=== PATIENT | male | born 1930 | race Caucasian/White ===

== ENCOUNTER 2016-10-17 20:32 | Emergency (ER) | payer OTHER ==
--- NOTE | 2016-10-17 20:39 | PDOC ---
History of Present Illness - General History Source: Patient, EMS, Family Exam Limitations: Dementia - History of Present Illness Initial Comments: 10/17/16 20:49 The patient is an 86 year old male with past medical history of Alzheimers disease who arrives to the ED via EMS for abnormal lab value. 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 The patient was instructed to come to the ER for further evaluation. In the ED, the patient is asymptomatic. The patient's son denies any recent illness, fever, chills, nausea , vomiting, diarrhea, cough, shortness of breath, or chest pain. He denies any urinary symptoms. PAST MEDICAL HISTORY: no significant history PAST SURGICAL HISTORY: no significant history FAMILY HISTORY: no pertinent history SOCIAL HISTORY: Pt lives alone but as per son, has frequent nurses and aides. MEDICATIONS: reviewed ALLERGIES: As per nursing notes Data Conversion Operator: Dr. Swift General: No fevers or chills, no weakness, no weight loss HEENT: No change in vision. No sore throat,. No ear pain CardioVascular: No chest pain or shortness of breath Respiratory:No cough, or wheezing. Gastrointestinal: no nausea, vomiting, diarrhea or constipation, No rectal bleeding Genitourinary: No dysuria, hematuria, or frequency Musculoskeletal: No joint or muscle pain or swelling Neurologic: No headache, vertigo, dizziness or loss of consciousness Psychiatric: nor depression Skin: No rashes or easy bruising Endocrine: no increased thirst or abnormal weight change Allergic: no skin or latex allergy All other systems reviewed and normal GENERAL: The patient is awake, alert, and fully oriented, in no acute distress. HEAD: Normal with no signs of trauma. EYES: Pupils equal, round and reactive to light, extraocular movements intact, sclera anicteric, conjunctiva clear. EXTREMITIES: Normal range of motion, no edema. PSYCH: Normal mood, normal affect. SKIN: Warm, Dry, normal turgor, no rashes or lesions noted. <Pushpa Baker - Last Filed: 10/17/16 20:51> - General History Source: Family Exam Limitations: Dementia - History of Present Illness Initial Comments: 10/17/16 21:13 A portion of this note was documented by scribe services under my direction. I have reviewed the details of the note, within reason, and agree with the documentation. The case summary and management plan written by me. This is an 86-year-old male brought in by son for evaluation of an elevated potassium. Patient had blood work done today and his potassium can back 5.7. His cloth colorer told him to come to the ER for evaluation. His repeat potassium was 5.4. EKG showed atrial fibrillation with left bundle branch block no peak T waves or acute ST-T wave changes. Called Dr. Villegas who is the covering doctor for his cloth colorer. Patient does have a left bundle branch block atrial fibrillation at his baseline as well as a renal insufficiency. Dr. Villegas feels patient can be discharged and let Dr. Leo note to follow-up with patient in the morning. <Jin Crawford I - Last Filed: 10/17/16 21:41> - General Chief Complaint: Revisit, Lab Variance Stated Complaint: K+ ELEVATED Time Seen by Provider: 10/17/16 20:38 Past History <Pushpa Baker - Last Filed: 10/17/16 20:51> - Past Medical History Cardiac Disorders: Yes (ATRIAL FIBRILLATION) CVA: Yes (01/2015) COPD: Yes CHF: No Dementia: Yes Diabetes: No HTN: No - Psycho/Social/Smoking Cessation Hx Anxiety: No Suicidal Ideation: No Smoking Status: Yes Smoking History: Former smoker Have you smoked in the past 12 months: No Number of Cigarettes Smoked Daily: 0 If you are a former smoker, when did you quit?: 50 years Hx Alcohol Use: Yes Drug/Substance Use Hx: No Substance Use Type: Alcohol <Jin Crawford I - Last Filed: 10/17/16 21:41> - Past Medical History Allergies/Adverse Reactions: Allergies Allergy/AdvReac Type Severity Reaction Status Date / Time Penicillins Allergy Hives Verified 10/29/15 15:51 Home Medications: Ambulatory Orders Donepezil HCl [Aricept] 10 mg PO DAILY 11/14/14 Quetiapine Fumarate [Seroquel -] 12.5 mg PO HS #14 tablet 02/21/15 Albuterol Sulfate Inhaler - [Ventolin HFA Inhaler -] 2 inh PO Q4H PRN #1 inh 04/13 Cefuroxime Axetil [Ceftin -] 500 mg PO BID #14 tablet 11/06/15 Docusate Sodium [Colace -] 100 mg PO TID capsule 11/06/15 Furosemide [Lasix -] 40 mg PO DAILY #30 tablet 11/06/15 Lactobacillus Acidophilus [Bacid -] 1 tab PO DAILY tab 11/06/15 Warfarin Na [Coumadin -] 1.5 mg PO DAILY #30 tablet 11/06/15 *Physical Exam - Vital Signs Last Vital Signs Temp Pulse Resp BP Pulse Ox 98 F 81 20 127/78 98 10/17/16 20:35 10/17/16 20:35 10/17/16 20:35 10/17/16 20:35 10/17/16 20:35 <Psuhpa Baker - Last Filed: 10/17/16 20:51> ED Treatment Course - LABORATORY CBC & Chemistry Diagram: 10/17/16 20:46 <Pushpa Baker - Last Filed: 10/17/16 20:51> - LABORATORY CBC & Chemistry Diagram: 10/17/16 20:46 <Jin Crawford I - Last Filed: 10/17/16 21:41> *DC/Admit/Observation/Transfer - Attestations Scribe Attestion: 10/17/16 20:50 Documentation prepared by Pushpa Baker, acting as emergency medical technician/driver for Jin Crawford MD. <Pushpa Baker - Last Filed: 10/17/16 20:51> - Discharge Dispostion Admit: No <Jin Crawford I - Last Filed: 10/17/16 21:41> Diagnosis at time of Disposition: Abnormal laboratory test result - Discharge Dispostion Disposition: HOME Condition at time of disposition: Stable - Referrals Referrals: STAFF,NOT ON [Primary Care Provider] - - Patient Instructions Additional Instructions: Your repeat potassium tonight was 5.4.. Call your doctor in the morning and follow-up with your doctor. Return to the emergency department immediately with ANY new, persistent or worsening symptoms. Continue any medications as previously prescribed by your physician. You should follow up with your primary doctor as soon as possible regarding today's emergency department visit. . Please make sure your doctor reviews the results of your emergency evaluation. Thank you for coming to the Emergency Department today for your care. It was a pleasure to see you today. Please note that your evaluation is INCOMPLETE until you follow-up with your doctor.
[2016-10-17 20:49] VITALS: BP 127/78; PULSE 81; TEMP 98; BMI 27.4
[2016-10-17 21:09] LABS: ANION GAP 9 (8-16); CO2 21 mmol/L (22-28); CREATININE 1.5 mg/dl (0.6-1.3); GLUCOSE,RANDOM 149 mg/dl (74-106)
--- NOTE | 2016-10-21 10:01 | EKG ---
Test Reason : Blood Pressure : / mmHG Vent. Rate : 093 BPM Atrial Rate : 085 BPM P-R Int : 000 ms QRS Dur : 158 ms QT Int : 418 ms P-R-T Axes : 000 -31 140 degrees QTc Int : 519 ms ATRIAL FIBRILLATION LEFT AXIS DEVIATION LEFT BUNDLE BRANCH BLOCK WHEN COMPARED WITH ECG OF 15-FEB-2015 10:01, ATRIAL FIBRILLATION HAS REPLACED SINUS RHYTHM QRS VOLTAGE HAS DECREASED Confirmed by MD KEVIN, CARLOS MANUEL ([id number]) on 10/21/2016 10:01:11 AM Referred By: MD LINDSEY Confirmed By:CARLOS MANUEL BROWN MD
== END 2016-10-17 21:51 | disposition home or self-care (01) ==
LOC: FER 20:32
DX: R79.9 Abnormal finding of blood chemistry, unspecified (principal); G30.9 Alzheimer's disease, unspecified; F02.80 Dementia in other diseases classified elsewhere, unspecified severity, without behavioral disturbance, psychotic disturbance, mood disturbance, and anxiety; I48.91 Unspecified atrial fibrillation; J44.9 Chronic obstructive pulmonary disease, unspecified; Z87.891 Personal history of nicotine dependence; Z86.73 Personal history of transient ischemic attack (TIA), and cerebral infarction without residual deficits
CPT/HCPCS: 36415; 80048; 93005; 99281-25

== ENCOUNTER 2016-11-25 14:49 | Inpatient (IN) | payer OTHER ==
--- NOTE | 2016-11-25 15:37 | PDOC ---
History of Present Illness - General History Source: Patient Exam Limitations: No Limitations - History of Present Illness Initial Comments: 11/25/16 16:14 The patient is a 86 year old male, with a significant past medical history of Alzheimer's disease, CVA (01/2015), COPD, Afib (on coumadin), and HTN , who presents to the emergency department s/p mechanical fall. The patients son reports the pt fell while seated at the end of the bed, he was able to be assisted to the bathroom with his son. He reports being able to get with assistance from his son, and has been unable to walk using his right hip since his fall. The fall was unwitnessed, but the patient's son reports hearing the fall and finsing the patient on the floor. There was no head injury, LOC as the son immediately arrived. The patient reports as a result of the fall having right hip pain, ranking his pain a 9/10 in pain intensity. He denies any recent fevers, chills, headache or dizziness. He denies any recent nausea, vomit, diarrhea or constipation. History and ROS may be limited due to dementia Allergies: Penicillins. Past surgical history: Denies any history of orthopedic surgery. Social History: Former smoker (over 40 years ago). Denies EtOH use and recreational drug use. Lives with son. <Gee Hernandez - Last Filed: 11/25/16 18:42> <Randy English - Last Filed: 11/25/16 19:45> - General Chief Complaint: Injury Stated Complaint: RT HIP, FELL OUT OF BED Time Seen by Provider: 11/25/16 14:59 Past History <Gee Hernandez - Last Filed: 11/25/16 18:42> - Past Medical History Cardiac Disorders: Yes (ATRIAL FIBRILLATION) CVA: Yes (01/2015) COPD: Yes CHF: No Dementia: Yes Diabetes: No HTN: No - Psycho/Social/Smoking Cessation Hx Anxiety: No Suicidal Ideation: No Smoking Status: Yes Smoking History: Former smoker Have you smoked in the past 12 months: No Number of Cigarettes Smoked Daily: 0 If you are a former smoker, when did you quit?: 50 years Information on smoking cessation initiated: No Hx Alcohol Use: No Drug/Substance Use Hx: No Substance Use Type: Alcohol <Randy English - Last Filed: 11/25/16 19:45> - Past Medical History Allergies/Adverse Reactions: Allergies Allergy/AdvReac Type Severity Reaction Status Date / Time Penicillins Allergy Hives Verified 11/25/16 14:50 Home Medications: Ambulatory Orders Donepezil HCl [Aricept] 10 mg PO DAILY 11/14/14 Quetiapine Fumarate [Seroquel -] 12.5 mg PO HS #14 tablet 02/21/15 Albuterol Sulfate Inhaler - [Ventolin HFA Inhaler -] 2 inh PO Q4H PRN #1 inh 04/13 Docusate Sodium [Colace -] 100 mg PO TID capsule 11/06/15 Furosemide [Lasix -] 40 mg PO DAILY #30 tablet 11/06/15 Lactobacillus Acidophilus [Bacid -] 1 tab PO DAILY tab 11/06/15 Warfarin Na [Coumadin -] 1.5 mg PO DAILY #30 tablet 11/06/15 Review of Systems - Review of Systems Able to Perform ROS?: No (Dementia) <Gee Hernandez - Last Filed: 11/25/16 18:42> *Physical Exam - Vital Signs Last Vital Signs Temp Pulse Resp BP Pulse Ox 97.8 F 68 21 136/64 90 L 11/25/16 14:50 11/25/16 14:50 11/25/16 14:50 11/25/16 14:50 11/25/16 14:50 - Physical Exam Comments: 11/25/16 16:14 GENERAL: The patient is awake, alert, and oriented x 2 Nontoxic - in no acute distress. HEAD: Normocephalic, atraumatic. EYES: extraocular movements intact, sclera anicteric, conjunctiva clear. ENT: Normal voice, Moist mucous membranes. NECK: Normal range of motion, supple LUNGS: Breath sounds equal, clear to auscultation bilaterally. No wheezes, no rhonchi, no rales. HEART: irregularly irergular ABDOMEN: Soft, nontender, normoactive bowel sounds. No guarding, no rebound. . No CVA tenderness EXTREMITIES: externally rotated shortend RLE, pulses/sensation intact distally, unable to ROM due to pain, normal movment of RLE/hip/knee, NEUROLOGICAL: No facial assymetry, Normal speech, PSYCH: Normal mood, normal affect. SKIN: Warm, Dry, normal turgor, <Gee Hernandez - Last Filed: 11/25/16 18:42> - Vital Signs Last Vital Signs Temp Pulse Resp BP Pulse Ox 97.8 F 68 21 136/64 90 L 11/25/16 14:50 11/25/16 14:50 11/25/16 14:50 11/25/16 14:50 11/25/16 14:50 <Randy English - Last Filed: 11/25/16 19:45> ED Treatment Course - LABORATORY CBC & Chemistry Diagram: 11/25/16 15:45 11/25/16 15:45 <Gee Hernandez - Last Filed: 11/25/16 18:42> - LABORATORY CBC & Chemistry Diagram: 11/25/16 15:45 11/25/16 15:45 - RADIOLOGY Radiology Studies Ordered: Category Date Time Status CHEST X-RAY PORTABLE* [RAD] Stat Radiology 11/25/16 15:33 Ordered HIP & PELVIS-RIGHT [RAD] Stat Radiology 11/25/16 15:33 Ordered <Randy English - Last Filed: 11/25/16 19:45> Medical Decision Making - Medical Decision Making 11/25/16 18:42 Call made to , case discussed. <Gee Hernandez - Last Filed: 11/25/16 18:42> - Medical Decision Making 11/25/16 15:34 86y M hx of dementia, afib on coumadin, copd (not on home o2), cva presents with R leg pain, per son pt was sitting on the bed when he felt to the right side, he was able to assist the pt to to the bathroom but hte pt was unable to get up on his own. no head injury per son who saw the fall. On exam the pt is noted to have external rotated and shortend R hip that seems very painful to any movement will r/o fx pt also noted to be in afib, with HR that ranged from the 40s-60s, bp was normal pts o2 sat was 90-93% on RA will obtain xra to r/o fx cxr to r/o pna vbg to eval for hypercapnea vs copd A portion of this note was documented by scribe services under my direction. I have reviewed the details of the note, within reason, and agree with the documentation with the following case summary and management plan written by me 11/25/16 18:24 xray suggestive of R femoral neck fx fracture, will admit for further management 11/25/16 18:[address] kapoor and dr. bagley will admit to dr. hernández service Case discussed in detail with admitting physician including history, physical exam and ancillary studies. Admitting physician has assumed care for the patient, will follow all pending diagnostics and will complete the evaluation and treatment. <Randy English - Last Filed: 11/25/16 19:45> *DC/Admit/Observation/Transfer - Attestations Scribe Attestion: 11/25/16 16:15 Documentation prepared by Gee Hernandez, acting as medical review specialist for Randy English MD. <Gee Hernandez - Last Filed: 11/25/16 18:42> - Discharge Dispostion Admit: Yes <Randy Egnlish - Last Filed: 11/25/16 19:45> Diagnosis at time of Disposition: Bradycardia Fractured femoral neck Qualifiers: Encounter type: initial encounter Fracture type: closed Laterality: right Qualified Code(s): S72.001A - Fracture of unspecified part of neck of right femur, initial encounter for closed fracture Atrial fibrillation Qualifiers: Atrial fibrillation type: chronic Qualified Code(s): I48.2 - Chronic atrial fibrillation - Discharge Dispostion Condition at time of disposition: Stable
[2016-11-25] MEDS ORDERED: morphine CARPU-JECT 2 MG/1 ML DISP.SYRIN ONE ×2 (15:40→17:53)
[2016-11-25 16:18] LABS: URINE APPEARANCE Clear; URINE BILIRUBIN Negative (NEGATIVE); URINE BLOOD Trace-intact (NEGATIVE); URINE GLUCOSE (UA) Negative (NEGATIVE); URINE KETONE Negative (NEGATIVE); URINE LEUK ESTERASE Negative (NEGATIVE); URINE NITRITE Negative (NEGATIVE); URINE UROBILINOGEN 1.0 E.U/dl (0.2-1.0)
[2016-11-25 16:19] LABS: URINE COLOR YELLOW; URINE PROTEIN 2+ (NEGATIVE)
[2016-11-25 16:23] LABS: BASOPHIL 0.5 % (0-2.0); EOSINOPHIL 1.6 % (0-4.5); MCH 30.3 pg (25.7-33.7); MCHC 32.8 g/dl (32.0-35.9); MEAN CELL VOLUME 92.5 fl (80-96); MEAN PLT VOLUME 8.4 fl (7.5-11.1); NEUTROPHILS 82.4 % (42.8-82.8); PLATELET COUNT 148 K/MM3 (134-434); RDW 19.1 % (11.9-15.9); WHITE BLOOD COUNT 5.8 K/mm3 (4.0-10.8)
[2016-11-25 16:33] LABS: ALBUMIN 2.9 g/dl (3.5-5.0); ALK PHOS 152 U/L (32-92); ANION GAP 7 (8-16); CO2 24 mmol/L (22-28); CREATININE 1.2 mg/dl (0.6-1.3); GLUCOSE,RANDOM 96 mg/dl (74-106); MAGNESIUM 2.1 mg/dL (1.8-2.4); SGOT/AST 32 U/L (10-42); SGPT/ALT 24 U/L (10-40)
[2016-11-25] MEDS ORDERED: morphine CARPU-JECT 2 MG/1 ML DISP.SYRIN IVPUSH ONE ×2 (16:43→17:52)
[2016-11-25 16:48] LABS: VENOUS BLOOD GAS HCO3 25.6 meq/L (22-26); VENOUS PH 7.36 (7.35-7.45)
[2016-11-25 16:51] LABS: INR 1.63 (0.82-1.09); PROTHROMBIN TIME (PATIENT) 18.1 SEC (10.2-13.0)
[2016-11-25 17:13] LABS: TROPONIN I (DFP) 0.05 ng/ml (0.03-0.50)
[2016-11-25] MEDS ORDERED: QUEtiapine FUMARATE 25 MG TABLET (FP) PO ONE (19:40)
[2016-11-25] MEDS ORDERED: QUEtiapine FUMARATE 25 MG TABLET (FP) ONE (19:53)
--- NOTE | 2016-11-25 19:57 | HP ---
CHIEF COMPLAINT: Non-ambulatory, Pain to R-leg PCP: HISTORY OF PRESENT ILLNESS: This is a 86 y/o male with a past medical history of: Hypertension, Afib (on Coumadin), COPD, Dementia. Who presents from home s/p mechanical fall non- ambulatory, pain to R-leg x today. Patient has Dementia unable to provide HPI. Per ED record: The patient's son reports the pt fell while seated at the end of the bed, he was able to be assisted to the bathroom with his son. He reports being able to get with assistance from his son, and has been unable to walk using his right hip since his fall. The fall was unwitnessed, but the patient's son reports hearing the fall and finding the patient on the floor. There was no head injury, LOC as the son immediately arrived. The patient reports as a result of the fall having right hip pain, ranking his pain a 9/10 in pain intensity. He denies any recent fevers, chills, headache or dizziness. He denies any recent nausea, vomit, diarrhea or constipation. ER course was notable for: (1) R- Hip/Pelvic Xray: Acute Right Hip Fx (2) INR 1.63 (3) Recent Travel: None PAST MEDICAL HISTORY: HTN Afib COPD Dementia PAST SURGICAL HISTORY: Social History: Smoking: Former Alcohol: Former Drugs: Unknown Family History: Non-Contributory Allergies Penicillins Allergy (Verified 11/25/16 14:50) Hives HOME MEDICATIONS: Home Medications Medication Instructions Recorded Donepezil HCl [Aricept] 10 mg PO DAILY 11/14/14 Quetiapine Fumarate [Seroquel -] 12.5 mg PO HS #14 tablet 02/21/15 Albuterol Sulfate Inhaler - 2 inh PO Q4H PRN #1 inh 11/06/15 [Ventolin HFA Inhaler -] Docusate Sodium [Colace -] 100 mg PO TID capsule 11/06/15 Furosemide [Lasix -] 40 mg PO DAILY #30 tablet 11/06/15 Lactobacillus Acidophilus [Bacid -] 1 tab PO DAILY tab 11/06/15 Warfarin Na [Coumadin -] 1.5 mg PO DAILY #30 tablet 11/06/15 REVIEW OF SYSTEMS CONSTITUTIONAL: Absent: fever, chills, diaphoresis, generalized weakness, malaise, loss of appetite, weight change HEENT: Absent: rhinorrhea, nasal congestion, throat pain, throat swelling, difficulty swallowing, mouth swelling, ear pain, eye pain, visual changes CARDIOVASCULAR: Absent: chest pain, syncope, palpitations, irregular heart rate, lightheadedness , peripheral edema RESPIRATORY: Absent: cough, shortness of breath, dyspnea with exertion, orthopnea, wheezing, stridor, hemoptysis GASTROINTESTINAL: Absent: abdominal pain, abdominal distension, nausea, vomiting, diarrhea, constipation, melena, hematochezia GENITOURINARY: Absent: dysuria, frequency, urgency, hesitancy, hematuria, flank pain, genital pain MUSCULOSKELETAL: Right Hip pain Absent: myalgia, arthralgia, joint swelling, back pain, neck pain SKIN: Absent: rash, itching, pallor HEMATOLOGIC/IMMUNOLOGIC: Absent: easy bleeding, easy bruising, lymphadenopathy, frequent infections ENDOCRINE: Absent: unexplained weight gain, unexplained weight loss, heat intolerance, cold intolerance NEUROLOGIC: Absent: headache, focal weakness or paresthesias, dizziness, unsteady gait, seizure, mental status changes, bladder or bowel incontinence PSYCHIATRIC: Absent: anxiety, depression, suicidal or homicidal ideation, hallucinations. PHYSICAL EXAMINATION Vital Signs - 24 hr 11/25/16 11/25/16 11/25/16 14:50 14:55 15:30 Temperature 97.8 F Pulse Rate 68 50 L Pulse Rate [ 48 L Left Apical] Respiratory 21 22 Rate Blood Pressure 136/64 Blood Pressure 104/55 [Right Arm] O2 Sat by Pulse 90 L 97 97 Oximetry (%) 11/25/16 16:30 Temperature Pulse Rate Pulse Rate [ 51 L Left Apical] Respiratory 21 Rate Blood Pressure Blood Pressure 124/70 [Right Arm] O2 Sat by Pulse 97 Oximetry (%) GENERAL: Awake, alert, oriented to name only, in no acute distress. HEAD: Normal with no signs of trauma. EYES: Pupils equal, round and reactive to light, extraocular movements intact, sclera anicteric, conjunctiva clear. No lid lag. EARS, NOSE, THROAT: Ears normal, nares patent, oropharynx clear without exudates. Dry mucous membranes. NECK: Normal range of motion, supple without lymphadenopathy, JVD, or masses. LUNGS: Breath sounds equal, clear to auscultation bilaterally. No wheezes, and no crackles. No accessory muscle use. HEART: Irregular rate and rhythm, normal S1 and S2 without murmur, rub or gallop. ABDOMEN: Soft, nontender, not distended, normoactive bowel sounds, no guarding, no rebound, no masses. No hepatomegaly or splenomegaly. MUSCULOSKELETAL: Normal range of motion at RUE, LUE, LLE joints. No bony deformities. No CVA tenderness. + Right hip tenderness, slight shortening noted UPPER EXTREMITIES: 2+ pulses, warm, well-perfused. No cyanosis. No clubbing. No peripheral edema. LOWER EXTREMITIES: 2+ pulses, warm, well-perfused. No calf tenderness. No peripheral edema. NEUROLOGICAL: Cranial nerves II-XII intact. Normal speech. Gait not observed. PSYCHIATRIC: Dementia at baseline SKIN: Warm, dry, normal turgor, no rashes or lesions noted, normal capillary refill. Laboratory Results - last 24 hr 11/25/16 11/25/16 11/25/16 15:45 15:45 15:45 WBC 5.8 RBC 3.84 L Hgb 11.6 L Hct 35.5 MCV 92.5 MCHC 32.8 RDW 19.1 H D Plt Count 148 D MPV 8.4 D Neutrophils % 82.4 Lymphocytes % 4.3 L D Monocytes % 11.2 H Eosinophils % 1.6 Basophils % 0.5 INR 1.63 H D VBG pH POC VBG pCO2 POC VBG pO2 Mixed VBG HCO3 Sodium 139 Potassium 4.3 D Chloride 108 H Carbon Dioxide 24 Anion Gap 7 L BUN 28 H D Creatinine 1.2 Creat Clearance w eGFR 57.27 Random Glucose 96 D Calcium 9.0 Magnesium 2.1 Total Bilirubin 2.0 H D AST 32 D ALT 24 Alkaline Phosphatase 152 H Creatine Kinase Troponin I Total Protein 7.0 D Albumin 2.9 L D Urine Color Urine Appearance Urine pH Ur Specific [place] Urine Protein Urine Glucose (UA) Urine Ketones Urine Blood Urine Nitrite Urine Bilirubin Urine Urobilinogen Ur Leukocyte Esterase Blood Type Antibody Screen 11/25/16 11/25/16 11/25/16 15:45 15:45 15:45 WBC RBC Hgb Hct MCV MCHC RDW Plt Count MPV Neutrophils % Lymphocytes % Monocytes % Eosinophils % Basophils % INR VBG pH 7.36 POC VBG pCO2 46.0 H POC VBG pO2 38.8 L* Mixed VBG HCO3 25.6 Sodium Potassium Chloride Carbon Dioxide Anion Gap BUN Creatinine Creat Clearance w eGFR Random Glucose Calcium Magnesium Total Bilirubin AST ALT Alkaline Phosphatase Creatine Kinase 49 Troponin I 0.05 Total Protein Albumin Urine Color Yellow Urine Appearance Clear Urine pH 5.0 Ur Specific [place] 1.015 Urine Protein 2+ H Urine Glucose (UA) Negative Urine Ketones Negative Urine Blood Trace-intact Urine Nitrite Negative Urine Bilirubin Negative Urine Urobilinogen 1.0 e.u/dl Ur Leukocyte Esterase Negative Blood Type Antibody Screen 11/25/16 11/25/16 16:03 18:58 WBC RBC Hgb Hct MCV MCHC RDW Plt Count MPV Neutrophils % Lymphocytes % Monocytes % Eosinophils % Basophils % INR VBG pH POC VBG pCO2 POC VBG pO2 Mixed VBG HCO3 Sodium Potassium Chloride Carbon Dioxide Anion Gap BUN Creatinine Creat Clearance w eGFR Random Glucose Calcium Magnesium Total Bilirubin AST ALT Alkaline Phosphatase Creatine Kinase Troponin I Total Protein Albumin Urine Color Urine Appearance Urine pH Ur Specific [place] Urine Protein Urine Glucose (UA) Urine Ketones Urine Blood Urine Nitrite Urine Bilirubin Urine Urobilinogen Ur Leukocyte Esterase Blood Type AB POSITIVE AB POSITIVE Antibody Screen Negative ASSESSMENT/PLAN: This is a 86 y/o male with a PMHx of: HTN, Afib (on Coumadin), COPD, Dementia. Who presents with a mechanical fall, non-ambulatory, pain to R- hip. Admitted for R- Femoral Neck Fx for further evaluation for their emergent condition. 1. Ortho: R- Hip Fx - Xray R- Hip/Pelvis: Acute right hip Fx - Appreciate Ortho Consult - Bedrest - Pain Management: Morphine prn - CBC, BMP in am - Monitor vitals 2. Cardiology: Afib//HTN - Tele monitor - [id number] Score 3 - EKG reviewed - Appreciate Cardiology Consult for Afib/Bradycardia, pre-op clearance - CE neg x1 - Serial Enzymes - Continue home meds 3. Subtherapuetic INR - Continue Coumadin - Series INR 4. Leukocytosis - Likely secondary to inflammatory process - Monitor CBC 5. Pulm: COPD - Controlled - Continue home med - Duonebs prn - O2 - Chest Xray- reviewed 6. Psych: Dementia - Continue Aricept, Seroquel 7. FEN - D5 / NS@60cc/hr - Replete lytes prn - NPO until cleared by ortho Code Status: Full Code Dispo: Requires Inpatient Care Problem List - Problem (1) Fractured femoral neck Code(s): S72.009A - FRACTURE OF UNSP PART OF NECK OF UNSP FEMUR, INIT Qualifiers: Encounter type: initial encounter Fracture type: closed Laterality : right Qualified Code(s): S72.001A - Fracture of unspecified part of neck of right femur, initial encounter for closed fracture (2) Atrial fibrillation Code(s): I48.91 - UNSPECIFIED ATRIAL FIBRILLATION Qualifiers: Atrial fibrillation type: chronic Qualified Code(s): I48.2 - Chronic atrial fibrillation (3) Bradycardia Code(s): R00.1 - BRADYCARDIA, UNSPECIFIED (4) Subtherapeutic international normalized ratio (INR) Code(s): R79.1 - ABNORMAL COAGULATION PROFILE (5) Leukocytosis Code(s): D72.829 - ELEVATED WHITE BLOOD CELL COUNT, UNSPECIFIED (6) Dementia Code(s): F03.90 - UNSPECIFIED DEMENTIA WITHOUT BEHAVIORAL DISTURBANCE (7) COPD (chronic obstructive pulmonary disease) Code(s): J44.9 - CHRONIC OBSTRUCTIVE PULMONARY DISEASE, UNSPECIFIED (8) DVT prophylaxis Code(s): WAD0555 - Visit type - Emergency Visit Emergency Visit: Yes ED Registration Date: 11/25/16 Care time: The patient presented to the Emergency Department on the above date and was hospitalized for further evaluation of their emergent condition. - New Patient This patient is new to me today: Yes Date on this admission: 11/25/16 - Critical Care Critical Care patient: No
[2016-11-25 20:56] VITALS: BMI 25.0
[2016-11-25] MEDS ORDERED: LORAZEPAM CARPU-JECT 2 MG/ML DISP.SYRIN IVPUSH ONE (21:51)
[2016-11-25 22:56] LABS: URINE BACTERIA FEW /hpf (NEGATIVE); URINE WBC 0-2 (3-5)
[2016-11-25 23:05] LABS: TROPONIN I (DFP) 0.05 ng/ml (0.03-0.50)
[2016-11-25 23:12] LABS: ANISOCYTOSIS 2+; PLATELET ESTIMATE ADEQUATE (NORMAL)
[2016-11-25] MEDS ORDERED: ALBUTEROL SO4 2.5/IPRATROPIUM 0.5 INH SOL 3 ML VIAL.NEB. NEB PRN (23:34)
[2016-11-25] MEDS ORDERED: DEXTROSE 5%-0.45% SALINE 1,000 ML IV SCH (23:45)
[2016-11-26 05:55] LABS: TROPONIN I 0.1 ng/ml (0.00-0.05)
--- NOTE | 2016-11-26 07:23 | PN ---
Physical Exam: SUBJECTIVE: Patient seen and examined, patient is confused, reports ongoing pain to the right anterior hip. OBJECTIVE: patient is a 86 y/o male with a past medical history of: Hypertension , Afib (on Coumadin), COPD, and Dementia. patient was admitted from the emergency department s/p mechanical fall and right femoral neck fracture. Vital Signs Period Temp Pulse Resp BP Sys/Kemp Pulse Ox Last 24 Hr 97.4 F-97.9 F 54-72 20-20 119-148/54-69 94-95 GENERAL: The patient is awake, alert, and oriented x 1, anxious. HEAD: Normal with no signs of trauma. EYES: PERRL, extraocular movements intact, sclera anicteric, conjunctiva clear. No ptosis. ENT: Ears normal, nares patent, oropharynx clear without exudates, moist mucous membranes. NECK: Trachea midline, full range of motion, supple. LUNGS: Breath sounds equal, clear to auscultation bilaterally, no wheezes, no crackles, no accessory muscle use. HEART: Irregular rate and rhythm, S1, S2 without murmur, rub or gallop. ABDOMEN: Soft, nontender, nondistended, normoactive bowel sounds, no guarding, no rebound, no hepatosplenomegaly, no masses. EXTREMITIES: 2+ pulses, warm, well-perfused, no edema. RIGHT LOWER EXTREMITY: externally rotated and shortened, less than 3 second capillary refill, + 3 pedal pulse. point tenderness noted to the right anterior hip NEUROLOGICAL: Cranial nerves II through XII grossly intact. Normal speech, gait not observed. PSYCH: Normal mood, normal affect. SKIN: Warm, dry, normal turgor, no rashes or lesions noted Laboratory Results - last 24 hr CBC WBC 7.6 K/mm3 (4.0-10.8) D 11/26/16 07:00 RBC 3.42 M/mm3 (4.00-5.60) L 11/26/16 07:00 Hgb 10.3 GM/dl (11.7-16.9) L D 11/26/16 07:00 Hct 31.5 % (35.4-49) L 11/26/16 07:00 MCV 92.4 fl (80-96) 11/26/16 07:00 MCHC 32.8 g/dl (32.0-35.9) 11/26/16 07:00 RDW 18.0 % (11.9-15.9) H 11/26/16 07:00 Plt Count 127 K/MM3 (134-434) L 11/26/16 07:00 MPV 8.4 fl (7.5-11.1) 11/26/16 07:00 Neutrophils % 84.9 % (42.8-82.8) H 11/26/16 07:00 Lymphocytes % 3.2 % (8-40) L D 11/26/16 07:00 Monocytes % 11.2 % (3.8-10.2) H 11/26/16 07:00 Eosinophils % 0.2 % (0-4.5) D 11/26/16 07:00 Basophils % 0.5 % (0-2.0) 11/26/16 07:00 Platelet Estimate Adequate (NORMAL) 11/25/16 15:45 Anisocytosis 2+ 11/25/16 15:45 Macrocytosis 1+ 11/25/16 15:45 Morphology Comment Slide scanned 11/25/16 15:45 CMP Sodium 142 mmol/L (136-145) 11/26/16 07:00 Potassium 4.2 mmol/L (3.5-5.1) 11/26/16 07:00 Chloride 110 mmol/L (98-107) H 11/26/16 07:00 Carbon Dioxide 26 mmol/L (22-28) 11/26/16 07:00 Anion Gap 6 (8-16) L 11/26/16 07:00 BUN 28 mg/dl (7-18) H 11/26/16 07:00 Creatinine 1.2 mg/dl (0.6-1.3) 11/26/16 07:00 Creat Clearance w eGFR 57.27 (>60) 11/25/16 15:45 Random Glucose 130 mg/dl (74-106) H D 11/26/16 07:00 Calcium 8.7 mg/dl (8.4-10.2) 11/26/16 07:00 Phosphorus 3.4 mg/dl (2.5-4.6) 11/26/16 07:00 Magnesium 2.0 mg/dL (1.8-2.4) 11/26/16 07:00 Total Bilirubin 2.0 mg/dl (0.2-1.0) H D 11/25/16 15:45 AST 32 U/L (10-42) D 11/25/16 15:45 ALT 24 U/L (10-40) 11/25/16 15:45 Alkaline Phosphatase 152 U/L (32-92) H 11/25/16 15:45 Creatine Kinase 93 IU/L (39-308) 11/26/16 05:00 Troponin I 0.10 ng/ml (0.00-0.05) H D 11/26/16 05:00 Total Protein 7.0 g/dl (6.4-8.3) D 11/25/16 15:45 Albumin 2.9 g/dl (3.5-5.0) L D 11/25/16 15:45 Laboratory Tests 11/25/16 11/25/16 11/26/16 15:45 22:15 05:00 Troponin I 0.05 0.05 0.10 H D Active Medications Generic Name Dose Route Start Last Admin Trade Name Freq PRN Reason Stop Dose Admin Acetaminophen 650 mg 11/26/16 09:03 Tylenol - PO Q4H PRN FEVER OR PAIN Albuterol/Ipratropium 1 amp 11/25/16 23:34 Duoneb - NEB Q6H PRN SHORTNESS OF BREATH Docusate Sodium 100 mg 11/26/16 14:00 Colace - PO TID [facility] Donepezil HCl 10 mg 11/26/16 10:00 Aricept - PO DAILY [facility] Dextrose/Sodium Chloride 1,000 mls @ 60 mls/hr 11/25/16 23:45 11/26/16 07:49 D5-1/2ns - IV Not Given ASDIR [facility] Lactobacillus Acidophilus 1 tab 11/26/16 10:00 Bacid - PO DAILY [facility] Morphine Sulfate 2 mg 11/26/16 09:03 Morphine Injection - IVPUSH Q4H PRN PAIN Quetiapine Fumarate 12.5 mg 11/26/16 22:00 Seroquel - PO HS [facility] Ranitidine HCl 150 mg 11/26/16 10:00 Zantac - PO DAILY [facility] Warfarin Sodium 1.5 mg 11/26/16 18:00 Coumadin - PO DAILY@1800 [facility] IMAGING xray of right hip/pelvis: right femoral neck fracture chest xray: billateral effusions, ? right infilitrate CT of chest: large billateral pleural effusions L>R, vascular congestion suggestive of CHF ASSESSMENT/PLAN: 1. Ortho: right femoral neck fracture - prn pain medication - ortho (Malcolm/ [facility]MA [facility]) consulted and following 2) card afib - rate controlled, continuos cardiac monitoring - troponin 0.16 borderline elevation, repeat troponin at 1600 to trend - hold coumadin-->lovenox 60mg bid as per cardiology ([facility]) acute on chronic systolic congestive heart failure - ct scan of chest, moderate pulmonary vascular congestion-->lasix 40mg bid - echo 11/11 reviewed, EF 35-40%, pulmonary hypertension, moderate MR and TR, echo pending - monitor I/O and daily weight - bnp ordered will trend hypertension - start loosartan monitor K - b/p at goal 3) pulm copd -no acute excerbation at this time - continue prn duonebs - supplemental o2 to keep spo2 above 92% 4) psych dementia - continue aricept and seroquel F/E/N - soft diet - replete lytes prn ppx - lovenox - zantac - scd/drew - incentive spirometer dispo: requires inpatient telemetry code: full code Visit type - Emergency Visit Emergency Visit: Yes ED Registration Date: 11/25/16 Care time: The patient presented to the Emergency Department on the above date and was hospitalized for further evaluation of their emergent condition. - New Patient This patient is new to me today: Yes Date on this admission: 11/26/16 - Critical Care Critical Care patient: No - Discharge Referral Referred to [facility] Med P.C.: No
--- NOTE | 2016-11-26 08:13 | CON.ORTH ---
Consult Reason for Consultation:: right hip fx - Past Medical History [employer]: Yes: CVA (pe 01/2015 brain MRI), Dementia Cardio/Vascular: Yes: AFIB (chronic), CHF, HTN Pulmonary: Yes: COPD Psych: Yes: Depression, Other (h/o alcohol abuse) - Past Surgical History Past Surgical History: Yes: Colectomy (hemicolectomy) - Alcohol/Substance Use Hx Alcohol Use: No - Smoking History Smoking history: Former smoker Have you smoked in the past 12 months: No Aproximately how many cigarettes per day: 0 If you are a former smoker, when did you quit?: 50 years - Social History Usual Living Arrangement: With Significant Other ADL: Family Assistance History of Recent Travel: No Home Medications - Allergies Allergies/Adverse Reactions: Allergies Allergy/AdvReac Type Severity Reaction Status Date / Time Penicillins Allergy Hives Verified 11/25/16 14:50 - Home Medications Home Medications: Ambulatory Orders Donepezil HCl [Aricept] 10 mg PO DAILY 11/14/14 Quetiapine Fumarate [Seroquel -] 12.5 mg PO HS #14 tablet 02/21/15 Albuterol Sulfate Inhaler - [Ventolin HFA Inhaler -] 2 inh PO Q4H PRN #1 inh 04/13 Docusate Sodium [Colace -] 100 mg PO TID capsule 11/06/15 Furosemide [Lasix -] 40 mg PO DAILY #30 tablet 11/06/15 Lactobacillus Acidophilus [Bacid -] 1 tab PO DAILY tab 11/06/15 Warfarin Na [Coumadin -] 1.5 mg PO DAILY #30 tablet 11/06/15 Physical Exam for Ortho Vital Signs: Vital Signs Temperature 97.9 F 11/26/16 06:00 Pulse Rate 69 11/26/16 06:00 Respiratory Rate 20 11/26/16 06:00 Blood Pressure 119/57 11/26/16 06:00 O2 Sat by Pulse Oximetry (%) 94 L 11/26/16 06:00 Labs: INR, PTT INR 1.63 (0.82-1.09) H D 11/25/16 15:45 - Lower Extremity Hip: Yes: Right, Decreased ROM, Leg Externally Rotated, Leg Shortened, Pain, Swelling, Other (nvi) Imaging - Results X-ray: Report Reviewed, Image Reviewed Assessment/Plan 86 y/o male with a past medical history of: Hypertension, Afib (on Coumadin), COPD, Dementia. Who presents from home s/p mechanical fall non-ambulatory, pain to R-leg x today. Patient has Dementia unable to provide HPI. Per ED record: The patient's son reports the pt fell while seated at the end of the bed, he was able to be assisted to the bathroom with his son. He reports being able to get with assistance from his son, and has been unable to walk using his right hip since his fall. The fall was unwitnessed, but the patient's son reports hearing the fall and finding the patient on the floor. There was no head injury , LOC as the son immediately arrived. The patient reports as a result of the fall having right hip pain, ranking his pain a 9/10 in pain intensity. He denies any recent fevers, chills, headache or dizziness. He denies any recent nausea, vomit, diarrhea or constipation. a/p- right femoral neck fx- displaced Will require right hip jackie will discuss with son OR today/tomorrow pending clearance NPO Surgical clearance and consent d/w Dr. Polanco
[2016-11-26 08:25] LABS: BASOPHIL 0.5 % (0-2.0); EOSINOPHIL 0.2 % (0-4.5); MCH 30.3 pg (25.7-33.7); MCHC 32.8 g/dl (32.0-35.9); MEAN CELL VOLUME 92.4 fl (80-96); MEAN PLT VOLUME 8.4 fl (7.5-11.1); NEUTROPHILS 84.9 % (42.8-82.8); PLATELET COUNT 127 K/MM3 (134-434); WHITE BLOOD COUNT 7.6 K/mm3 (4.0-10.8)
[2016-11-26 08:33] LABS: ANION GAP 6 (8-16); CALCIUM 8.7 mg/dl (8.4-10.2); CO2 26 mmol/L (22-28); CREATININE 1.2 mg/dl (0.6-1.3); GLUCOSE,RANDOM 130 mg/dl (74-106); PHOSPHOROUS 3.4 mg/dl (2.5-4.6)
[2016-11-26 09:22] LABS: ALBUMIN 2.6 g/dl (3.5-5.0); BILIRUBIN,DIRECT 0.7 mg/dl (0.0-0.2); BILIRUBIN,TOTAL 2.4 mg/dl (0.2-1.0); PHOSPHOROUS 3.5 mg/dl (2.5-4.6)
[2016-11-26] MEDS: LACTOBACILLUS ACIDOPHILUS 1 EACH TAB (FP) PO SCH (09:25)
[2016-11-26] MEDS: DONEPEZIL HCL 10 MG TABLET (FP) PO SCH (09:26)
[2016-11-26] MEDS: RANITIDINE HCL 150 MG TABLET (FP) PO SCH (09:26)
--- NOTE | 2016-11-26 10:29 | EKG ---
Test Reason : Blood Pressure : / mmHG Vent. Rate : 059 BPM Atrial Rate : 049 BPM P-R Int : 000 ms QRS Dur : 166 ms QT Int : 550 ms P-R-T Axes : 000 -23 141 degrees QTc Int : 544 ms ATRIAL FIBRILLATION WITH SLOW VENTRICULAR RESPONSE LEFT BUNDLE BRANCH BLOCK ABNORMAL ECG WHEN COMPARED WITH ECG OF 17-OCT-2016 21:34, VENT. RATE HAS DECREASED BY 34 BPM Confirmed by FELICIA HOPE MD ([id number]) on 11/26/2016 10:28:51 AM Referred By: DR KEARNS Confirmed By:FELICIA HOPE MD
--- NOTE | 2016-11-26 11:03 | CON.CARD ---
Consult Consult Specialty:: Cardiology Referred by:: Hospitalist Medicine Reason for Consultation:: Pre-operative cardiovascular evaluation - History of Present Illness Chief Complaint: Post fall and right hip fracture History of Present Illness: 86 yo male with vascular dementia, chronic atrial fibrillation (on coumadin), hyperlipidemia, systolic dysfunction, chronic LBBB, HTN/HCVD and prior CVA admitted s/p mechanical fall pain to right leg referable to displaced right femoral neck fracture. He is a poor historian, but denies syncope, palpitations , chest tightness, orthopnea, PND or LE edema. 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: CVA (pe 01/2015 brain MRI), Dementia Cardio/Vascular: Yes: AFIB (chronic), CHF, HTN Pulmonary: Yes: COPD Psych: Yes: Depression, Other (h/o alcohol abuse) - Past Surgical History Past Surgical History: Yes: Colectomy (hemicolectomy) - Alcohol/Substance Use Hx Alcohol Use: No - Smoking History Smoking history: Former smoker Have you smoked in the past 12 months: No Aproximately how many cigarettes per day: 0 If you are a former smoker, when did you quit?: 50 years - Social History Usual Living Arrangement: With Significant Other ADL: Family Assistance History of Recent Travel: No Home Medications - Allergies Allergies/Adverse Reactions: Allergies Allergy/AdvReac Type Severity Reaction Status Date / Time Penicillins Allergy Hives Verified 11/25/16 14:50 - Home Medications Home Medications: Ambulatory Orders Donepezil HCl [Aricept] 10 mg PO DAILY 11/14/14 Quetiapine Fumarate [Seroquel -] 12.5 mg PO HS #14 tablet 02/21/15 Albuterol Sulfate Inhaler - [Ventolin HFA Inhaler -] 2 inh PO Q4H PRN #1 inh 04/13 Docusate Sodium [Colace -] 100 mg PO TID capsule 11/06/15 Furosemide [Lasix -] 40 mg PO DAILY #30 tablet 11/06/15 Lactobacillus Acidophilus [Bacid -] 1 tab PO DAILY tab 11/06/15 Warfarin Na [Coumadin -] 1.5 mg PO DAILY #30 tablet 11/06/15 Review of Systems Unable to obtain ROS, reason: Dementia Vital Signs: Vital Signs Temperature 97.9 F 11/26/16 06:00 Pulse Rate 69 11/26/16 06:00 Respiratory Rate 20 11/26/16 06:00 Blood Pressure 119/57 11/26/16 06:00 O2 Sat by Pulse Oximetry (%) 94 L 11/26/16 06:00 Constitutional: Yes: No Distress, Calm Neck: Yes: Supple Respiratory: Yes: Regular, Diminished, On Nasal O2 Gastrointestinal: Yes: Normal Bowel Sounds, Soft Cardiovascular: Yes: Bradycardia, Pulse Irregular JVD: No Carotid Bruit: No Heart Sounds: Yes: S1, S2 Murmur: Yes: Systolic Murmur, Grade 2 Extremities: Yes: External Rotation, Shortened Edema: No - Other Data Labs, Other Data: CBC, BMP 11/26/16 07:00 11/26/16 07:00 INR, PTT INR 1.63 (0.82-1.09) H D 11/25/16 15:45 Troponin, BNP 11/25/16 11/26/16 22:15 05:00 Troponin I 0.05 0.10 H D Troponin, BNP 11/25/16 11/26/16 22:15 05:00 Troponin I 0.05 0.10 H D Imaging - Results X-ray: Report Reviewed (Right femoral neck fracture) Cat Scan: Report Reviewed (Congestion, right>left effusioon) EKG: Report Reviewed (Afib @ 59 LBBB) Problem List - Problems (1) Atrial fibrillation Code(s): I48.91 - UNSPECIFIED ATRIAL FIBRILLATION Qualifiers: Atrial fibrillation type: chronic Qualified Code(s): I48.2 - Chronic atrial fibrillation (2) Fractured femoral neck Code(s): S72.009A - FRACTURE OF UNSP PART OF NECK OF UNSP FEMUR, INIT Qualifiers: Encounter type: initial encounter Fracture type: closed Laterality : right Qualified Code(s): S72.001A - Fracture of unspecified part of neck of right femur, initial encounter for closed fracture (3) Subtherapeutic international normalized ratio (INR) Code(s): R79.1 - ABNORMAL COAGULATION PROFILE (4) Dementia Code(s): F03.90 - UNSPECIFIED DEMENTIA WITHOUT BEHAVIORAL DISTURBANCE Qualifiers: Dementia type: vascular dementia Dementia behavioral disturbance: without behavioral disturbance Qualified Code(s): F01.50 - Vascular dementia without behavioral disturbance (5) Cerebrovascular disease Code(s): I67.9 - CEREBROVASCULAR DISEASE, UNSPECIFIED (6) Acute on chronic systolic (congestive) heart failure Code(s): I50.23 - ACUTE ON CHRONIC SYSTOLIC (CONGESTIVE) HEART FAILURE (7) Subendocardial ischemia Code(s): I24.8 - OTHER FORMS OF ACUTE ISCHEMIC HEART DISEASE (8) Hypertensive cardiovascular disease Code(s): I11.9 - HYPERTENSIVE HEART DISEASE WITHOUT HEART FAILURE Qualifiers: Heart failure presence: with heart failure Qualified Code(s): I11.0 - Hypertensive heart disease with heart failure (9) Pre-operative cardiovascular examination Code(s): Z01.810 - ENCOUNTER FOR PREPROCEDURAL CARDIOVASCULAR EXAMINATION (10) Pleural effusion due to CHF (congestive heart failure) Code(s): I50.9 - HEART FAILURE, UNSPECIFIED (11) Pulmonary hypertension Code(s): I27.2 - OTHER SECONDARY PULMONARY HYPERTENSION Assessment/Plan 10/31/15 Echocardiogram: Normal LV size and moderate global hypokinesis, LVEF 35- 40%. Mild LAE. Trace AR. Mod MR. Mod TR. Mild ID. Mod pulm HTN with PASP 51 mmHg. 1. Pre-operative cardiovascular evaluation prior to right hip hemiarthroplasty 2. Acute on chronic systolic failure with pleural effusions and pulm HTN 3. Persistent afib with subtherapeutic INR 4. HTN/HCVD 5. Subendocardial ischemia 6. Vascular dementia with cerebrovascular disease P:1. Defer surgery until patient's volume status improves 2. IV diuresis with monitor diuretic response, renal fxn and electrolytes 3. D/c coumadin and start Lovenox 60 bid pending surgery, resume lisinopril 10 qd, carvedilol 3.125 bid once volume status improves 4. Resume coumadin per INR once post-op hemostasis has been achieved 5. Check BNP, echo to assess LV and valve fxn, trops to monitor peak, TSH 6. Thank you for consultative opportunity. Patient will need further cardiac evaluation as outpatient with his energy sales broker (Dr. Clayton Swift) with regard to his CHF. However, his current comorbidities (dementia) will determine extent of further evaluation/intervention.
[2016-11-26] MEDS ORDERED: FUROSEMIDE 40 MG/4 ML INJECTABLE VIAL IVPUSH SCH (11:45)
[2016-11-26] MEDS ORDERED: LISINOPRIL 10 MG TABLET (FP) PO SCH (11:45)
[2016-11-26 11:50] LABS: INR 2.06 (0.82-1.09); PROTHROMBIN TIME (PATIENT) 22.7 SEC (10.2-13.0)
[2016-11-26 12:13] LABS: TROPONIN I (DFP) 0.16 ng/ml (0.03-0.50)
[2016-11-26] MEDS: FUROSEMIDE 40 MG/4 ML INJECTABLE VIAL IVPUSH SCH ×2 (12:14→16:34)
[2016-11-26] MEDS: ENOXAPARIN NA (PORCINE) 60 MG/0.6 ML DISP.SYRIN SQ SCH (12:14)
[2016-11-26] MEDS: LOSARTAN POTASSIUM 25 MG TABLET PO SCH (12:14)
[2016-11-26] MEDS: DOCUSATE SODIUM 100 MG CAPSULE (FP) PO SCH ×2 (13:13→21:12)
[2016-11-26] MEDS: morphine CARPU-JECT 2 MG/1 ML DISP.SYRIN IVPUSH PRN (16:34)
[2016-11-26 17:55] LABS: TROPONIN I (DFP) 0.13 ng/ml (0.03-0.50)
[2016-11-26] MEDS ORDERED: WARFARIN NA 1 MG TABLET (FP) PO SCH (18:00)
[2016-11-26] MEDS: QUEtiapine FUMARATE 25 MG TABLET (FP) PO SCH (21:12)
[2016-11-26] MEDS: ACETAMINOPHEN 325 MG TABLET (FP) PO PRN (21:13)
[2016-11-27] MEDS: FUROSEMIDE 40 MG/4 ML INJECTABLE VIAL IVPUSH SCH ×2 (06:03→14:30)
[2016-11-27] MEDS: DOCUSATE SODIUM 100 MG CAPSULE (FP) PO SCH ×3 (06:04→21:17)
[2016-11-27 09:05] LABS: ANION GAP 8 (8-16); CALCIUM 8.8 mg/dl (8.4-10.2); CO2 25 mmol/L (22-28); CREATININE 1.3 mg/dl (0.6-1.3); GLUCOSE,RANDOM 88 mg/dl (74-106)
--- NOTE | 2016-11-27 09:10 | PN ---
Progress Note, Physician History of Present Illness: Episodes of confusion, undergoing diuresis. - Current Medication List Current Medications: Active Medications Acetaminophen (Tylenol -) 650 mg PO Q4H PRN PRN Reason: FEVER OR PAIN Last Admin: 11/26/16 21:13 Dose: 650 mg Albuterol/Ipratropium (Duoneb -) 1 amp NEB Q6H PRN PRN Reason: SHORTNESS OF BREATH Docusate Sodium (Colace -) 100 mg PO TID [facility] Last Admin: 11/27/16 06:04 Dose: 100 mg Donepezil HCl (Aricept -) 10 mg PO DAILY [facility] Last Admin: 11/26/16 09:26 Dose: 10 mg Enoxaparin Sodium (Lovenox -) 60 mg SQ Q12H [facility] Last Admin: 11/26/16 12:14 Dose: 60 mg Furosemide (Lasix Injection -) 40 mg IVPUSH BID@0600,1400 [facility] Last Admin: 11/27/16 06:03 Dose: 40 mg Lactobacillus Acidophilus (Bacid -) 1 tab PO DAILY [facility] Last Admin: 11/26/16 09:25 Dose: 1 tab Losartan Potassium (Cozaar -) 25 mg PO DAILY [facility] Last Admin: 11/26/16 12:14 Dose: 25 mg Morphine Sulfate (Morphine Injection -) 2 mg IVPUSH Q4H PRN PRN Reason: PAIN Last Admin: 11/26/16 16:34 Dose: 2 mg Quetiapine Fumarate (Seroquel -) 12.5 mg PO HS [facility] Last Admin: 11/26/16 21:12 Dose: 12.5 mg Ranitidine HCl (Zantac -) 150 mg PO DAILY [facility] Last Admin: 11/26/16 09:26 Dose: 150 mg - Objective Vital Signs: Vital Signs Temperature 98.0 F 11/27/16 06:35 Pulse Rate 80 11/27/16 06:35 Respiratory Rate 18 11/27/16 06:35 Blood Pressure 112/69 11/27/16 06:35 O2 Sat by Pulse Oximetry (%) 96 11/27/16 08:49 Constitutional: Yes: No Distress, Calm Neck: Yes: Supple Cardiovascular: Yes: Pulse Irregular Respiratory: Yes: Regular, Diminished, On Nasal O2 Gastrointestinal: Yes: Normal Bowel Sounds, Soft Edema: No Labs: CBC, BMP 11/26/16 07:00 INR, PTT INR 2.06 (0.82-1.09) H 11/26/16 11:00 Problem List - Problems (1) Atrial fibrillation Code(s): I48.91 - UNSPECIFIED ATRIAL FIBRILLATION Qualifiers: Atrial fibrillation type: chronic Qualified Code(s): I48.2 - Chronic atrial fibrillation (2) Fractured femoral neck Code(s): S72.009A - FRACTURE OF UNSP PART OF NECK OF UNSP FEMUR, INIT Qualifiers: Encounter type: initial encounter Fracture type: closed Laterality : right Qualified Code(s): S72.001A - Fracture of unspecified part of neck of right femur, initial encounter for closed fracture (3) Dementia Code(s): F03.90 - UNSPECIFIED DEMENTIA WITHOUT BEHAVIORAL DISTURBANCE Qualifiers: Dementia type: vascular dementia Dementia behavioral disturbance: without behavioral disturbance Qualified Code(s): F01.50 - Vascular dementia without behavioral disturbance (4) Cerebrovascular disease Code(s): I67.9 - CEREBROVASCULAR DISEASE, UNSPECIFIED (5) Acute on chronic systolic (congestive) heart failure Code(s): I50.23 - ACUTE ON CHRONIC SYSTOLIC (CONGESTIVE) HEART FAILURE (6) Subendocardial ischemia Code(s): I24.8 - OTHER FORMS OF ACUTE ISCHEMIC HEART DISEASE (7) Hypertensive cardiovascular disease Code(s): I11.9 - HYPERTENSIVE HEART DISEASE WITHOUT HEART FAILURE Qualifiers: Heart failure presence: with heart failure Qualified Code(s): I11.0 - Hypertensive heart disease with heart failure (8) Pre-operative cardiovascular examination Code(s): Z01.810 - ENCOUNTER FOR PREPROCEDURAL CARDIOVASCULAR EXAMINATION (9) Pleural effusion due to CHF (congestive heart failure) Code(s): I50.9 - HEART FAILURE, UNSPECIFIED (10) Pulmonary hypertension Code(s): I27.2 - OTHER SECONDARY PULMONARY HYPERTENSION Assessment/Plan 10/31/15 Echocardiogram: Normal LV size and moderate global hypokinesis, LVEF 35- 40%. Mild LAE. Trace AR. Mod MR. Mod TR. Mild WI. Mod pulm HTN with PASP 51 mmHg. 11/26/2016 Echocardiogram: [place] dilated LV with moderate decreased LVEF 30- 35%, mild AR, mild-mod TR, large left effusion, mod pulm HTN RVSP 58 mmHg 1. Pre-operative cardiovascular evaluation prior to right hip hemiarthroplasty 2. Acute on chronic systolic failure with pleural effusions and pulm HTN 3. Persistent afib with subtherapeutic INR 4. HTN/HCVD 5. Subendocardial ischemia 6. Vascular dementia with cerebrovascular disease P:1. Defer surgery until patient's volume status improves 2. IV diuresis with monitor diuretic response, renal fxn and electrolytes 3. D/c coumadin and start Lovenox 60 bid pending surgery, continue losartan 25 qd, start carvedilol 3.125 bid as volume status improves 4. Resume coumadin per INR once post-op hemostasis has been achieved 5. F/u TSH, CXR 6. Patient will need further cardiac evaluation as outpatient with his funding coordinator (Dr. Clayton Swift) with regard to his CHF. However, his current comorbidities (dementia) will determine extent of further evaluation/ intervention.
--- NOTE | 2016-11-27 09:31 | PN ---
Progress Note (short form) - Note Progress Note: Ortho Pt seen and examined s/p right femoral neck fx +ttp, RLE shortened and ER, nvi a/p OR once pt is medically optimized Surgical clearance NPO d/w Dr. Polanco
[2016-11-27] MEDS: DONEPEZIL HCL 10 MG TABLET (FP) PO SCH (10:12)
[2016-11-27] MEDS: LOSARTAN POTASSIUM 25 MG TABLET PO SCH (10:12)
[2016-11-27] MEDS: LACTOBACILLUS ACIDOPHILUS 1 EACH TAB (FP) PO SCH (10:12)
[2016-11-27] MEDS: CARVEDILOL 3.125 MG TABLET (FP) PO SCH ×2 (10:12→21:17)
[2016-11-27] MEDS: RANITIDINE HCL 150 MG TABLET (FP) PO SCH (10:12)
[2016-11-27 11:19] LABS: THYROID STIMULATING HORMONE 1.53 uIU/ml (0.358-3.74)
--- NOTE | 2016-11-27 12:08 | PN ---
Physical Exam: SUBJECTIVE: Patient seen and examined, confused reports feeling well. OBJECTIVE:patient is a 86 y/o male with a past medical history of: Hypertension , Afib (on Coumadin), COPD, and Dementia. patient was admitted from the emergency department s/p mechanical fall and right femoral neck fracture. Vital Signs Period Temp Pulse Resp BP Sys/Kemp Pulse Ox Last 24 Hr 97.8 F-98.3 F 60-80 16-20 101-133/42-69 90-96 Intake & Output 11/24/16 11/25/16 11/26/16 11/27/16 23:59 23:59 23:59 23:59 Intake Total 800 250 Output Total 1280 600 Balance -480 -350 Weight 68.039 kg GENERAL: The patient is awake, alert, and oriented x 1, anxious. HEAD: Normal with no signs of trauma. EYES: PERRL, extraocular movements intact, sclera anicteric, conjunctiva clear. No ptosis. ENT: Ears normal, nares patent, oropharynx clear without exudates, moist mucous membranes. NECK: Trachea midline, full range of motion, supple. LUNGS: Breath sounds equal, clear to auscultation bilaterally, no wheezes, no crackles, no accessory muscle use. HEART: Irregular rate and rhythm, S1, S2 without murmur, rub or gallop. ABDOMEN: Soft, nontender, nondistended, normoactive bowel sounds, no guarding, no rebound, no hepatosplenomegaly, no masses. EXTREMITIES: 2+ pulses, warm, well-perfused, no edema. : m[place]enhall, blood tinged urine RIGHT LOWER EXTREMITY: externally rotated and shortened, less than 3 second capillary refill, + 3 pedal pulse. point tenderness noted to the right anterior hip NEUROLOGICAL: Cranial nerves II through XII grossly intact. Normal speech, gait not observed. PSYCH: Normal mood, normal affect. SKIN: Warm, dry, normal turgor, no rashes or lesions noted Laboratory Results - last 24 hr 11/26/16 11/26/16 11/26/16 11:00 17:05 17:05 Sodium Potassium Chloride Carbon Dioxide Anion Gap BUN Creatinine Random Glucose Calcium Magnesium Creatine Kinase 42 53 Troponin I 0.16 D 0.13 B-Natriuretic Peptide 12198.68 H TSH 11/27/16 08:30 Sodium 142 Potassium 4.0 Chloride 109 H Carbon Dioxide 25 Anion Gap 8 BUN 29 H Creatinine 1.3 Random Glucose 88 D Calcium 8.8 Magnesium 2.0 Creatine Kinase Troponin I B-Natriuretic Peptide 36030.37 H TSH 1.53 D Laboratory Tests 11/26/16 11/26/16 11/26/16 05:00 11:00 17:05 Troponin I 0.10 H D 0.16 D 0.13 Active Medications Generic Name Dose Route Start Last Admin Trade Name Freq PRN Reason Stop Dose Admin Acetaminophen 650 mg 11/26/16 09:03 11/26/16 21:13 Tylenol - PO 650 mg Q4H PRN Administration FEVER OR PAIN Albuterol/Ipratropium 1 amp 11/25/16 23:34 Duoneb - NEB Q6H PRN SHORTNESS OF BREATH Carvedilol 3.125 mg 11/27/16 10:00 11/27/16 10:12 Coreg - PO 3.125 mg BID NAIF Administration Docusate Sodium 100 mg 11/26/16 14:00 11/27/16 06:04 Colace - PO 100 mg TID NAIF Administration Donepezil HCl 10 mg 11/26/16 10:00 11/27/16 10:12 Aricept - PO 10 mg DAILY NAIF Administration Enoxaparin Sodium 60 mg 11/26/16 12:00 11/26/16 12:14 Lovenox - SQ 60 mg Q12H NAIF Administration Furosemide 40 mg 11/27/16 06:00 11/27/16 06:03 Lasix Injection - IVPUSH 11/27/16 23:59 40 mg BID@0600,1400 NAIF Administration Furosemide 40 mg 11/28/16 10:00 Lasix Injection - IVPB DAILY NAIF Lactobacillus Acidophilus 1 tab 11/26/16 10:00 11/27/16 10:12 Bacid - PO 1 tab DAILY NAIF Administration Losartan Potassium 25 mg 11/26/16 12:00 11/27/16 10:12 Cozaar - PO 25 mg DAILY NAIF Administration Morphine Sulfate 2 mg 11/26/16 09:03 11/26/16 16:34 Morphine Injection - IVPUSH 2 mg Q4H PRN Administration PAIN Quetiapine Fumarate 12.5 mg 11/26/16 22:00 11/26/16 21:12 Seroquel - PO 12.5 mg HS NAIF Administration Ranitidine HCl 150 mg 11/26/16 10:00 11/27/16 10:12 Zantac - PO 150 mg DAILY NAIF Administration IMAGING xray of right hip/pelvis: right femoral neck fracture chest xray: billateral effusions, ? right infilitrate CT of chest: large billateral pleural effusions L>R, vascular congestion suggestive of CHF ASSESSMENT/PLAN: 1. Ortho: right femoral neck fracture - prn pain medication - ortho (aMlcolm/ CHEMA Pickering) consulted and following 2) card afib - rate controlled, continuos cardiac monitoring - troponin 0.13, trending downward, pending AM repeat troponin - INR 2.0, lovenox is held due to hematuria acute on chronic systolic congestive heart failure - continue lasix 40mg bid, pt diuresed -350, repeat cxr ordered - echo (11/12) EF 30-35%, moderated left global hypokinesis, moderate tr, mr - monitor I/O and daily weight - bnp 32953, above baseline (6515) hypertension - continue loosartan - b/p at goal 3) pulm copd -no acute excerbation at this time - continue prn duonebs - supplemental o2 to keep spo2 above 92% 4) psych dementia - continue aricept and seroquel F/E/N - soft diet-->npo after 12mn for ? surgery - replete lytes prn ppx - zantac - scd/drew - incentive spirometer dispo: requires inpatient telemetry code: full code Visit type - Emergency Visit Emergency Visit: Yes ED Registration Date: 11/25/16 Care time: The patient presented to the Emergency Department on the above date and was hospitalized for further evaluation of their emergent condition. - New Patient This patient is new to me today: No - Critical Care Critical Care patient: No - Discharge Referral Referred to [facility] Med P.C.: No
[2016-11-27] MEDS: morphine CARPU-JECT 2 MG/1 ML DISP.SYRIN IVPUSH PRN ×2 (12:38→16:30)
[2016-11-27 12:41] LABS: INR 2.01 (0.82-1.09); PROTHROMBIN TIME (PATIENT) 22.2 SEC (10.2-13.0)
[2016-11-27 15:04] LABS: TROPONIN I (DFP) 0.09 ng/ml (0.03-0.50)
[2016-11-27] MEDS: QUEtiapine FUMARATE 25 MG TABLET (FP) PO SCH (21:17)
[2016-11-27] MEDS: ACETAMINOPHEN 325 MG TABLET (FP) PO PRN (21:18)
[2016-11-28] MEDS: ENOXAPARIN NA (PORCINE) 60 MG/0.6 ML DISP.SYRIN SQ SCH ×3 (00:26→23:32)
[2016-11-28] MEDS: DOCUSATE SODIUM 100 MG CAPSULE (FP) PO SCH ×3 (06:06→23:32)
[2016-11-28] MEDS ORDERED: DEXTROSE 5%-NORMAL SALINE 1,000 ML IV SCH (07:00)
[2016-11-28 08:13] LABS: BASOPHIL 0.6 % (0-2.0); EOSINOPHIL 3.8 % (0-4.5); MCH 29.7 pg (25.7-33.7); MCHC 32.2 g/dl (32.0-35.9); MEAN CELL VOLUME 92.4 fl (80-96); MEAN PLT VOLUME 8.7 fl (7.5-11.1); NEUTROPHILS 77.8 % (42.8-82.8); PLATELET COUNT 123 K/MM3 (134-434); WHITE BLOOD COUNT 6.9 K/mm3 (4.0-10.8)
[2016-11-28 08:15] LABS: INR 1.73 (0.82-1.09); PROTHROMBIN TIME (PATIENT) 19.2 SEC (10.2-13.0)
--- NOTE | 2016-11-28 08:19 | PN ---
Physical Exam: SUBJECTIVE: Patient seen and examined, reports pain to the right anterior hip. OBJECTIVE:patient is a 86 y/o male with a past medical history of: Hypertension , Afib (on Coumadin), COPD, and Dementia. patient was admitted from the emergency department s/p mechanical fall and right femoral neck fracture and acute on chronic systolic chf. Vital Signs Period Temp Pulse Resp BP Sys/Kemp Pulse Ox Last 24 Hr 98.1 F-98.6 F 62-76 18-20 99-117/40-50 94-100 GENERAL: The patient is awake, alert, and fully oriented, in no acute distress. HEAD: Normal with no signs of trauma. EYES: PERRL, extraocular movements intact, sclera anicteric, conjunctiva clear. No ptosis. ENT: Ears normal, nares patent, oropharynx clear without exudates, moist mucous membranes. NECK: Trachea midline, full range of motion, supple. LUNGS: Breath sounds equal, clear to auscultation bilaterally, no wheezes, no crackles, no accessory muscle use. HEART: Regular rate and rhythm, S1, S2 without murmur, rub or gallop. ABDOMEN: Soft, nontender, nondistended, normoactive bowel sounds, no guarding, no rebound, no hepatosplenomegaly, no masses. EXTREMITIES: 2+ pulses, warm, well-perfused, no edema. RIGHT LOWER EXTREMITY: less than 3 second capillary refill, + 3 pedal pulse, shortened and externally rotated, point tenderness to the anterior right hip., NEUROLOGICAL: Cranial nerves II through XII grossly intact. Normal speech, gait not observed. PSYCH: Normal mood, normal affect. SKIN: Warm, dry, normal turgor, no rashes or lesions noted,echymosis noted to the right buttock. Laboratory Results - last 24 hr CBC WBC 6.9 K/mm3 (4.0-10.8) 11/28/16 07:30 RBC 3.24 M/mm3 (4.00-5.60) L 11/28/16 07:30 Hgb 9.6 GM/dl (11.7-16.9) L 11/28/16 07:30 Hct 29.9 % (35.4-49) L 11/28/16 07:30 MCV 92.4 fl (80-96) 11/28/16 07:30 MCHC 32.2 g/dl (32.0-35.9) 11/28/16 07:30 RDW 18.0 % (11.9-15.9) H 11/28/16 07:30 Plt Count 123 K/MM3 (134-434) L 11/28/16 07:30 MPV 8.7 fl (7.5-11.1) 11/28/16 07:30 Neutrophils % 77.8 % (42.8-82.8) 11/28/16 07:30 Lymphocytes % 5.5 % (8-40) L D 11/28/16 07:30 Monocytes % 12.3 % (3.8-10.2) H 11/28/16 07:30 Eosinophils % 3.8 % (0-4.5) D 11/28/16 07:30 Basophils % 0.6 % (0-2.0) 11/28/16 07:30 Platelet Estimate Adequate (NORMAL) 11/25/16 15:45 Anisocytosis 2+ 11/25/16 15:45 Macrocytosis 1+ 11/25/16 15:45 Morphology Comment Slide scanned 11/25/16 15:45 CMP Sodium 139 mmol/L (136-145) 11/28/16 07:30 Potassium 3.9 mmol/L (3.5-5.1) 11/28/16 07:30 Chloride 106 mmol/L (98-107) 11/28/16 07:30 Carbon Dioxide 27 mmol/L (22-28) 11/28/16 07:30 Anion Gap 6 (8-16) L 11/28/16 07:30 BUN 34 mg/dl (7-18) H 11/28/16 07:30 Creatinine 1.4 mg/dl (0.6-1.3) H 11/28/16 07:30 Creat Clearance w eGFR Y 11/28/16 07:30 Random Glucose 89 mg/dl (74-106) 11/28/16 07:30 Calcium 8.2 mg/dl (8.4-10.2) L 11/28/16 07:30 Phosphorus 3.7 mg/dl (2.5-4.6) 11/28/16 07:30 Magnesium 1.8 mg/dL (1.8-2.4) 11/28/16 07:30 Total Bilirubin 1.7 mg/dl (0.2-1.0) H D 11/28/16 07:30 Direct Bilirubin 0.7 mg/dl (0.0-0.2) H 11/26/16 08:05 AST 18 U/L (10-42) D 11/28/16 07:30 ALT 14 U/L (10-40) D 11/28/16 07:30 Alkaline Phosphatase 96 U/L (32-92) H D 11/28/16 07:30 Creatine Kinase 36 IU/L (38-174) L 11/27/16 12:00 Troponin I 0.09 ng/ml (0.03-0.50) D 11/27/16 12:00 B-Natriuretic Peptide 36785.37 pg/ml (5-450) H 11/27/16 08:30 Total Protein 4.9 g/dl (6.4-8.3) L 11/28/16 07:30 Albumin 2.1 g/dl (3.5-5.0) L 11/28/16 07:30 TSH 1.53 uIU/ml (0.358-3.74) D 11/27/16 08:30 Laboratory Tests 11/28/16 07:30 INR 1.73 H Active Medications Generic Name Dose Route Start Last Admin Trade Name Freq PRN Reason Stop Dose Admin Acetaminophen 650 mg 11/26/16 09:03 11/27/16 21:18 Tylenol - PO 650 mg Q4H PRN Administration FEVER OR PAIN Albuterol/Ipratropium 1 amp 11/25/16 23:34 11/27/16 15:00 Duoneb - NEB 1 amp Q6H PRN Administration SHORTNESS OF BREATH Carvedilol 3.125 mg 11/27/16 10:00 11/27/16 21:17 Coreg - PO 3.125 mg BID NAIF Administration Docusate Sodium 100 mg 11/26/16 14:00 11/28/16 06:06 Colace - PO 100 mg TID NAIF Administration Donepezil HCl 10 mg 11/26/16 10:00 11/27/16 10:12 Aricept - PO 10 mg DAILY NAIF Administration Enoxaparin Sodium 60 mg 11/26/16 12:00 11/28/16 00:26 Lovenox - SQ 60 mg Q12H NAIF Administration Furosemide 40 mg 11/28/16 10:00 Lasix Injection - IVPB DAILY NAIF Dextrose/Sodium Chloride 1,000 mls @ 75 mls/hr 11/28/16 07:00 D5-Ns - IV ASDIR NAIF Lactobacillus Acidophilus 1 tab 11/26/16 10:00 11/27/16 10:12 Bacid - PO 1 tab DAILY NAIF Administration Losartan Potassium 25 mg 11/26/16 12:00 11/27/16 10:12 Cozaar - PO 25 mg DAILY NAIF Administration Morphine Sulfate 2 mg 11/26/16 09:03 11/27/16 16:30 Morphine Injection - IVPUSH 2 mg Q4H PRN Administration PAIN Quetiapine Fumarate 12.5 mg 11/26/16 22:00 11/27/16 21:17 Seroquel - PO 12.5 mg HS NAIF Administration Ranitidine HCl 150 mg 11/26/16 10:00 11/27/16 10:12 Zantac - PO 150 mg DAILY NAIF Administration Microbiology 11/26/16 14:23 Urine - Urine Clean Catch Urine Culture - Preliminary Group D Strep Or Entero Coccus IMAGING xray of right hip/pelvis: right femoral neck fracture chest xray: billateral effusions, ? right infilitrate CT of chest: large billateral pleural effusions L>R, vascular congestion suggestive of CHF echo (11/12) EF 30-35%, moderated left global hypokinesis, moderate tr, mr ASSESSMENT/PLAN: 1. Ortho: right femoral neck fracture - case discussed with CHEMA Pickering (ortho) patient is awaiting surgery, due to patient's moderate cardiovascular risk, patient will be transferred to [facility] for surgical intervention with the availability of ICU. - prn pain medication - ortho (Lent/ CHEMA Pickering) consulted and following 2) card afib - rate controlled, continuos cardiac monitoring - troponin 0.09, trending downward - continue lovenox is held due to hematuria acute on chronic systolic congestive heart failure - continue lasix 40mg IV qd, repeat cxr minimal improvment of effusions. - monitor I/O and daily weight - bnp 32445, above baseline (6515) hypertension - continue loosartan - b/p at goal 3) pulm copd -no acute excerbation at this time - continue prn duonebs - supplemental o2 to keep spo2 above 92% 4) psych dementia - continue aricept and seroquel F/E/N - soft diet - replete lytes prn ppx - lovenox - zantac - scd/drew - incentive spirometer dispo: requires inpatient telemetry code: full code Visit type - Emergency Visit Emergency Visit: Yes ED Registration Date: 11/25/16 Care time: The patient presented to the Emergency Department on the above date and was hospitalized for further evaluation of their emergent condition. - New Patient This patient is new to me today: No - Critical Care Critical Care patient: No - Discharge Referral Referred to [facility] Med P.C.: No
[2016-11-28 08:21] LABS: ALBUMIN 2.1 g/dl (3.5-5.0); ALK PHOS 96 U/L (32-92); ANION GAP 6 (8-16); BILIRUBIN,TOTAL 1.7 mg/dl (0.2-1.0); CALCIUM 8.2 mg/dl (8.4-10.2); CO2 27 mmol/L (22-28); COCKROFT - GAULT 35.77; CREATININE 1.4 mg/dl (0.6-1.3); GLUCOSE,RANDOM 89 mg/dl (74-106); MAGNESIUM 1.8 mg/dL (1.8-2.4); PHOSPHOROUS 3.7 mg/dl (2.5-4.6); SGOT/AST 18 U/L (10-42); SGPT/ALT 14 U/L (10-40); TOT PROT 4.9 g/dl (6.4-8.3)
--- NOTE | 2016-11-28 09:01 | PN ---
Progress Note (short form) - Note Progress Note: Ortho Pt seen and examined s/p right femoral neck fx +ttp, RLE shortened and ER, nvi Laboratory Tests 11/28/16 11/28/16 07:30 07:30 WBC 6.9 Hgb 9.6 L Hct 29.9 L Plt Count 123 L INR 1.73 H a/p As per anesthesia- to transfer to [facility] for surgical management OR once pt is medically optimized- INR <1.4 Tentatively Thursday/ Thursday Surgical clearance NPO after midnight on Thursday d/w DR. Fowler
[2016-11-28] MEDS: DONEPEZIL HCL 10 MG TABLET (FP) PO SCH (09:59)
[2016-11-28] MEDS: ACETAMINOPHEN 325 MG TABLET (FP) PO PRN ×2 (09:59→23:37)
[2016-11-28] MEDS: FUROSEMIDE 40 MG/4 ML INJECTABLE VIAL IVPB SCH (09:59)
[2016-11-28] MEDS: LOSARTAN POTASSIUM 25 MG TABLET PO SCH (09:59)
[2016-11-28] MEDS: RANITIDINE HCL 150 MG TABLET (FP) PO SCH (10:00)
[2016-11-28] MEDS: LACTOBACILLUS ACIDOPHILUS 1 EACH TAB (FP) PO SCH (10:00)
--- NOTE | 2016-11-28 10:00 | PN ---
Progress Note, Physician History of Present Illness: Comfortable, undergoing diuresis. - Current Medication List Current Medications: Active Medications Acetaminophen (Tylenol -) 650 mg PO Q4H PRN PRN Reason: FEVER OR PAIN Last Admin: 11/27/16 21:18 Dose: 650 mg Albuterol/Ipratropium (Duoneb -) 1 amp NEB Q6H PRN PRN Reason: SHORTNESS OF BREATH Last Admin: 11/27/16 15:00 Dose: 1 amp Carvedilol (Coreg -) 3.125 mg PO BID [facility] Last Admin: 11/27/16 21:17 Dose: 3.125 mg Docusate Sodium (Colace -) 100 mg PO TID [facility] Last Admin: 11/28/16 06:06 Dose: 100 mg Donepezil HCl (Aricept -) 10 mg PO DAILY [facility] Last Admin: 11/27/16 10:12 Dose: 10 mg Enoxaparin Sodium (Lovenox -) 60 mg SQ Q12H [facility] Last Admin: 11/28/16 00:26 Dose: 60 mg Furosemide (Lasix Injection -) 40 mg IVPB DAILY [facility] Lactobacillus Acidophilus (Bacid -) 1 tab PO DAILY [facility] Last Admin: 11/27/16 10:12 Dose: 1 tab Losartan Potassium (Cozaar -) 25 mg PO DAILY [facility] Last Admin: 11/27/16 10:12 Dose: 25 mg Morphine Sulfate (Morphine Injection -) 2 mg IVPUSH Q4H PRN PRN Reason: PAIN Last Admin: 11/27/16 16:30 Dose: 2 mg Quetiapine Fumarate (Seroquel -) 12.5 mg PO HS [facility] Last Admin: 11/27/16 21:17 Dose: 12.5 mg Ranitidine HCl (Zantac -) 150 mg PO DAILY [facility] Last Admin: 11/27/16 10:12 Dose: 150 mg - Objective Vital Signs: Vital Signs Temperature 98.2 F 11/28/16 06:00 Pulse Rate 69 11/28/16 06:00 Respiratory Rate 18 11/28/16 08:47 Blood Pressure 99/40 11/28/16 06:00 O2 Sat by Pulse Oximetry (%) 100 11/28/16 08:47 Constitutional: Yes: No Distress, Calm Neck: Yes: Supple Cardiovascular: Yes: Pulse Irregular Respiratory: Yes: Regular, Diminished Gastrointestinal: Yes: Normal Bowel Sounds, Soft Edema: No Labs: CBC, BMP 11/28/16 07:30 11/28/16 07:30 INR, PTT INR 1.73 (0.82-1.09) H 11/28/16 07:30 - ....Imaging Chest X-ray: Report Reviewed (Improved CHF and right effusion) Problem List - Problems (1) Atrial fibrillation Code(s): I48.91 - UNSPECIFIED ATRIAL FIBRILLATION Qualifiers: Atrial fibrillation type: chronic Qualified Code(s): I48.2 - Chronic atrial fibrillation (2) Fractured femoral neck Code(s): S72.009A - FRACTURE OF UNSP PART OF NECK OF UNSP FEMUR, INIT Qualifiers: Encounter type: initial encounter Fracture type: closed Laterality : right Qualified Code(s): S72.001A - Fracture of unspecified part of neck of right femur, initial encounter for closed fracture (3) Dementia Code(s): F03.90 - UNSPECIFIED DEMENTIA WITHOUT BEHAVIORAL DISTURBANCE Qualifiers: Dementia type: vascular dementia Dementia behavioral disturbance: without behavioral disturbance Qualified Code(s): F01.50 - Vascular dementia without behavioral disturbance (4) Cerebrovascular disease Code(s): I67.9 - CEREBROVASCULAR DISEASE, UNSPECIFIED (5) Acute on chronic systolic (congestive) heart failure Code(s): I50.23 - ACUTE ON CHRONIC SYSTOLIC (CONGESTIVE) HEART FAILURE (6) Subendocardial ischemia Code(s): I24.8 - OTHER FORMS OF ACUTE ISCHEMIC HEART DISEASE (7) Hypertensive cardiovascular disease Code(s): I11.9 - HYPERTENSIVE HEART DISEASE WITHOUT HEART FAILURE Qualifiers: Heart failure presence: with heart failure Qualified Code(s): I11.0 - Hypertensive heart disease with heart failure (8) Pre-operative cardiovascular examination Code(s): Z01.810 - ENCOUNTER FOR PREPROCEDURAL CARDIOVASCULAR EXAMINATION (9) Pleural effusion due to CHF (congestive heart failure) Code(s): I50.9 - HEART FAILURE, UNSPECIFIED (10) Pulmonary hypertension Code(s): I27.2 - OTHER SECONDARY PULMONARY HYPERTENSION Assessment/Plan 10/31/15 Echocardiogram: Normal LV size and moderate global hypokinesis, LVEF 35- 40%. Mild LAE. Trace AR. Mod MR. Mod TR. Mild NH. Mod pulm HTN with PASP 51 mmHg. 11/26/2016 Echocardiogram: [place] dilated LV with moderate decreased LVEF 30- 35%, mild AR, mild-mod TR, large left effusion, mod pulm HTN RVSP 58 mmHg 1. Pre-operative cardiovascular evaluation prior to right hip hemiarthroplasty 2. Acute on chronic systolic failure with pleural effusions and pulm HTN improving 3. Persistent afib with subtherapeutic INR 4. HTN/HCVD 5. Subendocardial ischemia 6. Vascular dementia with cerebrovascular disease 7. H/o hyperkalemia on lisinopril P:1. Defer surgery until patient's volume status improves and INR acceptable 2. Decrease Lasix 40 qd with monitor diuretic response, renal fxn and electrolytes 3. D/c coumadin and continue Lovenox 60 bid pending surgery, continue losartan 25 qd and carvedilol 3.125 bid as volume status improves 4. Resume coumadin per INR once post-op hemostasis has been achieved 6. Patient will need further cardiac evaluation as outpatient with his security supervisor (Dr. Clayton Swift) with regard to his CHF. However, his current comorbidities (dementia) will determine extent of further evaluation/ intervention.
[2016-11-28] MEDS: CARVEDILOL 3.125 MG TABLET (FP) PO SCH (10:01)
[2016-11-28] MEDS: MAGNESIUM OXIDE 400 MG TABLET (FP) PO SCH ×2 (14:06→23:32)
[2016-11-28] MEDS ORDERED: CARVEDILOL 3.125 MG TABLET (FP) PO SCH (16:57)
--- NOTE | 2016-11-28 17:27 | HOSP ---
Physical Examination Vital Signs: Vital Signs Temperature 97.4 F L 11/28/16 14:09 Pulse Rate 73 11/28/16 14:09 Respiratory Rate 19 11/28/16 14:09 Blood Pressure 96/60 11/28/16 14:09 O2 Sat by Pulse Oximetry (%) 95 11/28/16 14:09 Labs: CBC, BMP 11/28/16 07:30 11/28/16 07:30 Hospitalist Encounter Outcome: contacted by Deana ETIENNE and JAIMIE Biggs nursing supervisor [employer] workers, patient's heart rate 40's on cardiac monitoring, b/p 106/62 Patient is asymptomatic. patient is pending ALS transfer to [facility]. Advised to hold coreg and continue cardiac monitoring.
[2016-11-28] MEDS: morphine CARPU-JECT 2 MG/1 ML DISP.SYRIN IVPUSH PRN (20:51)
[2016-11-28] MEDS: QUEtiapine FUMARATE 25 MG TABLET (FP) PO SCH (23:32)
--- NOTE | 2016-11-29 01:26 | HOSP ---
Physical Examination Vital Signs: Vital Signs Temperature 98 F 11/28/16 22:00 Pulse Rate 56 L 11/28/16 22:00 Respiratory Rate 19 11/28/16 22:00 Blood Pressure 113/68 11/28/16 22:00 O2 Sat by Pulse Oximetry (%) 95 11/28/16 22:00 Labs: CBC, BMP 11/28/16 07:30 11/28/16 07:30 Hospitalist Encounter Assessment: Nurse called to report pt removing uniform designer despite encouragement. Repeatedly has removed several times: Nurse places monitor and pt removes by the time she gets back to the nursing station. Will apply wrist restraints to ensure monitoring.
[2016-11-29] MEDS: morphine CARPU-JECT 2 MG/1 ML DISP.SYRIN IVPUSH PRN (01:29)
[2016-11-29] MEDS: DOCUSATE SODIUM 100 MG CAPSULE (FP) PO SCH ×3 (05:29→21:29)
[2016-11-29] MEDS ORDERED: oxyCODONE HCL 5 MG TABLET PO PRN (10:26)
[2016-11-29] MEDS: DONEPEZIL HCL 10 MG TABLET (FP) PO SCH (10:30)
[2016-11-29] MEDS: MAGNESIUM OXIDE 400 MG TABLET (FP) PO SCH (10:30)
[2016-11-29] MEDS: FUROSEMIDE 40 MG/4 ML INJECTABLE VIAL IVPB SCH (11:24)
[2016-11-29] MEDS: LACTOBACILLUS ACIDOPHILUS 1 EACH TAB (FP) PO SCH (11:43)
[2016-11-29] MEDS: LOSARTAN POTASSIUM 25 MG TABLET PO SCH (11:43)
[2016-11-29] MEDS: ENOXAPARIN NA (PORCINE) 60 MG/0.6 ML DISP.SYRIN SQ SCH ×2 (11:43→21:30)
[2016-11-29] MEDS: RANITIDINE HCL 150 MG TABLET (FP) PO SCH (11:43)
--- NOTE | 2016-11-29 12:24 | PN ---
Progress Note, Physician Chief Complaint: Not in distress History of Present Illness: Patient was seen and examined. Arousable. Chart was reviewed Bradycardic at times. Denies chest pain or SOB - Current Medication List Current Medications: Active Medications Acetaminophen (Tylenol -) 650 mg PO Q4H PRN PRN Reason: FEVER OR PAIN Last Admin: 11/28/16 23:37 Dose: 650 mg Albuterol/Ipratropium (Duoneb -) 1 amp NEB Q6H PRN PRN Reason: SHORTNESS OF BREATH Last Admin: 11/27/16 15:00 Dose: 1 amp Docusate Sodium (Colace -) 100 mg PO TID [facility] Last Admin: 11/29/16 05:29 Dose: 100 mg Donepezil HCl (Aricept -) 10 mg PO DAILY [facility] Last Admin: 11/29/16 10:30 Dose: Not Given Enoxaparin Sodium (Lovenox -) 60 mg SQ Q12H [facility] Last Admin: 11/29/16 11:43 Dose: 60 mg Furosemide (Lasix Injection -) 40 mg IVPB DAILY [facility] Last Admin: 11/29/16 11:24 Dose: 40 mg Lactobacillus Acidophilus (Bacid -) 1 tab PO DAILY [facility] Last Admin: 11/29/16 11:43 Dose: 1 tab Losartan Potassium (Cozaar -) 25 mg PO DAILY [facility] Last Admin: 11/29/16 11:43 Dose: 25 mg Oxycodone HCl (Roxicodone -) 5 mg PO Q6H PRN PRN Reason: PAIN Quetiapine Fumarate (Seroquel -) 12.5 mg PO HS [facility] Last Admin: 11/28/16 23:32 Dose: 12.5 mg Ranitidine HCl (Zantac -) 150 mg PO DAILY [facility] Last Admin: 11/29/16 11:43 Dose: 150 mg - Objective Vital Signs: Vital Signs Temperature 98.2 F 11/29/16 08:10 Pulse Rate 54 L 11/29/16 08:10 Respiratory Rate 20 11/29/16 08:10 Blood Pressure 124/72 11/29/16 08:10 O2 Sat by Pulse Oximetry (%) 95 11/28/16 22:00 Neck: Yes: Supple Cardiovascular: Yes: Pulse Irregular, S1, S2 Respiratory: Yes: Diminished Gastrointestinal: Yes: Normal Bowel Sounds, Soft. No: Tenderness Edema: No Labs: CBC, BMP 11/28/16 07:30 11/28/16 07:30 INR, PTT INR 1.73 (0.82-1.09) H 11/28/16 07:30 Problem List - Problems (1) Acute on chronic systolic (congestive) heart failure Code(s): I50.23 - ACUTE ON CHRONIC SYSTOLIC (CONGESTIVE) HEART FAILURE (2) Atrial fibrillation Code(s): I48.91 - UNSPECIFIED ATRIAL FIBRILLATION Qualifiers: Atrial fibrillation type: chronic Qualified Code(s): I48.2 - Chronic atrial fibrillation (3) Cerebrovascular disease Code(s): I67.9 - CEREBROVASCULAR DISEASE, UNSPECIFIED (4) Fractured femoral neck Code(s): S72.009A - FRACTURE OF UNSP PART OF NECK OF UNSP FEMUR, INIT Qualifiers: Encounter type: initial encounter Fracture type: closed Laterality : right Qualified Code(s): S72.001A - Fracture of unspecified part of neck of right femur, initial encounter for closed fracture (5) Hypertensive cardiovascular disease Code(s): I11.9 - HYPERTENSIVE HEART DISEASE WITHOUT HEART FAILURE Qualifiers: Heart failure presence: with heart failure Qualified Code(s): I11.0 - Hypertensive heart disease with heart failure (6) Pre-operative cardiovascular examination Code(s): Z01.810 - ENCOUNTER FOR PREPROCEDURAL CARDIOVASCULAR EXAMINATION (7) Pulmonary hypertension Code(s): I27.2 - OTHER SECONDARY PULMONARY HYPERTENSION (8) Subendocardial ischemia Code(s): I24.8 - OTHER FORMS OF ACUTE ISCHEMIC HEART DISEASE (9) COPD (chronic obstructive pulmonary disease) Code(s): J44.9 - CHRONIC OBSTRUCTIVE PULMONARY DISEASE, UNSPECIFIED (10) Dementia Code(s): F03.90 - UNSPECIFIED DEMENTIA WITHOUT BEHAVIORAL DISTURBANCE Qualifiers: Dementia type: vascular dementia Dementia behavioral disturbance: without behavioral disturbance Qualified Code(s): F01.50 - Vascular dementia without behavioral disturbance Assessment/Plan 1. Pre-operative cardiovascular evaluation prior to right hip hemiarthroplasty 2. Acute on chronic systolic failure with pleural effusions and pulmonary HTN 3. Persistent AF with subtherapeutic INR 4. HTN/HCVD 5. Subendocardial ischemia 6. Vascular dementia with cerebrovascular disease 7. History of hyperkalemia on Lisinopril PLAN: 1. Monitor INR - currently less than 2.0 and on Lovenox and off Coumadin. Await surgery 2. Continue Lasix 40 mg qd with monitor renal function and electrolytes 3. Continue Losartan 25 mg qd and Carvedilol 3.125 mg bid 4. Resume Coumadin per INR once post-op hemostasis has been achieved after surgery 6. Patient will need further cardiac evaluation as outpatient with his project manager retail (Dr. Clayton Swift) with regard to his CHF, but likely conservative management should be implemented due to underlying dementia Brenden Davenport MD
[2016-11-29 13:12] LABS: URINE APPEARANCE CLEAR; URINE BILIRUBIN NEGATIVE (NEGATIVE); URINE COLOR DKYELLOW; URINE GLUCOSE (UA) NEGATIVE (NEGATIVE); URINE KETONE NEGATIVE (NEGATIVE); URINE LEUK ESTERASE NEGATIVE (NEGATIVE); URINE NITRITE NEGATIVE (NEGATIVE); URINE UROBILINOGEN 2.0 E.U/dl E.U./dl (0.2-1.0)
--- NOTE | 2016-11-29 13:17 | PN ---
Physical Exam: SUBJECTIVE: Patient seen and examined. He is feeling tired, he denies dizziness , or GAUTHIER OBJECTIVE: Vital Signs Period Temp Pulse Resp BP Sys/Kemp Pulse Ox Last 24 Hr 97.4 F-98.6 F 54-73 19-20 96-134/54-72 95-95 PE Neuro: awake, alert, cn 2-12intact Pulm: crackles at bases CV: s1 s2 bradycardia Abd: s nt nd + bs : mendenhall, hematuria, marlen colored Ext: R hip tenderness, LUE hematoma Active Medications Generic Name Dose Route Start Last Admin Trade Name Freq PRN Reason Stop Dose Admin Acetaminophen 650 mg 11/26/16 09:03 11/28/16 23:37 Tylenol - PO 650 mg Q4H PRN Administration FEVER OR PAIN Albuterol/Ipratropium 1 amp 11/25/16 23:34 11/27/16 15:00 Duoneb - NEB 1 amp Q6H PRN Administration SHORTNESS OF BREATH Docusate Sodium 100 mg 11/26/16 14:00 11/29/16 05:29 Colace - PO 100 mg TID NAIF Administration Donepezil HCl 10 mg 11/26/16 10:00 11/29/16 10:30 Aricept - PO Not Given DAILY NAIF Enoxaparin Sodium 60 mg 11/26/16 12:00 11/29/16 11:43 Lovenox - SQ 60 mg Q12H NAIF Administration Furosemide 40 mg 11/28/16 10:00 11/29/16 11:24 Lasix Injection - IVPB 40 mg DAILY NAIF Administration Lactobacillus Acidophilus 1 tab 11/26/16 10:00 11/29/16 11:43 Bacid - PO 1 tab DAILY NAIF Administration Losartan Potassium 25 mg 11/26/16 12:00 11/29/16 11:43 Cozaar - PO 25 mg DAILY NAIF Administration Oxycodone HCl 5 mg 11/29/16 10:26 Roxicodone - PO Q6H PRN PAIN Quetiapine Fumarate 12.5 mg 11/26/16 22:00 11/28/16 23:32 Seroquel - PO 12.5 mg HS NAIF Administration Ranitidine HCl 150 mg 11/26/16 10:00 11/29/16 11:43 Zantac - PO 150 mg DAILY NAIF Administration Microbiology 11/26/16 14:23 Urine - Urine Clean Catch Urine Culture - Preliminary Group D Strep Or Entero Coccus Imaging: CT of chest: large bilateral pleural effusions L>R, vascular congestion suggestive of CHF 10/31/15 Echocardiogram: Normal LV size and moderate global hypokinesis, LVEF 35- 40%. Mild LAE. Trace AR. Mod MR. Mod TR. Mild OR. Mod pulm HTN with PASP 51 mmHg. 11/26/2016 Echocardiogram: Borderline dilated LV with moderate decreased LVEF 30- 35%, mild AR, mild-mod TR, large left effusion, mod pulm HTN RVSP 58 mmHg Assessment: 86 year old male with a past medical history of: Hypertension, Afib (on Coumadin), COPD, Dementia admitted s/p mechanical fall with R hip fx. 1. Asymptomatic bradycardia - HR improved to 50's - Will discontinue coreg 2. Right femoral neck fracture - Possible repair tomorrow or Thursday - Maintain mendenhall 3. A Fib - Off rate controlling meds d/t bradycardia - Lovenox 60 BID for surgery - Resume coumadin post op - Monitor hematuria 4. Acute on chronic systolic CHF - Pleural congestion improving - Lasix 40mg IV daily 5. UTI - No leukocytosis, fever - Repeat UA - Hold abx until speciation, Ucx with ~50k colonies 6. HTN - Losartan 25mg daily 7. COPD - Not in exacerbation - Duonebs prn 8. Dementia - continue aricept and seroquel Dispo: - Will need further cardiac evaluation as outpatient with his assistant golf course superintendent (Dr. Clayton Swift) with regard to his CHF. However, his current comorbidities ( dementia) will determine extent of further evaluation/intervention. Visit type - Emergency Visit Emergency Visit: Yes ED Registration Date: 11/25/16 Care time: The patient presented to the Emergency Department on the above date and was hospitalized for further evaluation of their emergent condition. - New Patient This patient is new to me today: Yes Date on this admission: 11/29/16 - Critical Care Critical Care patient: No
[2016-11-29 13:36] LABS: URINE BLOOD 3+ (NEGATIVE); URINE PROTEIN 2+ (NEGATIVE)
[2016-11-29 13:52] LABS: URINE RBC 922 /hpf (0-3); URINE WBC 9 /hpf (3-5)
[2016-11-29] MEDS: QUEtiapine FUMARATE 25 MG TABLET (FP) PO SCH (21:29)
--- NOTE | 2016-11-29 22:15 | PN ---
Progress Note (short form) - Note Progress Note: PATIENT TRANSFERRED FROM [facility] HERE PER MEDICAL AND ANESTHESIA PATIENT ON SCHEDULE FOR HEMIARTHROPLASTY FOR THURSDAY PENDING MEDICAL OPTIMIZATION
[2016-11-30] MEDS: DOCUSATE SODIUM 100 MG CAPSULE (FP) PO SCH ×3 (05:49→21:16)
[2016-11-30 07:18] LABS: CALCIUM 8.2 mg/dL (8.5-10.1); COCKROFT - GAULT 38.52; CREATININE 1.3 mg/dL (0.7-1.3)
[2016-11-30 08:33] LABS: MCH 30.5 pg (25.7-33.7); MCHC 33.2 g/dl (32.0-35.9); MEAN CELL VOLUME 91.9 fl (80-96); MEAN PLT VOLUME 8.7 fl (7.5-11.1); PLATELET COUNT 123 K/MM3 (134-434); RDW 18.1 % (11.9-15.9); WHITE BLOOD COUNT 6.2 K/mm3 (4.0-10.0)
[2016-11-30] MEDS: ENOXAPARIN NA (PORCINE) 60 MG/0.6 ML DISP.SYRIN SQ SCH ×2 (09:22→21:17)
[2016-11-30] MEDS: FUROSEMIDE 40 MG/4 ML INJECTABLE VIAL IVPB SCH (09:23)
[2016-11-30] MEDS: DONEPEZIL HCL 10 MG TABLET (FP) PO SCH (09:23)
[2016-11-30] MEDS: LOSARTAN POTASSIUM 25 MG TABLET PO SCH (09:23)
[2016-11-30] MEDS: LACTOBACILLUS ACIDOPHILUS 1 EACH TAB (FP) PO SCH (09:23)
[2016-11-30] MEDS: RANITIDINE HCL 150 MG TABLET (FP) PO SCH (09:23)
[2016-11-30] MEDS: ACETAMINOPHEN 325 MG TABLET (FP) PO PRN (09:27)
--- NOTE | 2016-11-30 10:03 | PN ---
Progress Note, Physician Chief Complaint: Not in distress, but note hemorrhoids History of Present Illness: Patient was seen and examined. Arousable. Chart was reviewed Bradycardic at times. Denies chest pain or SOB - Current Medication List Current Medications: Active Medications Acetaminophen (Tylenol -) 650 mg PO Q4H PRN PRN Reason: FEVER OR PAIN Last Admin: 11/30/16 09:27 Dose: 650 mg Albuterol/Ipratropium (Duoneb -) 1 amp NEB Q6H PRN PRN Reason: SHORTNESS OF BREATH Last Admin: 11/27/16 15:00 Dose: 1 amp Docusate Sodium (Colace -) 100 mg PO TID [facility] Last Admin: 11/30/16 05:49 Dose: 100 mg Donepezil HCl (Aricept -) 10 mg PO DAILY [facility] Last Admin: 11/30/16 09:23 Dose: 10 mg Enoxaparin Sodium (Lovenox -) 60 mg SQ BID [facility] Last Admin: 11/30/16 09:22 Dose: 60 mg Furosemide (Lasix Injection -) 40 mg IVPB DAILY [facility] Last Admin: 11/30/16 09:23 Dose: 40 mg Lactobacillus Acidophilus (Bacid -) 1 tab PO DAILY [facility] Last Admin: 11/30/16 09:23 Dose: 1 tab Losartan Potassium (Cozaar -) 25 mg PO DAILY [facility] Last Admin: 11/30/16 09:23 Dose: 25 mg Oxycodone HCl (Roxicodone -) 5 mg PO Q6H PRN PRN Reason: PAIN Quetiapine Fumarate (Seroquel -) 12.5 mg PO HS [facility] Last Admin: 11/29/16 21:29 Dose: 12.5 mg Ranitidine HCl (Zantac -) 150 mg PO DAILY [facility] Last Admin: 11/30/16 09:23 Dose: 150 mg - Objective Vital Signs: Vital Signs Temperature 99 F 11/30/16 05:37 Pulse Rate 95 H 11/30/16 05:37 Respiratory Rate 20 11/30/16 05:37 Blood Pressure 109/58 11/30/16 05:37 O2 Sat by Pulse Oximetry (%) 98 11/29/16 21:57 Neck: Yes: Supple Cardiovascular: Yes: Pulse Irregular, S1, S2 Respiratory: Yes: Diminished Gastrointestinal: Yes: Normal Bowel Sounds, Soft. No: Tenderness Edema: No Edema: LUE: Trace, RUE: Trace, LLE: Trace, RLE: Trace Labs: CBC, BMP 11/30/16 05:35 11/30/16 05:35 INR, PTT INR 1.73 (0.82-1.09) H 11/28/16 07:30 Problem List - Problems (1) Acute on chronic systolic (congestive) heart failure Code(s): I50.23 - ACUTE ON CHRONIC SYSTOLIC (CONGESTIVE) HEART FAILURE (2) Atrial fibrillation Code(s): I48.91 - UNSPECIFIED ATRIAL FIBRILLATION Qualifiers: Atrial fibrillation type: chronic Qualified Code(s): I48.2 - Chronic atrial fibrillation (3) Cerebrovascular disease Code(s): I67.9 - CEREBROVASCULAR DISEASE, UNSPECIFIED (4) Fractured femoral neck Code(s): S72.009A - FRACTURE OF UNSP PART OF NECK OF UNSP FEMUR, INIT Qualifiers: Encounter type: initial encounter Fracture type: closed Laterality : right Qualified Code(s): S72.001A - Fracture of unspecified part of neck of right femur, initial encounter for closed fracture (5) Hypertensive cardiovascular disease Code(s): I11.9 - HYPERTENSIVE HEART DISEASE WITHOUT HEART FAILURE Qualifiers: Heart failure presence: with heart failure Qualified Code(s): I11.0 - Hypertensive heart disease with heart failure (6) Pre-operative cardiovascular examination Code(s): Z01.810 - ENCOUNTER FOR PREPROCEDURAL CARDIOVASCULAR EXAMINATION (7) Pulmonary hypertension Code(s): I27.2 - OTHER SECONDARY PULMONARY HYPERTENSION (8) Subendocardial ischemia Code(s): I24.8 - OTHER FORMS OF ACUTE ISCHEMIC HEART DISEASE (9) COPD (chronic obstructive pulmonary disease) Code(s): J44.9 - CHRONIC OBSTRUCTIVE PULMONARY DISEASE, UNSPECIFIED (10) Dementia Code(s): F03.90 - UNSPECIFIED DEMENTIA WITHOUT BEHAVIORAL DISTURBANCE Qualifiers: Dementia type: vascular dementia Dementia behavioral disturbance: without behavioral disturbance Qualified Code(s): F01.50 - Vascular dementia without behavioral disturbance Assessment/Plan 1. Pre-operative cardiovascular evaluation prior to right hip hemiarthroplasty 2. Acute on chronic systolic failure with pleural effusions and pulmonary HTN 3. Persistent AF with subtherapeutic INR 4. HTN/HCVD 5. Subendocardial ischemia 6. Vascular dementia with cerebrovascular disease 7. History of hyperkalemia on Lisinopril PLAN: 1. Monitor INR - currently less than 2.0 and on Lovenox and off Coumadin. Await surgery tentatively tomorrow. Check INR today 2. Continue Lasix 40 mg qd with monitor renal function and electrolytes 3. Continue Losartan 25 mg qd and Carvedilol 3.125 mg bid 4. Resume Coumadin per INR once post-op hemostasis has been achieved after surgery 5. Patient will need further cardiac evaluation as outpatient with his train braker (Dr. Clayton Swift) with regard to his CHF, but likely conservative management should be implemented due to underlying dementia 6. Monitor CBC. Brenden Davenport MD
--- NOTE | 2016-11-30 12:35 | PN ---
Physical Exam: SUBJECTIVE: Patient seen and examined. He was not aware he fx his hip and needed surgery, he was re oriented. He denies rectal pain, however per RN he had some rectal bleeding and was tender during digital rectal this AM. OBJECTIVE: Vital Signs Period Temp Pulse Resp BP Sys/Kemp Pulse Ox Last 24 Hr 97.5 F-99 F 55-95 20-22 109-138/35-66 98-98 PE Neuro: awake, alert, cn 2-12intact Pulm: clear anteriorly CV: s1 s2 bradycardia Abd: s nt nd + bs : mendenhall, marlen colored Ext: R hip tenderness, LUE hematoma Laboratory Results - last 24 hr 11/29/16 11/30/16 11/30/16 12:00 05:35 05:35 WBC 6.2 RBC 3.13 L D Hgb 9.5 L D Hct 28.7 L D MCV 91.9 MCHC 33.2 RDW 18.1 H D Plt Count 123 L MPV 8.7 Sodium 143 Potassium 4.1 Chloride 107 Carbon Dioxide 29 Anion Gap 7 L BUN 41 H D Creatinine 1.3 D Random Glucose 77 Calcium 8.2 L Urine Color Dkyellow Urine Appearance Clear Urine pH 5.0 Ur Specific Brillion 1.020 Urine Protein 2+ H Urine Glucose (UA) Negative Urine Ketones Negative Urine Blood 3+ H Urine Nitrite Negative Urine Bilirubin Negative Urine Urobilinogen 2.0 e.u/dl Ur Leukocyte Esterase Negative Urine RBC 922 Urine WBC 9 Active Medications Generic Name Dose Route Start Last Admin Trade Name Freq PRN Reason Stop Dose Admin Acetaminophen 650 mg 11/26/16 09:03 11/30/16 09:27 Tylenol - PO 650 mg Q4H PRN Administration FEVER OR PAIN Albuterol/Ipratropium 1 amp 11/25/16 23:34 11/27/16 15:00 Duoneb - NEB 1 amp Q6H PRN Administration SHORTNESS OF BREATH Docusate Sodium 100 mg 11/26/16 14:00 11/30/16 05:49 Colace - PO 100 mg TID NAIF Administration Donepezil HCl 10 mg 11/26/16 10:00 11/30/16 09:23 Aricept - PO 10 mg DAILY NAIF Administration Enoxaparin Sodium 60 mg 11/29/16 22:00 11/30/16 09:22 Lovenox - SQ 60 mg BID NAIF Administration Furosemide 40 mg 11/28/16 10:00 11/30/16 09:23 Lasix Injection - IVPB 40 mg DAILY NAIF Administration Hydrocortisone 1 applic 11/30/16 12:00 Anusol 2.5% Hc Cream - TP DAILY NAIF Hydrocortisone Acetate 25 mg 11/30/16 22:00 Anusol Hc Suppository - RC HS NAIF Lactobacillus Acidophilus 1 tab 11/26/16 10:00 11/30/16 09:23 Bacid - PO 1 tab DAILY NAIF Administration Losartan Potassium 25 mg 11/26/16 12:00 11/30/16 09:23 Cozaar - PO 25 mg DAILY NAIF Administration Oxycodone HCl 5 mg 11/29/16 10:26 Roxicodone - PO Q6H PRN PAIN Quetiapine Fumarate 12.5 mg 11/26/16 22:00 11/29/16 21:29 Seroquel - PO 12.5 mg HS NAIF Administration Ranitidine HCl 150 mg 11/26/16 10:00 11/30/16 09:23 Zantac - PO 150 mg DAILY NAIF Administration Microbiology 11/26/16 14:23 Urine Culture - Final Urine - Urine Clean Catch Enterococcus Faecalis Assessment: 86 year old male with a past medical history of: Hypertension, Afib (on Coumadin), COPD, Dementia admitted s/p mechanical fall with R hip fx. 1. Asymptomatic bradycardia - HR continue to be in 50's - Stop coreg 11/29 2. Right femoral neck fracture - For repair tomorrow with Dr. Fowler - Maintain mendenhall 3. A Fib - Off rate controlling meds d/t bradycardia - Lovenox 60 BID for surgery - Resume coumadin post op - Monitor hematuria 4. Acute on chronic systolic CHF - Pleural congestion improving - Lasix 40mg IV daily 5. UTI - Likely colonized ur cx - Repeat UA negative - Defer abx at this time 6. HTN - Losartan 25mg daily 7. COPD - Not in exacerbation - Duonebs prn 8. Dementia - Continue aricept and seroquel 9. Hemorrhoids - Start anusol TP and [place] qhs Dispo: - Will need further cardiac evaluation as outpatient with his hydraulic miner (Dr. Clayton Swift) with regard to his CHF. However, his current comorbidities ( dementia) will determine extent of further evaluation/intervention. Visit type - Emergency Visit Emergency Visit: Yes ED Registration Date: 11/25/16 Care time: The patient presented to the Emergency Department on the above date and was hospitalized for further evaluation of their emergent condition. - New Patient This patient is new to me today: No - Critical Care Critical Care patient: No
[2016-11-30] MEDS: HYDROCORTISONE 2.5% TOPICAL CREAM 30 GM TUBE TP SCH (13:07)
[2016-11-30] MEDS: QUEtiapine FUMARATE 25 MG TABLET (FP) PO SCH (21:17)
[2016-11-30] MEDS ORDERED: HYDROCORTISONE ACETATE 25 MG/SUPP.RECT RC SCH (22:00)
[2016-12-01] MEDS: DOCUSATE SODIUM 100 MG CAPSULE (FP) PO SCH ×3 (06:46→22:44)
[2016-12-01 07:45] LABS: BASOPHIL 0.8 % (0-2.0); EOSINOPHIL 1.3 % (0-4.5); MCH 30.8 pg (25.7-33.7); MCHC 33.5 g/dl (32.0-35.9); MEAN CELL VOLUME 91.9 fl (80-96); MEAN PLT VOLUME 8.4 fl (7.5-11.1); NEUTROPHILS 74.8 % (42.8-82.8); PLATELET COUNT 129 K/MM3 (134-434); RDW 18.7 % (11.9-15.9); WHITE BLOOD COUNT 6.2 K/mm3 (4.0-10.0)
[2016-12-01 07:59] LABS: CALCIUM 8.3 mg/dL (8.5-10.1); INR 1.25 (0.82-1.09); MAGNESIUM 2.3 mg/dL (1.8-2.4); PROTHROMBIN TIME (PATIENT) 13.8 SEC (9.98-11.88)
[2016-12-01 08:00] LABS: COCKROFT - GAULT 38.52; CREATININE 1.3 mg/dL (0.7-1.3); PHOSPHOROUS 2.9 mg/dL (2.5-4.9)
--- NOTE | 2016-12-01 08:50 | PN ---
Physical Exam: SUBJECTIVE: Patient seen and examined. He moans in pain when moves his R hip. Re oriented to surgery today. 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 - R posterior skin tear, now open OBJECTIVE: Vital Signs Period Temp Pulse Resp BP Sys/Kemp Pulse Ox Last 24 Hr 97.6 F-98.7 F 54-72 20-22 111-122/35-59 96-98 PE Neuro: awake, alert, cn 2-12intact Pulm: L base crackles, clear otherwise CV: s1 s2 bradycardia, no sob, wheezuing Abd: s nt nd + bs : mendenhall Ext: R hip tenderness, LUE hematoma Laboratory Results - last 24 hr 12/01/16 12/01/16 12/01/16 05:35 05:35 05:35 WBC 6.2 RBC 3.19 L Hgb 9.8 L Hct 29.3 L MCV 91.9 MCHC 33.5 RDW 18.7 H Plt Count 129 L MPV 8.4 Neutrophils % 74.8 Lymphocytes % 5.9 L D Monocytes % 17.2 H Eosinophils % 1.3 Basophils % 0.8 INR 1.25 H D Sodium 144 Potassium 3.9 Chloride 106 Carbon Dioxide 29 Anion Gap 9 BUN 37 H Creatinine 1.3 Random Glucose 84 Calcium 8.3 L Phosphorus 2.9 Magnesium 2.3 D Active Medications Generic Name Dose Route Start Last Admin Trade Name Freq PRN Reason Stop Dose Admin Acetaminophen 650 mg 11/26/16 09:03 11/30/16 09:27 Tylenol - PO 650 mg Q4H PRN Administration FEVER OR PAIN Albuterol/Ipratropium 1 amp 11/25/16 23:34 11/27/16 15:00 Duoneb - NEB 1 amp Q6H PRN Administration SHORTNESS OF BREATH Docusate Sodium 100 mg 11/26/16 14:00 12/01/16 06:46 Colace - PO 100 mg TID NAIF Administration Donepezil HCl 10 mg 11/26/16 10:00 11/30/16 09:23 Aricept - PO 10 mg DAILY NAIF Administration Enoxaparin Sodium 60 mg 11/29/16 22:00 11/30/16 21:17 Lovenox - SQ 60 mg BID NAIF Administration Furosemide 40 mg 11/28/16 10:00 11/30/16 09:23 Lasix Injection - IVPB 40 mg DAILY NAIF Administration Hydrocortisone 1 applic 11/30/16 12:00 11/30/16 13:07 Anusol 2.5% Hc Cream - TP 1 applic DAILY NAIF Administration Hydrocortisone Acetate 25 mg 11/30/16 22:00 11/30/16 22:45 Anusol Hc Suppository - RC 25 mg HS NAIF Administration Lactobacillus Acidophilus 1 tab 11/26/16 10:00 11/30/16 09:23 Bacid - PO 1 tab DAILY NAIF Administration Losartan Potassium 25 mg 11/26/16 12:00 11/30/16 09:23 Cozaar - PO 25 mg DAILY NAIF Administration Oxycodone HCl 5 mg 11/29/16 10:26 Roxicodone - PO Q6H PRN PAIN Quetiapine Fumarate 12.5 mg 11/26/16 22:00 11/30/16 21:17 Seroquel - PO 12.5 mg HS NAIF Administration Ranitidine HCl 150 mg 11/26/16 10:00 11/30/16 09:23 Zantac - PO 150 mg DAILY NAIF Administration Imaging: - CXR today: mod-large progression of R pleural effusion, small left pleural effusion Assessment: 86 year old male with a past medical history of: Hypertension, A fib (on Coumadin), COPD, Dementia admitted s/p mechanical fall with R hip fx. 1. Asymptomatic bradycardia - HR continue to be in 50's - Stop coreg 11/29 2. Right femoral neck fracture - For repair tomorrow with Dr. Fowler - Maintain mendenhall 3. A Fib - Off rate controlling meds d/t bradycardia - Lovenox 60 BID for surgery - Resume coumadin post op - Monitor hematuria 4. Acute on chronic systolic CHF - CXR shows progression, however pt has been bed bound - Not requiring supplemental o2 - Lasix 40mg IV daily 5. UTI - Likely colonized ur cx - Repeat UA negative - Defer abx at this time 6. HTN - Losartan 25mg daily 7. COPD - Not in exacerbation - Duonebs prn 8. Dementia - Continue aricept and seroquel 9. Hemorrhoids - Anusol TP and [place] qhs Dispo: - Will need further cardiac evaluation as outpatient with his senior sas developer (Dr. Clayton Swift) with regard to his CHF. However, his current comorbidities ( dementia) will determine extent of further evaluation/intervention. Visit type - Emergency Visit Emergency Visit: Yes ED Registration Date: 11/25/16 Care time: The patient presented to the Emergency Department on the above date and was hospitalized for further evaluation of their emergent condition. - New Patient This patient is new to me today: No - Critical Care Critical Care patient: No
[2016-12-01] MEDS: HYDROCORTISONE 2.5% TOPICAL CREAM 30 GM TUBE TP SCH (09:57)
[2016-12-01] MEDS: RANITIDINE HCL 150 MG TABLET (FP) PO SCH (09:58)
[2016-12-01] MEDS: LACTOBACILLUS ACIDOPHILUS 1 EACH TAB (FP) PO SCH (09:58)
[2016-12-01] MEDS: DONEPEZIL HCL 10 MG TABLET (FP) PO SCH (09:58)
[2016-12-01] MEDS: FUROSEMIDE 40 MG/4 ML INJECTABLE VIAL IVPB SCH (09:58)
[2016-12-01] MEDS: LOSARTAN POTASSIUM 25 MG TABLET PO SCH (09:58)
[2016-12-01] MEDS: ENOXAPARIN NA (PORCINE) 60 MG/0.6 ML DISP.SYRIN SQ SCH (09:58)
--- NOTE | 2016-12-01 10:27 | PN ---
Progress Note, Physician Chief Complaint: Not in distress, await hip surgery History of Present Illness: Patient was seen and examined. Awake. Chart was reviewed Denies chest pain or SOB - Current Medication List Current Medications: Active Medications Acetaminophen (Tylenol -) 650 mg PO Q4H PRN PRN Reason: FEVER OR PAIN Last Admin: 11/30/16 09:27 Dose: 650 mg Albuterol/Ipratropium (Duoneb -) 1 amp NEB Q6H PRN PRN Reason: SHORTNESS OF BREATH Last Admin: 11/27/16 15:00 Dose: 1 amp Docusate Sodium (Colace -) 100 mg PO TID [facility] Last Admin: 12/01/16 06:46 Dose: 100 mg Donepezil HCl (Aricept -) 10 mg PO DAILY [facility] Last Admin: 12/01/16 09:58 Dose: 10 mg Enoxaparin Sodium (Lovenox -) 60 mg SQ BID [facility] Last Admin: 12/01/16 09:58 Dose: Not Given Furosemide (Lasix Injection -) 40 mg IVPB DAILY [facility] Last Admin: 12/01/16 09:58 Dose: 40 mg Hydrocortisone (Anusol 2.5% Hc Cream -) 1 applic TP DAILY [facility] Last Admin: 12/01/16 09:57 Dose: 1 applic Hydrocortisone Acetate (Anusol Hc Suppository -) 25 mg RC HS [facility] Last Admin: 11/30/16 22:45 Dose: 25 mg Lactobacillus Acidophilus (Bacid -) 1 tab PO DAILY [facility] Last Admin: 12/01/16 09:58 Dose: 1 tab Losartan Potassium (Cozaar -) 25 mg PO DAILY [facility] Last Admin: 12/01/16 09:58 Dose: 25 mg Oxycodone HCl (Roxicodone -) 5 mg PO Q6H PRN PRN Reason: PAIN Quetiapine Fumarate (Seroquel -) 12.5 mg PO HS [facility] Last Admin: 11/30/16 21:17 Dose: 12.5 mg Ranitidine HCl (Zantac -) 150 mg PO DAILY [facility] Last Admin: 12/01/16 09:58 Dose: 150 mg - Objective Vital Signs: Vital Signs Temperature 98.7 F 12/01/16 06:00 Pulse Rate 54 L 12/01/16 06:00 Respiratory Rate 20 12/01/16 06:00 Blood Pressure 118/55 12/01/16 06:00 O2 Sat by Pulse Oximetry (%) 98 12/01/16 06:00 Neck: Yes: Supple Cardiovascular: Yes: Regular Rate and Rhythm, S1, S2 Respiratory: Yes: Diminished Gastrointestinal: Yes: Normal Bowel Sounds, Soft. No: Tenderness Edema: Yes Edema: LLE: Trace, RLE: Trace Labs: CBC, BMP 12/01/16 05:35 12/01/16 05:35 INR, PTT INR 1.25 (0.82-1.09) H D 12/01/16 05:35 Problem List - Problems (1) Acute on chronic systolic (congestive) heart failure Code(s): I50.23 - ACUTE ON CHRONIC SYSTOLIC (CONGESTIVE) HEART FAILURE (2) Atrial fibrillation Code(s): I48.91 - UNSPECIFIED ATRIAL FIBRILLATION Qualifiers: Atrial fibrillation type: chronic Qualified Code(s): I48.2 - Chronic atrial fibrillation (3) Cerebrovascular disease Code(s): I67.9 - CEREBROVASCULAR DISEASE, UNSPECIFIED (4) Fractured femoral neck Code(s): S72.009A - FRACTURE OF UNSP PART OF NECK OF UNSP FEMUR, INIT Qualifiers: Encounter type: initial encounter Fracture type: closed Laterality : right Qualified Code(s): S72.001A - Fracture of unspecified part of neck of right femur, initial encounter for closed fracture (5) Hypertensive cardiovascular disease Code(s): I11.9 - HYPERTENSIVE HEART DISEASE WITHOUT HEART FAILURE Qualifiers: Heart failure presence: with heart failure Qualified Code(s): I11.0 - Hypertensive heart disease with heart failure (6) Pre-operative cardiovascular examination Code(s): Z01.810 - ENCOUNTER FOR PREPROCEDURAL CARDIOVASCULAR EXAMINATION (7) Pulmonary hypertension Code(s): I27.2 - OTHER SECONDARY PULMONARY HYPERTENSION (8) Subendocardial ischemia Code(s): I24.8 - OTHER FORMS OF ACUTE ISCHEMIC HEART DISEASE (9) COPD (chronic obstructive pulmonary disease) Code(s): J44.9 - CHRONIC OBSTRUCTIVE PULMONARY DISEASE, UNSPECIFIED (10) Dementia Code(s): F03.90 - UNSPECIFIED DEMENTIA WITHOUT BEHAVIORAL DISTURBANCE Qualifiers: Dementia type: vascular dementia Dementia behavioral disturbance: without behavioral disturbance Qualified Code(s): F01.50 - Vascular dementia without behavioral disturbance Assessment/Plan 1. Pre-operative cardiovascular evaluation prior to right hip hemiarthroplasty 2. Acute on chronic systolic failure with pleural effusions and pulmonary HTN 3. Persistent AF with subtherapeutic INR 4. HTN/HCVD 5. Subendocardial ischemia 6. Vascular dementia with cerebrovascular disease 7. History of hyperkalemia on Lisinopril PLAN: 1. Monitor INR - No absolute contraindication for hip surgery 2. Continue Lasix 40 mg qd with monitor renal function and electrolytes 3. Continue Losartan 25 mg qd and Carvedilol 3.125 mg bid 4. Resume Coumadin per INR once post-op hemostasis has been achieved after surgery 5. Patient will need further cardiac evaluation as outpatient with his florist (Dr. Clatyon Swift) with regard to his CHF, but likely conservative management should be implemented due to underlying dementia 6. Monitor CBC. Brenden Davenport MD
[2016-12-01] MEDS ORDERED: ETOMIDATE 20 MG/10 ML AMPUL IVPUSH ONE (14:59)
[2016-12-01] MEDS ORDERED: ceFAZolin SODIUM 1 GM VIAL ONE (15:14)
[2016-12-01] MEDS ORDERED: ceFAZolin SODIUM 1 GM VIAL IVPB ONE (15:15)
[2016-12-01] MEDS ORDERED: DEXAMETHASONE SOD PHOSPHATE 4 MG/1 ML VIAL ONE (15:17)
[2016-12-01] MEDS ORDERED: BACITRACIN 50,000 UNITS VIAL NR ONE (15:30)
[2016-12-01] MEDS ORDERED: VANCOMYCIN 1,000 MG VIAL (RESTRICTED TO ID ONLY) ONE (15:38)
[2016-12-01] MEDS ORDERED: ePHEDrine SULFATE 50 MG/1 ML AMPULE ONE (16:01)
--- NOTE | 2016-12-01 16:10 | OP ---
Operative Note - Note: Operative Date: 12/01/16 ([facility]) Pre-Operative Diagnosis: right displaced femoral neck fx Operation: right hip hemiarthroplasty Post-Operative Diagnosis: Same as Pre-op Surgeon: Julio Fowler Sand Carrier: Gee Pickering Anesthesiologist/LABORER DRYING DEPARTMENT: Forrest Mcclure Anesthesia: General Specimens Removed: femoral head Estimated Blood Loss (mls): 150 Operative Report Dictated: Yes
[2016-12-01] MEDS ORDERED: PROMETHAZINE HCL 25 MG/1 ML VIAL IVPUSH PRN (16:23)
[2016-12-01] MEDS ORDERED: ALBUTEROL SO4 2.5/IPRATROPIUM 0.5 INH SOL 3 ML VIAL.NEB. NEB PRN (16:30)
[2016-12-01] MEDS ORDERED: ACETAMINOPHEN INJECTION 100 ML IVPB ONE (17:06)
[2016-12-01] MEDS: ACETAMINOPHEN 1000 MG/100 ML VIAL (NON FORMULARY) IVPB ONE (17:07)
[2016-12-01] MEDS: QUEtiapine FUMARATE 25 MG TABLET (FP) PO SCH (22:15)
[2016-12-01] MEDS ORDERED: PT OWN MED DRAWER 7, Y5N ONE (22:19)
[2016-12-01] MEDS: CEFAZOLIN (PRE-DOCKED) 50 ML IVPB SCH (22:44)
[2016-12-01] MEDS: HYDROCORTISONE ACETATE 25 MG/SUPP.RECT RC SCH (22:44)
[2016-12-01] MEDS ORDERED: CEFAZOLIN 1 GM/D5W 50 ML IVPB SCH (23:00)
[2016-12-02] MEDS: CEFAZOLIN (PRE-DOCKED) 50 ML IVPB SCH (06:45)
[2016-12-02] MEDS: DOCUSATE SODIUM 100 MG CAPSULE (FP) PO SCH ×3 (06:45→21:03)
[2016-12-02 07:50] LABS: MCH 30.5 pg (25.7-33.7); MCHC 32.4 g/dl (32.0-35.9); MEAN CELL VOLUME 94.1 fl (80-96); MEAN PLT VOLUME 9.2 fl (7.5-11.1); PLATELET COUNT 179 K/MM3 (134-434); RDW 18.6 % (11.9-15.9); WHITE BLOOD COUNT 10.8 K/mm3 (4.0-10.0)
[2016-12-02 08:02] LABS: CALCIUM 8.4 mg/dL (8.5-10.1); COCKROFT - GAULT 31.3; CREATININE 1.6 mg/dL (0.7-1.3)
[2016-12-02] MEDS ORDERED: PT OWN MED DRAWER 7, Y5N ONE (08:30)
[2016-12-02] MEDS: ACETAMINOPHEN 325 MG TABLET (FP) PO PRN ×2 (08:31→21:03)
[2016-12-02] MEDS: oxyCODONE HCL 5 MG TABLET PO PRN ×2 (08:36→21:03)
[2016-12-02] MEDS: ENOXAPARIN NA (PORCINE) 60 MG/0.6 ML DISP.SYRIN SQ SCH ×2 (09:04→21:05)
[2016-12-02] MEDS: RANITIDINE HCL 150 MG TABLET (FP) PO SCH (09:04)
[2016-12-02] MEDS: LACTOBACILLUS ACIDOPHILUS 1 EACH TAB (FP) PO SCH (09:04)
[2016-12-02] MEDS: DONEPEZIL HCL 10 MG TABLET (FP) PO SCH (09:05)
--- NOTE | 2016-12-02 09:54 | PN ---
Progress Note, Physician Chief Complaint: Not in distress, post hip surgery yesterday Denies chest pain History of Present Illness: Patient was seen and examined. Awake. Chart was reviewed Denies chest pain or SOB Bradycardia at 50's - Current Medication List Current Medications: Active Medications Acetaminophen (Tylenol -) 650 mg PO Q4H PRN PRN Reason: FEVER OR PAIN Last Admin: 12/02/16 08:31 Dose: 650 mg Albuterol/Ipratropium (Duoneb -) 1 amp NEB Q6H PRN PRN Reason: SHORTNESS OF BREATH Docusate Sodium (Colace -) 100 mg PO TID [facility] Last Admin: 12/02/16 06:45 Dose: 100 mg Donepezil HCl (Aricept -) 10 mg PO DAILY [facility] Last Admin: 12/02/16 09:05 Dose: 10 mg Enoxaparin Sodium (Lovenox -) 60 mg SQ BID [facility] Last Admin: 12/02/16 09:04 Dose: 60 mg Furosemide (Lasix Injection -) 40 mg IVPB DAILY [facility] Last Admin: 12/02/16 09:05 Dose: 40 mg Hydrocortisone (Anusol 2.5% Hc Cream -) 1 applic TP DAILY [facility] Hydrocortisone Acetate (Anusol Hc Suppository -) 25 mg RC HS [facility] Last Admin: 12/01/16 22:44 Dose: 25 mg Lactobacillus Acidophilus (Bacid -) 1 tab PO DAILY [facility] Last Admin: 12/02/16 09:04 Dose: 1 tab Losartan Potassium (Cozaar -) 25 mg PO DAILY [facility] Last Admin: 12/02/16 09:04 Dose: 25 mg Oxycodone HCl (Roxicodone -) 5 mg PO Q6H PRN PRN Reason: PAIN Last Admin: 12/02/16 08:36 Dose: 5 mg Quetiapine Fumarate (Seroquel -) 12.5 mg PO HS [facility] Last Admin: 12/01/16 22:15 Dose: Not Given Ranitidine HCl (Zantac -) 150 mg PO DAILY [facility] Last Admin: 12/02/16 09:04 Dose: 150 mg - Objective Vital Signs: Vital Signs Temperature 98.5 F 12/02/16 05:43 Pulse Rate 60 12/02/16 05:43 Respiratory Rate 20 12/02/16 05:43 Blood Pressure 120/47 12/02/16 05:43 O2 Sat by Pulse Oximetry (%) 99 12/01/16 17:30 HENT: Yes: Atraumatic Neck: Yes: Supple Cardiovascular: Yes: Regular Rate and Rhythm, S1, S2 Respiratory: Yes: Diminished Gastrointestinal: Yes: Normal Bowel Sounds, Soft. No: Tenderness Edema: No Labs: CBC, BMP 12/02/16 05:38 12/02/16 05:38 INR, PTT INR 1.25 (0.82-1.09) H D 12/01/16 05:35 - ....Imaging Chest X-ray: Report Reviewed Problem List - Problems (1) Acute on chronic systolic (congestive) heart failure Code(s): I50.23 - ACUTE ON CHRONIC SYSTOLIC (CONGESTIVE) HEART FAILURE (2) Atrial fibrillation Code(s): I48.91 - UNSPECIFIED ATRIAL FIBRILLATION Qualifiers: Atrial fibrillation type: chronic Qualified Code(s): I48.2 - Chronic atrial fibrillation (3) Cerebrovascular disease Code(s): I67.9 - CEREBROVASCULAR DISEASE, UNSPECIFIED (4) Fractured femoral neck Code(s): S72.009A - FRACTURE OF UNSP PART OF NECK OF UNSP FEMUR, INIT Qualifiers: Encounter type: initial encounter Fracture type: closed Laterality : right Qualified Code(s): S72.001A - Fracture of unspecified part of neck of right femur, initial encounter for closed fracture (5) Hypertensive cardiovascular disease Code(s): I11.9 - HYPERTENSIVE HEART DISEASE WITHOUT HEART FAILURE Qualifiers: Heart failure presence: with heart failure Qualified Code(s): I11.0 - Hypertensive heart disease with heart failure (6) Pre-operative cardiovascular examination Code(s): Z01.810 - ENCOUNTER FOR PREPROCEDURAL CARDIOVASCULAR EXAMINATION (7) Pulmonary hypertension Code(s): I27.2 - OTHER SECONDARY PULMONARY HYPERTENSION (8) Subendocardial ischemia Code(s): I24.8 - OTHER FORMS OF ACUTE ISCHEMIC HEART DISEASE (9) COPD (chronic obstructive pulmonary disease) Code(s): J44.9 - CHRONIC OBSTRUCTIVE PULMONARY DISEASE, UNSPECIFIED (10) Dementia Code(s): F03.90 - UNSPECIFIED DEMENTIA WITHOUT BEHAVIORAL DISTURBANCE Qualifiers: Dementia type: vascular dementia Dementia behavioral disturbance: without behavioral disturbance Qualified Code(s): F01.50 - Vascular dementia without behavioral disturbance Assessment/Plan 1. Post operative cardiovascular evaluation after right hip hemiarthroplasty 2. Acute on chronic systolic failure with pleural effusions and pulmonary HTN 3. Persistent AF with subtherapeutic INR 4. HTN/HCVD 5. Subendocardial ischemia 6. Vascular dementia with cerebrovascular disease 7. History of hyperkalemia on Lisinopril PLAN: 1. Post op management 2. Continue Lasix 40 mg but switch to PO daily with monitor renal function and electrolytes and I/Os. Repeat CXR in am 3. Continue Losartan 25 mg qd - currently off Carvedilol due to bradycardia 4. Resume Coumadin per INR once post-op hemostasis has been achieved after surgery 5. Patient will need further cardiac evaluation as outpatient with his flight steward (Dr. Clayton Swift) with regard to his CHF, but likely conservative management should be implemented due to underlying dementia 6. Monitor CBC. Brenden Davenport MD
[2016-12-02] MEDS ORDERED: LOSARTAN POTASSIUM 25 MG TABLET PO SCH (10:00)
[2016-12-02] MEDS ORDERED: FUROSEMIDE 40 MG/4 ML INJECTABLE VIAL IVPB SCH (10:00)
--- NOTE | 2016-12-02 10:13 | PN ---
Progress Note (short form) - Note Progress Note: Anesthesia postop note 86 y/o F s/p GA for right hip hemiarthroplasty POD#1, vss, alert and awake, no complaints, pain well controlled No anesthesia complications.
--- NOTE | 2016-12-02 11:13 | SPEC ---
DATE OF OPERATION: 12/01/2016 PREOPERATIVE DIAGNOSIS: Displaced right femoral neck fracture. POSTOPERATIVE DIAGNOSIS: Displaced right femoral neck fracture. OPERATION: Right hip hemiarthroplasty SURGICAL ATTENDING: Julio Fowler M.D. SYSTEMS MECHANIC: Maria De Jesus Key ANESTHESIA: General with endotracheal intubation. POSITION: Lateral decubitus. CLOSURE: A No. 7 stem with a +4 head and a 52 bipolar, No. 1 Vicryl for capsule and fascia, 0 and 2-0 subcutaneous, 3-0 Monocryl subcuticular to skin with skin glue. ESTIMATED BLOOD LOSS: Less than 100 mL COMPLICATIONS: None CONDITION: To recovery room in stable condition. DESCRIPTION OF PROCEDURE: Patient was taken to the operating room on . Anesthesia was administered by the anesthesiologist. IV Kefzol was given prophylactically prior to the case. Patient was placed in the lateral decubitus position with all prominences well padded. The right hip area was prepped and draped in the usual sterile fashion. A posterior approach was utilized to gain access to the hip. A 12 to 15 cm curved longitudinal incision over the posterior lateral aspect of the hip was incised and hemostasis achieved with Bovie cautery. Sharp dissection was carried down to the level of the fascia. The fascia was opened the entire length of the incision. The gluteus jose fibers were spread, exposing the greater trochanter. A Charnley retractor was placed in this layer and care was taken not to impale sciatic nerve. Short external rotators were detached from their insertion to the greater trochanter and peeled off the capsule. A T capsulotomy was then performed, down to the level of the labrum. The neck was osteotomized with oscillating saw at the appropriate level. The head was measured for diameter. A trial reduction of the appropriate size head to see if a good suction fit. The proximal femur was prepared using a box chisel. Intramedullary, as well as serial broaches until the appropriate broach achieved good fit and fill with good stability. A trial reduction with the neck and bipolar achieved equal limb lengths and was stable to rachna flexion at 90 degrees of flexion, to marked adduction and internal rotation. Had a positive hang test, negative telescoping and was stable in external rotation and extension. The trial component was removed. The real broach was then malletted into place and the real bipolar was cold-welded to the trunnion. Identical limb lengths on all planes was described earlier with trials. The hip was irrigated out with copious amounts of antibiotic irrigation. Capsule was closed using 0 Vicryl, 0-Vicryl interrupted suture for the fascia was then used, 0 and 2-0 for the subcutaneous and 3-0 Monocryl subcuticular to the skin with skin glue. The Aquacel dressing was applied and the patient was placed in the supine position. Bilateral SCDs and abduction pillow were applied. Patient was awakened from anesthesia and transferred to the recovery room in stable condition. No complications, estimated blood loss less than 100 mL. Jay [id number]
--- NOTE | 2016-12-02 14:29 | PN ---
Progress Note (short form) - Note Progress Note: Ortho Pt seen and examined s/p right hip jackie pod #1 Selected Entries 12/02/16 10:00 Temperature 98 F Pulse Rate 60 Respiratory 18 Rate Blood Pressure 116/70 Laboratory Tests 12/02/16 05:38 WBC 10.8 H D Hgb 9.6 L Hct 29.5 L Plt Count 179 D dressing c/d/i, calf, soft,nt nvi a/p PT if able hip precautions dvt ppx pain control d/c planning
[2016-12-02] MEDS: HYDROCORTISONE 2.5% TOPICAL CREAM 30 GM TUBE TP SCH (15:16)
[2016-12-02] MEDS: WARFARIN NA 5 MG TABLET (UD) PO SCH (17:37)
--- NOTE | 2016-12-02 17:48 | PN ---
Physical Exam: SUBJECTIVE: Patient seen and examined on tele. He is stable after surgery, no complaints, however didn't remember he had surgery. OBJECTIVE: Vital Signs Period Temp Pulse Resp BP Sys/Kemp Pulse Ox Last 24 Hr 97.0 F-98.5 F 42-60 18-22 101-120/39-70 97-97 PE Neuro: awake, alert, cn 2-12intact Pulm: L base crackles, clear otherwise CV: s1 s2 bradycardia, Abd: s nt nd + bs : mendenhall Ext: R hip dressing LUE hematoma Laboratory Results - last 24 hr 12/02/16 12/02/16 05:38 05:38 WBC 10.8 H D RBC 3.13 L Hgb 9.6 L Hct 29.5 L MCV 94.1 MCHC 32.4 RDW 18.6 H Plt Count 179 D MPV 9.2 Sodium 143 Potassium 4.5 Chloride 104 Carbon Dioxide 28 Anion Gap 11 BUN 43 H Creatinine 1.6 H D Random Glucose 98 Calcium 8.4 L Active Medications Generic Name Dose Route Start Last Admin Trade Name Freq PRN Reason Stop Dose Admin Acetaminophen 650 mg 12/01/16 16:30 12/02/16 08:31 Tylenol - PO 650 mg Q4H PRN Administration FEVER OR PAIN Albuterol/Ipratropium 1 amp 12/01/16 16:30 Duoneb - NEB Q6H PRN SHORTNESS OF BREATH Docusate Sodium 100 mg 12/01/16 22:00 12/02/16 15:16 Colace - PO 100 mg TID NAIF Administration Donepezil HCl 10 mg 12/02/16 10:00 12/02/16 09:05 Aricept - PO 10 mg DAILY NA[facility] Administration Enoxaparin Sodium 60 mg 12/02/16 10:00 12/02/16 09:04 Lovenox - SQ 60 mg BID ANIF Administration Hydrocortisone 1 applic 12/02/16 10:00 12/02/16 15:16 Anusol 2.5% Hc Cream - TP 1 applic DAILY [facility] Administration Hydrocortisone Acetate 25 mg 12/01/16 22:00 12/01/16 22:44 Anusol Hc Suppository - RC 25 mg HS NAIF Administration Lactobacillus Acidophilus 1 tab 12/02/16 10:00 12/02/16 09:04 Bacid - PO 1 tab DAILY NA[facility] Administration Oxycodone HCl 5 mg 12/01/16 16:30 12/02/16 08:36 Roxicodone - PO 5 mg Q6H PRN Administration PAIN Quetiapine Fumarate 12.5 mg 12/01/16 22:00 12/01/16 22:15 Seroquel - PO Not Given HS NAIF Ranitidine HCl 150 mg 12/02/16 10:00 12/02/16 09:04 Zantac - PO 150 mg DAILY [facility] Administration Warfarin Sodium 5 mg 12/02/16 18:00 12/02/16 17:37 Coumadin - PO 5 mg DAILY@1800 NAIF Administration Imaging: - CXR today: mod-large progression of R pleural effusion, small left pleural effusion Assessment: 86 year old male with a past medical history of: Hypertension, A fib (on Coumadin), COPD, Dementia admitted s/p mechanical fall with R hip fx. 1. Asymptomatic bradycardia - HR continue to be in 50's - Off coreg 2. Right right hip hemiarthroplasty 12/01 - POD 1 - Maintain mendenhall - Start PT - Continue lovenox bridge with coumadin tonight 3. A Fib - Off rate controlling meds d/t bradycardia - Lovenox 60 BID for surgery - Resume coumadin tonight 4. Acute on chronic systolic CHF - Hold lasix for rising cr - Monitor volume status 5. UTI - Likely colonized ur cx - Repeat UA negative - Defer abx at this time 6. HTN - Hold Losartan for taty 7. TATY - Likely pre renal - Hold EUFEMIA/ARB - Encourage PO intake 8. COPD - Not in exacerbation - Duonebs prn 9. Dementia - Continue aricept and seroquel 10. Hemorrhoids - Anusol TP and [place] qhs Dispo: - Will need further cardiac evaluation as outpatient with his medical specialist (Dr. Clayton Swift) with regard to his CHF. However, his current comorbidities ( dementia) will determine extent of further evaluation/intervention. Visit type - Emergency Visit Emergency Visit: Yes ED Registration Date: 11/25/16 Care time: The patient presented to the Emergency Department on the above date and was hospitalized for further evaluation of their emergent condition. - New Patient This patient is new to me today: No - Critical Care Critical Care patient: No - Discharge Referral Referred to [facility] No
[2016-12-02] MEDS: BACITRACIN 30 GM TUBE TOPICAL OINTMENT TP SCH (19:52)
[2016-12-02] MEDS: QUEtiapine FUMARATE 25 MG TABLET (FP) PO SCH (21:03)
[2016-12-02] MEDS: HYDROCORTISONE ACETATE 25 MG/SUPP.RECT RC SCH (21:57)
[2016-12-03] MEDS: ACETAMINOPHEN 325 MG TABLET (FP) PO PRN ×2 (05:42→20:03)
[2016-12-03] MEDS: DOCUSATE SODIUM 100 MG CAPSULE (FP) PO SCH ×3 (05:42→21:04)
[2016-12-03] MEDS: oxyCODONE HCL 5 MG TABLET PO PRN ×2 (05:42→20:04)
[2016-12-03 07:16] LABS: MCH 30.5 pg (25.7-33.7); MCHC 32.7 g/dl (32.0-35.9); MEAN CELL VOLUME 93.3 fl (80-96); MEAN PLT VOLUME 8.3 fl (7.5-11.1); PLATELET COUNT 133 K/MM3 (134-434); RDW 18.7 % (11.9-15.9); WHITE BLOOD COUNT 8.8 K/mm3 (4.0-10.0)
[2016-12-03 07:33] LABS: CALCIUM 8.6 mg/dL (8.5-10.1); COCKROFT - GAULT 29.46; CREATININE 1.7 mg/dL (0.7-1.3)
[2016-12-03 07:57] LABS: INR 1.26 (0.82-1.09); PROTHROMBIN TIME (PATIENT) 13.9 SEC (9.98-11.88)
[2016-12-03] MEDS: LACTOBACILLUS ACIDOPHILUS 1 EACH TAB (FP) PO SCH (09:24)
[2016-12-03] MEDS: DONEPEZIL HCL 10 MG TABLET (FP) PO SCH (09:24)
[2016-12-03] MEDS: ENOXAPARIN NA (PORCINE) 60 MG/0.6 ML DISP.SYRIN SQ SCH ×2 (09:25→21:03)
[2016-12-03] MEDS: RANITIDINE HCL 150 MG TABLET (FP) PO SCH (09:25)
[2016-12-03] MEDS: BACITRACIN 30 GM TUBE TOPICAL OINTMENT TP SCH (09:27)
--- NOTE | 2016-12-03 13:08 | PN ---
Progress Note (short form) - Note Progress Note: Ortho Pt seen and examined s/p right hip jackie pod #2 Selected Entries 12/03/16 10:00 Temperature 98.3 F Pulse Rate 52 L Respiratory 18 Rate Blood Pressure 94/40 Laboratory Tests 12/03/16 06:20 WBC 8.8 Hgb 8.9 L Hct 27.1 L Plt Count 133 L D dressing c/d/i, calf, soft,nt nvi a/p PT if able hip precautions dvt ppx pain control d/c planning
--- NOTE | 2016-12-03 13:44 | PN ---
Progress Note, Physician History of Present Illness: Comfortable, demented, no complaints. - Current Medication List Current Medications: Active Medications Acetaminophen (Tylenol -) 650 mg PO Q4H PRN PRN Reason: FEVER OR PAIN Last Admin: 12/03/16 05:42 Dose: 650 mg Albuterol/Ipratropium (Duoneb -) 1 amp NEB Q6H PRN PRN Reason: SHORTNESS OF BREATH Bacitracin (Bacitracin -) 1 applic TP DAILY [facility] Last Admin: 12/03/16 09:27 Dose: Not Given Docusate Sodium (Colace -) 100 mg PO TID [facility] Last Admin: 12/03/16 05:42 Dose: 100 mg Donepezil HCl (Aricept -) 10 mg PO DAILY [facility] Last Admin: 12/03/16 09:24 Dose: 10 mg Enoxaparin Sodium (Lovenox -) 60 mg SQ BID [facility] Last Admin: 12/03/16 09:25 Dose: 60 mg Hydrocortisone (Anusol 2.5% Hc Cream -) 1 applic TP DAILY [facility] Last Admin: 12/02/16 15:16 Dose: 1 applic Hydrocortisone Acetate (Anusol Hc Suppository -) 25 mg RC HS [facility] Last Admin: 12/02/16 21:57 Dose: 25 mg Lactobacillus Acidophilus (Bacid -) 1 tab PO DAILY [facility] Last Admin: 12/03/16 09:24 Dose: 1 tab Oxycodone HCl (Roxicodone -) 5 mg PO Q6H PRN PRN Reason: PAIN Last Admin: 12/03/16 05:42 Dose: 5 mg Quetiapine Fumarate (Seroquel -) 12.5 mg PO HS [facility] Last Admin: 12/02/16 21:03 Dose: 12.5 mg Ranitidine HCl (Zantac -) 150 mg PO DAILY [facility] Last Admin: 12/03/16 09:25 Dose: 150 mg Warfarin Sodium (Coumadin -) 5 mg PO DAILY@1800 [facility] Last Admin: 12/02/16 17:37 Dose: 5 mg - Objective Vital Signs: Vital Signs Temperature 98.3 F 12/03/16 10:00 Pulse Rate 52 L 12/03/16 10:00 Respiratory Rate 18 12/03/16 10:00 Blood Pressure 94/40 12/03/16 10:00 O2 Sat by Pulse Oximetry (%) 93 L 12/02/16 21:00 Constitutional: Yes: No Distress, Calm Neck: Yes: Supple Cardiovascular: Yes: Pulse Irregular Respiratory: Yes: Regular, Diminished Gastrointestinal: Yes: Normal Bowel Sounds, Soft Edema: No Labs: CBC, BMP 12/03/16 06:20 12/03/16 06:20 INR, PTT INR 1.26 (0.82-1.09) H 12/03/16 06:20 Problem List - Problems (1) Atrial fibrillation Code(s): I48.91 - UNSPECIFIED ATRIAL FIBRILLATION Qualifiers: Atrial fibrillation type: chronic Qualified Code(s): I48.2 - Chronic atrial fibrillation (2) Fractured femoral neck Code(s): S72.009A - FRACTURE OF UNSP PART OF NECK OF UNSP FEMUR, INIT Qualifiers: Encounter type: initial encounter Fracture type: closed Laterality : right Qualified Code(s): S72.001A - Fracture of unspecified part of neck of right femur, initial encounter for closed fracture (3) Dementia Code(s): F03.90 - UNSPECIFIED DEMENTIA WITHOUT BEHAVIORAL DISTURBANCE Qualifiers: Dementia type: vascular dementia Dementia behavioral disturbance: without behavioral disturbance Qualified Code(s): F01.50 - Vascular dementia without behavioral disturbance (4) Cerebrovascular disease Code(s): I67.9 - CEREBROVASCULAR DISEASE, UNSPECIFIED (5) Acute on chronic systolic (congestive) heart failure Code(s): I50.23 - ACUTE ON CHRONIC SYSTOLIC (CONGESTIVE) HEART FAILURE (6) Subendocardial ischemia Code(s): I24.8 - OTHER FORMS OF ACUTE ISCHEMIC HEART DISEASE (7) Hypertensive cardiovascular disease Code(s): I11.9 - HYPERTENSIVE HEART DISEASE WITHOUT HEART FAILURE Qualifiers: Heart failure presence: with heart failure Qualified Code(s): I11.0 - Hypertensive heart disease with heart failure (8) Pleural effusion due to CHF (congestive heart failure) Code(s): I50.9 - HEART FAILURE, UNSPECIFIED (9) Pulmonary hypertension Code(s): I27.2 - OTHER SECONDARY PULMONARY HYPERTENSION Assessment/Plan 10/31/15 Echocardiogram: Normal LV size and moderate global hypokinesis, LVEF 35- 40%. Mild LAE. Trace AR. Mod MR. Mod TR. Mild [place]. Mod pulm HTN with PASP 51 mmHg. 11/26/2016 Echocardiogram: Broderline dilated LV with moderate decreased LVEF 30- 35%, mild AR, mild-mod TR, large left effusion, mod pulm HTN RVSP 58 mmHg 1. POD#2 right hip hemiarthroplasty 2. Acute on chronic systolic failure with pleural effusions and pulm HTN resolved 3. Persistent afib with subtherapeutic INR 4. HTN/HCVD 5. Subendocardial ischemia 6. Vascular dementia with cerebrovascular disease 7. H/o hyperkalemia on lisinopril 8. CKD P: 1. Resume Lasix 20 qd with monitor diuretic response, renal fxn and electrolytes 2. Resume losartan 25 qd once renal fxn stabilizes, carvedilol d/mike for bradycardia 3. Resume Lovenox->coumadin per INR as post-op hemostasis has been achieved 4. Patient will need further cardiac evaluation as outpatient with his nutritional health coach (Dr. Clayton Swift) with regard to his CHF. However, his current comorbidities (dementia) will determine extent of further evaluation/ intervention.
[2016-12-03] MEDS: HYDROCORTISONE 2.5% TOPICAL CREAM 30 GM TUBE TP SCH (14:23)
--- NOTE | 2016-12-03 14:42 | PN ---
Physical Exam: SUBJECTIVE: Patient seen and examined in chair in hallways. He wants to go back to bed. He is unaware of his hip surgery. OBJECTIVE: Vital Signs Period Temp Pulse Resp BP Sys/Kemp Pulse Ox Last 24 Hr 97.4 F-99.8 F 42-58 16-20 93-152/40-52 93 PE Neuro: awake, alert, cn 2-12intact Pulm: R base crackles >L CV: s1 s2 bradycardia Abd: s nt nd + bs : mendenhall Ext: R hip dressing LUE hematoma Laboratory Results - last 24 hr 12/03/16 12/03/16 12/03/16 06:20 06:20 06:20 WBC 8.8 RBC 2.90 L Hgb 8.9 L Hct 27.1 L MCV 93.3 MCHC 32.7 RDW 18.7 H Plt Count 133 L D MPV 8.3 INR 1.26 H Sodium 141 Potassium 4.5 Chloride 103 Carbon Dioxide 32 Anion Gap 6 L BUN 52 H D Creatinine 1.7 H Random Glucose 93 Calcium 8.6 Active Medications Generic Name Dose Route Start Last Admin Trade Name Freq PRN Reason Stop Dose Admin Acetaminophen 650 mg 12/01/16 16:30 12/03/16 05:42 Tylenol - PO 650 mg Q4H PRN Administration FEVER OR PAIN Albuterol/Ipratropium 1 amp 12/01/16 16:30 Duoneb - NEB Q6H PRN SHORTNESS OF BREATH Bacitracin 1 applic 12/02/16 18:15 12/03/16 09:27 Bacitracin - TP Not Given DAILY NAIF Docusate Sodium 100 mg 12/01/16 22:00 12/03/16 14:23 Colace - PO 100 mg TID NAIF Administration Donepezil HCl 10 mg 12/02/16 10:00 12/03/16 09:24 Aricept - PO 10 mg DAILY NAIF Administration Enoxaparin Sodium 60 mg 12/02/16 10:00 12/03/16 09:25 Lovenox - SQ 60 mg BID NAIF Administration Hydrocortisone 1 applic 12/02/16 10:00 12/03/16 14:23 Anusol 2.5% Hc Cream - TP Not Given DAILY NAIF Hydrocortisone Acetate 25 mg 12/01/16 22:00 12/02/16 21:57 Anusol Hc Suppository - RC 25 mg HS NAIF Administration Lactobacillus Acidophilus 1 tab 12/02/16 10:00 12/03/16 09:24 Bacid - PO 1 tab DAILY NAIF Administration Oxycodone HCl 5 mg 12/01/16 16:30 12/03/16 05:42 Roxicodone - PO 5 mg Q6H PRN Administration PAIN Quetiapine Fumarate 12.5 mg 12/01/16 22:00 12/02/16 21:03 Seroquel - PO 12.5 mg HS NAIF Administration Ranitidine HCl 150 mg 12/02/16 10:00 12/03/16 09:25 Zantac - PO 150 mg DAILY NAIF Administration Warfarin Sodium 5 mg 12/02/16 18:00 12/02/16 17:37 Coumadin - PO 5 mg DAILY@1800 NAIF Administration Imaging: - CXR today: mod-large progression of R pleural effusion, small left pleural effusion Assessment: 86 year old male with a past medical history of: Hypertension, A fib (on Coumadin), COPD, Dementia admitted s/p mechanical fall with R hip fx. 1. Asymptomatic bradycardia - HR stable, coreg discontinued 2. Right right hip hemiarthroplasty 12/01 - POD 2 - Discontinue mendenhall - PT daily - Continue lovenox bridge with coumadin 5mg 3. A Fib - Off rate controlling meds d/t bradycardia - Lovenox 60 BID for surgery - Resume coumadin tonight 4. Acute on chronic systolic CHF - Hold lasix 20mg for taty 5. UTI - Likely colonized ur cx - Repeat UA negative - Defer abx at this time 6. HTN - Hold Losartan for taty 7. TATY - Likely pre renal - Hold EUFEMIA/ARB - Encourage PO intake 8. COPD - Not in exacerbation - Duonebs prn 9. Dementia - Continue aricept and seroquel 10. Hemorrhoids - Anusol TP and [place] qhs Dispo: - Will need further cardiac evaluation as outpatient with his legal document specialist (Dr. Clayton Swift) with regard to his CHF. However, his current comorbidities ( dementia) will determine extent of further evaluation/intervention. Visit type - Emergency Visit Emergency Visit: Yes ED Registration Date: 11/25/16 Care time: The patient presented to the Emergency Department on the above date and was hospitalized for further evaluation of their emergent condition. - New Patient This patient is new to me today: No - Critical Care Critical Care patient: No
--- NOTE | 2016-12-03 14:53 | PATH ---
Surgical Pathology Report Patient Name: EVARISTO HAND Med. Rec. #: [id number] /Age/Gender: 1930 (Age: 86) / M Account: [id number] Location: [address] [place] [address]/[facility] Taken: 12/01/2016 Received: 12/02/2016 Reported: 12/03/2016 Physicians: Julio Fowler M.D. Specimen(s) Received RIGHT FEMORAL HEAD Clinical History Fracture right femur Final Diagnosis FEMORAL HEAD, RIGHT, HIP ARTHROPLASTY: BONE WITH FOCAL NECROSIS AND HEMORRHAGE CONSISTENT WITH FRACTURE SITE. Electronically Signed Milton Bell M.D. Gross Description Received in formalin, labeled "right femoral head" is a 4.8 x 4.8 x 4.1 cm femoral head with no femoral neck attached. The margin of resection is red-brown, jagged and hemorrhagic. No areas of eburnation are identified. The articular surface is kiran-yellow and focally nodular and granular. The underlying trabecular bone is kiran-yellow, heterogeneous and focally hemorrhagic. Also received within the same container is a 3.3 x 2.5 x 1.5 cm hemorrhagic portion of bone. General Operator sections are submitted in one cassette, following decalcification. 12/02/201612/02/2016
[2016-12-03] MEDS: WARFARIN NA 5 MG TABLET (UD) PO SCH (17:11)
[2016-12-03] MEDS ORDERED: PT OWN MED DRAWER 7, Y5N ONE ×2 (20:02)
[2016-12-03] MEDS: ACETAMINOPHEN 1000 MG/100 ML VIAL (NON FORMULARY) IVPB ONE (20:49)
[2016-12-03] MEDS: HYDROCORTISONE ACETATE 25 MG/SUPP.RECT RC SCH (21:04)
[2016-12-03] MEDS: QUEtiapine FUMARATE 25 MG TABLET (FP) PO SCH (21:04)
[2016-12-04] MEDS: DOCUSATE SODIUM 100 MG CAPSULE (FP) PO SCH ×3 (05:46→21:29)
[2016-12-04 07:08] LABS: CALCIUM 8.6 mg/dL (8.5-10.1); COCKROFT - GAULT 26.72; CREATININE 1.9 mg/dL (0.7-1.3)
[2016-12-04 07:10] LABS: INR 1.79 (0.82-1.09); PROTHROMBIN TIME (PATIENT) 19.9 SEC (9.98-11.88)
[2016-12-04] MEDS ORDERED: SODIUM CHLORIDE 250 ML IV STA (08:06)
[2016-12-04] MEDS ORDERED: FUROSEMIDE 20 MG TABLET (FP) PO SCH (10:00)
[2016-12-04] MEDS ORDERED: PT OWN MED DRAWER 7, Y5N ONE ×2 (10:21→21:30)
[2016-12-04] MEDS: DONEPEZIL HCL 10 MG TABLET (FP) PO SCH (10:23)
[2016-12-04] MEDS: LACTOBACILLUS ACIDOPHILUS 1 EACH TAB (FP) PO SCH (10:23)
[2016-12-04] MEDS: RANITIDINE HCL 150 MG TABLET (FP) PO SCH (10:23)
[2016-12-04] MEDS: BACITRACIN 30 GM TUBE TOPICAL OINTMENT TP SCH (10:23)
[2016-12-04] MEDS: HYDROCORTISONE 2.5% TOPICAL CREAM 30 GM TUBE TP SCH (10:24)
--- NOTE | 2016-12-04 10:54 | PN ---
Progress Note (short form) - Note Progress Note: Pt seen and examined. He is doing well s/p right hip surgery. Min c/o pain. Right hip incision looks good, no drainage RLE is grossly NVI. Doing fine. Rec P.T., PWB RLE ROM exercises DC planning, can DC from an orthopedic pov
--- NOTE | 2016-12-04 12:18 | PN ---
Progress Note, Physician History of Present Illness: Comfortable, demented, no complaints, failed voiding trial, PVR>500 cc - Current Medication List Current Medications: Active Medications Acetaminophen (Tylenol -) 650 mg PO Q4H PRN PRN Reason: FEVER OR PAIN Last Admin: 12/03/16 20:03 Dose: 650 mg Albuterol/Ipratropium (Duoneb -) 1 amp NEB Q6H PRN PRN Reason: SHORTNESS OF BREATH Bacitracin (Bacitracin -) 1 applic TP DAILY [facility] Last Admin: 12/04/16 10:23 Dose: Not Given Docusate Sodium (Colace -) 100 mg PO TID [facility] Last Admin: 12/04/16 05:46 Dose: 100 mg Donepezil HCl (Aricept -) 10 mg PO DAILY [facility] Last Admin: 12/04/16 10:23 Dose: 10 mg Hydrocortisone (Anusol 2.5% Hc Cream -) 1 applic TP DAILY [facility] Last Admin: 12/04/16 10:24 Dose: Not Given Hydrocortisone Acetate (Anusol Hc Suppository -) 25 mg RC [facility] Last Admin: 12/03/16 21:04 Dose: 25 mg Lactobacillus Acidophilus (Bacid -) 1 tab PO DAILY [facility] Last Admin: 12/04/16 10:23 Dose: 1 tab Oxycodone HCl (Roxicodone -) 5 mg PO Q6H PRN PRN Reason: PAIN Last Admin: 12/03/16 20:04 Dose: 5 mg Quetiapine Fumarate (Seroquel -) 12.5 mg PO [facility] Last Admin: 12/03/16 21:04 Dose: 12.5 mg Ranitidine HCl (Zantac -) 150 mg PO DAILY [facility] Last Admin: 12/04/16 10:23 Dose: 150 mg Warfarin Sodium (Coumadin -) 5 mg PO DAILY@1800 [facility] Last Admin: 12/03/16 17:11 Dose: 5 mg - Objective Vital Signs: Vital Signs Temperature 97.8 F 12/04/16 08:30 Pulse Rate 48 L 12/04/16 08:30 Respiratory Rate 18 12/04/16 08:30 Blood Pressure 105/58 12/04/16 08:30 O2 Sat by Pulse Oximetry (%) 96 12/03/16 21:00 Constitutional: Yes: No Distress, Calm Neck: Yes: Supple Cardiovascular: Yes: Pulse Irregular Respiratory: Yes: Regular, Diminished Gastrointestinal: Yes: Normal Bowel Sounds, Soft Edema: No Labs: CBC, BMP 12/03/16 06:20 12/04/16 05:55 INR, PTT INR 1.79 (0.82-1.09) H D 12/04/16 05:55 Problem List - Problems (1) Atrial fibrillation Code(s): I48.91 - UNSPECIFIED ATRIAL FIBRILLATION Qualifiers: Atrial fibrillation type: chronic Qualified Code(s): I48.2 - Chronic atrial fibrillation (2) Fractured femoral neck Code(s): S72.009A - FRACTURE OF UNSP PART OF NECK OF UNSP FEMUR, INIT Qualifiers: Encounter type: initial encounter Fracture type: closed Laterality : right Qualified Code(s): S72.001A - Fracture of unspecified part of neck of right femur, initial encounter for closed fracture (3) Dementia Code(s): F03.90 - UNSPECIFIED DEMENTIA WITHOUT BEHAVIORAL DISTURBANCE Qualifiers: Dementia type: vascular dementia Dementia behavioral disturbance: without behavioral disturbance Qualified Code(s): F01.50 - Vascular dementia without behavioral disturbance (4) Cerebrovascular disease Code(s): I67.9 - CEREBROVASCULAR DISEASE, UNSPECIFIED (5) Acute on chronic systolic (congestive) heart failure Code(s): I50.23 - ACUTE ON CHRONIC SYSTOLIC (CONGESTIVE) HEART FAILURE (6) Subendocardial ischemia Code(s): I24.8 - OTHER FORMS OF ACUTE ISCHEMIC HEART DISEASE (7) Hypertensive cardiovascular disease Code(s): I11.9 - HYPERTENSIVE HEART DISEASE WITHOUT HEART FAILURE Qualifiers: Heart failure presence: with heart failure Qualified Code(s): I11.0 - Hypertensive heart disease with heart failure (8) Pleural effusion due to CHF (congestive heart failure) Code(s): I50.9 - HEART FAILURE, UNSPECIFIED (9) Pulmonary hypertension Code(s): I27.2 - OTHER SECONDARY PULMONARY HYPERTENSION Assessment/Plan 10/31/15 Echocardiogram: Normal LV size and moderate global hypokinesis, LVEF 35- 40%. Mild LAE. Trace AR. Mod MR. Mod TR. Mild [place]. Mod pulm HTN with PASP 51 mmHg. 11/26/2016 Echocardiogram: Broderline dilated LV with moderate decreased LVEF 30- 35%, mild AR, mild-mod TR, large left effusion, mod pulm HTN RVSP 58 mmHg 1. POD#3 right hip hemiarthroplasty 2. Acute on chronic systolic failure with pleural effusions and pulm HTN resolved 3. Persistent afib with subtherapeutic INR 4. HTN/HCVD 5. Subendocardial ischemia 6. Vascular dementia with cerebrovascular disease 7. H/o hyperkalemia on lisinopril 8. 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 Lasix 20 qd held with monitor diuretic response, renal fxn and electrolytes 2. Resume losartan 25 qd once renal fxn stabilizes, carvedilol d/mike for bradycardia 3. Continue dose coumadin per INR as post-op hemostasis has been achieved 4. Patient will need further cardiac evaluation as outpatient with his internet project manager (Dr. Clayton Swift) with regard to his CHF. However, his current comorbidities (dementia) will determine extent of further evaluation/ intervention. 5. Quintana catheter, Flomax, voiding trial in future
--- NOTE | 2016-12-04 13:45 | HOSP ---
Subjective - Review of Symptoms Events since last encounter: called to insert Quintana cath. CBCD WBC 8.8 K/mm3 (4.0-10.0) 12/03/16 06:20 RBC 2.90 M/mm3 (4.00-5.60) L 12/03/16 06:20 Hgb 8.9 GM/dL (11.7-16.9) L 12/03/16 06:20 Hct 27.1 % (35.4-49) L 12/03/16 06:20 MCV 93.3 fl (80-96) 12/03/16 06:20 MCHC 32.7 g/dl (32.0-35.9) 12/03/16 06:20 RDW 18.7 % (11.9-15.9) H 12/03/16 06:20 Plt Count 133 K/MM3 (134-434) L D 12/03/16 06:20 MPV 8.3 fl (7.5-11.1) 12/03/16 06:20 CMP Sodium 140 mmol/L (136-145) 12/04/16 05:55 Potassium 4.6 mmol/L (3.5-5.1) 12/04/16 05:55 Chloride 101 mmol/L (98-107) 12/04/16 05:55 Carbon Dioxide 31 mmol/L (21-32) 12/04/16 05:55 Anion Gap 8 (8-16) 12/04/16 05:55 BUN 62 mg/dL (7-18) H 12/04/16 05:55 Creatinine 1.9 mg/dL (0.7-1.3) H 12/04/16 05:55 Creat Clearance w eGFR Y 11/28/16 07:30 Random Glucose 91 mg/dL (74-106) 12/04/16 05:55 Calcium 8.6 mg/dL (8.5-10.1) 12/04/16 05:55 Total Bilirubin 1.7 mg/dl (0.2-1.0) H D 11/28/16 07:30 AST 18 U/L (10-42) D 11/28/16 07:30 ALT 14 U/L (10-40) D 11/28/16 07:30 Alkaline Phosphatase 96 U/L (32-92) H D 11/28/16 07:30 Total Protein 4.9 g/dl (6.4-8.3) L 11/28/16 07:30 Albumin 2.1 g/dl (3.5-5.0) L 11/28/16 07:30 CARDIAC ENZYMES Creatine Kinase 36 IU/L (38-174) L 11/27/16 12:00 Troponin I 0.09 ng/ml (0.03-0.50) D 11/27/16 12:00 patient was lying comfartably in bed. Bladder scan 497ml Blood was present on the meatus, probably from the previous attempt's from cathetrization. According to Nursing staff 16f catheter was tried twice which didn't go in. Under all aseptic precautions area was cleaned, Lubricating jelly was inserted and 12F Quintana was inserted in one attempt , 15 to 20 ml urine came out blood stained and than stopped. Could be due to blockage from blood clot. Quintana Cath removed, Showed blockage due to clot. Adv: urology consult. Physical Examination Vital Signs: Vital Signs Temperature 97.8 F 12/04/16 08:30 Pulse Rate 48 L 12/04/16 08:30 Respiratory Rate 18 12/04/16 08:30 Blood Pressure 105/58 12/04/16 08:30 O2 Sat by Pulse Oximetry (%) 98 12/04/16 09:00 Labs: CBC, BMP 12/03/16 06:20 12/04/16 05:55 Visit type - Emergency Visit Emergency Visit: Yes ED Registration Date: 11/25/16 Care time: The patient presented to the Emergency Department on the above date and was hospitalized for further evaluation of their emergent condition. - New Patient This patient is new to me today: Yes Date on this admission: 12/04/16 - Critical Care Critical Care patient: No
--- NOTE | 2016-12-04 14:14 | PN ---
Physical Exam: SUBJECTIVE: Patient seen and examined. He remains confused. Events: - Mendenhall catheter inserted, 20cc void then no flow, mendenhall revealing sm blood clot - 97% @ 3L OBJECTIVE: Vital Signs Period Temp Pulse Resp BP Sys/Kemp Pulse Ox Last 24 Hr 97.4 F-98.2 F 44-50 15-18 96-106/40-58 96-98 PE Neuro: awake, alert, cn 2-12intact, oriented to self Pulm: basilar crackles +NC CV: s1 s2 bradycardia Abd: s nt nd + bs Ext: R hip dressing Skin: LUE hematoma Laboratory Results - last 24 hr 12/04/16 12/04/16 05:55 05:55 INR 1.79 H D Sodium 140 Potassium 4.6 Chloride 101 Carbon Dioxide 31 Anion Gap 8 BUN 62 H Creatinine 1.9 H Random Glucose 91 Calcium 8.6 Active Medications Generic Name Dose Route Start Last Admin Trade Name Freq PRN Reason Stop Dose Admin Acetaminophen 650 mg 12/01/16 16:30 12/03/16 20:03 Tylenol - PO 650 mg Q4H PRN Administration FEVER OR PAIN Albuterol/Ipratropium 1 amp 12/01/16 16:30 Duoneb - NEB Q6H PRN SHORTNESS OF BREATH Bacitracin 1 applic 12/02/16 18:15 12/04/16 10:23 Bacitracin - TP Not Given DAILY [facility] Docusate Sodium 100 mg 12/01/16 22:00 12/04/16 05:46 Colace - PO 100 mg TID [facility] Administration Donepezil HCl 10 mg 12/02/16 10:00 12/04/16 10:23 Aricept - PO 10 mg DAILY [facility] Administration Hydrocortisone 1 applic 12/02/16 10:00 12/04/16 10:24 Anusol 2.5% Hc Cream - TP Not Given DAILY [facility] Hydrocortisone Acetate 25 mg 12/01/16 22:00 12/03/16 21:04 Anusol Hc Suppository - RC 25 mg HS [facility] Administration Lactobacillus Acidophilus 1 tab 12/02/16 10:00 12/04/16 10:23 Bacid - PO 1 tab DAILY [facility] Administration Oxycodone HCl 5 mg 12/01/16 16:30 12/03/16 20:04 Roxicodone - PO 5 mg Q6H PRN Administration PAIN Quetiapine Fumarate 12.5 mg 12/01/16 22:00 12/03/16 21:04 Seroquel - PO 12.5 mg HS [facility] Administration Ranitidine HCl 150 mg 12/02/16 10:00 12/04/16 10:23 Zantac - PO 150 mg DAILY [facility] Administration Warfarin Sodium 5 mg 12/02/16 18:00 12/03/16 17:11 Coumadin - PO 5 mg DAILY@1800 [facility] Administration Imaging: - CXR today: mod-large progression of R pleural effusion, small left pleural effusion Assessment: 86 year old male with a past medical history of: Hypertension, A fib (on Coumadin), COPD, Dementia admitted s/p mechanical fall with R hip fx. 1. TATY with oliguria - Likely post obstructive - Bladder scan shows PVR ~500cc - Unsuccessful mendenhall insertion - Hold EUFEMIA/Lasix/nephrotoxic agents - Urology consult placed 2. Right right hip hemiarthroplasty 12/01 - POD 3 - PT daily - Will stop lovenox, continue w/ coumadin 5mg HS 3. Asymptomatic bradycardia - HR stable, coreg discontinued 4. A Fib - Off rate controlling meds d/t bradycardia - NEJM study shows forgoing bridging AC was noninferior - Coumadin 5mg HS 5. Acute on chronic systolic CHF - Hold lasix 20mg for taty 6. UTI - Likely colonized ur cx - Repeat UA negative - Defer abx at this time 7. HTN - Hold Losartan for taty 8. COPD - Not in exacerbation - Duonebs prn 9. Dementia - Continue aricept and seroquel 10. Hemorrhoids - Anusol TP and IA qhs Dispo: - Will need further cardiac evaluation as outpatient with his estate planning paralegal (Dr. Clayton Swift) with regard to his CHF. However, his current comorbidities ( dementia) will determine extent of further evaluation/intervention. Visit type - Emergency Visit Emergency Visit: Yes ED Registration Date: 11/25/16 Care time: The patient presented to the Emergency Department on the above date and was hospitalized for further evaluation of their emergent condition. - New Patient This patient is new to me today: No - Critical Care Critical Care patient: No
[2016-12-04] MEDS: WARFARIN NA 5 MG TABLET (UD) PO SCH (17:06)
[2016-12-04] MEDS: oxyCODONE HCL 5 MG TABLET PO PRN (17:15)
--- NOTE | 2016-12-04 19:06 | CONSULT ---
Consult - text type - Consultation Consultation Note: cc: urinary retention hpi: called to evaluate a patient in acute urinary retention. Staff unable to pass a catheter. Patient is a poor historian and is s/p hip surgery. PE palpable bladder appreciated nl phallus/hypotrophic testes irregular enlarge prostate on exam multiple mendenhall catheters attempted. dilation unsuccessful with filiforms; no followers used imp urethral false passage after previous unsuccessful mendenhall catheter placement acute urinary retention bph plan discussed with staff and son x 45 minutes consent attained from Bradford parra to go to OR for flexible cystoscopy and mendenhall catheter placement
[2016-12-04] MEDS: QUEtiapine FUMARATE 25 MG TABLET (FP) PO SCH (21:29)
[2016-12-04] MEDS: HYDROCORTISONE ACETATE 25 MG/SUPP.RECT RC SCH (21:31)
[2016-12-05] MEDS: DOCUSATE SODIUM 100 MG CAPSULE (FP) PO SCH ×4 (05:56→21:12)
[2016-12-05] MEDS ORDERED: SEVOFLURANE 250 ML BTL ONE (07:49)
[2016-12-05] MEDS ORDERED: LEVOFLOXACIN 500 MG IVPB 100 ML IVPB ONE (07:57)
[2016-12-05] MEDS ORDERED: LIDOCAINE HCL 2% 100 MG/5 ML DISP.SYRIN ONE (07:59)
--- NOTE | 2016-12-05 08:27 | OP ---
Operative Note - Note: Operative Date: 12/05/16 Pre-Operative Diagnosis: urinary retention/urethral obstuction Operation: cystoscopy/placement of mendenhall catheter Findings: urethral false passage Post-Operative Diagnosis: Same as Pre-op Surgeon: Abebe Loaiza Anesthesia: General Drains & Tubes with Location: 20 [address] mendenhall catheter
[2016-12-05] MEDS ORDERED: ALBUTEROL SO4 2.5/IPRATROPIUM 0.5 INH SOL 3 ML VIAL.NEB. NEB PRN (08:52)
--- NOTE | 2016-12-05 09:09 | PN ---
Progress Note (short form) - Note Progress Note: Ortho Pt seen and examined in PACU s/p right hip jackie pod #4 Selected Entries 12/05/16 08:34 Temperature 98.0 F Pulse Rate 52 L Respiratory 16 Rate Blood Pressure 113/49 Laboratory Tests 12/03/16 06:20 WBC 8.8 Hgb 8.9 L Hct 27.1 L Plt Count 133 L D dressing c/d/i, calf, soft,nt nvi a/p PT if able hip precautions dvt ppx pain control d/c planning
[2016-12-05] MEDS: DONEPEZIL HCL 10 MG TABLET (FP) PO SCH (11:12)
[2016-12-05] MEDS: LACTOBACILLUS ACIDOPHILUS 1 EACH TAB (FP) PO SCH (11:12)
[2016-12-05] MEDS: FUROSEMIDE 40 MG TABLET (FP) PO SCH (11:12)
[2016-12-05] MEDS: RANITIDINE HCL 150 MG TABLET (FP) PO SCH (11:12)
--- NOTE | 2016-12-05 12:08 | PN ---
Progress Note (short form) - Note Progress Note: SUBJECTIVE: Patient seen and examined. He remains confused. Current Medications Generic Name Dose Route Start Last Admin Trade Name Freq PRN Reason Stop Dose Admin Acetaminophen 650 mg 12/05/16 08:52 Tylenol - PO Q4H PRN FEVER OR PAIN Albuterol/Ipratropium 1 amp 12/05/16 08:52 Duoneb - NEB Q6H PRN SHORTNESS OF BREATH Bacitracin 1 applic 12/05/16 11:00 Bacitracin - TP DAILY [facility] Docusate Sodium 100 mg 12/05/16 14:00 Colace - PO TID [facility] Donepezil HCl 10 mg 12/05/16 10:00 12/05/16 11:12 Aricept - PO 10 mg DAILY [facility] Administration Furosemide 40 mg 12/05/16 10:00 12/05/16 11:12 Lasix - PO 40 mg DAILY [facility] Administration Hydrocortisone 1 applic 12/05/16 10:00 Anusol 2.5% Hc Cream - TP DAILY [facility] Hydrocortisone Acetate 25 mg 12/05/16 22:00 Anusol Hc Suppository - RC HS [facility] Lactobacillus Acidophilus 1 tab 12/05/16 10:00 12/05/16 11:12 Bacid - PO 1 tab DAILY [facility] Administration Oxycodone HCl 5 mg 12/05/16 08:52 Roxicodone - PO Q6H PRN PAIN Quetiapine Fumarate 12.5 mg 12/05/16 22:00 Seroquel - PO HS [facility] Ranitidine HCl 150 mg 12/05/16 10:00 12/05/16 11:12 Zantac - PO 150 mg DAILY [facility] Administration Warfarin Sodium 5 mg 12/05/16 18:00 Coumadin - PO DAILY@1800 [facility] OBJECTIVE: Vital Signs Period Temp Pulse Resp BP Sys/Kemp Pulse Ox Last 24 Hr 97.5 F-98.6 F 47-54 16-22 107-142/44-68 95-98 Physical Exam: General: NAD Lungs: CTA bilaterally Heart: Bradycardia, S1S2 Abd: Mendenhall catheter in place. Soft, non-tender, non-distended. Normoactive bowel sounds Ext: Right hip dressing CBCD WBC 8.8 K/mm3 (4.0-10.0) 12/03/16 06:20 RBC 2.90 M/mm3 (4.00-5.60) L 12/03/16 06:20 Hgb 8.9 GM/dL (11.7-16.9) L 12/03/16 06:20 Hct 27.1 % (35.4-49) L 12/03/16 06:20 MCV 93.3 fl (80-96) 12/03/16 06:20 MCHC 32.7 g/dl (32.0-35.9) 12/03/16 06:20 RDW 18.7 % (11.9-15.9) H 12/03/16 06:20 Plt Count 133 K/MM3 (134-434) L D 12/03/16 06:20 MPV 8.3 fl (7.5-11.1) 12/03/16 06:20 CMP Sodium 140 mmol/L (136-145) 12/04/16 05:55 Potassium 4.6 mmol/L (3.5-5.1) 12/04/16 05:55 Chloride 101 mmol/L (98-107) 12/04/16 05:55 Carbon Dioxide 31 mmol/L (21-32) 12/04/16 05:55 Anion Gap 8 (8-16) 12/04/16 05:55 BUN 62 mg/dL (7-18) H 12/04/16 05:55 Creatinine 1.9 mg/dL (0.7-1.3) H 12/04/16 05:55 Creat Clearance w eGFR Y 11/28/16 07:30 Random Glucose 91 mg/dL (74-106) 12/04/16 05:55 Calcium 8.6 mg/dL (8.5-10.1) 12/04/16 05:55 Total Bilirubin 1.7 mg/dl (0.2-1.0) H D 11/28/16 07:30 AST 18 U/L (10-42) D 11/28/16 07:30 ALT 14 U/L (10-40) D 11/28/16 07:30 Alkaline Phosphatase 96 U/L (32-92) H D 11/28/16 07:30 Total Protein 4.9 g/dl (6.4-8.3) L 11/28/16 07:30 Albumin 2.1 g/dl (3.5-5.0) L 11/28/16 07:30 CARDIAC ENZYMES Creatine Kinase 36 IU/L (38-174) L 11/27/16 12:00 Troponin I 0.09 ng/ml (0.03-0.50) D 11/27/16 12:00 Microbiology 11/26/16 14:23 Urine - Urine Clean Catch Urine Culture - Final Enterococcus Faecalis Imaging: - CXR today: mod-large progression of R pleural effusion, small left pleural effusion Assessment: This is an 86 year old male with PMHx of HTN, A fib (on Coumadin), COPD, Dementia who presented to the ED s/p mechanical fall with R hip fx. Plan: 1) : TATY s/p cystoscopy/placement of mendenhall catheter on 12/05 - F/u Cr today - Continue to hold EUFEMIA/Lasix until improving Cr - Appreciate urology consult 2) Ortho: Right hip hemiarthroplasty 12/01 - Daily PT - Pain management - Appreciate ortho consult 3) Cardiology: Asymptomatic bradycardia - Continue to monitor off Coreg A.fib - Continue Coumadin and monitor INR Acute on chronic systolic CHF - Continue to hold Lasix for TATY HTN - Hold ACEi until Cr improves 4) ID: UTI - Likely colonization, 40-50,000 colonies - Will not treat at this time 5) Psych: dementia - Continue Aricept - Continue Seroquel 6) F/E/N: - Low sodium diet - Monitor electrolytes 7) Prophylaxis: - On Coumadin - PT 8) Dispo: - Will need further cardiac evaluation as outpatient with his business solution analyst (Dr. Clayton Swift) with regard to his CHF. However, his current comorbidities ( dementia) will determine extent of further evaluation/intervention CODE STATUS: FULL CODE Visit type - Emergency Visit Emergency Visit: Yes ED Registration Date: 11/25/16 Care time: The patient presented to the Emergency Department on the above date and was hospitalized for further evaluation of their emergent condition. - New Patient This patient is new to me today: Yes Date on this admission: 12/05/16 - Critical Care Critical Care patient: No
[2016-12-05 13:49] LABS: ALBUMIN 2.1 g/dl (3.4-5.0); CALCIUM 8.2 mg/dL (8.5-10.1); COCKROFT - GAULT 30.98; CREATININE 1.6 mg/dL (0.7-1.3)
[2016-12-05 13:52] LABS: BILIRUBIN,TOTAL 1.3 mg/dL (0.2-1.0); TOT PROT 5.4 g/dl (6.4-8.2)
[2016-12-05 14:05] LABS: INR 2.07 (0.82-1.09); PROTHROMBIN TIME (PATIENT) 23.1 SEC (9.98-11.88)
--- NOTE | 2016-12-05 16:46 | PN ---
Progress Note, Physician History of Present Illness: Comfortable, demented, post cystoscopy and placement of mendenhall. - Current Medication List Current Medications: Active Medications Acetaminophen (Tylenol -) 650 mg PO Q4H PRN PRN Reason: FEVER OR PAIN Albuterol/Ipratropium (Duoneb -) 1 amp NEB Q6H PRN PRN Reason: SHORTNESS OF BREATH Bacitracin (Bacitracin -) 1 applic TP DAILY [facility] Docusate Sodium (Colace -) 100 mg PO TID [facility] Last Admin: 12/05/16 14:57 Dose: Not Given Donepezil HCl (Aricept -) 10 mg PO DAILY [facility] Last Admin: 12/05/16 11:12 Dose: 10 mg Furosemide (Lasix -) 40 mg PO DAILY [facility] Last Admin: 12/05/16 11:12 Dose: 40 mg Hydrocortisone (Anusol 2.5% Hc Cream -) 1 applic TP DAILY [facility] Hydrocortisone Acetate (Anusol Hc Suppository -) 25 mg RC HS [facility] Lactobacillus Acidophilus (Bacid -) 1 tab PO DAILY [facility] Last Admin: 12/05/16 11:12 Dose: 1 tab Oxycodone HCl (Roxicodone -) 5 mg PO Q6H PRN PRN Reason: PAIN Quetiapine Fumarate (Seroquel -) 12.5 mg PO HS [facility] Ranitidine HCl (Zantac -) 150 mg PO DAILY [facility] Last Admin: 12/05/16 11:12 Dose: 150 mg Warfarin Sodium (Coumadin -) 5 mg PO DAILY@1800 [facility] - Objective Vital Signs: Vital Signs Temperature 97.8 F 12/05/16 14:00 Pulse Rate 72 12/05/16 14:00 Respiratory Rate 12/05/16 14:00 Blood Pressure 143/78 12/05/16 14:00 O2 Sat by Pulse Oximetry (%) 94 L 12/05/16 10:00 Constitutional: Yes: No Distress, Calm, Thin Neck: Yes: Supple Cardiovascular: Yes: Pulse Irregular Respiratory: Yes: Regular, Diminished Gastrointestinal: Yes: Normal Bowel Sounds, Soft Edema: No Labs: CBC, BMP 12/03/16 06:20 12/05/16 13:11 INR, PTT INR 2.07 (0.82-1.09) H 12/05/16 13:11 Problem List - Problems (1) Atrial fibrillation Code(s): I48.91 - UNSPECIFIED ATRIAL FIBRILLATION Qualifiers: Atrial fibrillation type: chronic Qualified Code(s): I48.2 - Chronic atrial fibrillation (2) Fractured femoral neck Code(s): S72.009A - FRACTURE OF UNSP PART OF NECK OF UNSP FEMUR, INIT Qualifiers: Encounter type: initial encounter Fracture type: closed Laterality : right Qualified Code(s): S72.001A - Fracture of unspecified part of neck of right femur, initial encounter for closed fracture (3) Dementia Code(s): F03.90 - UNSPECIFIED DEMENTIA WITHOUT BEHAVIORAL DISTURBANCE Qualifiers: Dementia type: vascular dementia Dementia behavioral disturbance: without behavioral disturbance Qualified Code(s): F01.50 - Vascular dementia without behavioral disturbance (4) Cerebrovascular disease Code(s): I67.9 - CEREBROVASCULAR DISEASE, UNSPECIFIED (5) Acute on chronic systolic (congestive) heart failure Code(s): I50.23 - ACUTE ON CHRONIC SYSTOLIC (CONGESTIVE) HEART FAILURE (6) Subendocardial ischemia Code(s): I24.8 - OTHER FORMS OF ACUTE ISCHEMIC HEART DISEASE (7) Hypertensive cardiovascular disease Code(s): I11.9 - HYPERTENSIVE HEART DISEASE WITHOUT HEART FAILURE Qualifiers: Heart failure presence: with heart failure Qualified Code(s): I11.0 - Hypertensive heart disease with heart failure (8) Pleural effusion due to CHF (congestive heart failure) Code(s): I50.9 - HEART FAILURE, UNSPECIFIED (9) Pulmonary hypertension Code(s): I27.2 - OTHER SECONDARY PULMONARY HYPERTENSION (10) Urinary retention due to benign prostatic hyperplasia Code(s): N40.1 - BENIGN PROSTATIC HYPERPLASIA WITH LOWER URINARY TRACT SYMP R33.8 - OTHER RETENTION OF URINE Assessment/Plan 10/31/15 Echocardiogram: Normal LV size and moderate global hypokinesis, LVEF 35- 40%. Mild LAE. Trace AR. Mod MR. Mod TR. Mild [place]. Mod pulm HTN with PASP 51 mmHg. 11/26/2016 Echocardiogram: Broderline dilated LV with moderate decreased LVEF 30- 35%, mild AR, mild-mod TR, large left effusion, mod pulm HTN RVSP 58 mmHg 1. POD#4 right hip hemiarthroplasty 2. Acute on chronic systolic failure with pleural effusions and pulm HTN resolved 3. Persistent afib with therapeutic INR 4. HTN/HCVD 5. Subendocardial ischemia 6. Vascular dementia with cerebrovascular disease 7. H/o hyperkalemia on lisinopril 8. Improving acute on CKD with obstructive component post cysto and mendenhall placement 9. BPH with urinary retention P: 1. Continue Lasix 40 qd with monitor diuretic response, renal fxn and electrolytes 2. Resume losartan 25 qd once renal fxn stabilizes, carvedilol d/mike for bradycardia 3. Continue dose coumadin per INR 4. Patient will need further cardiac evaluation as outpatient with his spaghetti press helper (Dr. Clayton Swift) with regard to his CHF. However, his current comorbidities (dementia) will determine extent of further evaluation/ intervention. 5. Mendenhall catheter, Flomax, voiding trial in future
[2016-12-05] MEDS: WARFARIN NA 5 MG TABLET (UD) PO SCH (17:55)
[2016-12-05] MEDS: HYDROCORTISONE 2.5% TOPICAL CREAM 30 GM TUBE TP SCH (17:57)
[2016-12-05] MEDS: oxyCODONE HCL 5 MG TABLET PO PRN (20:21)
[2016-12-05] MEDS: ACETAMINOPHEN 325 MG TABLET (FP) PO PRN (20:23)
[2016-12-05] MEDS ORDERED: PT OWN MED DRAWER 7, Y5N ONE (20:53)
[2016-12-05] MEDS: QUEtiapine FUMARATE 25 MG TABLET (FP) PO SCH (21:12)
[2016-12-05] MEDS: HYDROCORTISONE ACETATE 25 MG/SUPP.RECT RC SCH (21:12)
[2016-12-06] MEDS: oxyCODONE HCL 5 MG TABLET PO PRN ×3 (04:13→21:56)
[2016-12-06] MEDS: DOCUSATE SODIUM 100 MG CAPSULE (FP) PO SCH ×3 (05:53→21:53)
[2016-12-06 08:11] LABS: BASOPHIL 0.7 % (0-2.0); EOSINOPHIL 0.5 % (0-4.5); MCH 30.4 pg (25.7-33.7); MCHC 32.5 g/dl (32.0-35.9); MEAN CELL VOLUME 93.5 fl (80-96); MEAN PLT VOLUME 7.4 fl (7.5-11.1); NEUTROPHILS 81.5 % (42.8-82.8); PLATELET COUNT 188 K/MM3 (134-434); RDW 19.1 % (11.9-15.9); WHITE BLOOD COUNT 8.4 K/mm3 (4.0-10.0)
--- NOTE | 2016-12-06 08:19 | OP ---
DATE OF OPERATION: 12/05/2016 PREOPERATIVE DIAGNOSIS: Urinary retention and urethral obstruction. POSTOPERATIVE DIAGNOSIS: Urinary retention and urethral obstruction. PROCEDURE: Cystoscopy and placement of Quintana catheter. ATTENDING: Tolu Abernathy MD ANESTHESIA: General. OPERATION: With the patient under anesthesia, a flexible cystoscopy was performed. False passages were noted at the level of the prostatic urethra. The bladder was entered. A wire was placed within the bladder. The flexible cystoscope was removed. A Quintana catheter was placed over the wire utilizing the Seldinger technique. No complications were noted. The patient tolerated the procedure very well. TOLU ABERNATHY M.D. [id number]
[2016-12-06 08:35] LABS: ALBUMIN 2.2 g/dl (3.4-5.0); BILIRUBIN,TOTAL 1.4 mg/dL (0.2-1.0); CALCIUM 8.7 mg/dL (8.5-10.1); COCKROFT - GAULT 31.52; CREATININE 1.4 mg/dL (0.7-1.3)
[2016-12-06 08:36] LABS: TOT PROT 5.3 g/dl (6.4-8.2)
[2016-12-06] MEDS ORDERED: PT OWN MED DRAWER 7, Y5N ONE (09:11)
[2016-12-06] MEDS: LACTOBACILLUS ACIDOPHILUS 1 EACH TAB (FP) PO SCH (09:16)
[2016-12-06] MEDS: FUROSEMIDE 40 MG TABLET (FP) PO SCH (09:16)
[2016-12-06] MEDS: RANITIDINE HCL 150 MG TABLET (FP) PO SCH (09:16)
[2016-12-06] MEDS: TAMSULOSIN HCL 0.4 MG CAP.ER.24H (FP) PO SCH (09:16)
[2016-12-06] MEDS: DONEPEZIL HCL 10 MG TABLET (FP) PO SCH (09:16)
[2016-12-06] MEDS: HYDROCORTISONE 2.5% TOPICAL CREAM 30 GM TUBE TP SCH (09:17)
[2016-12-06 09:20] LABS: INR 2.55 (0.82-1.09); PROTHROMBIN TIME (PATIENT) 28.6 SEC (9.98-11.88)
[2016-12-06] MEDS: BACITRACIN 30 GM TUBE TOPICAL OINTMENT TP SCH ×2 (09:25→12:06)
--- NOTE | 2016-12-06 10:27 | PN ---
Progress Note (short form) - Note Progress Note: SUBJECTIVE: Patient seen and examined. He remains confused. He continues to require restraints at this time as he attempts to remove mendenhall catheter when not retrained Hgb 8.1, recheck cbc, if Hgb <8 will order 1u PRBC Current Medications Generic Name Dose Route Start Last Admin Trade Name Freq PRN Reason Stop Dose Admin Acetaminophen 650 mg 12/05/16 08:52 12/05/16 20:23 Tylenol - PO 650 mg Q4H PRN Administration FEVER OR PAIN Albuterol/Ipratropium 1 amp 12/05/16 08:52 Duoneb - NEB Q6H PRN SHORTNESS OF BREATH Bacitracin 1 applic 12/05/16 11:00 12/06/16 09:25 Bacitracin - TP 1 applic DAILY NAIF Administration Docusate Sodium 100 mg 12/05/16 14:00 12/06/16 05:53 Colace - PO 100 mg TID NAIF Administration Donepezil HCl 10 mg 12/05/16 10:00 12/06/16 09:16 Aricept - PO 10 mg DAILY NAIF Administration Furosemide 40 mg 12/05/16 10:00 12/06/16 09:16 Lasix - PO 40 mg DAILY NAIF Administration Hydrocortisone 1 applic 12/05/16 10:00 12/06/16 09:17 Anusol 2.5% Hc Cream - TP 1 applic DAILY NAIF Administration Hydrocortisone Acetate 25 mg 12/05/16 22:00 12/05/16 21:12 Anusol Hc Suppository - RC 25 mg HS NAIF Administration Lactobacillus Acidophilus 1 tab 12/05/16 10:00 12/06/16 09:16 Bacid - PO 1 tab DAILY NAIF Administration Oxycodone HCl 5 mg 12/05/16 08:52 12/06/16 04:13 Roxicodone - PO 5 mg Q6H PRN Administration PAIN Quetiapine Fumarate 12.5 mg 12/05/16 22:00 12/05/16 21:12 Seroquel - PO 12.5 mg HS NAIF Administration Ranitidine HCl 150 mg 12/05/16 10:00 12/06/16 09:16 Zantac - PO 150 mg DAILY NAIF Administration Tamsulosin HCl 0.4 mg 12/06/16 08:30 12/06/16 09:16 Flomax - PO 0.4 mg DAILY@0830 [facility] Administration Warfarin Sodium 5 mg 12/05/16 18:00 12/05/16 17:55 Coumadin - PO 5 mg DAILY@1800 NAIF Administration OBJECTIVE: Vital Signs Period Temp Pulse Resp BP Sys/Kemp Pulse Ox Last 24 Hr 97.8 F-98.2 F 50-72 17-18 108-143/50-78 94-98 Physical Exam: General: NAD Lungs: CTA bilaterally Heart: Bradycardia, S1S2 Abd: Mendenhall catheter in place. Soft, non-tender, non-distended. Normoactive bowel sounds Ext: Right hip dressing CBCD WBC 8.4 K/mm3 (4.0-10.0) 12/06/16 07:00 RBC 2.66 M/mm3 (4.00-5.60) L 12/06/16 07:00 Hgb 8.1 GM/dL (11.7-16.9) L 12/06/16 07:00 Hct 24.8 % (35.4-49) L 12/06/16 07:00 MCV 93.5 fl (80-96) 12/06/16 07:00 MCHC 32.5 g/dl (32.0-35.9) 12/06/16 07:00 RDW 19.1 % (11.9-15.9) H 12/06/16 07:00 Plt Count 188 K/MM3 (134-434) D 12/06/16 07:00 MPV 7.4 fl (7.5-11.1) L D 12/06/16 07:00 CMP Sodium 142 mmol/L (136-145) 12/06/16 07:00 Potassium 4.9 mmol/L (3.5-5.1) 12/06/16 07:00 Chloride 103 mmol/L (98-107) 12/06/16 07:00 Carbon Dioxide 30 mmol/L (21-32) 12/06/16 07:00 Anion Gap 9 (8-16) 12/06/16 07:00 BUN 63 mg/dL (7-18) H 12/06/16 07:00 Creatinine 1.4 mg/dL (0.7-1.3) H 12/06/16 07:00 Creat Clearance w eGFR 47.94 (>60) 12/06/16 07:00 Random Glucose 95 mg/dL (74-106) D 12/06/16 07:00 Calcium 8.7 mg/dL (8.5-10.1) 12/06/16 07:00 Total Bilirubin 1.4 mg/dL (0.2-1.0) H 12/06/16 07:00 AST 21 U/L (15-37) 12/06/16 07:00 ALT 7 U/L (12-78) L 12/06/16 07:00 Alkaline Phosphatase 167 U/L (45-117) H 12/06/16 07:00 Total Protein 5.3 g/dl (6.4-8.2) L 12/06/16 07:00 Albumin 2.2 g/dl (3.4-5.0) L 12/06/16 07:00 CARDIAC ENZYMES Creatine Kinase 36 IU/L (38-174) L 11/27/16 12:00 Troponin I 0.09 ng/ml (0.03-0.50) D 11/27/16 12:00 Microbiology 11/26/16 14:23 Urine - Urine Clean Catch Urine Culture - Final Enterococcus Faecalis Imaging: - CXR today: mod-large progression of R pleural effusion, small left pleural effusion Assessment: This is an 86 year old male with PMHx of HTN, A fib (on Coumadin), COPD, Dementia who presented to the ED s/p mechanical fall with R hip fx. Plan: 1) : TATY s/p cystoscopy/placement of mendenhall catheter on 12/05 - Cr continues to improve - Continue to hold ACEi - Continue Flomax - Appreciate urology consult 2) Ortho: Right hip hemiarthroplasty 12/01 - Daily PT - Pain management - Appreciate ortho consult 3) Cardiology: Asymptomatic bradycardia - Continue to monitor off Coreg A.fib - Continue Coumadin and monitor INR Acute on chronic systolic CHF - Improving Cr, continue Lasix and monitor Cr closely HTN - Hold ACEi until Cr improves 4) ID: UTI - Likely colonization, 40-50,000 colonies - Will not treat at this time 5) Psych: dementia - Continue Aricept - Continue Seroquel 6) F/E/N: - Low sodium diet - Monitor electrolytes 7) Prophylaxis: - On Coumadin - PT 8) Dispo: - Will need further cardiac evaluation as outpatient with his director dermatology (Dr. Clayton Swift) with regard to his CHF. However, his current comorbidities ( dementia) will determine extent of further evaluation/intervention CODE STATUS: FULL CODE Visit type - Emergency Visit Emergency Visit: Yes ED Registration Date: 11/25/16 Care time: The patient presented to the Emergency Department on the above date and was hospitalized for further evaluation of their emergent condition. - New Patient This patient is new to me today: No - Critical Care Critical Care patient: No
[2016-12-06] MEDS: ACETAMINOPHEN 325 MG TABLET (FP) PO PRN ×2 (11:02→21:55)
--- NOTE | 2016-12-06 11:35 | PN ---
Progress Note (short form) - Note Progress Note: Pt seen and examined, he is doing fine, he has no c/o pain, P.T. progressing slowly. AVSS H/H decreased to 8.1/24.8 B/L LE are NVI Good ROM Incision looks fine Rec P.T. for ambulation WBAT Consider transfusing 1 unit PRBS DC planning
[2016-12-06 13:24] LABS: BASOPHIL 0.5 % (0-2.0); EOSINOPHIL 1.1 % (0-4.5); MCHC 32.2 g/dl (32.0-35.9); MEAN PLT VOLUME 7.5 fl (7.5-11.1); NEUTROPHILS 79.3 % (42.8-82.8); PLATELET COUNT 172 K/MM3 (134-434); RDW 18.7 % (11.9-15.9); WHITE BLOOD COUNT 7.5 K/mm3 (4.0-10.0)
--- NOTE | 2016-12-06 17:51 | PN ---
Progress Note (short form) - Note Progress Note: Chief Complaint: Events noted, notes reviewed, no change in status History of Present Illness: Seen and examined. Events noted, notes reviewed, no change in status - Current Medication List Current Medications Acetaminophen (Tylenol -) 650 mg PO Q4H PRN PRN Reason: FEVER OR PAIN Last Admin: 12/06/16 11:02 Dose: 650 mg Albuterol/Ipratropium (Duoneb -) 1 amp NEB Q6H PRN PRN Reason: SHORTNESS OF BREATH Bacitracin (Bacitracin -) 1 applic TP DAILY [facility] Last Admin: 12/06/16 12:06 Dose: Not Given Docusate Sodium (Colace -) 100 mg PO TID [facility] Last Admin: 12/06/16 13:21 Dose: Not Given Donepezil HCl (Aricept -) 10 mg PO DAILY [facility] Last Admin: 12/06/16 09:16 Dose: 10 mg Furosemide (Lasix -) 40 mg PO DAILY [facility] Last Admin: 12/06/16 09:16 Dose: 40 mg Furosemide (Lasix Injection -) 40 mg IVPUSH ONCE ONE Stop: 12/06/16 18:01 Hydrocortisone (Anusol 2.5% Hc Cream -) 1 applic TP DAILY [facility] Last Admin: 12/06/16 09:17 Dose: 1 applic Hydrocortisone Acetate (Anusol Hc Suppository -) 25 mg RC HS [facility] Last Admin: 12/05/16 21:12 Dose: 25 mg Lactobacillus Acidophilus (Bacid -) 1 tab PO DAILY [facility] Last Admin: 12/06/16 09:16 Dose: 1 tab Oxycodone HCl (Roxicodone -) 5 mg PO Q6H PRN PRN Reason: PAIN Last Admin: 12/06/16 11:01 Dose: 5 mg Quetiapine Fumarate (Seroquel -) 12.5 mg PO HS [facility] Last Admin: 12/05/16 21:12 Dose: 12.5 mg Ranitidine HCl (Zantac -) 150 mg PO DAILY [facility] Last Admin: 12/06/16 09:16 Dose: 150 mg Tamsulosin HCl (Flomax -) 0.4 mg PO DAILY@0830 [facility] Last Admin: 12/06/16 09:16 Dose: 0.4 mg Warfarin Sodium (Coumadin -) 5 mg PO DAILY@1800 [facility] Last Admin: 12/05/16 17:55 Dose: 5 mg - Objective Vital Signs: Last Vital Signs Temp Pulse Resp BP Pulse Ox 98.0 F 50 L 18 108/50 98 12/06/16 08:00 12/06/16 08:00 12/06/16 08:00 12/06/16 08:00 12/06/16 09:00 Constitutional: No Distress, Calm Neck: Supple Cardiovascular: S1 S2 Irregularly Irregular Respiratory: Diminished Gastrointestinal: Soft Benign Normal Bowel Sounds Ext: No Edema Labs: CBC, BMP 12/06/16 12:52 12/06/16 07:00 INR, PTT INR 2.55 (0.82-1.09) H 12/06/16 07:00 Assessment/Plan ASSESSMENT: 1. POD#5 post right hip jackie-arthroplasty 2. Acute on chronic systolic LV failure, resolved 3. 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 Persistent atrial fibrillation with therapeutic INR 5. HTN 6. 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 Acute on CKD with obstructive component post cysto and mendenhall placement 8. BPH with urinary retention PLAN: 1. Continue Lasix with close monitoring of renal function 2. Ideally should be on B-Blockers but limiting factor is bradycardia 3. Resume Losartan once renal function stabilizes 4. Continue Coumadin as per INR Rosa Isela Martin MD
[2016-12-06] MEDS ORDERED: FUROSEMIDE 40 MG/4 ML INJECTABLE VIAL IVPUSH ONE ×2 (18:00→20:45)
[2016-12-06] MEDS: QUEtiapine FUMARATE 25 MG TABLET (FP) PO SCH (21:53)
[2016-12-06] MEDS: HYDROCORTISONE ACETATE 25 MG/SUPP.RECT RC SCH (22:02)
[2016-12-07] MEDS: oxyCODONE HCL 5 MG TABLET PO PRN ×3 (04:13→18:32)
[2016-12-07] MEDS: ACETAMINOPHEN 325 MG TABLET (FP) PO PRN ×3 (04:13→18:32)
[2016-12-07] MEDS: DOCUSATE SODIUM 100 MG CAPSULE (FP) PO SCH ×3 (05:58→21:34)
[2016-12-07 08:19] LABS: MCH 30.6 pg (25.7-33.7); MEAN PLT VOLUME 7.2 fl (7.5-11.1); PLATELET COUNT 195 K/MM3 (134-434); RDW 18.4 % (11.9-15.9); WHITE BLOOD COUNT 8.9 K/mm3 (4.0-10.0)
[2016-12-07 08:28] LABS: INR 2.31 (0.82-1.09); PROTHROMBIN TIME (PATIENT) 25.8 SEC (9.98-11.88)
[2016-12-07 08:55] LABS: ALBUMIN 2.2 g/dl (3.4-5.0); BILIRUBIN,TOTAL 2.2 mg/dL (0.2-1.0); CALCIUM 8.5 mg/dL (8.5-10.1); COCKROFT - GAULT 30.37; CREATININE 1.5 mg/dL (0.7-1.3)
[2016-12-07 08:58] LABS: TOT PROT 5.6 g/dl (6.4-8.2)
[2016-12-07] MEDS: LACTOBACILLUS ACIDOPHILUS 1 EACH TAB (FP) PO SCH (10:46)
[2016-12-07] MEDS: FUROSEMIDE 40 MG TABLET (FP) PO SCH (10:46)
[2016-12-07] MEDS: BACITRACIN 30 GM TUBE TOPICAL OINTMENT TP SCH ×2 (10:46→10:47)
[2016-12-07] MEDS: RANITIDINE HCL 150 MG TABLET (FP) PO SCH (10:46)
[2016-12-07] MEDS: TAMSULOSIN HCL 0.4 MG CAP.ER.24H (FP) PO SCH (10:46)
[2016-12-07] MEDS: DONEPEZIL HCL 10 MG TABLET (FP) PO SCH (10:46)
[2016-12-07] MEDS: HYDROCORTISONE 2.5% TOPICAL CREAM 30 GM TUBE TP SCH (10:47)
--- NOTE | 2016-12-07 12:24 | PN ---
Progress Note (short form) - Note Progress Note: SUBJECTIVE: Patient seen and examined. He remains confused. Recevied 2u PRBC yesterday Hgb 10.8 today Recheck CBC this PM Continue Warfarin per cardiology Current Medications Generic Name Dose Route Start Last Admin Trade Name Freq PRN Reason Stop Dose Admin Acetaminophen 650 mg 12/05/16 08:52 12/07/16 11:14 Tylenol - PO 650 mg Q4H PRN Administration FEVER OR PAIN Albuterol/Ipratropium 1 amp 12/05/16 08:52 Duoneb - NEB Q6H PRN SHORTNESS OF BREATH Bacitracin 1 applic 12/05/16 11:00 12/07/16 10:47 Bacitracin - TP 1 applic DAILY NAIF Administration Docusate Sodium 100 mg 12/05/16 14:00 12/07/16 05:58 Colace - PO 100 mg TID NAIF Administration Donepezil HCl 10 mg 12/05/16 10:00 12/07/16 10:46 Aricept - PO 10 mg DAILY NAIF Administration Furosemide 40 mg 12/05/16 10:00 12/07/16 10:46 Lasix - PO 40 mg DAILY NAIF Administration Hydrocortisone 1 applic 12/05/16 10:00 12/07/16 10:47 Anusol 2.5% Hc Cream - TP 1 applic DAILY NAIF Administration Hydrocortisone Acetate 25 mg 12/05/16 22:00 12/06/16 22:02 Anusol Hc Suppository - RC 25 mg HS NAIF Administration Lactobacillus Acidophilus 1 tab 12/05/16 10:00 12/07/16 10:46 Bacid - PO 1 tab DAILY NAIF Administration Oxycodone HCl 5 mg 12/05/16 08:52 12/07/16 11:13 Roxicodone - PO 5 mg Q6H PRN Administration PAIN Quetiapine Fumarate 12.5 mg 12/05/16 22:00 12/06/16 21:53 Seroquel - PO 12.5 mg HS NAIF Administration Ranitidine HCl 150 mg 12/05/16 10:00 12/07/16 10:46 Zantac - PO 150 mg DAILY NAIF Administration Tamsulosin HCl 0.4 mg 12/06/16 08:30 12/07/16 10:46 Flomax - PO 0.4 mg DAILY@0830 NA[facility] Administration Warfarin Sodium 5 mg 12/05/16 18:00 12/05/16 17:55 Coumadin - PO 5 mg DAILY@1800 NAIF Administration OBJECTIVE: Vital Signs Period Temp Pulse Resp BP Sys/Kemp Pulse Ox Last 24 Hr 98 F-98.6 F 42-56 16-20 100-133/40-56 98-98 Physical Exam: General: NAD Lungs: CTA bilaterally Heart: Bradycardia, irregular, S1S2 Abd: Mendenhall catheter in place. Soft, non-tender, non-distended. Normoactive bowel sounds Ext: Right hip dressing CBCD WBC 8.9 K/mm3 (4.0-10.0) 12/07/16 07:20 RBC 3.53 M/mm3 (4.00-5.60) L D 12/07/16 07:20 Hgb 10.8 GM/dL (11.7-16.9) L D 12/07/16 07:20 Hct 31.8 % (35.4-49) L D 12/07/16 07:20 MCV 90.0 fl (80-96) 12/07/16 07:20 MCHC 34.0 g/dl (32.0-35.9) 12/07/16 07:20 RDW 18.4 % (11.9-15.9) H 12/07/16 07:20 Plt Count 195 K/MM3 (134-434) 12/07/16 07:20 MPV 7.2 fl (7.5-11.1) L 12/07/16 07:20 CMP Sodium 144 mmol/L (136-145) 12/07/16 07:20 Potassium 4.7 mmol/L (3.5-5.1) 12/07/16 07:20 Chloride 104 mmol/L (98-107) 12/07/16 07:20 Carbon Dioxide 30 mmol/L (21-32) 12/07/16 07:20 Anion Gap 10 (8-16) 12/07/16 07:20 BUN 61 mg/dL (7-18) H 12/07/16 07:20 Creatinine 1.5 mg/dL (0.7-1.3) H 12/07/16 07:20 Creat Clearance w eGFR 44.27 (>60) 12/07/16 07:20 Random Glucose 84 mg/dL (74-106) 12/07/16 07:20 Calcium 8.5 mg/dL (8.5-10.1) 12/07/16 07:20 Total Bilirubin 2.2 mg/dL (0.2-1.0) H D 12/07/16 07:20 AST 21 U/L (15-37) 12/07/16 07:20 ALT 9 U/L (12-78) L D 12/07/16 07:20 Alkaline Phosphatase 172 U/L (45-117) H 12/07/16 07:20 Total Protein 5.6 g/dl (6.4-8.2) L 12/07/16 07:20 Albumin 2.2 g/dl (3.4-5.0) L 12/07/16 07:20 CARDIAC ENZYMES Creatine Kinase 36 IU/L (38-174) L 11/27/16 12:00 Troponin I 0.09 ng/ml (0.03-0.50) D 11/27/16 12:00 Microbiology 11/26/16 14:23 Urine - Urine Clean Catch Urine Culture - Final Enterococcus Faecalis Imaging: - CXR today: mod-large progression of R pleural effusion, small left pleural effusion Assessment: This is an 86 year old male with PMHx of HTN, A fib (on Coumadin), COPD, Dementia who presented to the ED s/p mechanical fall with R hip fx. Plan: 1) : TATY s/p cystoscopy/placement of mendenhall catheter on 12/05 - Cr stable - Continue to hold ACEi - Continue Flomax - Appreciate urology consult 2) Ortho: Right hip hemiarthroplasty 12/01 - Daily PT - Pain management - Hgb 7 yesterday, received 2u PRBC, monitor Hgb - If Hgb continues to trend down, consider right leg/hip CT to evaluate for bleeding - Appreciate ortho consult 3) Cardiology: Asymptomatic bradycardia - Continue to monitor off Coreg A.fib - Continue Coumadin and monitor INR Acute on chronic systolic CHF - Continue Lasix and monitor Cr closely HTN - Hold ACEi until Cr improves 4) ID: UTI - Likely colonization, 40-50,000 colonies - Will not treat at this time 5) Psych: dementia - Continue Aricept - Continue Seroquel 6) F/E/N: - Low sodium diet - Monitor electrolytes 7) Prophylaxis: - On Coumadin - PT 8) Dispo: - Continues to require restraints as the patient is attempting to pull out mendenhall catheter - Will need further cardiac evaluation as outpatient with his supervisor delivery department (Dr. Clayton Swift) with regard to his CHF. However, his current comorbidities ( dementia) will determine extent of further evaluation/intervention CODE STATUS: FULL CODE Visit type - Emergency Visit Emergency Visit: Yes ED Registration Date: 11/25/16 Care time: The patient presented to the Emergency Department on the above date and was hospitalized for further evaluation of their emergent condition. - New Patient This patient is new to me today: No - Critical Care Critical Care patient: No
--- NOTE | 2016-12-07 13:34 | PN ---
Progress Note (short form) - Note Progress Note: Chief Complaint: Events noted, notes reviewed, no change in status History of Present Illness: Seen and examined. Events noted, notes reviewed, no change in status - Current Medication List Current Medications Acetaminophen (Tylenol -) 650 mg PO Q4H PRN PRN Reason: FEVER OR PAIN Last Admin: 12/07/16 11:14 Dose: 650 mg Albuterol/Ipratropium (Duoneb -) 1 amp NEB Q6H PRN PRN Reason: SHORTNESS OF BREATH Bacitracin (Bacitracin -) 1 applic TP DAILY [facility] Last Admin: 12/07/16 10:47 Dose: 1 applic Docusate Sodium (Colace -) 100 mg PO TID [facility] Last Admin: 12/07/16 05:58 Dose: 100 mg Donepezil HCl (Aricept -) 10 mg PO DAILY [facility] Last Admin: 12/07/16 10:46 Dose: 10 mg Furosemide (Lasix -) 40 mg PO DAILY [facility] Last Admin: 12/07/16 10:46 Dose: 40 mg Hydrocortisone (Anusol 2.5% Hc Cream -) 1 applic TP DAILY [facility] Last Admin: 12/07/16 10:47 Dose: 1 applic Hydrocortisone Acetate (Anusol Hc Suppository -) 25 mg RC HS [facility] Last Admin: 12/06/16 22:02 Dose: 25 mg Lactobacillus Acidophilus (Bacid -) 1 tab PO DAILY [facility] Last Admin: 12/07/16 10:46 Dose: 1 tab Oxycodone HCl (Roxicodone -) 5 mg PO Q6H PRN PRN Reason: PAIN Last Admin: 12/07/16 11:13 Dose: 5 mg Quetiapine Fumarate (Seroquel -) 12.5 mg PO HS [facility] Last Admin: 12/06/16 21:53 Dose: 12.5 mg Ranitidine HCl (Zantac -) 150 mg PO DAILY [facility] Last Admin: 12/07/16 10:46 Dose: 150 mg Tamsulosin HCl (Flomax -) 0.4 mg PO DAILY@0830 [facility] Last Admin: 12/07/16 10:46 Dose: 0.4 mg Warfarin Sodium (Coumadin -) 5 mg PO DAILY@1800 [facility] Last Admin: 12/05/16 17:55 Dose: 5 mg - Objective Vital Signs: Last Vital Signs Temp Pulse Resp BP Pulse Ox 98 F 56 L 16 133/56 98 12/07/16 08:00 12/07/16 08:00 12/07/16 08:00 12/07/16 08:00 12/07/16 08:57 Constitutional: No Distress, Calm Neck: Supple Cardiovascular: S1 S2 Irregularly Irregular Respiratory: Diminished Gastrointestinal: Soft Benign Normal Bowel Sounds Ext: No Edema Labs: CBC, BMP 12/07/16 07:20 12/07/16 07:20 INR, PTT INR 2.31 (0.82-1.09) H 12/07/16 07:20 Assessment/Plan ASSESSMENT: 1. POD#6 post right hip jackie-arthroplasty 2. Acute on chronic systolic LV failure, resolved 3. 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 Persistent atrial fibrillation with therapeutic INR 5. HTN 6. 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 Acute on CKD with obstructive component post cysto and mendenhall placement 8. BPH with urinary retention PLAN: 1. Continue Lasix with close monitoring of renal function 2. Ideally should be on B-Blockers but limiting factor is bradycardia 3. As outlined to resume Losartan once renal function stabilizes 4. Continue Coumadin as per INR Rosa Isela Martin MD
[2016-12-07 13:57] LABS: BASOPHIL 0.9 % (0-2.0); EOSINOPHIL 2.4 % (0-4.5); MCH 30.1 pg (25.7-33.7); MCHC 33.3 g/dl (32.0-35.9); MEAN CELL VOLUME 90.3 fl (80-96); MEAN PLT VOLUME 7.1 fl (7.5-11.1); NEUTROPHILS 77.8 % (42.8-82.8); PLATELET COUNT 179 K/MM3 (134-434); RDW 18.6 % (11.9-15.9); WHITE BLOOD COUNT 8.9 K/mm3 (4.0-10.0)
[2016-12-07] MEDS: WARFARIN NA 5 MG TABLET (UD) PO SCH (17:10)
[2016-12-07] MEDS ORDERED: PT OWN MED DRAWER 7, Y5N ONE (21:02)
[2016-12-07] MEDS: QUEtiapine FUMARATE 25 MG TABLET (FP) PO SCH (21:34)
[2016-12-07] MEDS: HYDROCORTISONE ACETATE 25 MG/SUPP.RECT RC SCH (21:35)
[2016-12-08] MEDS: DOCUSATE SODIUM 100 MG CAPSULE (FP) PO SCH ×3 (05:51→21:47)
[2016-12-08 07:27] LABS: ALBUMIN 2.5 g/dl (3.4-5.0); CALCIUM 8.8 mg/dL (8.5-10.1)
[2016-12-08 07:29] LABS: BASOPHIL 0.6 % (0-2.0); EOSINOPHIL 0.2 % (0-4.5); MCH 29.9 pg (25.7-33.7); MCHC 32.9 g/dl (32.0-35.9); MEAN PLT VOLUME 7.7 fl (7.5-11.1); NEUTROPHILS 87.2 % (42.8-82.8); PLATELET COUNT 237 K/MM3 (134-434); RDW 18.3 % (11.9-15.9); WHITE BLOOD COUNT 14.6 K/mm3 (4.0-10.0)
[2016-12-08 07:32] LABS: BILIRUBIN,TOTAL 2.5 mg/dL (0.2-1.0); COCKROFT - GAULT 33.51; CREATININE 1.3 mg/dL (0.7-1.3); TOT PROT 6.5 g/dl (6.4-8.2)
[2016-12-08 07:56] LABS: INR 2.23 (0.82-1.09); PROTHROMBIN TIME (PATIENT) 24.9 SEC (9.98-11.88)
[2016-12-08] MEDS: TAMSULOSIN HCL 0.4 MG CAP.ER.24H (FP) PO SCH (08:03)
--- NOTE | 2016-12-08 08:50 | PN ---
Progress Note (short form) - Note Progress Note: Ortho Pt seen and examined in PACU s/p right hip jackie pod Selected Entries 12/08/16 06:00 Temperature 98.0 F Pulse Rate 80 Respiratory 20 Rate Blood Pressure 143/59 Laboratory Tests 12/08/16 06:10 WBC 14.6 H D Hgb 11.4 L D Hct 34.5 L D Plt Count 237 D dressing c/d/i, calf, soft,nt nvi a/p PT if able hip precautions dvt ppx pain control d/c planning
--- NOTE | 2016-12-08 10:54 | PN ---
Progress Note, Physician Chief Complaint: Not in distress, sitting on wheelchair in the hallway History of Present Illness: Patient was seen and examined. Awake. Chart was reviewed Denies chest pain or SOB - Current Medication List Current Medications: Active Medications Acetaminophen (Tylenol -) 650 mg PO Q4H PRN PRN Reason: FEVER OR PAIN Last Admin: 12/07/16 18:32 Dose: 650 mg Albuterol/Ipratropium (Duoneb -) 1 amp NEB Q6H PRN PRN Reason: SHORTNESS OF BREATH Bacitracin (Bacitracin -) [address] [facility] Last Admin: 12/07/16 10:47 Dose: 1 applic Docusate Sodium (Colace -) [address] [facility] Last Admin: 12/08/16 05:51 Dose: 100 mg Donepezil HCl (Aricept -) [address] [facility] Last Admin: 12/07/16 10:46 Dose: 10 mg Furosemide (Lasix -) [address] [facility] Last Admin: 12/07/16 10:46 Dose: 40 mg Hydrocortisone (Anusol 2.5% Hc Cream -) [address] [facility] Last Admin: 12/07/16 10:47 Dose: 1 applic Hydrocortisone Acetate (Anusol Hc Suppository -) [address] [facility] Last Admin: 12/07/16 21:35 Dose: 25 mg Lactobacillus Acidophilus (Bacid -) [address] [facility] Last Admin: 12/07/16 10:46 Dose: 1 tab Quetiapine Fumarate (Seroquel -) 12.[address] [facility] Last Admin: 12/07/16 21:34 Dose: 12.5 mg Ranitidine HCl (Zantac -) [address] [facility] Last Admin: 12/07/16 10:46 Dose: 150 mg Tamsulosin HCl (Flomax -) 0.4 mg PO DAILY@0830 [facility] Last Admin: 12/08/16 08:03 Dose: 0.4 mg Warfarin Sodium (Coumadin -) 5 mg PO DAILY@1800 [facility] Last Admin: 12/07/16 17:10 Dose: 5 mg - Objective Vital Signs: Vital Signs Temperature 97.8 F 12/08/16 08:55 Pulse Rate 73 12/08/16 08:55 Respiratory Rate 18 12/08/16 08:55 Blood Pressure 137/61 12/08/16 08:55 O2 Sat by Pulse Oximetry (%) 98 12/07/16 20:51 Neck: Yes: Supple Cardiovascular: Yes: Pulse Irregular, S1, S2 Respiratory: Yes: Diminished Gastrointestinal: Yes: Normal Bowel Sounds, Soft. No: Tenderness Edema: No Labs: CBC, BMP 12/08/16 06:10 12/08/16 06:10 INR, PTT INR 2.23 (0.82-1.09) H 12/08/16 06:10 Problem List - Problems (1) Acute on chronic systolic (congestive) heart failure Code(s): I50.23 - ACUTE ON CHRONIC SYSTOLIC (CONGESTIVE) HEART FAILURE (2) Atrial fibrillation Code(s): I48.91 - UNSPECIFIED ATRIAL FIBRILLATION Qualifiers: Atrial fibrillation type: chronic Qualified Code(s): I48.2 - Chronic atrial fibrillation (3) Cerebrovascular disease Code(s): I67.9 - CEREBROVASCULAR DISEASE, UNSPECIFIED (4) Fractured femoral neck Code(s): S72.009A - FRACTURE OF UNSP PART OF NECK OF UNSP FEMUR, INIT Qualifiers: Encounter type: initial encounter Fracture type: closed Laterality : right Qualified Code(s): S72.001A - Fracture of unspecified part of neck of right femur, initial encounter for closed fracture (5) Hypertensive cardiovascular disease Code(s): I11.9 - HYPERTENSIVE HEART DISEASE WITHOUT HEART FAILURE Qualifiers: Heart failure presence: with heart failure Qualified Code(s): I11.0 - Hypertensive heart disease with heart failure (6) Pre-operative cardiovascular examination Code(s): Z01.810 - ENCOUNTER FOR PREPROCEDURAL CARDIOVASCULAR EXAMINATION (7) Pulmonary hypertension Code(s): I27.2 - OTHER SECONDARY PULMONARY HYPERTENSION (8) Subendocardial ischemia Code(s): I24.8 - OTHER FORMS OF ACUTE ISCHEMIC HEART DISEASE (9) COPD (chronic obstructive pulmonary disease) Code(s): J44.9 - CHRONIC OBSTRUCTIVE PULMONARY DISEASE, UNSPECIFIED Qualifiers : COPD type: unspecified COPD Qualified Code(s): J44.9 - Chronic obstructive pulmonary disease, unspecified (10) Dementia Code(s): F03.90 - UNSPECIFIED DEMENTIA WITHOUT BEHAVIORAL DISTURBANCE Qualifiers: Dementia type: vascular dementia Dementia behavioral disturbance: without behavioral disturbance Qualified Code(s): F01.50 - Vascular dementia without behavioral disturbance Assessment/Plan 1. Post right hip jackie-arthroplasty -hemodynamically stable 2. Acute on chronic systolic LV failure, resolved 3. 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 Persistent atrial fibrillation with therapeutic INR 5. HTN 6. 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 Acute on CKD with obstructive component post cystoscopy and mendenhall placement 8. BPH with urinary retention PLAN: 1. Continue Lasix with close monitoring of renal function and electrolyte 2. As outlined to resume Losartan once renal function stabilizes 3. Continue Coumadin as per INR Continue present therapy Brenden Davenport MD
[2016-12-08] MEDS: RANITIDINE HCL 150 MG TABLET (FP) PO SCH (11:06)
[2016-12-08] MEDS: LACTOBACILLUS ACIDOPHILUS 1 EACH TAB (FP) PO SCH (11:06)
[2016-12-08] MEDS: FUROSEMIDE 40 MG TABLET (FP) PO SCH (11:06)
[2016-12-08] MEDS: DONEPEZIL HCL 10 MG TABLET (FP) PO SCH (11:06)
[2016-12-08] MEDS: HYDROCORTISONE 2.5% TOPICAL CREAM 30 GM TUBE TP SCH (13:11)
[2016-12-08] MEDS: BACITRACIN 30 GM TUBE TOPICAL OINTMENT TP SCH (13:11)
--- NOTE | 2016-12-08 14:07 | PN ---
Physical Exam: SUBJECTIVE: Patient seen and examined. Remains confused, restless. OBJECTIVE: Mendenhall catheter with pink tinged urine Had restraints placed overnight as he continues to attempt to pull out mendenhall Vital Signs Period Temp Pulse Resp BP Sys/Kemp Pulse Ox Last 24 Hr 97.8 F-98.4 F 47-80 16-20 110-143/43-61 94-98 GENERAL: In no acute distress, confused and restless HEAD: Normal with no signs of trauma. EYES: PERRL, extraocular movements intact, sclera anicteric, conjunctiva clear. No ptosis. ENT: Ears normal, nares patent, oropharynx clear without exudates, moist mucous membranes. NECK: Trachea midline, full range of motion, supple. LUNGS: Breath sounds equal, clear to auscultation bilaterally, no wheezes, no crackles, no accessory muscle use. ABDOMEN: Soft, nontender, nondistended, normoactive bowel sounds, no guarding, no rebound, no hepatosplenomegaly, no masses. Laboratory Results - last 24 hr 12/08/16 12/08/16 12/08/16 06:10 06:10 06:10 WBC 14.6 H D RBC 3.80 L Hgb 11.4 L D Hct 34.5 L D MCV 91.0 MCHC 32.9 RDW 18.3 H Plt Count 237 D MPV 7.7 Neutrophils % 87.2 H Lymphocytes % 1.4 L D Monocytes % 10.6 H Eosinophils % 0.2 D Basophils % 0.6 INR 2.23 H Sodium 141 Potassium 5.0 Chloride 101 Carbon Dioxide 30 Anion Gap 10 BUN 57 H Creatinine 1.3 Creat Clearance w eGFR 52.22 Random Glucose 117 H D Calcium 8.8 Total Bilirubin 2.5 H AST 25 ALT 11 L D Alkaline Phosphatase 203 H Total Protein 6.5 Albumin 2.5 L Active Medications Generic Name Dose Route Start Last Admin Trade Name Freq PRN Reason Stop Dose Admin Acetaminophen 650 mg 12/05/16 08:52 12/07/16 18:32 Tylenol - PO 650 mg Q4H PRN Administration FEVER OR PAIN Albuterol/Ipratropium 1 amp 12/05/16 08:52 Duoneb - NEB Q6H PRN SHORTNESS OF BREATH Bacitracin 1 applic 12/05/16 11:00 12/08/16 13:11 Bacitracin - TP 1 applic DAILY NAIF Administration Docusate Sodium 100 mg 12/05/16 14:00 12/08/16 05:51 Colace - PO 100 mg TID NAIF Administration Donepezil HCl 10 mg 12/05/16 10:00 12/08/16 11:06 Aricept - PO 10 mg DAILY NAIF Administration Furosemide 40 mg 12/05/16 10:00 12/08/16 11:06 Lasix - PO 40 mg DAILY NAIF Administration Hydrocortisone 1 applic 12/05/16 10:00 12/08/16 13:11 Anusol 2.5% Hc Cream - TP 1 applic DAILY NAIF Administration Hydrocortisone Acetate 25 mg 12/05/16 22:00 12/07/16 21:35 Anusol Hc Suppository - RC 25 mg HS NAIF Administration Lactobacillus Acidophilus 1 tab 12/05/16 10:00 12/08/16 11:06 Bacid - PO 1 tab DAILY NAIF Administration Quetiapine Fumarate 12.5 mg 12/05/16 22:00 12/07/16 21:34 Seroquel - PO 12.5 mg HS NAIF Administration Ranitidine HCl 150 mg 12/05/16 10:00 12/08/16 11:06 Zantac - PO 150 mg DAILY NAIF Administration Tamsulosin HCl 0.4 mg 12/06/16 08:30 12/08/16 08:03 Flomax - PO 0.4 mg DAILY@0830 NAIF Administration Warfarin Sodium 5 mg 12/05/16 18:00 12/07/16 17:10 Coumadin - PO 5 mg DAILY@1800 NAIF Administration ASSESSMENT/PLAN: Patient is an 86 year old male with a significant past medical history of hypertension, atrial fib (on Coumadin) and COPD. He presented to the ER on 11/25 s/p post a mechanical fall and was found to have a right hip fracture. Renal: Acute Kidney Injury Assessment/Plan: s/p cystoscopy and mendenhall placement by urology Monitor urine output Follow bun/creat. On Lasix Urology following Orthopedics: Right Hip fracture s/p post mechanical fall - right displaced femoral neck fx Assessment/Plan: s/p right hip hemiarthroplasty PT daily Ortho following Monitor hmg/hct s/p surgery, s/p 2 units of prbc Monitor CBC Cardiology Atrial Fibrillation Assessment/Plan: On Coumadin 5mg based on INR Goal inr 2-3 Continue Coumadin as ordered Hypertension - chronic Assessment/Plan: Monitor BP ID Urinary Tract Infection - acute Assessment/Plan: + urine culture WBC elevated today Blood cultures ordered Monitor for signs of sepsis CBC in a.m. F.E.N. Fluids: tolerating PO Electrolytes: monitor bmp Nutrition: Low sodium Prophylaxis DVT: On Coumadin
[2016-12-08] MEDS: WARFARIN NA 5 MG TABLET (UD) PO SCH (17:25)
[2016-12-08] MEDS: ACETAMINOPHEN 325 MG TABLET (FP) PO PRN (18:27)
[2016-12-08] MEDS ORDERED: PT OWN MED DRAWER 7, Y5N ONE (20:57)
[2016-12-08] MEDS: QUEtiapine FUMARATE 25 MG TABLET (FP) PO SCH (21:47)
[2016-12-08] MEDS: HYDROCORTISONE ACETATE 25 MG/SUPP.RECT RC SCH (21:47)
[2016-12-09] MEDS: DOCUSATE SODIUM 100 MG CAPSULE (FP) PO SCH (06:01)
[2016-12-09 07:50] LABS: BASOPHIL 0.6 % (0-2.0); EOSINOPHIL 1.3 % (0-4.5); MCH 30.9 pg (25.7-33.7); MCHC 34.1 g/dl (32.0-35.9); MEAN CELL VOLUME 90.7 fl (80-96); MEAN PLT VOLUME 7.5 fl (7.5-11.1); NEUTROPHILS 84.4 % (42.8-82.8); PLATELET COUNT 210 K/MM3 (134-434); RDW 17.7 % (11.9-15.9); WHITE BLOOD COUNT 13.5 K/mm3 (4.0-10.0)
[2016-12-09 08:19] LABS: ALBUMIN 2.3 g/dl (3.4-5.0); ANION GAP 9 (8-16); CALCIUM 8.8 mg/dL (8.5-10.1); CO2 28 mmol/L (21-32); GLUCOSE,RANDOM 93 mg/dL (74-106)
[2016-12-09 08:24] LABS: ALK PHOS 173 U/L (45-117); BILIRUBIN,TOTAL 2.1 mg/dL (0.2-1.0); COCKROFT - GAULT 44.74; SGOT/AST 21 U/L (15-37); SGPT/ALT 12 U/L (12-78); TOT PROT 5.8 g/dl (6.4-8.2)
[2016-12-09] MEDS: TAMSULOSIN HCL 0.4 MG CAP.ER.24H (FP) PO SCH (09:22)
[2016-12-09] MEDS: HYDROCORTISONE 2.5% TOPICAL CREAM 30 GM TUBE TP SCH (10:00)
[2016-12-09] MEDS: BACITRACIN 30 GM TUBE TOPICAL OINTMENT TP SCH (11:05)
[2016-12-09] MEDS: FUROSEMIDE 40 MG TABLET (FP) PO SCH (11:05)
[2016-12-09] MEDS: RANITIDINE HCL 150 MG TABLET (FP) PO SCH (11:05)
[2016-12-09] MEDS: LACTOBACILLUS ACIDOPHILUS 1 EACH TAB (FP) PO SCH (11:05)
[2016-12-09] MEDS: DONEPEZIL HCL 10 MG TABLET (FP) PO SCH (11:05)
--- NOTE | 2016-12-09 12:58 | PN ---
Progress Note, Physician Chief Complaint: Not in distress, sitting on wheelchair in PT History of Present Illness: Patient was seen and examined. Awake. Chart was reviewed Denies chest pain or SOB - Current Medication List Current Medications: Active Medications Acetaminophen (Tylenol -) 650 mg PO Q4H PRN PRN Reason: FEVER OR PAIN Last Admin: 12/08/16 18:27 Dose: 650 mg Albuterol/Ipratropium (Duoneb -) 1 amp NEB Q6H PRN PRN Reason: SHORTNESS OF BREATH Bacitracin (Bacitracin -) 1 applic TP DAILY [facility] Last Admin: 12/09/16 11:05 Dose: 1 applic Docusate Sodium (Colace -) 100 mg PO TID [facility] Last Admin: 12/09/16 06:01 Dose: 100 mg Donepezil HCl (Aricept -) 10 mg PO DAILY [facility] Last Admin: 12/09/16 11:05 Dose: 10 mg Furosemide (Lasix -) 40 mg PO DAILY [facility] Last Admin: 12/09/16 11:05 Dose: 40 mg Hydrocortisone (Anusol 2.5% Hc Cream -) 1 applic TP DAILY [facility] Last Admin: 12/08/16 13:11 Dose: 1 applic Hydrocortisone Acetate (Anusol Hc Suppository -) 25 mg RC HS [facility] Last Admin: 12/08/16 21:47 Dose: 25 mg Lactobacillus Acidophilus (Bacid -) 1 tab PO DAILY [facility] Last Admin: 12/09/16 11:05 Dose: 1 tab Quetiapine Fumarate (Seroquel -) 12.5 mg PO HS [facility] Last Admin: 12/08/16 21:47 Dose: 12.5 mg Ranitidine HCl (Zantac -) 150 mg PO DAILY [facility] Last Admin: 12/09/16 11:05 Dose: 150 mg Tamsulosin HCl (Flomax -) 0.4 mg PO DAILY@0830 [facility] Last Admin: 12/09/16 09:22 Dose: 0.4 mg Warfarin Sodium (Coumadin -) 5 mg PO DAILY@1800 [facility] Last Admin: 12/08/16 17:25 Dose: 5 mg - Objective Vital Signs: Vital Signs Temperature 98.3 F 12/09/16 10:00 Pulse Rate 89 12/09/16 10:00 Respiratory Rate 20 12/09/16 10:00 Blood Pressure 151/58 12/09/16 10:00 O2 Sat by Pulse Oximetry (%) 94 L 12/08/16 20:38 Neck: Yes: Supple Cardiovascular: Yes: Regular Rate and Rhythm, S1, S2 Respiratory: Yes: CTA Bilaterally Gastrointestinal: Yes: Normal Bowel Sounds, Soft. No: Tenderness Edema: No Labs: CBC, BMP 12/09/16 06:35 12/09/16 06:35 INR, PTT INR 2.23 (0.82-1.09) H 12/08/16 06:10 Problem List - Problems (1) Acute on chronic systolic (congestive) heart failure Code(s): I50.23 - ACUTE ON CHRONIC SYSTOLIC (CONGESTIVE) HEART FAILURE (2) Atrial fibrillation Code(s): I48.91 - UNSPECIFIED ATRIAL FIBRILLATION Qualifiers: Atrial fibrillation type: chronic Qualified Code(s): I48.2 - Chronic atrial fibrillation (3) Cerebrovascular disease Code(s): I67.9 - CEREBROVASCULAR DISEASE, UNSPECIFIED (4) Fractured femoral neck Code(s): S72.009A - FRACTURE OF UNSP PART OF NECK OF UNSP FEMUR, INIT Qualifiers: Encounter type: initial encounter Fracture type: closed Laterality : right Qualified Code(s): S72.001A - Fracture of unspecified part of neck of right femur, initial encounter for closed fracture (5) Hypertensive cardiovascular disease Code(s): I11.9 - HYPERTENSIVE HEART DISEASE WITHOUT HEART FAILURE Qualifiers: Heart failure presence: with heart failure Qualified Code(s): I11.0 - Hypertensive heart disease with heart failure (6) Pulmonary hypertension Code(s): I27.2 - OTHER SECONDARY PULMONARY HYPERTENSION (7) Subendocardial ischemia Code(s): I24.8 - OTHER FORMS OF ACUTE ISCHEMIC HEART DISEASE (8) COPD (chronic obstructive pulmonary disease) Code(s): J44.9 - CHRONIC OBSTRUCTIVE PULMONARY DISEASE, UNSPECIFIED Qualifiers : COPD type: unspecified COPD Qualified Code(s): J44.9 - Chronic obstructive pulmonary disease, unspecified (9) Dementia Code(s): F03.90 - UNSPECIFIED DEMENTIA WITHOUT BEHAVIORAL DISTURBANCE Qualifiers: Dementia type: vascular dementia Dementia behavioral disturbance: without behavioral disturbance Qualified Code(s): F01.50 - Vascular dementia without behavioral disturbance Assessment/Plan 1. Post right hip jackie-arthroplasty - hemodynamically stable 2. Acute on chronic systolic LV failure, resolved 3. 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 Persistent atrial fibrillation with therapeutic INR 5. HTN 6. 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 Acute on CKD with obstructive component post cystoscopy and mendenhall placement 8. BPH with urinary retention PLAN: 1. Continue Lasix with monitoring of renal function and electrolyte 2. As outlined - to resume Losartan once renal function stabilizes 3. Continue Coumadin as per INR 4. PT Continue present therapy Brenden Davenport MD
--- NOTE | 2016-12-09 13:34 | DS ---
Physical Exam: SUBJECTIVE: Patient seen and examined. He states he feels well. OBJECTIVE: For discharge to rehab today Vital Signs Period Temp Pulse Resp BP Sys/Kemp Pulse Ox Last 24 Hr 97.9 F-98.3 F 20-89 18-20 115-151/44-58 94 PHYSICAL EXAM GENERAL: In no acute distress, confused and restless at times HEAD: Normal with no signs of trauma. EYES: PERRL, extraocular movements intact, sclera anicteric, conjunctiva clear. No ptosis. ENT: Ears normal, nares patent, oropharynx clear without exudates, moist mucous membranes. NECK: Trachea midline, full range of motion, supple. LUNGS: Breath sounds equal, clear to auscultation bilaterally, no wheezes, no crackles, no accessory muscle use. ABDOMEN: Soft, nontender, nondistended, normoactive bowel sounds, no guarding, no rebound, no hepatosplenomegaly, no masses. LABS Laboratory Results - last 24 hr 12/09/16 12/09/16 12/09/16 06:35 06:35 12:50 WBC 13.5 H RBC 3.39 L Hgb 10.5 L Hct 30.8 L MCV 90.7 MCHC 34.1 RDW 17.7 H Plt Count 210 MPV 7.5 Neutrophils % 84.4 H Lymphocytes % 2.1 L D Monocytes % 11.6 H Eosinophils % 1.3 D Basophils % 0.6 INR Cancelled Sodium 141 Potassium 4.8 Chloride 104 Carbon Dioxide 28 Anion Gap 9 BUN 50 H Creatinine 1.0 D Creat Clearance w eGFR > 60 Random Glucose 93 D Calcium 8.8 Total Bilirubin 2.1 H AST 21 ALT 12 Alkaline Phosphatase 173 H Total Protein 5.8 L Albumin 2.3 L HOSPITAL COURSE: Date of Admission:11/25/16 Date of Discharge: 12/09/16 Patient is an 86 year old male with a significant past medical history of hypertension, atrial fib (on Coumadin) and COPD. He presented to the ER on 11/25/2016 s/p post a mechanical fall and was found to have a right hip fracture and is s/p right hip hemiarthroplasty on 12/01/[address] Fowler. Renal: Acute Kidney Injury Assessment/Plan: s/p cystoscopy and mendenhall placement by urology Monitor urine output, creatinine 1.0 Follow bun/creat. as an outpatient at nursing facility On Lasix 40mg daily To be discharge with mendenhall catheter for urinary retention Orthopedics: Right Hip fracture s/p post mechanical fall - right displaced femoral neck fx Assessment/Plan: s/p right hip hemiarthroplasty PT daily, Ortho following CBC 10.5/30.8 Cardiology Atrial Fibrillation Assessment/Plan: On Coumadin 5mg based on INR Goal inr 2-3 Continue Coumadin as ordered Check INR daily as an outpatient Hypertension - chronic/controlled Assessment/Plan: Monitor BP ID: Urinary Tract Infection - acute Assessment/Plan: + urine culture, but leukocytosis now trending down Blood cultures with no growth to date remains afebrile, vitals stable Repeat lab work as an outpatient Disposition: Discharge to rehab. Monitor INR and labs as an outpatient. Full code. Minutes to complete discharge: 60 Discharge Summary Reason For Visit: FRACTURED FEMOR,A-FIB,WILBERTO Current Active Problems Acute on chronic systolic (congestive) heart failure (Acute) Atrial fibrillation (Acute) Bradycardia (Acute) Cerebrovascular disease (Acute) DVT prophylaxis (Acute) Fractured femoral neck (Acute) Hypertensive cardiovascular disease (Acute) Leukocytosis (Acute) Pleural effusion due to CHF (congestive heart failure) (Acute) Pre-operative cardiovascular examination (Acute) Pulmonary hypertension (Acute) Subendocardial ischemia (Acute) Subtherapeutic international normalized ratio (INR) (Acute) Urinary retention due to benign prostatic hyperplasia (Acute) Condition: Stable - Instructions Diet, Activity, Other Instructions: Mr. Zayas: You have been discharged to a rehab facility. Please continue Coumadin and have your INR checked daily. Please monitor CBC and CMP. Monitor intake and output. Referrals: Abebe Loaiza MD [Staff Physician] - Disposition: [facility]ISON [facility] - Home Medications Comprehensive Discharge Medication List: Ambulatory Orders Donepezil HCl [Aricept] 10 mg PO DAILY 11/14/14 Quetiapine Fumarate [Seroquel -] 12.5 mg PO HS #14 tablet 02/21/15 Albuterol Sulfate Inhaler - [Ventolin HFA Inhaler -] 2 inh PO Q4H PRN #1 inh 04/13 Docusate Sodium [Colace -] 100 mg PO TID capsule 11/06/15 Furosemide [Lasix -] 40 mg PO DAILY #30 tablet 05/10/16 Lactobacillus Acidophilus [Bacid -] 1 tab PO DAILY tab 11/06/15 Acetaminophen [Tylenol .Regular Strength -] 650 mg PO Q4H PRN #0 tablet Albuterol 2.5/Ipratropium 0.5 [Duoneb -] 1 amp NEB Q6H PRN #0 amp 12/09/16 Bacitracin - [Bacitracin Topical Ointment -] 1 applic TP DAILY tube 12/09/16 Hydrocortisone 2.5% Topical Cr [Anusol-Hc -] 1 applic TP DAILY tube 12/09/16 Hydrocortisone Acetate [Anusol Hc Suppository -] 25 mg RC HS supp.rect Ranitidine [Zantac -] 150 mg PO DAILY tablet 12/09/16 Tamsulosin HCl [Flomax -] 0.4 mg PO DAILY@0830 #30 tab 12/09/16 Warfarin Na [Coumadin -] 5 mg PO DAILY@1800 #30 tablet 12/09/16 This patient is new to me today: No Emergency Visit: Yes ED Registration Date: 11/25/16 Care time: The patient presented to the Emergency Department on the above date and was hospitalized for further evaluation of their emergent condition. Critical Care patient: No - Discharge Referral Referred to [facility] Med P.C.: No
[2016-12-09 13:35] LABS: INR 2.69 (0.82-1.09); PROTHROMBIN TIME (PATIENT) 30.2 SEC (9.98-11.88)
[2016-12-09 13:47] VITALS: BP 119/60; PULSE 67; TEMP 97.4
== END 2016-12-09 15:25 | DRG 469 ==
LOC: FER 14:49 → FM/S 19:54 → J4W 11-28 17:30 → J6S 12-02 18:44
PROVIDERS: ADMIT Internal Medicine; ATTEND Nurse Practitioner Family
PROC: 0SRR0JA Replacement of Right Hip Joint, Femoral Surface with Synthetic Substitute, Uncemented, Open Approach (ICD-10-PCS; principal; 2016-12-01 14:30)
PROC: 0T9B80Z Drainage of Bladder with Drainage Device, Via Natural or Artificial Opening Endoscopic (ICD-10-PCS; 2016-12-05)
PROC: 30233N1 Transfusion of Nonautologous Red Blood Cells into Peripheral Vein, Percutaneous Approach (ICD-10-PCS; 2016-12-06)
DX: S72.091A Other fracture of head and neck of right femur, initial encounter for closed fracture (principal); I50.23 Acute on chronic systolic (congestive) heart failure; I24.8 Other forms of acute ischemic heart disease; N39.0 Urinary tract infection, site not specified; N17.9 Acute kidney failure, unspecified; I13.0 Hypertensive heart and chronic kidney disease with heart failure and stage 1 through stage 4 chronic kidney disease, or unspecified chronic kidney disease; G30.9 Alzheimer's disease, unspecified; I48.2 Chronic atrial fibrillation; N18.9 Chronic kidney disease, unspecified; F02.80 Dementia in other diseases classified elsewhere, unspecified severity, without behavioral disturbance, psychotic disturbance, mood disturbance, and anxiety; J44.9 Chronic obstructive pulmonary disease, unspecified; I44.7 Left bundle-branch block, unspecified; R79.1 Abnormal coagulation profile; I27.2 Other secondary pulmonary hypertension; I08.1 Rheumatic disorders of both mitral and tricuspid valves; R33.8 Other retention of urine; E87.5 Hyperkalemia; R34 Anuria and oliguria; K64.9 Unspecified hemorrhoids; R00.1 Bradycardia, unspecified; B95.2 Enterococcus as the cause of diseases classified elsewhere; Y93.89 Activity, other specified; W06.XXXA Fall from bed, initial encounter; Y92.099 Unspecified place in other non-institutional residence as the place of occurrence of the external cause; Z87.891 Personal history of nicotine dependence; Z86.73 Personal history of transient ischemic attack (TIA), and cerebral infarction without residual deficits; Z79.01 Long term (current) use of anticoagulants
CPT/HCPCS: 36415; 36430; 71010-TC; 71250-TC; 73502-TC-RT; 73523-TC; 76000-TC; 80048; 80053; 80076; 81003; 81015; 82550; 82803; 83735; 83880; 84100; 84443; 84484; 85025; 85027; 85610; 86850; 86900; 86901; 86922; 87040; 87086; 87186; 88305-TC; 88311-TC; 93005; 93306-TC; 94010; 94640; 94760; 97116-GP; 97162-PG; 99285-25; E0186; P9038; P9058

== ENCOUNTER 2017-01-26 14:47 | Inpatient (IN) | payer OTHER ==
--- NOTE | 2017-01-26 17:12 | PDOC ---
History of Present Illness - General History Source: Patient, Prison Records Exam Limitations: Dementia (Alzheimers) - History of Present Illness Initial Comments: 01/26/17 17:51 The patient is a 86 year old male, from [facility], with a significant past medical history of Alzheimers disease, AFib (on Coumadin), CVA (01/2015), COPD, HTN, and recent femur fracture (11/12) who presents to the ED s/p witnessed fall earlier today. As per jail, the patient was in his wheelchair when he fell forward and hit hi head. Denies loss of consciousness. Patient currently has no complaints. Patient had a recent femur fracture on 11/25/16 s/p fall with repair on . This HPI is limited secondary to patients Alzheimers. <Dolly Mancera - Last Filed: 01/26/17 20:36> <Mindi Lepe - Last Filed: 01/27/17 01:39> - General Chief Complaint: Injury Stated Complaint: FALL Past History <Dolly Mancera - Last Filed: 01/26/17 20:36> - Past Medical History Cardiac Disorders: Yes (ATRIAL FIBRILLATION) CVA: Yes (01/2015) COPD: Yes CHF: No Dementia: Yes Diabetes: No HTN: No - Psycho/Social/Smoking Cessation Hx Anxiety: No Suicidal Ideation: No Smoking Status: Yes Smoking History: Unknown if ever smoked Have you smoked in the past 12 months: No Number of Cigarettes Smoked Daily: 0 If you are a former smoker, when did you quit?: 50 years Hx Alcohol Use: No Drug/Substance Use Hx: No Substance Use Type: Alcohol Hx Substance Use Treatment: No <Mindi Lepe - Last Filed: 01/27/17 01:39> - Past Medical History Allergies/Adverse Reactions: Allergies Allergy/AdvReac Type Severity Reaction Status Date / Time Penicillins Allergy Hives Verified 01/26/17 15:10 procaine Allergy Verified 01/26/17 18:45 Home Medications: Ambulatory Orders Ascorbate Calcium [Vitamin C] 500 mg PO TID 01/26/17 Bimatoprost [Lumigan] 1 drop IO DAILY 01/26/17 Ferrous Sulfate 325 mg PO TID 01/26/17 Furosemide [Lasix -] 40 mg PO BID 01/26/17 Guaifenesin AC [Robitussin AC -] 5 ml PO HS 01/26/17 Warfarin Na [Coumadin] 5 mg PO TID 01/26/17 Review of Systems - Review of Systems Able to Perform ROS?: No Comments:: 01/26/17 17:51 Unable to obtain ROS secondary to patients Alzheimers. <Dolly Mancera - Last Filed: 01/26/17 20:36> *Physical Exam - Vital Signs Last Vital Signs Temp Pulse Resp BP Pulse Ox 98.4 F 79 18 117/60 96 01/26/17 15:10 01/26/17 15:10 01/26/17 15:10 01/26/17 15:10 01/26/17 15:10 - Physical Exam Comments: 01/26/17 17:52 GENERAL:+ Cachectic Awake and alert. No acute distress. HEENT: Normocephalic, atraumatic. PERRLA, EOMI. No conjunctival pallor. Sclera are non- icteric. Moist mucous membranes. Oropharynx is clear. NECK: Supple. Full ROM. No JVD. Carotid pulses 2+ and symmetric, without bruits. No thyromegaly. NCo lymphadenopathy. CARDIOVASCULAR: Regular rate and rhythm. No murmurs, rubs, or gallops. Distal pulses are 2+ and symmetric. PULMONARY: No evidence of respiratory distress. Lungs clear to auscultation bilaterally. No wheezing, rales or rhonchi. ABDOMINAL: Soft. Non-tender. Non-distended. No rebound or guarding. No organomegaly. Normoactive bowel sounds. GENITOURINARY: + leg bag in place MUSCULOSKELETAL Normal range of motion at all joints. No bony deformities or tenderness. No CVA tenderness. EXTREMITIES: No cyanosis. No clubbing. No edema. No calf tenderness. SKIN: Warm and dry. Normal capillary refill. No rashes. No jaundice. NEUROLOGICAL: Alert, awake, appropriate. Cranial nerves 2-12 intact. No deficits to light touch and temperature in face, upper extremities and lower extremities. No motor deficits in the in face, upper extremities and lower extremities. Normoreflexic in the upper and lower extremities. Normal speech. Toes are down- going bilaterally. Gait is normal without ataxia. PSYCHIATRIC: Cooperative. Good eye contact. Appropriate mood and affect. <Dolly Mancera - Last Filed: 01/26/17 20:36> - Vital Signs Last Vital Signs Temp Pulse Resp BP Pulse Ox 98.4 F 79 18 117/60 96 01/26/17 15:10 01/26/17 15:10 01/26/17 15:10 01/26/17 15:10 01/26/17 15:10 <Mindi Lepe - Last Filed: 01/27/17 01:39> ED Treatment Course - LABORATORY CBC & Chemistry Diagram: 01/26/17 18:57 01/26/17 18:57 - RADIOLOGY Radiograph Interpretation: 01/26/17 19:01 CT/HEAD CT WITHOUT CONTRAST Impression: No significant interval change or gross acute intracranial pathology is identified. Correlate clinically to determine further evaluation and follow-up. Reported by: Mara Durham <Dolly Mancera - Last Filed: 01/26/17 20:36> - LABORATORY CBC & Chemistry Diagram: 01/26/17 18:57 01/26/17 18:57 <Mindi Lepe - Last Filed: 01/27/17 01:39> Medical Decision Making - Medical Decision Making 01/26/17 20:[address] Calderon at 20:30 <Dolly Mancera - Last Filed: 01/26/17 20:36> - Medical Decision Making 01/26/17 18:05 I called the jail and spoke to the patient's nurse to find out why he was transferred here. Since there was no note accompanying him. The patient was being transported in his chair and leaned forward and fell onto his head. The patient is on Coumadin for atrial fib There was no loss of consciousness and no evidence of any external scalp lacerations or hematomas. When asked, the patient states he has no problems that he has advanced dementia. Plan INR, CAT scan of the head,cbc,comp and UA pt has a indwelling mendenhall. However his previous chart. He had a problem with placement of a Mendenhall and a false passage resulted from an attempt to place a Mendenhall catheter. Since then he's been followed by his urologist and presents with a indwelling Mendenhall 01/27/17 01:38 CAT scan of head did not show any acute intracranial pathology, no skull fracture, no bleed. Labs reviewed, and he was found have a urinary tract infection has started on Levaquin INR was 1.5 Case is discussed with Dr. Sylvester who admitted the patient to [facility] <Mindi Lepe - Last Filed: 01/27/17 01:39> *DC/Admit/Observation/Transfer - Attestations Scribe Attestion: 01/26/17 17:52 Documentation prepared by Dolly Mancera, acting as lead medical technologist for Mindi Lepe MD <Dolly Mancera - Last Filed: 01/26/17 20:36> - Discharge Dispostion Admit: Yes <Mindi Lepe - Last Filed: 01/27/17 01:39> Diagnosis at time of Disposition: Subtherapeutic international normalized ratio (INR), Urinary retention due to benign prostatic hyperplasia Dementia Qualifiers: Dementia type: unspecified type Dementia behavioral disturbance: without behavioral disturbance Qualified Code(s): F03.90 - Unspecified dementia without behavioral disturbance UTI (urinary tract infection) Qualifiers: Urinary tract infection type: site unspecified Hematuria presence: without hematuria Qualified Code(s): N39.0 - Urinary tract infection, site not specified Atrial fibrillation Qualifiers: Atrial fibrillation type: permanent Qualified Code(s): I48.2 - Chronic atrial fibrillation Anemia Qualifiers: Anemia type: other cause Other causes of anemia: other cause, not classified Qualified Code(s): D64.89 - Other specified anemias - Referrals
[2017-01-26 17:59] LABS: URINE APPEARANCE CLOUDY; URINE BILIRUBIN NEGATIVE (NEGATIVE); URINE BLOOD 1+ (NEGATIVE); URINE COLOR AMBER; URINE GLUCOSE (UA) NEGATIVE (NEGATIVE); URINE KETONE NEGATIVE (NEGATIVE); URINE NITRITE NEGATIVE (NEGATIVE); URINE UROBILINOGEN NEGATIVE mg/dL (0.2-1.0)
[2017-01-26 18:00] LABS: URINE LEUK ESTERASE 3+ (NEGATIVE); URINE PROTEIN 2+ (NEGATIVE)
[2017-01-26 18:03] LABS: GRANULAR CASTS 11 /lpf; URINE BACTERIA RARE /hpf (NONE SEEN); URINE MUCUS RARE; URINE RBC 3 /hpf (0-3); URINE WBC 48 /hpf (3-5)
[2017-01-26 18:17] LABS: INR 1.52 (0.82-1.09); PROTHROMBIN TIME (PATIENT) 16.9 SEC (9.98-11.88)
[2017-01-26 19:10] LABS: MCH 30.3 pg (25.7-33.7); MCHC 32.8 g/dl (32.0-35.9); MEAN CELL VOLUME 92.6 fl (80-96); MEAN PLT VOLUME 8.6 fl (7.5-11.1); PLATELET COUNT 123 K/MM3 (134-434); RDW 20.5 % (11.9-15.9); WHITE BLOOD COUNT 7.1 K/mm3 (4.0-10.0)
[2017-01-26 19:36] LABS: ALBUMIN 2.1 g/dl (3.4-5.0); ALK PHOS 186 U/L (45-117); ANION GAP 8 (8-16); BILIRUBIN,TOTAL 1.4 mg/dL (0.2-1.0); CALCIUM 8.1 mg/dL (8.5-10.1); CO2 26 mmol/L (21-32); CREATININE 1.7 mg/dL (0.7-1.3); GLUCOSE,RANDOM 119 mg/dL (74-106); SGOT/AST 35 U/L (15-37); SGPT/ALT 28 U/L (12-78); TOT PROT 5.7 g/dl (6.4-8.2)
[2017-01-26 19:45] LABS: PLATELET ESTIMATE DECREASED (NORMAL)
[2017-01-26 19:46] LABS: ANISOCYTOSIS 1+; HYPOCHROMIA 1+; MICROCYTOSIS 1+; POLYCHROMASIA 1+
[2017-01-26] MEDS ORDERED: ONDANSETRON 4 MG/2 ML VIAL IVPB PRN (20:29)
[2017-01-26] MEDS: SODIUM CHLORIDE 1,000 ML IV SCH (21:33)
[2017-01-26] MEDS: guaiFENesin/CODEINE 5 ML UNIT-DOSE CUPS PO SCH (22:40)
[2017-01-26] MEDS: FERROUS SO4 325 MG TABLET (FP) PO SCH (22:40)
[2017-01-26] MEDS ORDERED: guaiFENesin/CODEINE 5 ML UNIT-DOSE CUPS PO ONE (22:42)
[2017-01-26] MEDS ORDERED: FERROUS SO4 325 MG TABLET (FP) ONE (22:42)
[2017-01-26] MEDS: ASCORBIC ACID 500 MG TABLET (FP) PO SCH (23:08)
[2017-01-26] MEDS: LEVOFLOXACIN 250 MG IVPB 50 ML IVPB SCH (23:43)
[2017-01-27 02:11] VITALS: BMI 20.7
[2017-01-27] MEDS: ASCORBIC ACID 500 MG TABLET (FP) PO SCH ×3 (07:15→21:58)
[2017-01-27] MEDS: FERROUS SO4 325 MG TABLET (FP) PO SCH ×3 (07:15→21:58)
[2017-01-27 07:52] LABS: ANION GAP 12 (8-16); CALCIUM 8.9 mg/dL (8.5-10.1); CO2 22 mmol/L (21-32); CREATININE 1.8 mg/dL (0.7-1.3); GLUCOSE,RANDOM 106 mg/dL (74-106); MAGNESIUM 2.8 mg/dL (1.8-2.4); MCH 30.8 pg (25.7-33.7); MEAN CELL VOLUME 96.4 fl (80-96); MEAN PLT VOLUME 8.8 fl (7.5-11.1); PHOSPHOROUS 3.6 mg/dL (2.5-4.9); PLATELET COUNT 151 K/MM3 (134-434); RDW 21.1 % (11.9-15.9); WHITE BLOOD COUNT 2.4 K/mm3 (4.0-10.0)
[2017-01-27 08:06] LABS: INR 1.4 (0.82-1.09); PROTHROMBIN TIME (PATIENT) 15.5 SEC (9.98-11.88)
--- NOTE | 2017-01-27 10:26 | HP ---
Admitting History and Physical - Primary Care Physician PCP: Nahid Tello - Admission Chief Complaint: S/P Fall with head trauma History of Present Illness: 86 y/o male with significant past medical history of Hypertension, Afib (on Coumadin), Systolic CHF, pulmonary artery hypertension, COPD, Dementia, s/p right hip hemiarthroplasty for right hip fracture, , bladder outlet obstruction , s/p cystoscopy and mendenhall placement by urology, sent from [facility], s/p fall with trauma to head. Patient had CT Head done in the ER which was negative for bleed. W/U revealed - 1) Acute on chronic renal failure 2) Urinary tract infection. Patient admitted for UTI, acute renal failure and head injury. Patient seen and examined. History could not be taken because of dementia but denies chest pain, shortness of breath. Not in respiratory distress but noted to be very thirsty. 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 MRI), Dementia Cardiovascular: Yes: AFIB (chronic), CHF, HTN Pulmonary: Yes: COPD Psych: Yes: Depression, Other (h/o alcohol abuse) - Past Surgical History Past Surgical History: Yes: Colectomy (hemicolectomy) - Advance Directives Advance Directives: Yes: DNR - Smoking History Smoking history: Unknown if ever smoked Have you smoked in the past 12 months: No Aproximately how many cigarettes per day: 0 If you are a former smoker, when did you quit?: 50 years - Alcohol/Substance Use Hx Alcohol Use: No - Social History ADL: Family Assistance History of Recent Travel: No Home Medications - Allergies Allergies/Adverse Reactions: Allergies Allergy/AdvReac Type Severity Reaction Status Date / Time Penicillins Allergy Hives Verified 01/26/17 15:10 procaine Allergy Verified 01/26/17 18:45 - Home Medications Home Medications: Ambulatory Orders Ascorbate Calcium [Vitamin C] 500 mg PO TID 01/26/17 Bimatoprost [Lumigan] 1 drop IO DAILY 01/26/17 Ferrous Sulfate 325 mg PO TID 01/26/17 Furosemide [Lasix -] 40 mg PO BID 01/26/17 Guaifenesin AC [Robitussin AC -] 5 ml PO HS 01/26/17 Warfarin Na [Coumadin] 5 mg PO TID 01/26/17 Review of Systems Unable to obtain ROS, reason: dementia Physical Examination Vital Signs: Vital Signs Temperature 97.9 F 01/27/17 06:00 Pulse Rate 71 01/27/17 06:00 Respiratory Rate 18 01/27/17 06:00 Blood Pressure 99/50 01/27/17 06:00 O2 Sat by Pulse Oximetry (%) 93 L 01/26/17 23:50 Constitutional: Yes: Anxious, Mild Distress Eyes: Yes: Conjunctiva Clear, EOM Intact, PERRL HENT: Yes: Atraumatic, Normocephalic Neck: Yes: Supple, Trachea Midline Cardiovascular: Yes: Pulse Irregular, S1, S2 Respiratory: Yes: Diminished (air entry dimished b/l lung base) Gastrointestinal: Yes: Soft (non tender, BS present) Edema: No Peripheral Pulses WNL: Yes ...Motor Strength: WNL Labs: CBC, BMP 01/27/17 06:10 01/27/17 06:10 Imaging - Results Chest X-ray: Report Reviewed Problem List - Problems (1) Head trauma Assessment/Plan: S/P Fall at [place] with head trauma. Patient is on coumadin. Head CT x 2 - Negative for intracranial bleed. Will continue to monitor. Code(s): S09.90XA - UNSPECIFIED INJURY OF HEAD, INITIAL ENCOUNTER Qualifiers: Encounter type: initial encounter (2) Acute kidney failure Assessment/Plan: Most likely overdiuresed. Continue with IV fluids. Gentle hydration as patient has systolic CHF. Renal consulted for the same. Code(s): N17.9 - ACUTE KIDNEY FAILURE, UNSPECIFIED (3) UTI (urinary tract infection) Assessment/Plan: Continue levaquin. Urine culture sent. Code(s): N39.0 - URINARY TRACT INFECTION, SITE NOT SPECIFIED Qualifiers: Urinary tract infection type: site unspecified Hematuria presence: without hematuria Qualified Code(s): N39.0 - Urinary tract infection, site not specified (4) Urinary retention due to benign prostatic hyperplasia Assessment/Plan: Has Mendenhall. Continue same. Code(s): N40.1 - BENIGN PROSTATIC HYPERPLASIA WITH LOWER URINARY TRACT SYMP R33.8 - OTHER RETENTION OF URINE (5) Atrial fibrillation Assessment/Plan: Rate controlled. Will resume coumadin [address] x 2 negative for intracranial bleed. Code(s): I48.91 - UNSPECIFIED ATRIAL FIBRILLATION Qualifiers: Atrial fibrillation type: permanent Qualified Code(s): I48.2 - Chronic atrial fibrillation (6) Pneumonia Assessment/Plan: ?? Pneumonia. Patient is on levaquin. Pulmonary consulted. Code(s): J18.9 - PNEUMONIA, UNSPECIFIED ORGANISM Qualifiers: Pneumonia type: due to unspecified organism Laterality: right Lung location: lower lobe of lung Qualified Code(s): J18.9 - Pneumonia, unspecified organism (7) Acute on chronic systolic (congestive) heart failure Assessment/Plan: Lasix on hold. BNP very high. Cardiology consulted. Code(s): I50.23 - ACUTE ON CHRONIC SYSTOLIC (CONGESTIVE) HEART FAILURE (8) COPD (chronic obstructive pulmonary disease) Assessment/Plan: Continue inhaled bronchodilators. Code(s): J44.9 - CHRONIC OBSTRUCTIVE PULMONARY DISEASE, UNSPECIFIED Qualifiers : COPD type: unspecified COPD Qualified Code(s): J44.9 - Chronic obstructive pulmonary disease, unspecified (9) Anemia Assessment/Plan: Monitor H/H. Continue ferrous sulphate. Code(s): D64.9 - ANEMIA, UNSPECIFIED Qualifiers: Anemia type: other cause Other causes of anemia: other cause, not classified Qualified Code(s): D64.89 - Other specified anemias (10) Dementia Assessment/Plan: stable. Code(s): F03.90 - UNSPECIFIED DEMENTIA WITHOUT BEHAVIORAL DISTURBANCE Qualifiers: Dementia type: unspecified type Dementia behavioral disturbance: without behavioral disturbance Qualified Code(s): F03.90 - Unspecified dementia without behavioral disturbance
[2017-01-27] MEDS ORDERED: LORazepam 0.5 MG TABLET PO PRN (10:52)
--- NOTE | 2017-01-27 10:54 | CON.PULM ---
Consult Consult Specialty:: PULMONARY Referred by:: Dr. Tello Reason for Consultation:: r/o pneumonia - History of Present Illness Chief Complaint: fall History of Present Illness: 86yo male with h/o HTN, COPD, atrial fibrillation on anticoagulation, LV systolic dysfunction, Alzheimer's dementia, h/o CVA who was admitted s/p fall with head trauma. No acute changes on CT head. CXR done on admission showing right pleural effusion but cannot rule out infiltrate. Pt poor historian due to dementia but denies any shortness of breath, cough or chest pain. 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 Recently completed antibiotic courses for pneumonia. 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), Dementia Cardio/Vascular: Yes: AFIB (chronic), CHF, HTN Pulmonary: Yes: COPD Psych: Yes: Depression, Other (h/o alcohol abuse) - Past Surgical History Past Surgical History: Yes: Colectomy (hemicolectomy) - Alcohol/Substance Use Hx Alcohol Use: No - Smoking History Smoking history: Unknown if ever smoked Have you smoked in the past 12 months: No Aproximately how many cigarettes per day: 0 If you are a former smoker, when did you quit?: 50 years - Social History Usual Living Arrangement: With Significant Other ADL: Family Assistance History of Recent Travel: No Home Medications - Allergies Allergies/Adverse Reactions: Allergies Allergy/AdvReac Type Severity Reaction Status Date / Time Penicillins Allergy Hives Verified 01/26/17 15:10 procaine Allergy Verified 01/26/17 18:45 - Home Medications Home Medications: Ambulatory Orders Ascorbate Calcium [Vitamin C] 500 mg PO TID 01/26/17 Bimatoprost [Lumigan] 1 drop IO DAILY 01/26/17 Ferrous Sulfate 325 mg PO TID 01/26/17 Furosemide [Lasix -] 40 mg PO BID 01/26/17 Guaifenesin AC [Robitussin AC -] 5 ml PO HS 01/26/17 Warfarin Na [Coumadin] 5 mg PO TID 01/26/17 Review of Systems - Review of Systems Constitutional: denies: Chills, Fever Eyes: denies: Recent Change in Vision HENT: denies: Nasal Congestion, Throat Pain Neck: denies: Stiffness, Tenderness Cardiovascular: denies: Chest Pain, Palpitations, Shortness of Breath Respiratory: denies: Cough, Hemoptysis, SOB, Wheezing Gastrointestinal: denies: Abdominal Pain, Nausea, Vomiting Genitourinary: denies: Dysuria, Hematuria Neurological: denies: Dizziness, Headache Physical Exam Vital Sings: Vital Signs Temperature 97.9 F 01/27/17 06:00 Pulse Rate 71 01/27/17 06:00 Respiratory Rate 18 01/27/17 06:00 Blood Pressure 99/50 01/27/17 06:00 O2 Sat by Pulse Oximetry (%) 93 L 01/26/17 23:50 Constitutional: Yes: Calm Eyes: Yes: Conjunctiva Clear, EOM Intact HENT: Yes: Atraumatic, Normocephalic Neck: Yes: Supple, Trachea Midline Cardiovascular: Yes: Regular Rate and Rhythm Respiratory: Yes: Regular, Diminished (decreased breath sounds at the bases), Rales (scattered basilar) ...Clubbing: No Gastrointestinal: Yes: Normal Bowel Sounds, Soft. No: Tenderness Edema: No Neurological: Yes: Alert Labs: CBC, BMP 01/27/17 06:10 01/27/17 06:10 Imaging - Results Chest X-ray: Report Reviewed, Image Reviewed (right pleural efffusion, pulmonary vascular congestion, cannot rule out RLL infiltrate/atelectasis) Problem List - Problems (1) Head trauma Code(s): S09.90XA - UNSPECIFIED INJURY OF HEAD, INITIAL ENCOUNTER Qualifiers: Encounter type: initial encounter Qualified Code(s): S09.90XA - Unspecified injury of head, initial encounter (2) Fall Code(s): W19.XXXA - UNSPECIFIED FALL, INITIAL ENCOUNTER (3) Pleural effusion Code(s): J90 - PLEURAL EFFUSION, NOT ELSEWHERE CLASSIFIED (4) Atrial fibrillation Code(s): I48.91 - UNSPECIFIED ATRIAL FIBRILLATION Qualifiers: Atrial fibrillation type: permanent Qualified Code(s): I48.2 - Chronic atrial fibrillation (5) UTI (urinary tract infection) Code(s): N39.0 - URINARY TRACT INFECTION, SITE NOT SPECIFIED Qualifiers: Urinary tract infection type: site unspecified Hematuria presence: without hematuria Qualified Code(s): N39.0 - Urinary tract infection, site not specified (6) Acute on chronic systolic (congestive) heart failure Code(s): I50.23 - ACUTE ON CHRONIC SYSTOLIC (CONGESTIVE) HEART FAILURE (7) Pulmonary hypertension Code(s): I27.2 - OTHER SECONDARY PULMONARY HYPERTENSION (8) Mitral regurgitation Code(s): I34.0 - NONRHEUMATIC MITRAL (VALVE) INSUFFICIENCY (9) COPD (chronic obstructive pulmonary disease) Code(s): J44.9 - CHRONIC OBSTRUCTIVE PULMONARY DISEASE, UNSPECIFIED Qualifiers : COPD type: unspecified COPD Qualified Code(s): J44.9 - Chronic obstructive pulmonary disease, unspecified (10) Acute on chronic renal failure Code(s): N17.9 - ACUTE KIDNEY FAILURE, UNSPECIFIED N18.9 - CHRONIC KIDNEY DISEASE, UNSPECIFIED (11) Dementia Code(s): F03.90 - UNSPECIFIED DEMENTIA WITHOUT BEHAVIORAL DISTURBANCE Qualifiers: Dementia type: unspecified type Dementia behavioral disturbance: without behavioral disturbance Qualified Code(s): F03.90 - Unspecified dementia without behavioral disturbance Assessment/Plan s/p Fall Acute on Chronic Systolic Heart Failure Mitral Regurgitation Pulmonary HTN Pleural Effusion Atrial Fibrillation COPD r/o UTI Dementia - CXR findings actually appear improved improved compared to last CXR in November 2016 - findings likely more due to CHF given pulmonary vascular congestion and pleural effusion and absence of symptoms, fevers or leukocytosis - started on antibiotics, can d/c if cultures negative - will start on IV lasix - monitor urine output, creatinine - can repeat CXR in 2-3 days to reassess response to diuretics - inhaled bronchodilators as needed - rate controlled - continue anticoagulation for now, may need to reassess indication if pt fall risk Thank you for this consult Amrit Almodovar MD
[2017-01-27] MEDS: LACTOBACILLUS ACIDOPHILUS 1 EACH TAB (FP) PO SCH (12:03)
[2017-01-27] MEDS: FUROSEMIDE 40 MG/4 ML INJECTABLE VIAL IVPUSH SCH (12:03)
[2017-01-27 12:28] LABS: ANISOCYTOSIS 2+; METAMYELOCYTE 2 % (0-2); PLATELET ESTIMATE ADEQUATE (NORMAL)
--- NOTE | 2017-01-27 13:31 | CONSULT ---
Consult Consult Specialty:: infectious diseases Referred by:: Reason for Consultation:: pneumonia,uti - History of Present Illness History of Present Illness: 86 y/o male with past medical history of Hypertension, Afib , Systolic CHF, pulmonary artery hypertension, COPD, Dementia, s/p right hip hemiarthroplasty for right hip fracture, , bladder outlet obstruction, s/p cystoscopy and mendenhall placement by urology, sent from [facility], s/p fall with trauma to head. 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: CVA (pe 01/2015 brain MRI), Dementia Cardio/Vascular: Yes: AFIB (chronic), CHF, HTN Pulmonary: Yes: COPD Psych: Yes: Depression, Other (h/o alcohol abuse) - Past Surgical History Past Surgical History: Yes: Colectomy (hemicolectomy) - Alcohol/Substance Use Hx Alcohol Use: No - Smoking History Smoking history: Unknown if ever smoked Have you smoked in the past 12 months: No Aproximately how many cigarettes per day: 0 If you are a former smoker, when did you quit?: 50 years - Social History Usual Living Arrangement: With Significant Other ADL: Family Assistance History of Recent Travel: No Home Medications - Allergies Allergies/Adverse Reactions: Allergies Allergy/AdvReac Type Severity Reaction Status Date / Time Penicillins Allergy Hives Verified 01/26/17 15:10 procaine Allergy Verified 01/26/17 18:45 - Home Medications Home Medications: Ambulatory Orders Ascorbate Calcium [Vitamin C] 500 mg PO TID 01/26/17 Bimatoprost [Lumigan] 1 drop IO DAILY 01/26/17 Ferrous Sulfate 325 mg PO TID 01/26/17 Furosemide [Lasix -] 40 mg PO BID 01/26/17 Guaifenesin AC [Robitussin AC -] 5 ml PO HS 01/26/17 Warfarin Na [Coumadin] 5 mg PO TID 01/26/17 Review of Systems Unable to obtain ROS, reason: unable to obtain Physical Exam Vital Signs: Vital Signs Temperature 97.9 F 01/27/17 06:00 Pulse Rate 88 01/27/17 10:00 Respiratory Rate 18 01/27/17 10:00 Blood Pressure 113/43 01/27/17 10:00 O2 Sat by Pulse Oximetry (%) 93 L 01/26/17 23:50 Constitutional: Yes: No Distress, Calm Eyes: Yes: Conjunctiva Clear Cardiovascular: Yes: Regular Rate and Rhythm, S1, S2 Respiratory: Yes: Poor Air Entry, Other (crackles) Gastrointestinal: Yes: Normal Bowel Sounds, Soft Renal/: Yes: Mendenhall Present Musculoskeletal: Yes: WNL Extremities: Yes: WNL Neurological: Yes: Alert, Other Psychiatric: Yes: Alert, Other Labs: CBC, BMP 01/27/17 06:10 01/27/17 06:10 Imaging - Results Chest X-ray: Report Reviewed, Image Reviewed Cat Scan: Report Reviewed, Image Reviewed Assessment/Plan Problem List - Problems (1) Head trauma. Code(s): S09.90XA - UNSPECIFIED INJURY OF HEAD, INITIAL ENCOUNTER Qualifiers: Encounter type: initial encounter (2) Acute kidney failure Code(s): N17.9 - ACUTE KIDNEY FAILURE, UNSPECIFIED (3) UTI (urinary tract infection) Code(s): N39.0 - URINARY TRACT INFECTION, SITE NOT SPECIFIED Qualifiers: Urinary tract infection type: site unspecified Hematuria presence: without hematuria Qualified Code(s): N39.0 - Urinary tract infection, site not specified (4) Urinary retention due to benign prostatic hyperplasia Code(s): N40.1 - BENIGN PROSTATIC HYPERPLASIA WITH LOWER URINARY TRACT SYMP R33.8 - OTHER RETENTION OF URINE (5) Atrial fibrillation Code(s): I48.91 - UNSPECIFIED ATRIAL FIBRILLATION Qualifiers: Atrial fibrillation type: permanent Qualified Code(s): I48.2 - Chronic atrial fibrillation (6) Pneumonia Code(s): J18.9 - PNEUMONIA, UNSPECIFIED ORGANISM Qualifiers: Pneumonia type: due to unspecified organism Laterality: right Lung location: lower lobe of lung Qualified Code(s): J18.9 - Pneumonia, unspecified organism (7) Acute on chronic systolic (congestive) heart failure Code(s): I50.23 - ACUTE ON CHRONIC SYSTOLIC (CONGESTIVE) HEART FAILURE (8) COPD (chronic obstructive pulmonary disease) Code(s): J44.9 - CHRONIC OBSTRUCTIVE PULMONARY DISEASE, UNSPECIFIED Qualifiers : COPD type: unspecified COPD Qualified Code(s): J44.9 - Chronic obstructive pulmonary disease, unspecified (9) Anemia Code(s): D64.9 - ANEMIA, UNSPECIFIED Qualifiers: Anemia type: other cause Other causes of anemia: other cause, not classified Qualified Code(s): D64.89 - Other specified anemias (10) Dementia Code(s): F03.90 - UNSPECIFIED DEMENTIA WITHOUT BEHAVIORAL DISTURBANCE Qualifiers: Dementia type: unspecified type Dementia behavioral disturbance: without behavioral disturbance Qualified Code(s): F03.90 - Unspecified dementia without behavioral disturbance i think patient has two process going on i am worried that the patient might be becoming septic as his wbc has dropped patient clinically looks stable we will see what the cx reveal and then decide on further mgmt if to tap his pleural effusion and change his foleys catheter will keep a close watch on his vitals and his labs plan will start him on iv abx hydration await for all cx to be back rest continue as per primary
--- NOTE | 2017-01-27 14:46 | CON.CARD ---
Consult Consult Specialty:: Cardiology Referred by:: Dr. Calderon Reason for Consultation:: Cardiac evaluation - History of Present Illness Chief Complaint: S/P fall History of Present Illness: Patient is an 86 year old male with history of hypertension, persistent AF on Coumadin, LV systolic dysfunction with history of failure, pulmonary HTN, COPD and underlying organic brain/dementia. He presents after a mechanical fall with trauma to his head. CT of the head was negative for intracranial bleed. Patient also has acute on chronic renal disease and history of UTI. He denies chest pain or shortness of breath. 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 MRI), Dementia Cardio/Vascular: Yes: AFIB (chronic), CHF, HTN Pulmonary: Yes: COPD Psych: Yes: Depression, Other (h/o alcohol abuse) - Past Surgical History Past Surgical History: Yes: Colectomy (hemicolectomy) - Alcohol/Substance Use Hx Alcohol Use: No - Smoking History Smoking history: Unknown if ever smoked Have you smoked in the past 12 months: No Aproximately how many cigarettes per day: 0 If you are a former smoker, when did you quit?: 50 years - Social History Usual Living Arrangement: With Significant Other ADL: Family Assistance History of Recent Travel: No Home Medications - Allergies Allergies/Adverse Reactions: Allergies Allergy/AdvReac Type Severity Reaction Status Date / Time Penicillins Allergy Hives Verified 01/26/17 15:10 procaine Allergy Verified 01/26/17 18:45 - Home Medications Home Medications: Ambulatory Orders Ascorbate Calcium [Vitamin C] 500 mg PO TID 01/26/17 Bimatoprost [Lumigan] 1 drop IO DAILY 01/26/17 Ferrous Sulfate 325 mg PO TID 01/26/17 Furosemide [Lasix -] 40 mg PO BID 01/26/17 Guaifenesin AC [Robitussin AC -] 5 ml PO HS 01/26/17 Warfarin Na [Coumadin] 5 mg PO TID 01/26/17 Vital Signs: Vital Signs Temperature 97.9 F 01/27/17 06:00 Pulse Rate 88 01/27/17 10:00 Respiratory Rate 18 01/27/17 10:00 Blood Pressure 113/43 01/27/17 10:00 O2 Sat by Pulse Oximetry (%) 93 L 01/26/17 23:50 Respiratory: Yes: Diminished Gastrointestinal: Yes: Normal Bowel Sounds, Soft. No: Tenderness Cardiovascular: Yes: Pulse Irregular JVD: No Carotid Bruit: No PMI: Non-Displaced Heart Sounds: Yes: S1, S2 - Other Data Labs, Other Data: CBC, BMP 01/27/17 06:10 01/27/17 06:10 INR, PTT INR 1.40 (0.82-1.09) H 01/27/17 06:10 Troponin, BNP 01/27/17 01/27/17 06:10 09:02 B-Natriuretic Peptide 17617.41 H Cancelled NSR with LBBB Imaging - Results Chest X-ray: Report Reviewed (Moderate cardiomegaly) Cat Scan: Report Reviewed (Head CT) EKG: Report Reviewed Problem List - Problems (1) Acute on chronic renal failure Code(s): N17.9 - ACUTE KIDNEY FAILURE, UNSPECIFIED N18.9 - CHRONIC KIDNEY DISEASE, UNSPECIFIED (2) Anemia Code(s): D64.9 - ANEMIA, UNSPECIFIED Qualifiers: Anemia type: other cause Other causes of anemia: other cause, not classified Qualified Code(s): D64.89 - Other specified anemias (3) Atrial fibrillation Code(s): I48.91 - UNSPECIFIED ATRIAL FIBRILLATION Qualifiers: Atrial fibrillation type: permanent Qualified Code(s): I48.2 - Chronic atrial fibrillation (4) Fall Code(s): W19.XXXA - UNSPECIFIED FALL, INITIAL ENCOUNTER (5) Head trauma Code(s): S09.90XA - UNSPECIFIED INJURY OF HEAD, INITIAL ENCOUNTER Qualifiers: Encounter type: initial encounter Qualified Code(s): S09.90XA - Unspecified injury of head, initial encounter (6) Mitral regurgitation Code(s): I34.0 - NONRHEUMATIC MITRAL (VALVE) INSUFFICIENCY Qualifiers: Cardiac valve disease etiology: nonrheumatic Qualified Code(s): I34.0 - Nonrheumatic mitral (valve) insufficiency (7) Subtherapeutic international normalized ratio (INR) Code(s): R79.1 - ABNORMAL COAGULATION PROFILE (8) UTI (urinary tract infection) Code(s): N39.0 - URINARY TRACT INFECTION, SITE NOT SPECIFIED Qualifiers: Urinary tract infection type: site unspecified Hematuria presence: without hematuria Qualified Code(s): N39.0 - Urinary tract infection, site not specified (9) Dementia Code(s): F03.90 - UNSPECIFIED DEMENTIA WITHOUT BEHAVIORAL DISTURBANCE Qualifiers: Dementia type: unspecified type Dementia behavioral disturbance: without behavioral disturbance Qualified Code(s): F03.90 - Unspecified dementia without behavioral disturbance (10) Acute on chronic systolic (congestive) heart failure Code(s): I50.23 - ACUTE ON CHRONIC SYSTOLIC (CONGESTIVE) HEART FAILURE (11) Bradycardia Code(s): R00.1 - BRADYCARDIA, UNSPECIFIED (12) Cerebrovascular disease Code(s): I67.9 - CEREBROVASCULAR DISEASE, UNSPECIFIED (13) Hypertensive cardiovascular disease Code(s): I11.9 - HYPERTENSIVE HEART DISEASE WITHOUT HEART FAILURE Qualifiers: Heart failure presence: with heart failure Qualified Code(s): I11.0 - Hypertensive heart disease with heart failure (14) COPD (chronic obstructive pulmonary disease) Code(s): J44.9 - CHRONIC OBSTRUCTIVE PULMONARY DISEASE, UNSPECIFIED Qualifiers : COPD type: unspecified COPD Qualified Code(s): J44.9 - Chronic obstructive pulmonary disease, unspecified Assessment/Plan 1. Acute on Chronic Systolic Heart Failure 2. Mitral valve disease with mitral valve regurgitation 3. Pulmonary HTN 4. Pleural Effusion 5. Persistent Atrial Fibrillation with subtherapeutic INR 6. COPD 7. UTI 8. Organic brain/dementia 9. Anemia 10. Acute on CKD 11. S/P fall PLAN: 1. Continue diuresis and monitor renal function and electrolytes 2. Continue Coumadin per INR with caution 3. Resume ARB when renal function improves. 4. Antibiotic coverage as per ID Further plans are to follow Brenden Davenport MD
[2017-01-27] MEDS: AZTREONAM 1 GM in DEXTROSE 5%-WATER - 50 ML IVPB SCH (16:45)
[2017-01-27] MEDS: WARFARIN NA 5 MG TABLET (UD) PO SCH (17:06)
--- NOTE | 2017-01-27 18:34 | CONSULT ---
Consult Consult Specialty:: Nephrology Reason for Consultation:: TATY - History of Present Illness Chief Complaint: sent in from NH s/p fall History of Present Illness: Pt is an 89 year old male with pmhx of a-fib, CVA, COPD, HTN, alzheimer's dementia, and CKD who presents to the ER after a fall in the NH. He does not remember why he was brought to the ER. I was called to evaluate him as his creatinine is higher than baseline. He has had renal failure in the past. He denies hematuria or dysuria. He is a poor historian. 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), Dementia Cardio/Vascular: Yes: AFIB (chronic), CHF, HTN Pulmonary: Yes: COPD Renal/: Yes: Renal Inusuff Psych: Yes: Depression, Other (h/o alcohol abuse) - Past Surgical History Past Surgical History: Yes: Colectomy (hemicolectomy) - Alcohol/Substance Use Hx Alcohol Use: No - Smoking History Smoking history: Unknown if ever smoked Have you smoked in the past 12 months: No Aproximately how many cigarettes per day: 0 If you are a former smoker, when did you quit?: 50 years - Social History Usual Living Arrangement: With Significant Other ADL: Family Assistance History of Recent Travel: No Home Medications - Allergies Allergies/Adverse Reactions: Allergies Allergy/AdvReac Type Severity Reaction Status Date / Time Penicillins Allergy Hives Verified 01/26/17 15:10 procaine Allergy Verified 01/26/17 18:45 - Home Medications Home Medications: Ambulatory Orders Ascorbate Calcium [Vitamin C] 500 mg PO TID 01/26/17 Bimatoprost [Lumigan] 1 drop IO DAILY 01/26/17 Ferrous Sulfate 325 mg PO TID 01/26/17 Furosemide [Lasix -] 40 mg PO BID 01/26/17 Guaifenesin AC [Robitussin AC -] 5 ml PO HS 01/26/17 Warfarin Na [Coumadin] 5 mg PO TID 01/26/17 Family Disease History - Family Disease History Family History: Denies Review of Systems - Review of Systems Constitutional: reports: Weakness. denies: Chills, Fever Eyes: reports: No Symptoms HENT: reports: No Symptoms Neck: reports: No Symptoms Respiratory: reports: Cough Gastrointestinal: reports: No Symptoms Genitourinary: reports: No Symptoms Musculoskeletal: reports: No Symptoms Integumentary: reports: No Symptoms Neurological: reports: No Symptoms Endocrine: reports: No Symptoms Physical Exam Vital Signs: Vital Signs Temperature 98.2 F 01/27/17 14:54 Pulse Rate 71 01/27/17 14:54 Respiratory Rate 18 01/27/17 14:54 Blood Pressure 97/44 01/27/17 14:54 O2 Sat by Pulse Oximetry (%) 93 L 01/26/17 23:50 Constitutional: Yes: Calm Eyes: Yes: Conjunctiva Clear HENT: Yes: Atraumatic Neck: Yes: Supple Cardiovascular: Yes: S1, S2 Respiratory: Yes: Rhonchi Gastrointestinal: Yes: Soft Renal/: Yes: WNL Musculoskeletal: Yes: WNL Edema: No Neurological: Yes: Confusion Labs: CBC, BMP 01/27/17 06:10 01/27/17 06:10 Laboratory Tests 11/25/16 11/27/16 12/01/16 15:45 08:30 05:35 WBC Hgb Sodium Potassium Chloride Carbon Dioxide Anion Gap BUN Creatinine 1.2 1.3 1.3 B-Natriuretic Peptide Urine Color Urine Appearance Urine pH Ur Specific [place] Urine Protein Urine Glucose (UA) Urine Ketones Urine Blood Urine Nitrite Urine Bilirubin Urine WBC Urine Bacteria 12/02/16 12/04/16 12/05/16 05:38 05:55 13:11 WBC Hgb Sodium Potassium Chloride Carbon Dioxide Anion Gap BUN Creatinine 1.6 H D 1.9 H 1.6 H B-Natriuretic Peptide Urine Color Urine Appearance Urine pH Ur Specific [place] Urine Protein Urine Glucose (UA) Urine Ketones Urine Blood Urine Nitrite Urine Bilirubin Urine WBC Urine Bacteria 12/06/16 12/07/16 12/08/16 07:00 07:20 06:10 WBC Hgb Sodium Potassium Chloride Carbon Dioxide Anion Gap BUN Creatinine 1.4 H 1.5 H 1.3 B-Natriuretic Peptide Urine Color Urine Appearance Urine pH Ur Specific [place] Urine Protein Urine Glucose (UA) Urine Ketones Urine Blood Urine Nitrite Urine Bilirubin Urine WBC Urine Bacteria 12/09/16 01/26/17 01/26/17 06:35 17:30 18:57 WBC Hgb 7.9 L D Sodium Potassium Chloride Carbon Dioxide Anion Gap BUN Creatinine 1.0 D B-Natriuretic Peptide Urine Color [place] Urine Appearance Cloudy Urine pH 8.0 D Ur Specific [place] 1.010 Urine Protein 2+ H Urine Glucose (UA) Negative Urine Ketones Negative Urine Blood 1+ H Urine Nitrite Negative Urine Bilirubin Negative Urine WBC 48 Urine Bacteria Rare 01/26/17 01/27/17 01/27/17 18:57 06:10 06:10 WBC 2.4 L D Hgb 9.6 L D Sodium 141 141 Potassium 4.5 5.0 Chloride 107 107 Carbon Dioxide 26 22 Anion Gap 8 12 BUN 74 H D 74 H Creatinine 1.7 H D 1.8 H B-Natriuretic Peptide 72170.41 H Urine Color Urine Appearance Urine pH Ur Specific [place] Urine Protein Urine Glucose (UA) Urine Ketones Urine Blood Urine Nitrite Urine Bilirubin Urine WBC Urine Bacteria Imaging - Results Chest X-ray: Report Reviewed Problem List - Problems (1) Acute on chronic renal failure Code(s): N17.9 - ACUTE KIDNEY FAILURE, UNSPECIFIED N18.9 - CHRONIC KIDNEY DISEASE, UNSPECIFIED (2) Anemia Code(s): D64.9 - ANEMIA, UNSPECIFIED Qualifiers: Anemia type: other cause Other causes of anemia: other cause, not classified Qualified Code(s): D64.89 - Other specified anemias (3) Atrial fibrillation Code(s): I48.91 - UNSPECIFIED ATRIAL FIBRILLATION Qualifiers: Atrial fibrillation type: permanent Qualified Code(s): I48.2 - Chronic atrial fibrillation Assessment/Plan Current Medications Generic Name Dose Route Start Last Admin Trade Name Freq PRN Reason Stop Dose Admin Acetaminophen 650 mg 01/26/17 20:29 Tylenol - PO Q4H PRN FEVER OR PAIN Ascorbic Acid 500 mg 01/26/17 22:00 01/27/17 13:31 Vitamin C - PO 500 mg TID NAIF Administration Ferrous Sulfate 325 mg 01/26/17 22:00 01/27/17 13:31 Feosol - PO 325 mg TID NAIF Administration Furosemide 40 mg 01/27/17 11:30 01/27/17 12:03 Lasix Injection - IVPUSH 40 mg DAILY NAIF Administration Guaifenesin/Codeine Phosphate 5 ml 01/26/17 22:00 01/26/17 22:40 Robitussin Ac - PO 5 ml HS NAIF Administration Sodium Chloride 1,000 mls @ 50 mls/hr 01/26/17 20:30 01/26/17 21:33 Normal Saline - IV 01/27/17 20:30 50 mls/hr ASDIR NAIF Administration Levofloxacin 50 mls @ 50 mls/hr 01/26/17 23:30 01/26/17 23:43 Levaquin 250 Mg Premixed Ivpb - IVPB 50 mls/hr DAILY@2200 NAIF Administration Aztreonam 1 gm/ Dextrose 50 mls @ 100 mls/hr 01/27/17 15:00 01/27/17 16:45 IVPB 100 mls/hr Q8H-IV NAIF Administration Protocol Lactobacillus Acidophilus 1 tab 01/27/17 10:00 01/27/17 12:03 Bacid - PO 1 tab DAILY NAIF Administration Latanoprost 1 drop 01/27/17 22:00 Xalatan 0.005% Eye Drops - [facility] Lorazepam 0.5 mg 01/27/17 10:52 01/27/17 13:31 Ativan - PO 01/28/17 10:51 0.5 mg BID PRN Administration ANXIETY Ondansetron HCl 4 mg 01/26/17 20:29 Zofran Injection IVPB Q6H PRN NAUSEA Ranitidine HCl 150 mg 01/27/17 22:00 Zantac - PO BID NAIF Warfarin Sodium 5 mg 01/27/17 18:00 01/27/17 17:06 Coumadin - PO 5 mg DAILY@1800 NAIF Administration Impression 1. TATY 2. CHF 3. a-fib 4. CVA 5. Dementia 6. COPD 7. PNA 8. HTN 9. CKD 10. s/p fall Plan - check ua - check urine electrolytes and creatinine - will order renal ultrasound - do not recommend using fluids and lasix - will stop fluids - check cpk level - repeat labs in am - cxr reviewed Dr Abdi
[2017-01-27] MEDS: SODIUM CHLORIDE 1,000 ML IV SCH ×2 (18:47→21:54)
[2017-01-27 19:18] LABS: URINE APPEARANCE CLOUDY; URINE BILIRUBIN NEGATIVE (NEGATIVE); URINE BLOOD 2+ (NEGATIVE); URINE COLOR AMBER; URINE GLUCOSE (UA) NEGATIVE (NEGATIVE); URINE KETONE NEGATIVE (NEGATIVE); URINE NITRITE NEGATIVE (NEGATIVE); URINE UROBILINOGEN NEGATIVE mg/dL (0.2-1.0)
[2017-01-27 19:20] LABS: URINE LEUK ESTERASE 3+ (NEGATIVE); URINE PROTEIN 2+ (NEGATIVE)
[2017-01-27 19:29] LABS: CALCIUM OXALATE CRYSTALS RARE /hpf (NONE SEEN); URINE BACTERIA MANY /hpf (NONE SEEN); URINE MUCUS RARE; URINE RBC 96 /hpf (0-3); URINE WBC 114 /hpf (3-5)
[2017-01-27 21:27] LABS: URINE CREATININE 74.4 mg/dL (20-370)
[2017-01-27] MEDS: LEVOFLOXACIN 250 MG IVPB 50 ML IVPB SCH (21:54)
[2017-01-27] MEDS: LATANOPROST 0.005% OPHTH SOLN 2.5ML BOTTLE OU SCH (21:58)
[2017-01-27] MEDS: guaiFENesin/CODEINE 5 ML UNIT-DOSE CUPS PO SCH (21:58)
[2017-01-27] MEDS: RANITIDINE HCL 150 MG TABLET (FP) PO SCH (22:01)
[2017-01-28] MEDS: AZTREONAM 1 GM in DEXTROSE 5%-WATER - 50 ML IVPB SCH ×3 (01:21→17:23)
[2017-01-28] MEDS: FERROUS SO4 325 MG TABLET (FP) PO SCH ×4 (05:44→21:23)
[2017-01-28] MEDS: ASCORBIC ACID 500 MG TABLET (FP) PO SCH ×4 (05:44→21:23)
[2017-01-28] MEDS ORDERED: PT OWN MED DRAWER 7, Y5N ONE ×3 (07:57→22:02)
[2017-01-28 08:38] LABS: BASOPHIL 0.5 % (0-2.0); EOSINOPHIL 0.3 % (0-4.5); MCH 30.6 pg (25.7-33.7); MCHC 32.6 g/dl (32.0-35.9); MEAN CELL VOLUME 93.8 fl (80-96); MEAN PLT VOLUME 9.4 fl (7.5-11.1); NEUTROPHILS 80.3 % (42.8-82.8); PLATELET COUNT 107 K/MM3 (134-434); RDW 20.9 % (11.9-15.9); WHITE BLOOD COUNT 10.2 K/mm3 (4.0-10.0)
[2017-01-28 08:52] LABS: INR 1.76 (0.82-1.09); PROTHROMBIN TIME (PATIENT) 19.6 SEC (9.98-11.88)
[2017-01-28 09:09] LABS: ANION GAP 11 (8-16); CALCIUM 7.9 mg/dL (8.5-10.1); CO2 26 mmol/L (21-32); CREATININE 2.1 mg/dL (0.7-1.3); GLUCOSE,RANDOM 115 mg/dL (74-106); SGOT/AST 58 U/L (15-37); SGPT/ALT 35 U/L (12-78)
[2017-01-28 09:10] LABS: ALK PHOS 196 U/L (45-117); BILIRUBIN,TOTAL 1.4 mg/dL (0.2-1.0); TOT PROT 5.5 g/dl (6.4-8.2)
[2017-01-28] MEDS: LACTOBACILLUS ACIDOPHILUS 1 EACH TAB (FP) PO SCH (10:13)
[2017-01-28] MEDS: RANITIDINE HCL 150 MG TABLET (FP) PO SCH ×2 (10:13→21:23)
[2017-01-28] MEDS: FUROSEMIDE 40 MG/4 ML INJECTABLE VIAL IVPUSH SCH ×2 (10:14→10:23)
--- NOTE | 2017-01-28 12:04 | PN ---
Progress Note (short form) - Note Progress Note: Patient seen and examined. Awake, restless. Afebrile. BP on the lower side in the morning. 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), Dementia Cardiovascular: Yes: AFIB (chronic), CHF, HTN Pulmonary: Yes: COPD Psych: Yes: Depression, Other (h/o alcohol abuse) - Past Surgical History Past Surgical History: Yes: Colectomy (hemicolectomy) - Advance Directives Advance Directives: Yes: DNR - Smoking History Smoking history: Unknown if ever smoked Have you smoked in the past 12 months: No Aproximately how many cigarettes per day: 0 If you are a former smoker, when did you quit?: 50 years - Alcohol/Substance Use Hx Alcohol Use: No - Social History ADL: Family Assistance History of Recent Travel: No Home Medications - Allergies Allergies/Adverse Reactions: Allergies Allergy/AdvReac Type Severity Reaction Status Date / Time Penicillins Allergy Hives Verified 01/26/17 15:10 procaine Allergy Verified 01/26/17 18:45 - Home Medications Home Medications: Ambulatory Orders Ascorbate Calcium [Vitamin C] 500 mg PO TID 01/26/17 Bimatoprost [Lumigan] 1 drop IO DAILY 01/26/17 Ferrous Sulfate 325 mg PO TID 01/26/17 Furosemide [Lasix -] 40 mg PO BID 01/26/17 Guaifenesin AC [Robitussin AC -] 5 ml PO HS 01/26/17 Warfarin Na [Coumadin] 5 mg PO TID 01/26/17 Review of Systems Unable to obtain ROS, reason: dementia Physical Examination Vital Signs: Vital Signs Period Temp Pulse Resp BP Sys/Kemp Pulse Ox Last 24 Hr 96.4 F-98.2 F 57-86 18-20 74-121/44-80 93-95 Constitutional: Yes: Anxious, Mild Distress Eyes: Yes: Conjunctiva Clear, EOM Intact, PERRL HENT: Yes: Atraumatic, Normocephalic Neck: Yes: Supple, Trachea Midline Cardiovascular: Yes: Pulse Irregular, S1, S2 Respiratory: Yes: Diminished (air entry dimished b/l lung base) Gastrointestinal: Yes: Soft (non tender, BS present) Edema: No Peripheral Pulses WNL: Yes ...Motor Strength: WNL Labs: CBC, BMP 01/28/17 07:05 01/28/17 07:05 Imaging - Results Chest X-ray: Report Reviewed Problem List - Problems (1) Head trauma Assessment/Plan: S/P Fall at [place] with head trauma. Patient is on coumadin. Head CT x 2 - Negative for intracranial bleed. Will continue to monitor. Code(s): S09.90XA - UNSPECIFIED INJURY OF HEAD, INITIAL ENCOUNTER Qualifiers: Encounter type: initial encounter (2) Acute kidney failure Assessment/Plan: BUN/Cr up. Pre-renal. IV fluids discontinued because of CHF. Renal consult appreciated. Code(s): N17.9 - ACUTE KIDNEY FAILURE, UNSPECIFIED (3) UTI (urinary tract infection) Assessment/Plan: Continue levaquin. Urine culture sent. ID to follow. Code(s): N39.0 - URINARY TRACT INFECTION, SITE NOT SPECIFIED Qualifiers: Urinary tract infection type: site unspecified Hematuria presence: without hematuria Qualified Code(s): N39.0 - Urinary tract infection, site not specified (4) Urinary retention due to benign prostatic hyperplasia Assessment/Plan: Has Quintana. Urology consulted for change of Quintana. Difficult insertion on previous visits. Code(s): N40.1 - BENIGN PROSTATIC HYPERPLASIA WITH LOWER URINARY TRACT SYMP R33.8 - OTHER RETENTION OF URINE (5) Atrial fibrillation Assessment/Plan: Rate controlled. coumadin [address] x 2 negative for intracranial bleed. Code(s): I48.91 - UNSPECIFIED ATRIAL FIBRILLATION Qualifiers: Atrial fibrillation type: permanent Qualified Code(s): I48.2 - Chronic atrial fibrillation (6) Pneumonia Assessment/Plan: Pulmonary follow up appreciated Unlikely pneumonia. Pulmonary consult appreciated. Code(s): J18.9 - PNEUMONIA, UNSPECIFIED ORGANISM Qualifiers: Pneumonia type: due to unspecified organism Laterality: right Lung location: lower lobe of lung Qualified Code(s): J18.9 - Pneumonia, unspecified organism (7) Acute on chronic systolic (congestive) heart failure Assessment/Plan: Continue to hold lasix. BNP very high. BUN/Cr up. Got one dose of lasix yesterday. Cardiology to follow. Code(s): I50.23 - ACUTE ON CHRONIC SYSTOLIC (CONGESTIVE) HEART FAILURE (8) COPD (chronic obstructive pulmonary disease) Assessment/Plan: Continue inhaled bronchodilators. Code(s): J44.9 - CHRONIC OBSTRUCTIVE PULMONARY DISEASE, UNSPECIFIED Qualifiers : COPD type: unspecified COPD Qualified Code(s): J44.9 - Chronic obstructive pulmonary disease, unspecified (9) Anemia Assessment/Plan: Fluctuating H/H. No bleeding from any site reported. Anemia w/u ordered. Monitor H/H. Continue ferrous sulphate. Code(s): D64.9 - ANEMIA, UNSPECIFIED Qualifiers: Anemia type: other cause Other causes of anemia: other cause, not classified Qualified Code(s): D64.89 - Other specified anemias (10) Dementia Assessment/Plan: stable. Code(s): F03.90 - UNSPECIFIED DEMENTIA WITHOUT BEHAVIORAL DISTURBANCE Qualifiers: Dementia type: unspecified type Dementia behavioral disturbance: without behavioral disturbance Qualified Code(s): F03.90 - Unspecified dementia without behavioral disturbance Problem List - Problems (1) Head trauma Code(s): S09.90XA - UNSPECIFIED INJURY OF HEAD, INITIAL ENCOUNTER Qualifiers: Encounter type: initial encounter Qualified Code(s): S09.90XA - Unspecified injury of head, initial encounter (2) Acute kidney failure Code(s): N17.9 - ACUTE KIDNEY FAILURE, UNSPECIFIED (3) UTI (urinary tract infection) Code(s): N39.0 - URINARY TRACT INFECTION, SITE NOT SPECIFIED Qualifiers: Urinary tract infection type: site unspecified Hematuria presence: without hematuria Qualified Code(s): N39.0 - Urinary tract infection, site not specified (4) Urinary retention due to benign prostatic hyperplasia Code(s): N40.1 - BENIGN PROSTATIC HYPERPLASIA WITH LOWER URINARY TRACT SYMP R33.8 - OTHER RETENTION OF URINE (5) Atrial fibrillation Code(s): I48.91 - UNSPECIFIED ATRIAL FIBRILLATION Qualifiers: Atrial fibrillation type: permanent Qualified Code(s): I48.2 - Chronic atrial fibrillation (6) Pneumonia Code(s): J18.9 - PNEUMONIA, UNSPECIFIED ORGANISM Qualifiers: Pneumonia type: due to unspecified organism Laterality: right Lung location: lower lobe of lung Qualified Code(s): J18.1 - Lobar pneumonia, unspecified organism (7) Acute on chronic systolic (congestive) heart failure Code(s): I50.23 - ACUTE ON CHRONIC SYSTOLIC (CONGESTIVE) HEART FAILURE (8) COPD (chronic obstructive pulmonary disease) Code(s): J44.9 - CHRONIC OBSTRUCTIVE PULMONARY DISEASE, UNSPECIFIED Qualifiers : COPD type: unspecified COPD Qualified Code(s): J44.9 - Chronic obstructive pulmonary disease, unspecified (9) Anemia Code(s): D64.9 - ANEMIA, UNSPECIFIED Qualifiers: Anemia type: other cause Other causes of anemia: other cause, not classified Qualified Code(s): D64.89 - Other specified anemias (10) Dementia Code(s): F03.90 - UNSPECIFIED DEMENTIA WITHOUT BEHAVIORAL DISTURBANCE Qualifiers: Dementia type: unspecified type Dementia behavioral disturbance: without behavioral disturbance Qualified Code(s): F03.90 - Unspecified dementia without behavioral disturbance
[2017-01-28 12:37] LABS: CPK 98 IU/L (39-308)
--- NOTE | 2017-01-28 13:07 | PN ---
Progress Note, Physician History of Present Illness: patient still confused,though calmer u/s of the kidneys done patient creatinine ahs increased - Current Medication List Current Medications: Active Medications Acetaminophen (Tylenol -) 650 mg PO Q4H PRN PRN Reason: FEVER OR PAIN Ascorbic Acid (Vitamin C -) 500 mg PO TID [facility] Last Admin: 01/28/17 05:44 Dose: 500 mg Ferrous Sulfate (Feosol -) 325 mg PO TID [facility] Last Admin: 01/28/17 05:44 Dose: 325 mg Guaifenesin/Codeine Phosphate (Robitussin Ac -) 5 ml PO HS [facility] Last Admin: 01/27/17 21:58 Dose: 5 ml Levofloxacin (Levaquin 250 Mg Premixed Ivpb -) 50 mls @ 50 mls/hr IVPB DAILY@ 2200 [facility] Last Admin: 01/27/17 21:54 Dose: 50 mls/hr Aztreonam 1 gm/ Dextrose 50 mls @ 100 mls/hr IVPB Q8H-IV NAIF PRN Reason: Protocol Last Admin: 01/28/17 10:16 Dose: 100 mls/hr Lactobacillus Acidophilus (Bacid -) 1 tab PO DAILY [facility] Last Admin: 01/28/17 10:13 Dose: 1 tab Latanoprost (Xalatan 0.005% Eye Drops -) 1 drop OU [facility] Last Admin: 01/27/17 21:58 Dose: 1 drop Lorazepam (Ativan Injection -) 0.5 mg IVPB Q4H PRN PRN Reason: AGITATION Last Admin: 01/28/17 12:38 Dose: 0.5 mg Ondansetron HCl (Zofran Injection) 4 mg IVPB Q6H PRN PRN Reason: NAUSEA Ranitidine HCl (Zantac -) 150 mg PO BID [facility] Last Admin: 01/28/17 10:13 Dose: 150 mg Warfarin Sodium (Coumadin -) 5 mg PO DAILY@1800 [facility] Last Admin: 01/27/17 17:06 Dose: 5 mg - Objective Vital Signs: Vital Signs Temperature 97.4 F L 01/28/17 08:12 Pulse Rate 63 01/28/17 10:20 Respiratory Rate 18 01/28/17 10:20 Blood Pressure 102/48 01/28/17 10:20 O2 Sat by Pulse Oximetry (%) 95 01/28/17 09:00 Constitutional: Yes: Calm, Mild Distress Cardiovascular: Yes: S1, S2 Respiratory: Yes: Regular, Poor Air Entry (on the right side), Rhonchi Gastrointestinal: Yes: Normal Bowel Sounds, Soft Musculoskeletal: Yes: WNL Extremities: Yes: WNL Neurological: Yes: Alert, Other Psychiatric: Yes: Alert Labs: CBC, BMP 01/28/17 07:05 01/28/17 07:05 INR, PTT INR 1.76 (0.82-1.09) H 01/28/17 07:05 Assessment/Plan Problem List - Problems (1) Head trauma. Code(s): S09.90XA - UNSPECIFIED INJURY OF HEAD, INITIAL ENCOUNTER Qualifiers: Encounter type: initial encounter (2) Acute kidney failure Code(s): N17.9 - ACUTE KIDNEY FAILURE, UNSPECIFIED (3) UTI (urinary tract infection) Code(s): N39.0 - URINARY TRACT INFECTION, SITE NOT SPECIFIED Qualifiers: Urinary tract infection type: site unspecified Hematuria presence: without hematuria Qualified Code(s): N39.0 - Urinary tract infection, site not specified (4) Urinary retention due to benign prostatic hyperplasia Code(s): N40.1 - BENIGN PROSTATIC HYPERPLASIA WITH LOWER URINARY TRACT SYMP R33.8 - OTHER RETENTION OF URINE (5) Atrial fibrillation Code(s): I48.91 - UNSPECIFIED ATRIAL FIBRILLATION Qualifiers: Atrial fibrillation type: permanent Qualified Code(s): I48.2 - Chronic atrial fibrillation (6) Pneumonia Code(s): J18.9 - PNEUMONIA, UNSPECIFIED ORGANISM Qualifiers: Pneumonia type: due to unspecified organism Laterality: right Lung location: lower lobe of lung Qualified Code(s): J18.9 - Pneumonia, unspecified organism (7) Acute on chronic systolic (congestive) heart failure Code(s): I50.23 - ACUTE ON CHRONIC SYSTOLIC (CONGESTIVE) HEART FAILURE (8) COPD (chronic obstructive pulmonary disease) Code(s): J44.9 - CHRONIC OBSTRUCTIVE PULMONARY DISEASE, UNSPECIFIED Qualifiers : COPD type: unspecified COPD Qualified Code(s): J44.9 - Chronic obstructive pulmonary disease, unspecified (9) Anemia Code(s): D64.9 - ANEMIA, UNSPECIFIED Qualifiers: Anemia type: other cause Other causes of anemia: other cause, not classified Qualified Code(s): D64.89 - Other specified anemias (10) Dementia Code(s): F03.90 - UNSPECIFIED DEMENTIA WITHOUT BEHAVIORAL DISTURBANCE Qualifiers: Dementia type: unspecified type Dementia behavioral disturbance: without behavioral disturbance Qualified Code(s): F03.90 - Unspecified dementia without behavioral disturbance patients urine showing growth now as thought before,we will see what organism grows ,chest xray does not look that bad plan continue aztreonam will stop levaquin await for all cx to be back rest continue current mgmt
--- NOTE | 2017-01-28 13:30 | PN ---
Progress Note, Physician History of Present Illness: Pt seen and examined at bedside. He is awake and appears comfortable. - Current Medication List Current Medications: Active Medications Acetaminophen (Tylenol -) 650 mg PO Q4H PRN PRN Reason: FEVER OR PAIN Ascorbic Acid (Vitamin C -) 500 mg PO TID [facility] Last Admin: 01/28/17 05:44 Dose: 500 mg Ferrous Sulfate (Feosol -) 325 mg PO TID [facility] Last Admin: 01/28/17 05:44 Dose: 325 mg Guaifenesin/Codeine Phosphate (Robitussin Ac -) 5 ml PO HS [facility] Last Admin: 01/27/17 21:58 Dose: 5 ml Aztreonam 1 gm/ Dextrose 50 mls @ 100 mls/hr IVPB Q8H-IV NAIF PRN Reason: Protocol Last Admin: 01/28/17 10:16 Dose: 100 mls/hr Lactobacillus Acidophilus (Bacid -) 1 tab PO DAILY [facility] Last Admin: 01/28/17 10:13 Dose: 1 tab Latanoprost (Xalatan 0.005% Eye Drops -) 1 drop OU [facility] Last Admin: 01/27/17 21:58 Dose: 1 drop Lorazepam (Ativan Injection -) 0.5 mg IVPB Q4H PRN PRN Reason: AGITATION Last Admin: 01/28/17 12:38 Dose: 0.5 mg Ondansetron HCl (Zofran Injection) 4 mg IVPB Q6H PRN PRN Reason: NAUSEA Ranitidine HCl (Zantac -) 150 mg PO BID [facility] Last Admin: 01/28/17 10:13 Dose: 150 mg Warfarin Sodium (Coumadin -) 5 mg PO DAILY@1800 [facility] Last Admin: 01/27/17 17:06 Dose: 5 mg - Objective Vital Signs: Vital Signs Temperature 97.4 F L 01/28/17 08:12 Pulse Rate 63 01/28/17 10:20 Respiratory Rate 18 01/28/17 10:20 Blood Pressure 102/48 01/28/17 10:20 O2 Sat by Pulse Oximetry (%) 95 01/28/17 09:00 Constitutional: Yes: Calm Eyes: Yes: Conjunctiva Clear Cardiovascular: Yes: JVD, S1, S2 Respiratory: Yes: On Nasal O2 Gastrointestinal: Yes: Soft Genitourinary: Yes: Incontinence Edema: No Neurological: Yes: Confusion Labs: CBC, BMP 01/28/17 07:05 01/28/17 07:05 INR, PTT INR 1.76 (0.82-1.09) H 01/28/17 07:05 Problem List - Problems (1) Acute on chronic renal failure Code(s): N17.9 - ACUTE KIDNEY FAILURE, UNSPECIFIED N18.9 - CHRONIC KIDNEY DISEASE, UNSPECIFIED (2) Anemia Code(s): D64.9 - ANEMIA, UNSPECIFIED Qualifiers: Anemia type: other cause Other causes of anemia: other cause, not classified Qualified Code(s): D64.89 - Other specified anemias (3) Atrial fibrillation Code(s): I48.91 - UNSPECIFIED ATRIAL FIBRILLATION Qualifiers: Atrial fibrillation type: permanent Qualified Code(s): I48.2 - Chronic atrial fibrillation Assessment/Plan Current Medications Generic Name Dose Route Start Last Admin Trade Name Freq PRN Reason Stop Dose Admin Acetaminophen 650 mg 01/26/17 20:29 Tylenol - PO Q4H PRN FEVER OR PAIN Ascorbic Acid 500 mg 01/26/17 22:00 01/28/17 05:44 Vitamin C - PO 500 mg TID NAIF Administration Ferrous Sulfate 325 mg 01/26/17 22:00 01/28/17 05:44 Feosol - PO 325 mg TID NAIF Administration Guaifenesin/Codeine Phosphate 5 ml 01/26/17 22:00 01/27/17 21:58 Robitussin Ac - PO 5 ml HS NAIF Administration Aztreonam 1 gm/ Dextrose 50 mls @ 100 mls/hr 01/27/17 15:00 01/28/17 10:16 IVPB 100 mls/hr Q8H-IV NAIF Administration Protocol Lactobacillus Acidophilus 1 tab 01/27/17 10:00 01/28/17 10:13 Bacid - PO 1 tab DAILY NAIF Administration Latanoprost 1 drop 01/27/17 22:00 01/27/17 21:58 Xalatan 0.005% Eye Drops - OU 1 drop HS NAIF Administration Lorazepam 0.5 mg 01/27/17 18:42 01/28/17 12:38 Ativan Injection - IVPB 0.5 mg Q4H PRN Administration AGITATION Ondansetron HCl 4 mg 01/26/17 20:29 Zofran Injection IVPB Q6H PRN NAUSEA Ranitidine HCl 150 mg 01/27/17 22:00 01/28/17 10:13 Zantac - PO 150 mg BID NAIF Administration Warfarin Sodium 5 mg 01/27/17 18:00 01/27/17 17:06 Coumadin - PO 5 mg DAILY@1800 NAIF Administration Laboratory Tests 01/28/17 07:05 Creatine Kinase 98 Impression 1. TATY 2. CHF 3. a-fib 4. CVA 5. Dementia 6. COPD 7. PNA 8. HTN 9. CKD 10. s/p fall Plan - pt has fena of 0.55 and FEurea of 19, both consistent with pre-renal disease. Pt however has elevated BNP and he has JVD. - renal function is worsening - repeat cxr - would hold off fluids - follow up renal ultrasound to r/o obstruction Dr Abdi
--- NOTE | 2017-01-28 14:55 | PN ---
Progress Note, Physician History of Present Illness: PULMONARY DROWSY ON O2 HYPOXIC,MILDLY TACHYPNEIC - Current Medication List Current Medications: Active Medications Acetaminophen (Tylenol -) 650 mg PO Q4H PRN PRN Reason: FEVER OR PAIN Ascorbic Acid (Vitamin C -) 500 mg PO TID [facility] Last Admin: 01/28/17 05:44 Dose: 500 mg Ferrous Sulfate (Feosol -) 325 mg PO TID [facility] Last Admin: 01/28/17 05:44 Dose: 325 mg Guaifenesin/Codeine Phosphate (Robitussin Ac -) 5 ml PO HS [facility] Last Admin: 01/27/17 21:58 Dose: 5 ml Aztreonam 1 gm/ Dextrose 50 mls @ 100 mls/hr IVPB Q8H-IV NAIF PRN Reason: Protocol Last Admin: 01/28/17 10:16 Dose: 100 mls/hr Lactobacillus Acidophilus (Bacid -) 1 tab PO DAILY [facility] Last Admin: 01/28/17 10:13 Dose: 1 tab Latanoprost (Xalatan 0.005% Eye Drops -) 1 drop OU [facility] Last Admin: 01/27/17 21:58 Dose: 1 drop Lorazepam (Ativan Injection -) 0.5 mg IVPB Q4H PRN PRN Reason: AGITATION Last Admin: 01/28/17 12:38 Dose: 0.5 mg Ondansetron HCl (Zofran Injection) 4 mg IVPB Q6H PRN PRN Reason: NAUSEA Ranitidine HCl (Zantac -) 150 mg PO BID [facility] Last Admin: 01/28/17 10:13 Dose: 150 mg Warfarin Sodium (Coumadin -) 5 mg PO DAILY@1800 [facility] Last Admin: 01/27/17 17:06 Dose: 5 mg - Objective Vital Signs: Vital Signs Temperature 97.4 F L 01/28/17 08:12 Pulse Rate 80 01/28/17 14:47 Respiratory Rate 18 01/28/17 14:47 Blood Pressure 99/45 01/28/17 14:47 O2 Sat by Pulse Oximetry (%) 95 01/28/17 09:00 Constitutional: Yes: Well Nourished, Other (DROWSY) Eyes: Yes: WNL HENT: Yes: WNL Neck: Yes: WNL Cardiovascular: Yes: Pulse Irregular, S1, S2 Respiratory: Yes: Other (POOR INSPIRATORY EFFORY,FEW SCATTERED RALES AND RHONCHI ) Gastrointestinal: Yes: Normal Bowel Sounds, Soft Extremities: Yes: WNL Edema: No Labs: CBC, BMP 01/28/17 07:05 01/28/17 07:05 INR, PTT INR 1.76 (0.82-1.09) H 01/28/17 07:05 Assessment/Plan Problem List - Problems (1) Head trauma Code(s): S09.90XA - UNSPECIFIED INJURY OF HEAD, INITIAL ENCOUNTER Qualifiers: Encounter type: initial encounter Qualified Code(s): S09.90XA - Unspecified injury of head, initial encounter (2) Fall Code(s): W19.XXXA - UNSPECIFIED FALL, INITIAL ENCOUNTER (3) Pleural effusion Code(s): J90 - PLEURAL EFFUSION, NOT ELSEWHERE CLASSIFIED (4) Atrial fibrillation Code(s): I48.91 - UNSPECIFIED ATRIAL FIBRILLATION Qualifiers: Atrial fibrillation type: permanent Qualified Code(s): I48.2 - Chronic atrial fibrillation (5) UTI (urinary tract infection) Code(s): N39.0 - URINARY TRACT INFECTION, SITE NOT SPECIFIED Qualifiers: Urinary tract infection type: site unspecified Hematuria presence: without hematuria Qualified Code(s): N39.0 - Urinary tract infection, site not specified (6) Acute on chronic systolic (congestive) heart failure Code(s): I50.23 - ACUTE ON CHRONIC SYSTOLIC (CONGESTIVE) HEART FAILURE (7) Pulmonary hypertension Code(s): I27.2 - OTHER SECONDARY PULMONARY HYPERTENSION (8) Mitral regurgitation Code(s): I34.0 - NONRHEUMATIC MITRAL (VALVE) INSUFFICIENCY (9) COPD (chronic obstructive pulmonary disease) Code(s): J44.9 - CHRONIC OBSTRUCTIVE PULMONARY DISEASE, UNSPECIFIED Qualifiers : COPD type: unspecified COPD Qualified Code(s): J44.9 - Chronic obstructive pulmonary disease, unspecified (10) Acute on chronic renal failure Code(s): N17.9 - ACUTE KIDNEY FAILURE, UNSPECIFIED N18.9 - CHRONIC KIDNEY DISEASE, UNSPECIFIED (11) Dementia Code(s): F03.90 - UNSPECIFIED DEMENTIA WITHOUT BEHAVIORAL DISTURBANCE Qualifiers: Dementia type: unspecified type Dementia behavioral disturbance: without behavioral disturbance Qualified Code(s): F03.90 - Unspecified dementia without behavioral disturbance Assessment/Plan s/p Fall Acute on Chronic Systolic Heart Failure Mitral Regurgitation Pulmonary HTN Pleural Effusion Atrial Fibrillation COPD r/o UTI Dementia Anemia - - findings likely more due to CHF - started on antibiotics, can d/c if cultures negative - wiIV lasix - monitor urine output, creatinine - inhaled bronchodilators as needed - rate controlled - continue anticoagulation for now, may need to reassess indication if pt fall risk - monitor h+h - abg DR ROBLES
[2017-01-28 16:20] LABS: ART PUNCT SITE LEFT BRACHIAL; ARTERIAL BLD GAS O2 SATURATION 96.9 % (90-98.9); ARTERIAL BLOOD GAS BASE EXCESS -2.2 meq/l (-2-2); ARTERIAL BLOOD GAS HCO3 21.1 meq/L (22-26); ARTERIAL BLOOD GAS PO2 82.9 mmHg (68-100); ARTERIAL BLOOD GAS pH 7.44 (7.35-7.45)
[2017-01-28 16:21] LABS: LPM/O2% 3 LPM; PT. ON O2? YES; TYPE OF O2 NASAL CANNULA
--- NOTE | 2017-01-28 17:11 | PN ---
Progress Note, Physician History of Present Illness: Resting comfortably on NC. - Current Medication List Current Medications: Active Medications Acetaminophen (Tylenol -) 650 mg PO Q4H PRN PRN Reason: FEVER OR PAIN Ascorbic Acid (Vitamin C -) 500 mg PO TID [facility] Last Admin: 01/28/17 14:51 Dose: Not Given Ferrous Sulfate (Feosol -) 325 mg PO TID [facility] Last Admin: 01/28/17 14:51 Dose: Not Given Guaifenesin/Codeine Phosphate (Robitussin Ac -) 5 ml PO HS [facility] Last Admin: 01/27/17 21:58 Dose: 5 ml Aztreonam 1 gm/ Dextrose 50 mls @ 100 mls/hr IVPB Q8H-IV NAIF PRN Reason: Protocol Last Admin: 01/28/17 10:16 Dose: 100 mls/hr Lactobacillus Acidophilus (Bacid -) 1 tab PO DAILY [facility] Last Admin: 01/28/17 10:13 Dose: 1 tab Latanoprost (Xalatan 0.005% Eye Drops -) [address] [facility] Last Admin: 01/27/17 21:58 Dose: 1 drop Lorazepam (Ativan Injection -) 0.5 mg IVPB Q4H PRN PRN Reason: AGITATION Last Admin: 01/28/17 12:38 Dose: 0.5 mg Ondansetron HCl (Zofran Injection) 4 mg IVPB Q6H PRN PRN Reason: NAUSEA Ranitidine HCl (Zantac -) 150 mg PO BID [facility] Last Admin: 01/28/17 10:13 Dose: 150 mg Warfarin Sodium (Coumadin -) 5 mg PO DAILY@1800 [facility] Last Admin: 01/27/17 17:06 Dose: 5 mg - Objective Vital Signs: Vital Signs Temperature 98.9 F 01/28/17 14:51 Pulse Rate 80 01/28/17 14:47 Respiratory Rate 18 01/28/17 14:47 Blood Pressure 99/45 01/28/17 14:47 O2 Sat by Pulse Oximetry (%) 95 01/28/17 09:00 Constitutional: Yes: No Distress, Calm, Thin Neck: Yes: Supple Cardiovascular: Yes: Pulse Irregular Respiratory: Yes: Regular, Diminished, On Nasal O2 Gastrointestinal: Yes: Normal Bowel Sounds, Soft Edema: No Labs: CBC, BMP 01/28/17 07:05 01/28/17 07:05 INR, PTT INR 1.76 (0.82-1.09) H 01/28/17 07:05 - ....Imaging Chest X-ray: Report Reviewed (Right effusion) Problem List - Problems (1) Acute on chronic renal failure Code(s): N17.9 - ACUTE KIDNEY FAILURE, UNSPECIFIED N18.9 - CHRONIC KIDNEY DISEASE, UNSPECIFIED (2) Anemia Code(s): D64.9 - ANEMIA, UNSPECIFIED Qualifiers: Anemia type: other cause Other causes of anemia: other cause, not classified Qualified Code(s): D64.89 - Other specified anemias (3) Atrial fibrillation Code(s): I48.91 - UNSPECIFIED ATRIAL FIBRILLATION Qualifiers: Atrial fibrillation type: permanent Qualified Code(s): I48.2 - Chronic atrial fibrillation (4) Mitral regurgitation Code(s): I34.0 - NONRHEUMATIC MITRAL (VALVE) INSUFFICIENCY Qualifiers: Cardiac valve disease etiology: nonrheumatic Qualified Code(s): I34.0 - Nonrheumatic mitral (valve) insufficiency (5) Pleural effusion Code(s): J90 - PLEURAL EFFUSION, NOT ELSEWHERE CLASSIFIED (6) Subtherapeutic international normalized ratio (INR) Code(s): R79.1 - ABNORMAL COAGULATION PROFILE (7) UTI (urinary tract infection) Code(s): N39.0 - URINARY TRACT INFECTION, SITE NOT SPECIFIED Qualifiers: Urinary tract infection type: site unspecified Hematuria presence: without hematuria Qualified Code(s): N39.0 - Urinary tract infection, site not specified (8) Dementia Code(s): F03.90 - UNSPECIFIED DEMENTIA WITHOUT BEHAVIORAL DISTURBANCE Qualifiers: Dementia type: unspecified type Dementia behavioral disturbance: without behavioral disturbance Qualified Code(s): F03.90 - Unspecified dementia without behavioral disturbance (9) Acute on chronic systolic (congestive) heart failure Code(s): I50.23 - ACUTE ON CHRONIC SYSTOLIC (CONGESTIVE) HEART FAILURE (10) Cerebrovascular accident Code(s): I63.9 - CEREBRAL INFARCTION, UNSPECIFIED (11) Hypertensive cardiovascular disease Code(s): I11.9 - HYPERTENSIVE HEART DISEASE WITHOUT HEART FAILURE Qualifiers: Heart failure presence: with heart failure Qualified Code(s): I11.0 - Hypertensive heart disease with heart failure (12) Pleural effusion due to CHF (congestive heart failure) Code(s): I50.9 - HEART FAILURE, UNSPECIFIED (13) Pulmonary hypertension Code(s): I27.2 - OTHER SECONDARY PULMONARY HYPERTENSION (14) COPD (chronic obstructive pulmonary disease) Code(s): J44.9 - CHRONIC OBSTRUCTIVE PULMONARY DISEASE, UNSPECIFIED Qualifiers : COPD type: unspecified COPD Qualified Code(s): J44.9 - Chronic obstructive pulmonary disease, unspecified Assessment/Plan 10/31/2015 Echo: Moderate decreased LV systolic function LLVEF 35-40%, mod MR, TR , mild LAE, mod pulm HTN 11/26/2016 Echo: Borderline dilated LV with moderate decreased LV systolic function, LVEF 30-35%, mod MR, mild-mod TR, large left effusion 1. Acute on Chronic Systolic Heart Failure 2. Mitral Regurgitation 3. Pulmonary HTN 4. Pleural Effusion 5. Persistent Atrial Fibrillation with subtherapeutic INR 6. COPD 7. r/o UTI 8. Vascular dementia, h/o falls 9. Anemia 10. Acute on CKD referable to #1, h/o hyperkalemia on lisinopril 11. H/o bradycardia on carvedilol 12. Recent right hip hemiarthroplasty 1. IV diuresis with monitor diuretic response, renal fxn and electrolytes 2. Coumadin per INR with caution, monitor Hgb 3. Resume losartan 25 qd once renal fxn stabilizes, carvedilol previously d/mike for bradycardia 4. 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 Clayton Swift) with regard to his CHF. However, his current comorbidities (dementia) will determine extent of further evaluation/ intervention. 5. Thank you for consultative opportunutyt
[2017-01-28] MEDS: WARFARIN NA 5 MG TABLET (UD) PO SCH (17:23)
[2017-01-28] MEDS ORDERED: FUROSEMIDE 40 MG/4 ML INJECTABLE VIAL IVPB ONE (17:45)
[2017-01-28] MEDS: guaiFENesin/CODEINE 5 ML UNIT-DOSE CUPS PO SCH (21:23)
[2017-01-28] MEDS: ACETAMINOPHEN 325 MG TABLET (FP) PO PRN (21:23)
[2017-01-28] MEDS: LATANOPROST 0.005% OPHTH SOLN 2.5ML BOTTLE OU SCH (22:50)
[2017-01-29] MEDS ORDERED: PT OWN MED DRAWER 7, Y5N ONE (01:29)
[2017-01-29] MEDS: AZTREONAM 1 GM in DEXTROSE 5%-WATER - 50 ML IVPB SCH ×2 (01:32→09:51)
[2017-01-29] MEDS: FERROUS SO4 325 MG TABLET (FP) PO SCH ×3 (06:41→21:48)
[2017-01-29] MEDS: ASCORBIC ACID 500 MG TABLET (FP) PO SCH ×3 (06:41→21:50)
[2017-01-29 08:28] LABS: FERRITIN 563.936 ng/ml (16.4-293.9); THYROID STIMULATING HORMONE 1.85 uIU/ml (0.358-3.74)
[2017-01-29 09:24] LABS: BASOPHIL 0.4 % (0-2.0); EOSINOPHIL 0.3 % (0-4.5); MCH 29.8 pg (25.7-33.7); MCHC 31.5 g/dl (32.0-35.9); MEAN CELL VOLUME 94.7 fl (80-96); MEAN PLT VOLUME 8.8 fl (7.5-11.1); PLATELET COUNT 111 K/MM3 (134-434); RDW 21.3 % (11.9-15.9); WHITE BLOOD COUNT 11.7 K/mm3 (4.0-10.0)
[2017-01-29] MEDS: RANITIDINE HCL 150 MG TABLET (FP) PO SCH ×2 (09:51→21:51)
[2017-01-29] MEDS: LACTOBACILLUS ACIDOPHILUS 1 EACH TAB (FP) PO SCH (09:51)
--- NOTE | 2017-01-29 10:10 | PN ---
Progress Note (short form) - Note Progress Note: PULMONARY Denies shortness of breath or cough. Low grade temp overnight. Last Vital Signs Temp Pulse Resp BP Pulse Ox 97.5 F L 68 20 122/68 95 01/29/17 06:00 01/29/17 08:16 01/29/17 08:16 01/29/17 08:16 01/28/17 21:00 Gen: NAD at rest Heart: RRR Lung: decreased breath sounds at the bases Abd: soft, nontender Ext: no edema CBC, BMP 01/29/17 08:30 01/29/17 08:30 Active Medications Acetaminophen (Tylenol -) 650 mg PO Q4H PRN PRN Reason: FEVER OR PAIN Last Admin: 01/28/17 21:23 Dose: 650 mg Ascorbic Acid (Vitamin C -) 500 mg PO TID [facility] Last Admin: 01/29/17 06:41 Dose: 500 mg Ferrous Sulfate (Feosol -) 325 mg PO TID [facility] Last Admin: 01/29/17 06:41 Dose: 325 mg Guaifenesin/Codeine Phosphate (Robitussin Ac -) 5 ml PO [facility] Last Admin: 01/28/17 21:23 Dose: 5 ml Aztreonam 1 gm/ Dextrose 50 mls @ 100 mls/hr IVPB Q8H-IV NAIF PRN Reason: Protocol Last Admin: 01/29/17 09:51 Dose: 100 mls/hr Lactobacillus Acidophilus (Bacid -) 1 tab PO DAILY [facility] Last Admin: 01/29/17 09:51 Dose: 1 tab Latanoprost (Xalatan 0.005% Eye Drops -) 1 drop OU [facility] Last Admin: 01/28/17 22:50 Dose: 1 drop Lorazepam (Ativan Injection -) 0.5 mg IVPB Q4H PRN PRN Reason: AGITATION Last Admin: 01/28/17 12:38 Dose: 0.5 mg Ondansetron HCl (Zofran Injection) 4 mg IVPB Q6H PRN PRN Reason: NAUSEA Ranitidine HCl (Zantac -) 150 mg PO BID [facility] Last Admin: 01/29/17 09:51 Dose: 150 mg Warfarin Sodium (Coumadin -) 5 mg PO DAILY@1800 [facility] Last Admin: 01/28/17 17:23 Dose: 5 mg A/P s/p Fall Chronic Systolic Heart Failure Mitral Regurgitation Pulmonary HTN Pleural Effusion Atrial Fibrillation COPD UTI Dementia - lasix as needed although CXR findings are chronic - monitor urine output, creatinine - continue antibiotics for UTI, do not suspect pneumonia at this time - inhaled bronchodilators as needed - rate controlled - continue anticoagulation for now, may need to reassess indication if pt fall risk Problem List - Problems (1) Head trauma Code(s): S09.90XA - UNSPECIFIED INJURY OF HEAD, INITIAL ENCOUNTER Qualifiers: Encounter type: initial encounter Qualified Code(s): S09.90XA - Unspecified injury of head, initial encounter (2) Fall Code(s): W19.XXXA - UNSPECIFIED FALL, INITIAL ENCOUNTER (3) Pleural effusion Code(s): J90 - PLEURAL EFFUSION, NOT ELSEWHERE CLASSIFIED (4) Atrial fibrillation Code(s): I48.91 - UNSPECIFIED ATRIAL FIBRILLATION Qualifiers: Atrial fibrillation type: permanent Qualified Code(s): I48.2 - Chronic atrial fibrillation (5) UTI (urinary tract infection) Code(s): N39.0 - URINARY TRACT INFECTION, SITE NOT SPECIFIED Qualifiers: Urinary tract infection type: site unspecified Hematuria presence: without hematuria Qualified Code(s): N39.0 - Urinary tract infection, site not specified (6) Acute on chronic systolic (congestive) heart failure Code(s): I50.23 - ACUTE ON CHRONIC SYSTOLIC (CONGESTIVE) HEART FAILURE (7) Pulmonary hypertension Code(s): I27.2 - OTHER SECONDARY PULMONARY HYPERTENSION (8) Mitral regurgitation Code(s): I34.0 - NONRHEUMATIC MITRAL (VALVE) INSUFFICIENCY Qualifiers: Cardiac valve disease etiology: nonrheumatic Qualified Code(s): I34.0 - Nonrheumatic mitral (valve) insufficiency (9) COPD (chronic obstructive pulmonary disease) Code(s): J44.9 - CHRONIC OBSTRUCTIVE PULMONARY DISEASE, UNSPECIFIED Qualifiers : COPD type: unspecified COPD Qualified Code(s): J44.9 - Chronic obstructive pulmonary disease, unspecified (10) Acute on chronic renal failure Code(s): N17.9 - ACUTE KIDNEY FAILURE, UNSPECIFIED N18.9 - CHRONIC KIDNEY DISEASE, UNSPECIFIED (11) Dementia Code(s): F03.90 - UNSPECIFIED DEMENTIA WITHOUT BEHAVIORAL DISTURBANCE Qualifiers: Dementia type: unspecified type Dementia behavioral disturbance: without behavioral disturbance Qualified Code(s): F03.90 - Unspecified dementia without behavioral disturbance
[2017-01-29 10:38] LABS: ALK PHOS 167 U/L (45-117); ANION GAP 11 (8-16); BILIRUBIN,TOTAL 1.1 mg/dL (0.2-1.0); CALCIUM 8.4 mg/dL (8.5-10.1); CO2 24 mmol/L (21-32); CREATININE 2.3 mg/dL (0.7-1.3); GLUCOSE,RANDOM 117 mg/dL (74-106); SGOT/AST 45 U/L (15-37); SGPT/ALT 37 U/L (12-78); TOT PROT 5.7 g/dl (6.4-8.2)
--- NOTE | 2017-01-29 10:48 | EKG ---
Test Reason : Blood Pressure : / mmHG Vent. Rate : 074 BPM Atrial Rate : 041 BPM P-R Int : 000 ms QRS Dur : 164 ms QT Int : 452 ms P-R-T Axes : 000 -26 142 degrees QTc Int : 501 ms NORMAL SINUS RHYTHM LEFT BUNDLE BRANCH BLOCK ABNORMAL ECG WHEN COMPARED WITH ECG OF 25-NOV-2016 16:04, WIDE QRS RHYTHM HAS REPLACED ATRIAL FIBRILLATION Confirmed by JODI ESTRELLA MD ([id number]) on 01/29/2017 10:47:56 AM Referred By: Confirmed By:JODI ESTRELLA MD
--- NOTE | 2017-01-29 12:00 | PN ---
Progress Note, Physician History of Present Illness: Confused, not dyspneic or orthopneic. - Current Medication List Current Medications: Active Medications Acetaminophen (Tylenol -) 650 mg PO Q4H PRN PRN Reason: FEVER OR PAIN Last Admin: 01/28/17 21:23 Dose: 650 mg Ascorbic Acid (Vitamin C -) 500 mg PO TID [facility] Last Admin: 01/29/17 06:41 Dose: 500 mg Ferrous Sulfate (Feosol -) 325 mg PO TID [facility] Last Admin: 01/29/17 06:41 Dose: 325 mg Guaifenesin/Codeine Phosphate (Robitussin Ac -) 5 ml PO HS [facility] Last Admin: 01/28/17 21:23 Dose: 5 ml Aztreonam 1 gm/ Dextrose 50 mls @ 100 mls/hr IVPB Q8H-IV NAIF PRN Reason: Protocol Last Admin: 01/29/17 09:51 Dose: 100 mls/hr Lactobacillus Acidophilus (Bacid -) 1 tab PO DAILY [facility] Last Admin: 01/29/17 09:51 Dose: 1 tab Latanoprost (Xalatan 0.005% Eye Drops -) 1 drop OU HS [facility] Last Admin: 01/28/17 22:50 Dose: 1 drop Lorazepam (Ativan Injection -) 0.5 mg IVPB Q4H PRN PRN Reason: AGITATION Last Admin: 01/28/17 12:38 Dose: 0.5 mg Ondansetron HCl (Zofran Injection) 4 mg IVPB Q6H PRN PRN Reason: NAUSEA Ranitidine HCl (Zantac -) 150 mg PO BID [facility] Last Admin: 01/29/17 09:51 Dose: 150 mg Warfarin Sodium (Coumadin -) 5 mg PO DAILY@1800 [facility] Last Admin: 01/28/17 17:23 Dose: 5 mg - Objective Vital Signs: Vital Signs Temperature 97.6 F 01/29/17 08:16 Pulse Rate 68 01/29/17 08:16 Respiratory Rate 20 01/29/17 08:16 Blood Pressure 122/68 01/29/17 08:16 O2 Sat by Pulse Oximetry (%) 95 01/28/17 21:00 Constitutional: Yes: No Distress, Calm Neck: Yes: Supple Cardiovascular: Yes: Pulse Irregular, Murmur (2/6 SM) Respiratory: Yes: Regular, Diminished Gastrointestinal: Yes: Normal Bowel Sounds, Soft Edema: No Labs: CBC, BMP 01/29/17 08:30 01/29/17 08:30 INR, PTT INR 1.76 (0.82-1.09) H 01/28/17 07:05 Problem List - Problems (1) Acute on chronic renal failure Code(s): N17.9 - ACUTE KIDNEY FAILURE, UNSPECIFIED N18.9 - CHRONIC KIDNEY DISEASE, UNSPECIFIED (2) Anemia Code(s): D64.9 - ANEMIA, UNSPECIFIED Qualifiers: Anemia type: other cause Other causes of anemia: other cause, not classified Qualified Code(s): D64.89 - Other specified anemias (3) Atrial fibrillation Code(s): I48.91 - UNSPECIFIED ATRIAL FIBRILLATION Qualifiers: Atrial fibrillation type: permanent Qualified Code(s): I48.2 - Chronic atrial fibrillation (4) Mitral regurgitation Code(s): I34.0 - NONRHEUMATIC MITRAL (VALVE) INSUFFICIENCY Qualifiers: Cardiac valve disease etiology: nonrheumatic Qualified Code(s): I34.0 - Nonrheumatic mitral (valve) insufficiency (5) Pleural effusion Code(s): J90 - PLEURAL EFFUSION, NOT ELSEWHERE CLASSIFIED (6) Subtherapeutic international normalized ratio (INR) Code(s): R79.1 - ABNORMAL COAGULATION PROFILE (7) UTI (urinary tract infection) Code(s): N39.0 - URINARY TRACT INFECTION, SITE NOT SPECIFIED Qualifiers: Urinary tract infection type: site unspecified Hematuria presence: without hematuria Qualified Code(s): N39.0 - Urinary tract infection, site not specified (8) Dementia Code(s): F03.90 - UNSPECIFIED DEMENTIA WITHOUT BEHAVIORAL DISTURBANCE Qualifiers: Dementia type: unspecified type Dementia behavioral disturbance: without behavioral disturbance Qualified Code(s): F03.90 - Unspecified dementia without behavioral disturbance (9) Acute on chronic systolic (congestive) heart failure Code(s): I50.23 - ACUTE ON CHRONIC SYSTOLIC (CONGESTIVE) HEART FAILURE (10) Cerebrovascular accident Code(s): I63.9 - CEREBRAL INFARCTION, UNSPECIFIED (11) Hypertensive cardiovascular disease Code(s): I11.9 - HYPERTENSIVE HEART DISEASE WITHOUT HEART FAILURE Qualifiers: Heart failure presence: with heart failure Qualified Code(s): I11.0 - Hypertensive heart disease with heart failure (12) Pleural effusion due to CHF (congestive heart failure) Code(s): I50.9 - HEART FAILURE, UNSPECIFIED (13) Pulmonary hypertension Code(s): I27.2 - OTHER SECONDARY PULMONARY HYPERTENSION (14) COPD (chronic obstructive pulmonary disease) Code(s): J44.9 - CHRONIC OBSTRUCTIVE PULMONARY DISEASE, UNSPECIFIED Qualifiers : COPD type: unspecified COPD Qualified Code(s): J44.9 - Chronic obstructive pulmonary disease, unspecified Assessment/Plan 10/31/2015 Echo: Moderate decreased LV systolic function LLVEF 35-40%, mod MR, TR , mild LAE, mod pulm HTN 11/26/2016 Echo: Borderline dilated LV with moderate decreased LV systolic function, LVEF 30-35%, mod MR, mild-mod TR, large left effusion 1. Acute on Chronic Systolic Heart Failure resolving 2. Mitral Regurgitation 3. Pulmonary HTN 4. Pleural Effusion 5. Persistent Atrial Fibrillation with subtherapeutic INR 6. COPD 7. Proteus UTI 8. Vascular dementia, h/o falls 9. Anemia 10. Acute on CKD referable to #1, h/o hyperkalemia on lisinopril 11. H/o bradycardia on carvedilol 12. Recent right hip hemiarthroplasty 1. Diuresis with monitor diuretic response, renal fxn and electrolytes 2. Coumadin per INR with caution, monitor Hgb 3. Resume losartan 25 qd once renal fxn stabilizes, carvedilol previously d/mike for bradycardia 4. Complete Abx course for UTI
--- NOTE | 2017-01-29 13:05 | PN ---
Progress Note (short form) - Note Progress Note: No acute event overnight. Awake, confused. Not in respiratory distress. 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: CVA (pe 01/2015 brain MRI), Dementia Cardiovascular: Yes: AFIB (chronic), CHF, HTN Pulmonary: Yes: COPD Psych: Yes: Depression, Other (h/o alcohol abuse) - Past Surgical History Past Surgical History: Yes: Colectomy (hemicolectomy) - Advance Directives Advance Directives: Yes: DNR - Smoking History Smoking history: Unknown if ever smoked Have you smoked in the past 12 months: No Aproximately how many cigarettes per day: 0 If you are a former smoker, when did you quit?: 50 years - Alcohol/Substance Use Hx Alcohol Use: No - Social History ADL: Family Assistance History of Recent Travel: No Home Medications - Allergies Allergies/Adverse Reactions: Allergies Allergy/AdvReac Type Severity Reaction Status Date / Time Penicillins Allergy Hives Verified 01/26/17 15:10 procaine Allergy Verified 01/26/17 18:45 - Home Medications Home Medications: Ambulatory Orders Ascorbate Calcium [Vitamin C] 500 mg PO TID 01/26/17 Bimatoprost [Lumigan] 1 drop IO DAILY 01/26/17 Ferrous Sulfate 325 mg PO TID 01/26/17 Furosemide [Lasix -] 40 mg PO BID 01/26/17 Guaifenesin AC [Robitussin AC -] 5 ml PO HS 01/26/17 Warfarin Na [Coumadin] 5 mg PO TID 01/26/17 Review of Systems Unable to obtain ROS, reason: dementia Physical Examination Vital Signs: Vital Signs Period Temp Pulse Resp BP Sys/Kemp Pulse Ox Last 24 Hr 97.5 F-100.3 F 65-80 18-20 93-130/45-80 95 Constitutional: Yes: Anxious, Mild Distress Eyes: Yes: Conjunctiva Clear, EOM Intact, PERRL HENT: Yes: Atraumatic, Normocephalic Neck: Yes: Supple, Trachea Midline Cardiovascular: Yes: Pulse Irregular, S1, S2 Respiratory: Yes: Diminished (air entry dimished b/l lung base) Gastrointestinal: Yes: Soft (non tender, BS present) Edema: No Peripheral Pulses WNL: Yes ...Motor Strength: WNL Labs: CBC, BMP 01/29/17 08:30 01/29/17 08:30 Microbiology 01/28/17 12:25 Blood Culture - Preliminary Blood - Peripheral Venous NO GROWTH OBTAINED AFTER 24 HOURS, INCUBATION TO CONTINUE FOR 4 DAYS. 01/28/17 12:20 Blood Culture - Preliminary Blood - Peripheral Venous NO GROWTH OBTAINED AFTER 24 HOURS, INCUBATION TO CONTINUE FOR 4 DAYS. 01/26/17 17:30 Urine Culture - Final Urine - Urine - Catheterized [facility] - Results Chest X-ray: Report Reviewed Problem List - Problems (1) Head trauma Assessment/Plan: S/P Fall at [place] with head trauma. Patient is on coumadin. Head CT x 2 - Negative for intracranial bleed. Will continue to monitor. Code(s): S09.90XA - UNSPECIFIED INJURY OF HEAD, INITIAL ENCOUNTER Qualifiers: Encounter type: initial encounter (2) Acute kidney failure Assessment/Plan: BUN/Cr up after dose of lasix yesterday. Pre-renal. Management as per renal. Code(s): N17.9 - ACUTE KIDNEY FAILURE, UNSPECIFIED (3) UTI (urinary tract infection) Assessment/Plan: Urine culture - Proteus Mirabilis On Aztreonam. Abx as per ID Code(s): N39.0 - URINARY TRACT INFECTION, SITE NOT SPECIFIED Qualifiers: Urinary tract infection type: site unspecified Hematuria presence: without hematuria Qualified Code(s): N39.0 - Urinary tract infection, site not specified (4) Urinary retention due to benign prostatic hyperplasia Assessment/Plan: Has Quintana. Changed . Difficult insertion on previous visits. Code(s): N40.1 - BENIGN PROSTATIC HYPERPLASIA WITH LOWER URINARY TRACT SYMP R33.8 - OTHER RETENTION OF URINE (5) Atrial fibrillation Assessment/Plan: Rate controlled. AC per INR. Continue coumadin [address] x 2 negative for intracranial bleed. Code(s): I48.91 - UNSPECIFIED ATRIAL FIBRILLATION Qualifiers: Atrial fibrillation type: permanent Qualified Code(s): I48.2 - Chronic atrial fibrillation (6) Pneumonia Assessment/Plan: Pulmonary follow up appreciated Unlikely pneumonia. Code(s): J18.9 - PNEUMONIA, UNSPECIFIED ORGANISM Qualifiers: Pneumonia type: due to unspecified organism Laterality: right Lung location: lower lobe of lung Qualified Code(s): J18.9 - Pneumonia, unspecified organism (7) Acute on chronic systolic (congestive) heart failure Assessment/Plan: Lasix as needed. BNP very high. BUN/Cr up after another dose of lasix. Cardiology to follow. Code(s): I50.23 - ACUTE ON CHRONIC SYSTOLIC (CONGESTIVE) HEART FAILURE (8) COPD (chronic obstructive pulmonary disease) Assessment/Plan: Continue inhaled bronchodilators. Code(s): J44.9 - CHRONIC OBSTRUCTIVE PULMONARY DISEASE, UNSPECIFIED Qualifiers : COPD type: unspecified COPD Qualified Code(s): J44.9 - Chronic obstructive pulmonary disease, unspecified (9) Anemia Assessment/Plan: H/H better. No bleeding from any site reported. Iron studies pending. Ferritin high. More in the favour of anemia of chronic disease. Code(s): D64.9 - ANEMIA, UNSPECIFIED Qualifiers: Anemia type: other cause Other causes of anemia: other cause, not classified Qualified Code(s): D64.89 - Other specified anemias (10) Dementia Assessment/Plan: stable. Code(s): F03.90 - UNSPECIFIED DEMENTIA WITHOUT BEHAVIORAL DISTURBANCE Qualifiers: Dementia type: unspecified type Dementia behavioral disturbance: without behavioral disturbance Qualified Code(s): F03.90 - Unspecified dementia without behavioral disturbance Problem List - Problems (1) Head trauma Code(s): S09.90XA - UNSPECIFIED INJURY OF HEAD, INITIAL ENCOUNTER Qualifiers: Encounter type: initial encounter Qualified Code(s): S09.90XA - Unspecified injury of head, initial encounter (2) Acute kidney failure Code(s): N17.9 - ACUTE KIDNEY FAILURE, UNSPECIFIED (3) UTI (urinary tract infection) Code(s): N39.0 - URINARY TRACT INFECTION, SITE NOT SPECIFIED Qualifiers: Urinary tract infection type: site unspecified Hematuria presence: without hematuria Qualified Code(s): N39.0 - Urinary tract infection, site not specified (4) Urinary retention due to benign prostatic hyperplasia Code(s): N40.1 - BENIGN PROSTATIC HYPERPLASIA WITH LOWER URINARY TRACT SYMP R33.8 - OTHER RETENTION OF URINE (5) Atrial fibrillation Code(s): I48.91 - UNSPECIFIED ATRIAL FIBRILLATION Qualifiers: Atrial fibrillation type: permanent Qualified Code(s): I48.2 - Chronic atrial fibrillation (6) Pneumonia Code(s): J18.9 - PNEUMONIA, UNSPECIFIED ORGANISM Qualifiers: Pneumonia type: due to unspecified organism Laterality: right Lung location: lower lobe of lung Qualified Code(s): J18.1 - Lobar pneumonia, unspecified organism (7) Acute on chronic systolic (congestive) heart failure Code(s): I50.23 - ACUTE ON CHRONIC SYSTOLIC (CONGESTIVE) HEART FAILURE (8) COPD (chronic obstructive pulmonary disease) Code(s): J44.9 - CHRONIC OBSTRUCTIVE PULMONARY DISEASE, UNSPECIFIED Qualifiers : COPD type: unspecified COPD Qualified Code(s): J44.9 - Chronic obstructive pulmonary disease, unspecified (9) Anemia Code(s): D64.9 - ANEMIA, UNSPECIFIED Qualifiers: Anemia type: other cause Other causes of anemia: other cause, not classified Qualified Code(s): D64.89 - Other specified anemias (10) Dementia Code(s): F03.90 - UNSPECIFIED DEMENTIA WITHOUT BEHAVIORAL DISTURBANCE Qualifiers: Dementia type: unspecified type Dementia behavioral disturbance: without behavioral disturbance Qualified Code(s): F03.90 - Unspecified dementia without behavioral disturbance (11) Pressure ulcer of sacral region, stage 3 Assessment/Plan: Low grade fever. ?? source of infection. Wound care consulted. Code(s): L89.153 - PRESSURE ULCER OF SACRAL REGION, STAGE 3
--- NOTE | 2017-01-29 13:07 | PN ---
Progress Note, Physician History of Present Illness: patient more confused more restless - Current Medication List Current Medications: Active Medications Acetaminophen (Tylenol -) 650 mg PO Q4H PRN PRN Reason: FEVER OR PAIN Last Admin: 01/28/17 21:23 Dose: 650 mg Ascorbic Acid (Vitamin C -) 500 mg PO TID [facility] Last Admin: 01/29/17 06:41 Dose: 500 mg Ferrous Sulfate (Feosol -) 325 mg PO TID [facility] Last Admin: 01/29/17 06:41 Dose: 325 mg Guaifenesin/Codeine Phosphate (Robitussin Ac -) 5 ml PO HS [facility] Last Admin: 01/28/17 21:23 Dose: 5 ml Ertapenem 1 gm/ Sodium (Chloride) 50 mls @ 50 mls/hr IVPB DAILY [facility] PRN Reason: Protocol Lactobacillus Acidophilus (Bacid -) 1 tab PO DAILY [facility] Last Admin: 01/29/17 09:51 Dose: 1 tab Latanoprost (Xalatan 0.005% Eye Drops -) 1 drop OU [facility] Last Admin: 01/28/17 22:50 Dose: 1 drop Lorazepam (Ativan Injection -) 0.5 mg IVPB Q4H PRN PRN Reason: AGITATION Last Admin: 01/28/17 12:38 Dose: 0.5 mg Ondansetron HCl (Zofran Injection) 4 mg IVPB Q6H PRN PRN Reason: NAUSEA Ranitidine HCl (Zantac -) 150 mg PO BID [facility] Last Admin: 01/29/17 09:51 Dose: 150 mg Warfarin Sodium (Coumadin -) 5 mg PO DAILY@1800 [facility] Last Admin: 01/28/17 17:23 Dose: 5 mg - Objective Vital Signs: Vital Signs Temperature 97.6 F 01/29/17 08:16 Pulse Rate 68 01/29/17 08:16 Respiratory Rate 20 01/29/17 08:16 Blood Pressure 122/68 01/29/17 08:16 O2 Sat by Pulse Oximetry (%) 95 01/28/17 21:00 Constitutional: Yes: Anxious, Other Neck: Yes: Supple Cardiovascular: Yes: Regular Rate and Rhythm Respiratory: Yes: Regular, Poor Air Entry, Rhonchi Gastrointestinal: Yes: Normal Bowel Sounds, Soft Genitourinary: Yes: Quintana Present Musculoskeletal: Yes: WNL Extremities: Yes: WNL Wound/Incision: Yes: Clean/Dry, Other (sacral decubitus looks good) Neurological: Yes: Alert, Other (dementia) Psychiatric: Yes: Alert, Other Labs: CBC, BMP 01/29/17 08:30 01/29/17 08:30 INR, PTT INR 1.76 (0.82-1.09) H 01/28/17 07:05 Assessment/Plan Problem List - Problems (1) Head trauma. Code(s): S09.90XA - UNSPECIFIED INJURY OF HEAD, INITIAL ENCOUNTER Qualifiers: Encounter type: initial encounter (2) Acute kidney failure Code(s): N17.9 - ACUTE KIDNEY FAILURE, UNSPECIFIED (3) UTI (urinary tract infection) Code(s): N39.0 - URINARY TRACT INFECTION, SITE NOT SPECIFIED Qualifiers: Urinary tract infection type: site unspecified Hematuria presence: without hematuria Qualified Code(s): N39.0 - Urinary tract infection, site not specified (4) Urinary retention due to benign prostatic hyperplasia Code(s): N40.1 - BENIGN PROSTATIC HYPERPLASIA WITH LOWER URINARY TRACT SYMP R33.8 - OTHER RETENTION OF URINE (5) Atrial fibrillation Code(s): I48.91 - UNSPECIFIED ATRIAL FIBRILLATION Qualifiers: Atrial fibrillation type: permanent Qualified Code(s): I48.2 - Chronic atrial fibrillation (6) Pneumonia Code(s): J18.9 - PNEUMONIA, UNSPECIFIED ORGANISM Qualifiers: Pneumonia type: due to unspecified organism Laterality: right Lung location: lower lobe of lung Qualified Code(s): J18.9 - Pneumonia, unspecified organism (7) Acute on chronic systolic (congestive) heart failure Code(s): I50.23 - ACUTE ON CHRONIC SYSTOLIC (CONGESTIVE) HEART FAILURE (8) COPD (chronic obstructive pulmonary disease) Code(s): J44.9 - CHRONIC OBSTRUCTIVE PULMONARY DISEASE, UNSPECIFIED Qualifiers : COPD type: unspecified COPD Qualified Code(s): J44.9 - Chronic obstructive pulmonary disease, unspecified (9) Anemia Code(s): D64.9 - ANEMIA, UNSPECIFIED Qualifiers: Anemia type: other cause Other causes of anemia: other cause, not classified Qualified Code(s): D64.89 - Other specified anemias (10) Dementia Code(s): F03.90 - UNSPECIFIED DEMENTIA WITHOUT BEHAVIORAL DISTURBANCE Qualifiers: Dementia type: unspecified type Dementia behavioral disturbance: without behavioral disturbance Qualified Code(s): F03.90 - Unspecified dementia without behavioral disturbance patient has mdr uti has allergy to pcn plan will switch to ertapenam hydration rest as per primary team
[2017-01-29 14:24] LABS: INR 2.05 (0.82-1.09); PROTHROMBIN TIME (PATIENT) 22.9 SEC (9.98-11.88)
[2017-01-29] MEDS: ERTAPENEM SODIUM 1 GM in SODIUM CHLORIDE 50 ML IVPB SCH (15:19)
--- NOTE | 2017-01-29 16:05 | PN ---
Progress Note, Physician History of Present Illness: Pt seen and examined at bedside. Pt remains confused. He appears more comfortable today. - Current Medication List Current Medications: Active Medications Acetaminophen (Tylenol -) 650 mg PO Q4H PRN PRN Reason: FEVER OR PAIN Last Admin: 01/28/17 21:23 Dose: 650 mg Ascorbic Acid (Vitamin C -) 500 mg PO TID [facility] Last Admin: 01/29/17 13:15 Dose: Not Given Ferrous Sulfate (Feosol -) 325 mg PO TID [facility] Last Admin: 01/29/17 13:15 Dose: Not Given Guaifenesin/Codeine Phosphate (Robitussin Ac -) 5 ml PO HS [facility] Last Admin: 01/28/17 21:23 Dose: 5 ml Ertapenem 1 gm/ Sodium (Chloride) 50 mls @ 50 mls/hr IVPB DAILY [facility] PRN Reason: Protocol Last Admin: 01/29/17 15:19 Dose: 50 mls/hr Lactobacillus Acidophilus (Bacid -) 1 tab PO DAILY [facility] Last Admin: 01/29/17 09:51 Dose: 1 tab Latanoprost (Xalatan 0.005% Eye Drops -) 1 drop OU HS [facility] Last Admin: 01/28/17 22:50 Dose: 1 drop Lorazepam (Ativan Injection -) 0.5 mg IVPB Q4H PRN PRN Reason: AGITATION Last Admin: 01/28/17 12:38 Dose: 0.5 mg Ondansetron HCl (Zofran Injection) 4 mg IVPB Q6H PRN PRN Reason: NAUSEA Ranitidine HCl (Zantac -) 150 mg PO BID [facility] Last Admin: 01/29/17 09:51 Dose: 150 mg Warfarin Sodium (Coumadin -) 5 mg PO DAILY@1800 [facility] Last Admin: 01/28/17 17:23 Dose: 5 mg - Objective Vital Signs: Vital Signs Temperature 97.2 F L 01/29/17 14:51 Pulse Rate 68 01/29/17 14:51 Respiratory Rate 20 01/29/17 14:51 Blood Pressure 125/49 01/29/17 14:51 O2 Sat by Pulse Oximetry (%) 95 01/28/17 21:00 Constitutional: Yes: Calm Eyes: Yes: Conjunctiva Clear HENT: Yes: Atraumatic Neck: Yes: Supple Cardiovascular: Yes: JVD, S1, S2 Respiratory: Yes: On Nasal O2 Gastrointestinal: Yes: Soft Genitourinary: Yes: Incontinence Edema: No Neurological: Yes: Confusion Labs: CBC, BMP 01/29/17 08:30 01/29/17 08:30 INR, PTT INR 2.05 (0.82-1.09) H 01/29/17 13:45 Problem List - Problems (1) Acute on chronic renal failure Code(s): N17.9 - ACUTE KIDNEY FAILURE, UNSPECIFIED N18.9 - CHRONIC KIDNEY DISEASE, UNSPECIFIED (2) Anemia Code(s): D64.9 - ANEMIA, UNSPECIFIED Qualifiers: Anemia type: other cause Other causes of anemia: other cause, not classified Qualified Code(s): D64.89 - Other specified anemias (3) Atrial fibrillation Code(s): I48.91 - UNSPECIFIED ATRIAL FIBRILLATION Qualifiers: Atrial fibrillation type: permanent Qualified Code(s): I48.2 - Chronic atrial fibrillation Assessment/Plan Current Medications Generic Name Dose Route Start Last Admin Trade Name Freq PRN Reason Stop Dose Admin Acetaminophen 650 mg 01/26/17 20:29 01/28/17 21:23 Tylenol - PO 650 mg Q4H PRN Administration FEVER OR PAIN Ascorbic Acid 500 mg 01/26/17 22:00 01/29/17 13:15 Vitamin C - PO Not Given TID NAIF Ferrous Sulfate 325 mg 01/26/17 22:00 01/29/17 13:15 Feosol - PO Not Given TID NAIF Guaifenesin/Codeine Phosphate 5 ml 01/26/17 22:00 01/28/17 21:23 Robitussin Ac - PO 5 ml HS NAIF Administration Ertapenem 1 gm/ Sodium 50 mls @ 50 mls/hr 01/29/17 14:00 01/29/17 15:19 Chloride IVPB 50 mls/hr DAILY NAIF Administration Protocol Lactobacillus Acidophilus 1 tab 01/27/17 10:00 01/29/17 09:51 Bacid - PO 1 tab DAILY NAIF Administration Latanoprost 1 drop 01/27/17 22:00 01/28/17 22:50 Xalatan 0.005% Eye Drops - OU 1 drop HS NAIF Administration Lorazepam 0.5 mg 01/27/17 18:42 01/28/17 12:38 Ativan Injection - IVPB 0.5 mg Q4H PRN Administration AGITATION Ondansetron HCl 4 mg 01/26/17 20:29 Zofran Injection IVPB Q6H PRN NAUSEA Ranitidine HCl 150 mg 01/27/17 22:00 01/29/17 09:51 Zantac - PO 150 mg BID NAIF Administration Warfarin Sodium 5 mg 01/27/17 18:00 01/28/17 17:23 Coumadin - PO 5 mg DAILY@1800 NAIF Administration Impression 1. TATY 2. CHF 3. a-fib 4. CVA 5. Dementia 6. COPD 7. PNA 8. HTN 9. CKD 10. s/p fall Plan - renal function continues to worsen - diuretics as needed - encourage PO intake - repeat lab in am - negative obstruction on ultrasound Dr Abdi
[2017-01-29] MEDS: WARFARIN NA 5 MG TABLET (UD) PO SCH (17:26)
--- NOTE | 2017-01-29 20:18 | CONSULT ---
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: CVA (pe 01/2015 brain MRI), Dementia Cardio/Vascular: Yes: AFIB (chronic), CHF, HTN Pulmonary: Yes: COPD Renal/: Yes: Renal Inusuff Psych: Yes: Depression, Other (h/o alcohol abuse) - Past Surgical History Past Surgical History: Yes: Colectomy (hemicolectomy) - Alcohol/Substance Use Hx Alcohol Use: No - Smoking History Smoking history: Unknown if ever smoked Have you smoked in the past 12 months: No Aproximately how many cigarettes per day: 0 If you are a former smoker, when did you quit?: 50 years - Social History Usual Living Arrangement: With Significant Other ADL: Family Assistance History of Recent Travel: No Home Medications - Allergies Allergies/Adverse Reactions: Allergies Allergy/AdvReac Type Severity Reaction Status Date / Time Penicillins Allergy Hives Verified 01/26/17 15:10 procaine Allergy Verified 01/26/17 18:45 - Home Medications Home Medications: Ambulatory Orders Ascorbate Calcium [Vitamin C] 500 mg PO TID 01/26/17 Bimatoprost [Lumigan] 1 drop IO DAILY 01/26/17 Ferrous Sulfate 325 mg PO TID 01/26/17 Furosemide [Lasix -] 40 mg PO BID 01/26/17 Guaifenesin AC [Robitussin AC -] 5 ml PO HS 01/26/17 Warfarin Na [Coumadin] 5 mg PO TID 01/26/17 Physical Exam Vital Signs: Vital Signs Temperature 97.2 F L 01/29/17 14:51 Pulse Rate 68 01/29/17 14:51 Respiratory Rate 20 01/29/17 14:51 Blood Pressure 125/49 01/29/17 14:51 O2 Sat by Pulse Oximetry (%) 95 01/28/17 21:00 Labs: CBC, BMP 01/29/17 08:30 01/29/17 08:30 Assessment/Plan VA[facility] 86 y/o male with significant past medical history of Hypertension, Afib (on Coumadin), Systolic CHF, pulmonary artery hypertension, COPD, Dementia, s/p right hip hemiarthroplasty for right hip fracture, , bladder outlet obstruction , s/p cystoscopy and mendenhall placement by urology, sent from [facility], s/p fall with trauma to head. Patient had CT Head done in the ER which was negative for bleed. W/U revealed - 1) Acute on chronic renal failure 2) Urinary tract infection. Patient admitted for UTI, acute renal failure and head injury. Patient seen and examined. History could not be taken because of dementia but denies chest pain, shortness of breath. Not in respiratory distress but noted to be very thirsty. 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: CVA (pe 01/2015 brain MRI), Dementia Cardiovascular: Yes: AFIB (chronic), CHF, HTN Pulmonary: Yes: COPD Psych: Yes: Depression, Other (h/o alcohol abuse) - Past Surgical History Past Surgical History: Yes: Colectomy (hemicolectomy) - Advance Directives Advance Directives: Yes: DNR - Smoking History Smoking history: Unknown if ever smoked Have you smoked in the past 12 months: No Aproximately how many cigarettes per day: 0 If you are a former smoker, when did you quit?: 50 years - Alcohol/Substance Use Hx Alcohol Use: No - Social History ADL: Family Assistance History of Recent Travel: No Home Medications - Allergies Allergies/Adverse Reactions: Allergies Allergy/AdvReac Type Severity Reaction Status Date / Time Penicillins Allergy Hives Verified 01/26/17 15:10 procaine Allergy Verified 01/26/17 18:45 - Home Medications Home Medications: Ambulatory Orders Ascorbate Calcium [Vitamin C] 500 mg PO TID 01/26/17 Bimatoprost [Lumigan] 1 drop IO DAILY 01/26/17 Ferrous Sulfate 325 mg PO TID 01/26/17 Furosemide [Lasix -] 40 mg PO BID 01/26/17 Guaifenesin AC [Robitussin AC -] 5 ml PO HS 01/26/17 Warfarin Na [Coumadin] 5 mg PO TID 01/26/17 PE Head - NC/AT Lung - CTA Heart - RRR abd - soft,nt,nd ext - warm, pink.. Sacrum - stage 3 ulcer Clean, pink. with granulation. A/P STAge 3 sacral ulcer. 1. Santyl to wound daily. 2. offload area. Helio Salamanca DO
[2017-01-29] MEDS: COLLAGENASE CLOSTRIDIUM HIST. 30 GRAMS TUBE TP SCH (21:44)
[2017-01-29] MEDS: guaiFENesin/CODEINE 5 ML UNIT-DOSE CUPS PO SCH (21:50)
[2017-01-29] MEDS: LATANOPROST 0.005% OPHTH SOLN 2.5ML BOTTLE OU SCH (21:50)
[2017-01-29] MEDS: ACETAMINOPHEN 325 MG TABLET (FP) PO PRN (21:51)
[2017-01-30] MEDS: ASCORBIC ACID 500 MG TABLET (FP) PO SCH ×3 (05:31→21:40)
[2017-01-30] MEDS: FERROUS SO4 325 MG TABLET (FP) PO SCH ×3 (05:31→21:40)
[2017-01-30 06:06] LABS: SERUM IRON 23 ug/dL (38-169); TOTAL IRON BINDING CAPACITY 164 ug/dL (250-450); UIBC 141 ug/dL (111-343)
[2017-01-30 06:51] LABS: MCHC 31.8 g/dl (32.0-35.9); MEAN CELL VOLUME 94.3 fl (80-96); MEAN PLT VOLUME 9.3 fl (7.5-11.1); PLATELET COUNT 143 K/MM3 (134-434); RDW 21.2 % (11.9-15.9)
[2017-01-30 07:14] LABS: ALBUMIN 1.9 g/dl (3.4-5.0); ANION GAP 10 (8-16); BILIRUBIN,TOTAL 1.2 mg/dL (0.2-1.0); CALCIUM 8.2 mg/dL (8.5-10.1); CO2 27 mmol/L (21-32); CREATININE 2.1 mg/dL (0.7-1.3); GLUCOSE,RANDOM 103 mg/dL (74-106); SGOT/AST 31 U/L (15-37); SGPT/ALT 30 U/L (12-78); TOT PROT 5.5 g/dl (6.4-8.2)
[2017-01-30 07:15] LABS: ALK PHOS 186 U/L (45-117)
--- NOTE | 2017-01-30 09:14 | PN ---
Progress Note (short form) - Note Progress Note: Patient seen and examined. No acute event overnight. Not in respiratory distress. Denies chest pain, shortness of breath, palpitation or dizziness. 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: Yes: CVA (pe 01/2015 brain MRI), Dementia Cardiovascular: Yes: AFIB (chronic), CHF, HTN Pulmonary: Yes: COPD Psych: Yes: Depression, Other (h/o alcohol abuse) - Past Surgical History Past Surgical History: Yes: Colectomy (hemicolectomy) - Advance Directives Advance Directives: Yes: DNR - Smoking History Smoking history: Unknown if ever smoked Have you smoked in the past 12 months: No Aproximately how many cigarettes per day: 0 If you are a former smoker, when did you quit?: 50 years - Alcohol/Substance Use Hx Alcohol Use: No - Social History ADL: Family Assistance History of Recent Travel: No Home Medications - Allergies Allergies/Adverse Reactions: Allergies Allergy/AdvReac Type Severity Reaction Status Date / Time Penicillins Allergy Hives Verified 01/26/17 15:10 procaine Allergy Verified 01/26/17 18:45 - Home Medications Home Medications: Ambulatory Orders Ascorbate Calcium [Vitamin C] 500 mg PO TID 01/26/17 Bimatoprost [Lumigan] 1 drop IO DAILY 01/26/17 Ferrous Sulfate 325 mg PO TID 01/26/17 Furosemide [Lasix -] 40 mg PO BID 01/26/17 Guaifenesin AC [Robitussin AC -] 5 ml PO HS 01/26/17 Warfarin Na [Coumadin] 5 mg PO TID 01/26/17 Review of Systems Unable to obtain ROS, reason: dementia Physical Examination Vital Signs: Vital Signs Period Temp Pulse Resp BP Sys/Kemp Pulse Ox Last 24 Hr 97.2 F-97.6 F 68-79 20-20 94-133/42-71 96 Constitutional: Yes: Anxious, Mild Distress Eyes: Yes: Conjunctiva Clear, EOM Intact, PERRL HENT: Yes: Atraumatic, Normocephalic Neck: Yes: Supple, Trachea Midline Cardiovascular: Yes: Pulse Irregular, S1, S2 Respiratory: Yes: Diminished (air entry dimished b/l lung base) Gastrointestinal: Yes: Soft (non tender, BS present) Edema: No Peripheral Pulses WNL: Yes ...Motor Strength: WNL Labs: CBC, BMP 01/30/17 06:10 01/30/17 06:10 Microbiology 01/28/17 12:25 Blood Culture - Preliminary Blood - Peripheral Venous NO GROWTH OBTAINED AFTER 24 HOURS, INCUBATION TO CONTINUE FOR 4 DAYS. 01/28/17 12:20 Blood Culture - Preliminary Blood - Peripheral Venous NO GROWTH OBTAINED AFTER 24 HOURS, INCUBATION TO CONTINUE FOR 4 DAYS. 01/26/17 17:30 Urine Culture - Final Urine - Urine - Catheterized Prote[facility] Imaging - Results Chest X-ray: Report Reviewed Problem List - Problems (1) Head trauma Assessment/Plan: S/P Fall at [place] with head trauma. Patient is on coumadin. Head CT x 2 - Negative for intracranial bleed. Will continue to monitor. Code(s): S09.90XA - UNSPECIFIED INJURY OF HEAD, INITIAL ENCOUNTER Qualifiers: Encounter type: initial encounter (2) Acute kidney failure Assessment/Plan: BUN/Cr Improved. Did not get lasix yesterday. Pre-renal. Monitor off lasix. Management as per renal. Code(s): N17.9 - ACUTE KIDNEY FAILURE, UNSPECIFIED (3) UTI (urinary tract infection) Assessment/Plan: Urine culture - Proteus Mirabilis Abx as per ID Code(s): N39.0 - URINARY TRACT INFECTION, SITE NOT SPECIFIED Qualifiers: Urinary tract infection type: site unspecified Hematuria presence: without hematuria Qualified Code(s): N39.0 - Urinary tract infection, site not specified (4) Urinary retention due to benign prostatic hyperplasia Assessment/Plan: Has Quintana. Changed . Difficult insertion on previous visits. Discussed with Dr. Loaiza. No need for change now. Code(s): N40.1 - BENIGN PROSTATIC HYPERPLASIA WITH LOWER URINARY TRACT SYMP R33.8 - OTHER RETENTION OF URINE (5) Atrial fibrillation Assessment/Plan: Rate controlled. AC per INR. Continue coumadin [address] x 2 negative for intracranial bleed. Code(s): I48.91 - UNSPECIFIED ATRIAL FIBRILLATION Qualifiers: Atrial fibrillation type: permanent Qualified Code(s): I48.2 - Chronic atrial fibrillation (6) Pneumonia Assessment/Plan: Pulmonary follow up appreciated Unlikely pneumonia. Code(s): J18.9 - PNEUMONIA, UNSPECIFIED ORGANISM Qualifiers: Pneumonia type: due to unspecified organism Laterality: right Lung location: lower lobe of lung Qualified Code(s): J18.9 - Pneumonia, unspecified organism (7) Acute on chronic systolic (congestive) heart failure Assessment/Plan: BNP very high. BUN/Cr improved off lasix. Not in respiratory distress. Lasix as needed. Cardiology to follow. Code(s): I50.23 - ACUTE ON CHRONIC SYSTOLIC (CONGESTIVE) HEART FAILURE (8) COPD (chronic obstructive pulmonary disease) Assessment/Plan: Continue inhaled bronchodilators. Code(s): J44.9 - CHRONIC OBSTRUCTIVE PULMONARY DISEASE, UNSPECIFIED Qualifiers : COPD type: unspecified COPD Qualified Code(s): J44.9 - Chronic obstructive pulmonary disease, unspecified (9) Anemia Assessment/Plan: H/H low. No bleeding from any site reported. Ferritin high. Iron low. Likely combination of iron deficiency anemia and anemia of chronic disease. Continue Ferrous sulphate. Code(s): D64.9 - ANEMIA, UNSPECIFIED Qualifiers: Anemia type: other cause Other causes of anemia: other cause, not classified Qualified Code(s): D64.89 - Other specified anemias (10) Dementia Assessment/Plan: stable. Code(s): F03.90 - UNSPECIFIED DEMENTIA WITHOUT BEHAVIORAL DISTURBANCE Qualifiers: Dementia type: unspecified type Dementia behavioral disturbance: without behavioral disturbance Qualified Code(s): F03.90 - Unspecified dementia without behavioral disturbance 11) Stage 3 sacral ulcer. Wound care consult appreciated. Continue santyl. Offload. Problem List - Problems (1) Head trauma Code(s): S09.90XA - UNSPECIFIED INJURY OF HEAD, INITIAL ENCOUNTER Qualifiers: Encounter type: initial encounter Qualified Code(s): S09.90XA - Unspecified injury of head, initial encounter (2) Acute kidney failure Code(s): N17.9 - ACUTE KIDNEY FAILURE, UNSPECIFIED (3) UTI (urinary tract infection) Code(s): N39.0 - URINARY TRACT INFECTION, SITE NOT SPECIFIED Qualifiers: Urinary tract infection type: site unspecified Hematuria presence: without hematuria Qualified Code(s): N39.0 - Urinary tract infection, site not specified (4) Urinary retention due to benign prostatic hyperplasia Code(s): N40.1 - BENIGN PROSTATIC HYPERPLASIA WITH LOWER URINARY TRACT SYMP R33.8 - OTHER RETENTION OF URINE (5) Atrial fibrillation Code(s): I48.91 - UNSPECIFIED ATRIAL FIBRILLATION Qualifiers: Atrial fibrillation type: permanent Qualified Code(s): I48.2 - Chronic atrial fibrillation (6) Pneumonia Code(s): J18.9 - PNEUMONIA, UNSPECIFIED ORGANISM Qualifiers: Pneumonia type: due to unspecified organism Laterality: right Lung location: lower lobe of lung Qualified Code(s): J18.1 - Lobar pneumonia, unspecified organism (7) Acute on chronic systolic (congestive) heart failure Code(s): I50.23 - ACUTE ON CHRONIC SYSTOLIC (CONGESTIVE) HEART FAILURE (8) COPD (chronic obstructive pulmonary disease) Code(s): J44.9 - CHRONIC OBSTRUCTIVE PULMONARY DISEASE, UNSPECIFIED Qualifiers : COPD type: unspecified COPD Qualified Code(s): J44.9 - Chronic obstructive pulmonary disease, unspecified (9) Anemia Code(s): D64.9 - ANEMIA, UNSPECIFIED Qualifiers: Anemia type: other cause Other causes of anemia: other cause, not classified Qualified Code(s): D64.89 - Other specified anemias (10) Dementia Code(s): F03.90 - UNSPECIFIED DEMENTIA WITHOUT BEHAVIORAL DISTURBANCE Qualifiers: Dementia type: unspecified type Dementia behavioral disturbance: without behavioral disturbance Qualified Code(s): F03.90 - Unspecified dementia without behavioral disturbance (11) Pressure ulcer of sacral region, stage 3 Code(s): L89.153 - PRESSURE ULCER OF SACRAL REGION, STAGE 3
[2017-01-30] MEDS: ERTAPENEM SODIUM 1 GM in SODIUM CHLORIDE 50 ML IVPB SCH (09:31)
[2017-01-30] MEDS: LACTOBACILLUS ACIDOPHILUS 1 EACH TAB (FP) PO SCH (09:32)
[2017-01-30] MEDS: RANITIDINE HCL 150 MG TABLET (FP) PO SCH ×2 (09:32→21:40)
[2017-01-30] MEDS: COLLAGENASE CLOSTRIDIUM HIST. 30 GRAMS TUBE TP SCH (09:32)
[2017-01-30 12:21] LABS: INR 2.41 (0.82-1.09)
--- NOTE | 2017-01-30 14:42 | PN ---
Progress Note, Physician History of Present Illness: patient continues to have dry cough no sputum production confused restless - Current Medication List Current Medications: Active Medications Acetaminophen (Tylenol -) 650 mg PO Q4H PRN PRN Reason: FEVER OR PAIN Last Admin: 01/29/17 21:51 Dose: 650 mg Ascorbic Acid (Vitamin C -) 500 mg PO TID [facility] Last Admin: 01/30/17 14:38 Dose: 500 mg Collagenase (Santyl -) 1 applic TP DAILY [facility] Last Admin: 01/30/17 09:32 Dose: 1 applic Ferrous Sulfate (Feosol -) 325 mg PO TID [facility] Last Admin: 01/30/17 14:38 Dose: 325 mg Guaifenesin/Codeine Phosphate (Robitussin Ac -) 5 ml PO HS [facility] Last Admin: 01/29/17 21:50 Dose: 5 ml Ertapenem 1 gm/ Sodium (Chloride) 50 mls @ 50 mls/hr IVPB DAILY [facility] PRN Reason: Protocol Last Admin: 01/30/17 09:31 Dose: 50 mls/hr Lactobacillus Acidophilus (Bacid -) 1 tab PO DAILY [facility] Last Admin: 01/30/17 09:32 Dose: 1 tab Latanoprost (Xalatan 0.005% Eye Drops -) 1 drop OU HS [facility] Last Admin: 01/29/17 21:50 Dose: 1 drop Lorazepam (Ativan Injection -) 0.5 mg IVPB Q4H PRN PRN Reason: AGITATION Last Admin: 01/30/17 12:46 Dose: 0.5 mg Ondansetron HCl (Zofran Injection) 4 mg IVPB Q6H PRN PRN Reason: NAUSEA Ranitidine HCl (Zantac -) 150 mg PO BID [facility] Last Admin: 01/30/17 09:32 Dose: 150 mg Warfarin Sodium (Coumadin -) 5 mg PO DAILY@1800 [facility] Last Admin: 01/29/17 17:26 Dose: 5 mg - Objective Vital Signs: Vital Signs Temperature 97.6 F 01/30/17 06:00 Pulse Rate 57 L 01/30/17 10:00 Respiratory Rate 20 01/30/17 06:00 Blood Pressure 119/65 01/30/17 10:00 O2 Sat by Pulse Oximetry (%) 96 01/30/17 09:00 Constitutional: Yes: No Distress, Other Neck: Yes: Supple Cardiovascular: Yes: Pulse Irregular, S1, S2 Respiratory: Yes: Regular, Poor Air Entry, Rhonchi Gastrointestinal: Yes: Normal Bowel Sounds, Soft Genitourinary: Yes: Other Musculoskeletal: Yes: WNL Extremities: Yes: WNL Wound/Incision: Yes: Other (stage 3 sacral ulcer clean) Neurological: Yes: Alert, Other Psychiatric: Yes: Alert, Other Labs: CBC, BMP 01/30/17 06:10 01/30/17 06:10 INR, PTT INR 2.41 (0.82-1.09) H 01/30/17 11:22 Assessment/Plan Problem List - Problems (1) Head trauma. Code(s): S09.90XA - UNSPECIFIED INJURY OF HEAD, INITIAL ENCOUNTER Qualifiers: Encounter type: initial encounter (2) Acute kidney failure Code(s): N17.9 - ACUTE KIDNEY FAILURE, UNSPECIFIED (3) UTI (urinary tract infection) Code(s): N39.0 - URINARY TRACT INFECTION, SITE NOT SPECIFIED Qualifiers: Urinary tract infection type: site unspecified Hematuria presence: without hematuria Qualified Code(s): N39.0 - Urinary tract infection, site not specified (4) Urinary retention due to benign prostatic hyperplasia Code(s): N40.1 - BENIGN PROSTATIC HYPERPLASIA WITH LOWER URINARY TRACT SYMP R33.8 - OTHER RETENTION OF URINE (5) Atrial fibrillation Code(s): I48.91 - UNSPECIFIED ATRIAL FIBRILLATION Qualifiers: Atrial fibrillation type: permanent Qualified Code(s): I48.2 - Chronic atrial fibrillation (6) Pneumonia Code(s): J18.9 - PNEUMONIA, UNSPECIFIED ORGANISM Qualifiers: Pneumonia type: due to unspecified organism Laterality: right Lung location: lower lobe of lung Qualified Code(s): J18.9 - Pneumonia, unspecified organism (7) Acute on chronic systolic (congestive) heart failure Code(s): I50.23 - ACUTE ON CHRONIC SYSTOLIC (CONGESTIVE) HEART FAILURE (8) COPD (chronic obstructive pulmonary disease) Code(s): J44.9 - CHRONIC OBSTRUCTIVE PULMONARY DISEASE, UNSPECIFIED Qualifiers : COPD type: unspecified COPD Qualified Code(s): J44.9 - Chronic obstructive pulmonary disease, unspecified (9) Anemia Code(s): D64.9 - ANEMIA, UNSPECIFIED Qualifiers: Anemia type: other cause Other causes of anemia: other cause, not classified Qualified Code(s): D64.89 - Other specified anemias (10) Dementia Code(s): F03.90 - UNSPECIFIED DEMENTIA WITHOUT BEHAVIORAL DISTURBANCE Qualifiers: Dementia type: unspecified type Dementia behavioral disturbance: without behavioral disturbance Qualified Code(s): F03.90 - Unspecified dementia without behavioral disturbance patient has mdr uti has allergy to pcn plan continue abx wound care rest as per primary team nutrition
[2017-01-30] MEDS: WARFARIN NA 5 MG TABLET (UD) PO SCH (17:07)
--- NOTE | 2017-01-30 18:16 | PN ---
Progress Note, Physician History of Present Illness: Pt seen and examined at bedside. He remains confused. He is drinking his supplements and eating about 50 percent of his meals. - Current Medication List Current Medications: Active Medications Acetaminophen (Tylenol -) 650 mg PO Q4H PRN PRN Reason: FEVER OR PAIN Last Admin: 01/29/17 21:51 Dose: 650 mg Ascorbic Acid (Vitamin C -) 500 mg PO TID [facility] Last Admin: 01/30/17 14:38 Dose: 500 mg Collagenase (Santyl -) 1 applic TP DAILY [facility] Last Admin: 01/30/17 09:32 Dose: 1 applic Ferrous Sulfate (Feosol -) 325 mg PO TID [facility] Last Admin: 01/30/17 14:38 Dose: 325 mg Guaifenesin/Codeine Phosphate (Robitussin Ac -) 5 ml PO HS [facility] Last Admin: 01/29/17 21:50 Dose: 5 ml Ertapenem 1 gm/ Sodium (Chloride) 50 mls @ 50 mls/hr IVPB DAILY [facility] PRN Reason: Protocol Last Admin: 01/30/17 09:31 Dose: 50 mls/hr Lactobacillus Acidophilus (Bacid -) 1 tab PO DAILY [facility] Last Admin: 01/30/17 09:32 Dose: 1 tab Latanoprost (Xalatan 0.005% Eye Drops -) 1 drop OU HS [facility] Last Admin: 01/29/17 21:50 Dose: 1 drop Lorazepam (Ativan Injection -) 0.5 mg IVPB Q4H PRN PRN Reason: AGITATION Last Admin: 01/30/17 12:46 Dose: 0.5 mg Ondansetron HCl (Zofran Injection) 4 mg IVPB Q6H PRN PRN Reason: NAUSEA Ranitidine HCl (Zantac -) 150 mg PO BID [facility] Last Admin: 01/30/17 09:32 Dose: 150 mg Warfarin Sodium (Coumadin -) 5 mg PO DAILY@1800 [facility] Last Admin: 01/30/17 17:07 Dose: 5 mg - Objective Vital Signs: Vital Signs Temperature 97.5 F L 01/30/17 15:49 Pulse Rate 57 L 01/30/17 10:00 Respiratory Rate 20 01/30/17 06:00 Blood Pressure 119/65 01/30/17 10:00 O2 Sat by Pulse Oximetry (%) 96 01/30/17 09:00 Constitutional: Yes: Calm Eyes: Yes: Conjunctiva Clear HENT: Yes: Atraumatic Neck: Yes: Supple Cardiovascular: Yes: JVD, S1, S2 Respiratory: Yes: On Nasal O2 Gastrointestinal: Yes: Soft Genitourinary: Yes: Incontinence Edema: No Neurological: Yes: Confusion Labs: CBC, BMP 01/30/17 06:10 01/30/17 06:10 INR, PTT INR 2.41 (0.82-1.09) H 01/30/17 11:22 Problem List - Problems (1) Acute on chronic renal failure Code(s): N17.9 - ACUTE KIDNEY FAILURE, UNSPECIFIED N18.9 - CHRONIC KIDNEY DISEASE, UNSPECIFIED (2) Anemia Code(s): D64.9 - ANEMIA, UNSPECIFIED Qualifiers: Anemia type: other cause Other causes of anemia: other cause, not classified Qualified Code(s): D64.89 - Other specified anemias (3) Atrial fibrillation Code(s): I48.91 - UNSPECIFIED ATRIAL FIBRILLATION Qualifiers: Atrial fibrillation type: permanent Qualified Code(s): I48.2 - Chronic atrial fibrillation Assessment/Plan Current Medications Generic Name Dose Route Start Last Admin Trade Name Freq PRN Reason Stop Dose Admin Acetaminophen 650 mg 01/26/17 20:29 01/29/17 21:51 Tylenol - PO 650 mg Q4H PRN Administration FEVER OR PAIN Ascorbic Acid 500 mg 01/26/17 22:00 01/30/17 14:38 Vitamin C - PO 500 mg TID NAIF Administration Collagenase 1 applic 01/29/17 20:30 01/30/17 09:32 Santyl - TP 1 applic DAILY NAIF Administration Ferrous Sulfate 325 mg 01/26/17 22:00 01/30/17 14:38 Feosol - PO 325 mg TID NAIF Administration Guaifenesin/Codeine Phosphate 5 ml 01/26/17 22:00 01/29/17 21:50 Robitussin Ac - PO 5 ml HS NAIF Administration Ertapenem 1 gm/ Sodium 50 mls @ 50 mls/hr 01/29/17 14:00 01/30/17 09:31 Chloride IVPB 50 mls/hr DAILY NAIF Administration Protocol Lactobacillus Acidophilus 1 tab 01/27/17 10:00 01/30/17 09:32 Bacid - PO 1 tab DAILY NAIF Administration Latanoprost 1 drop 01/27/17 22:00 01/29/17 21:50 Xalatan 0.005% Eye Drops - OU 1 drop HS NA[facility] Administration Lorazepam 0.5 mg 01/27/17 18:42 01/30/17 12:46 Ativan Injection - IVPB 0.5 mg Q4H PRN Administration AGITATION Ondansetron HCl 4 mg 01/26/17 20:29 Zofran Injection IVPB Q6H PRN NAUSEA Ranitidine HCl 150 mg 01/27/17 22:00 01/30/17 09:32 Zantac - PO 150 mg BID NAIF Administration Warfarin Sodium 5 mg 01/27/17 18:00 01/30/17 17:07 Coumadin - PO 5 mg DAILY@1800 NAIF Administration Impression 1. TATY 2. CHF 3. a-fib 4. CVA 5. Dementia 6. COPD 7. PNA 8. HTN 9. CKD 10. s/p fall Plan - renal function is starting to improve - lasix PRN - wound not give fluids - encourage PO intake - repeat lab in am Dr Abdi
[2017-01-30] MEDS: LATANOPROST 0.005% OPHTH SOLN 2.5ML BOTTLE OU SCH (21:39)
[2017-01-30] MEDS: guaiFENesin/CODEINE 5 ML UNIT-DOSE CUPS PO SCH (21:39)
[2017-01-30] MEDS: ACETAMINOPHEN 325 MG TABLET (FP) PO PRN (21:40)
[2017-01-31] MEDS: ASCORBIC ACID 500 MG TABLET (FP) PO SCH ×3 (06:38→22:03)
[2017-01-31] MEDS: FERROUS SO4 325 MG TABLET (FP) PO SCH ×3 (06:38→22:00)
[2017-01-31 07:43] LABS: MCH 30.3 pg (25.7-33.7); MEAN CELL VOLUME 94.5 fl (80-96); MEAN PLT VOLUME 8.9 fl (7.5-11.1); PLATELET COUNT 147 K/MM3 (134-434); RDW 21.3 % (11.9-15.9); WHITE BLOOD COUNT 10.2 K/mm3 (4.0-10.0)
[2017-01-31 08:10] LABS: INR 2.39 (0.82-1.09); PROTHROMBIN TIME (PATIENT) 26.8 SEC (9.98-11.88)
[2017-01-31 08:15] LABS: ALBUMIN 2.2 g/dl (3.4-5.0); ANION GAP 10 (8-16); CALCIUM 8.6 mg/dL (8.5-10.1); CO2 27 mmol/L (21-32); GLUCOSE,RANDOM 91 mg/dL (74-106)
[2017-01-31 08:18] LABS: ALK PHOS 200 U/L (45-117); BILIRUBIN,TOTAL 1.4 mg/dL (0.2-1.0); CREATININE 1.8 mg/dL (0.7-1.3); SGOT/AST 25 U/L (15-37); SGPT/ALT 27 U/L (12-78); TOT PROT 6.1 g/dl (6.4-8.2)
--- NOTE | 2017-01-31 09:13 | PN ---
Progress Note (short form) - Note Progress Note: ADMITTED FROM SNF S/P FALL WITH HEAD TRAUMA <> CT SCAN HEAD X 2 NEGATIVE FOR ACUTE PATH / NO BLEED <> OLD INFARCT . HY OF DEMENTIA / SACRAL DECUBITUS / POSSIBLE RT LOBE PNEUMONIA / UTI . SEEN BY ID <> ON INVANZ <> WOUND CARE CONSULT WITH DR JOHNS FOR SACRAL ULCER. Selected Entries 01/31/17 06:00 Temperature 97.8 F Pulse Rate 70 Respiratory 20 Rate Blood Pressure 118/64 Weight 120 lb Laboratory Tests 01/28/17 01/29/17 01/31/17 16:11 06:00 07:31 WBC 10.2 H RBC 2.96 L Hgb 9.0 L D Hct 28.0 L Plt Count 147 INR ABG pH 7.44 ABG pCO2 at Pt Temp 31.9 L ABG pO2 at Pt Temp 82.9 ABG HCO3 21.1 L ABG O2 Sat (Measured) 96.9 Sodium Potassium Chloride Carbon Dioxide Anion Gap BUN Creatinine Creat Clearance w eGFR Random Glucose Calcium Total Bilirubin AST ALT Alkaline Phosphatase TSH 1.85 D 01/31/17 01/31/17 07:31 07:31 WBC RBC Hgb Hct Plt Count INR 2.39 H ABG pH ABG pCO2 at Pt Temp ABG pO2 at Pt Temp ABG HCO3 ABG O2 Sat (Measured) Sodium 147 H Potassium 4.5 Chloride 110 H Carbon Dioxide 27 Anion Gap 10 BUN 82 H Creatinine 1.8 H Creat Clearance w eGFR 35.87 Random Glucose 91 Calcium 8.6 Total Bilirubin 1.4 H AST 25 ALT 27 Alkaline Phosphatase 200 H TSH P/E <> AWAKE / ADVANCED DEMENTIA / AGITATED. HEENT <> NECK SUPPLE COR <> S 1 S 2 ' CHEST <> S 1 S 2 HS DISTANT ABD <> SOFT / NONTENDER EXT <> NO CALF TENDERNESS / NO EDEMA IMP : HEAD TRAUMA AKF UTI BPH AFIB PNEUMONIA DEMENTIA HY OF CVA. SACRAL DECUBITUS ULCER ANEMIA PLAN <> CONTINUE INVANZ PER ID FOLLOW LABS / MONITOR INR RENAL FOLLOWUP [facility] PULMONARY / ID FOLLOWUP. DECUBITI CARE SUPPORTIVE CARE.
[2017-01-31] MEDS: LACTOBACILLUS ACIDOPHILUS 1 EACH TAB (FP) PO SCH (10:27)
[2017-01-31] MEDS: ERTAPENEM SODIUM 1 GM in SODIUM CHLORIDE 50 ML IVPB SCH (10:28)
[2017-01-31] MEDS: RANITIDINE HCL 150 MG TABLET (FP) PO SCH ×2 (10:28→22:00)
[2017-01-31] MEDS: COLLAGENASE CLOSTRIDIUM HIST. 30 GRAMS TUBE TP SCH (10:31)
[2017-01-31 12:00] LABS: PLATELET COMMENT2 NO CLOTTING DETECTED; PLATELET ESTIMATE SLT DECREASED (NORMAL)
[2017-01-31 12:01] LABS: ANISOCYTOSIS 1+; HYPOCHROMIA 1+
--- NOTE | 2017-01-31 13:07 | PN ---
Progress Note, Physician Chief Complaint: Events noted Underlying dementia History of Present Illness: Patient was seen and examined. Chart was reviewed - Current Medication List Current Medications: Active Medications Acetaminophen (Tylenol -) 650 mg PO Q4H PRN PRN Reason: FEVER OR PAIN Last Admin: 01/30/17 21:40 Dose: 650 mg Ascorbic Acid (Vitamin C -) 500 mg PO TID [facility] Last Admin: 01/31/17 06:38 Dose: 500 mg Collagenase (Santyl -) 1 applic TP DAILY [facility] Last Admin: 01/31/17 10:31 Dose: 1 applic Ferrous Sulfate (Feosol -) 325 mg PO TID [facility] Last Admin: 01/31/17 06:38 Dose: 325 mg Guaifenesin/Codeine Phosphate (Robitussin Ac -) 5 ml PO HS [facility] Last Admin: 01/30/17 21:39 Dose: 5 ml Ertapenem 1 gm/ Sodium (Chloride) 50 mls @ 50 mls/hr IVPB DAILY [facility] PRN Reason: Protocol Last Admin: 01/31/17 10:28 Dose: 50 mls/hr Lactobacillus Acidophilus (Bacid -) 1 tab PO DAILY [facility] Last Admin: 01/31/17 10:27 Dose: 1 tab Latanoprost (Xalatan 0.005% Eye Drops -) 1 drop OU HS [facility] Last Admin: 01/30/17 21:39 Dose: 1 drop Ondansetron HCl (Zofran Injection) 4 mg IVPB Q6H PRN PRN Reason: NAUSEA Ranitidine HCl (Zantac -) 150 mg PO BID [facility] Last Admin: 01/31/17 10:28 Dose: 150 mg Warfarin Sodium (Coumadin -) 5 mg PO DAILY@1800 [facility] Last Admin: 01/30/17 17:07 Dose: 5 mg - Objective Vital Signs: Vital Signs Temperature 97.8 F 01/31/17 06:00 Pulse Rate 68 01/31/17 10:00 Respiratory Rate 20 01/31/17 10:00 Blood Pressure 135/67 01/31/17 10:00 O2 Sat by Pulse Oximetry (%) 95 01/30/17 20:41 Cardiovascular: Yes: Pulse Irregular, Murmur (2/6 SM), S1, S2 Respiratory: Yes: Diminished Gastrointestinal: Yes: Normal Bowel Sounds, Soft. No: Tenderness Edema: No Labs: CBC, BMP 01/31/17 07:31 08/05/17 07:31 INR, PTT INR 2.39 (0.82-1.09) H 01/31/17 07:31 Problem List - Problems (1) Acute on chronic renal failure Code(s): N17.9 - ACUTE KIDNEY FAILURE, UNSPECIFIED N18.9 - CHRONIC KIDNEY DISEASE, UNSPECIFIED (2) Anemia Code(s): D64.9 - ANEMIA, UNSPECIFIED Qualifiers: Anemia type: other cause Other causes of anemia: other cause, not classified Qualified Code(s): D64.89 - Other specified anemias (3) Atrial fibrillation Code(s): I48.91 - UNSPECIFIED ATRIAL FIBRILLATION Qualifiers: Atrial fibrillation type: permanent Qualified Code(s): I48.2 - Chronic atrial fibrillation (4) Fall Code(s): W19.XXXA - UNSPECIFIED FALL, INITIAL ENCOUNTER (5) Head trauma Code(s): S09.90XA - UNSPECIFIED INJURY OF HEAD, INITIAL ENCOUNTER Qualifiers: Encounter type: initial encounter Qualified Code(s): S09.90XA - Unspecified injury of head, initial encounter (6) Mitral regurgitation Code(s): I34.0 - NONRHEUMATIC MITRAL (VALVE) INSUFFICIENCY Qualifiers: Cardiac valve disease etiology: nonrheumatic Qualified Code(s): I34.0 - Nonrheumatic mitral (valve) insufficiency (7) Subtherapeutic international normalized ratio (INR) Code(s): R79.1 - ABNORMAL COAGULATION PROFILE (8) UTI (urinary tract infection) Code(s): N39.0 - URINARY TRACT INFECTION, SITE NOT SPECIFIED Qualifiers: Urinary tract infection type: site unspecified Hematuria presence: without hematuria Qualified Code(s): N39.0 - Urinary tract infection, site not specified (9) Dementia Code(s): F03.90 - UNSPECIFIED DEMENTIA WITHOUT BEHAVIORAL DISTURBANCE Qualifiers: Dementia type: unspecified type Dementia behavioral disturbance: without behavioral disturbance Qualified Code(s): F03.90 - Unspecified dementia without behavioral disturbance (10) Acute on chronic systolic (congestive) heart failure Code(s): I50.23 - ACUTE ON CHRONIC SYSTOLIC (CONGESTIVE) HEART FAILURE (11) Bradycardia Code(s): R00.1 - BRADYCARDIA, UNSPECIFIED (12) Cerebrovascular disease Code(s): I67.9 - CEREBROVASCULAR DISEASE, UNSPECIFIED (13) Hypertensive cardiovascular disease Code(s): I11.9 - HYPERTENSIVE HEART DISEASE WITHOUT HEART FAILURE Qualifiers: Heart failure presence: with heart failure Qualified Code(s): I11.0 - Hypertensive heart disease with heart failure (14) COPD (chronic obstructive pulmonary disease) Code(s): J44.9 - CHRONIC OBSTRUCTIVE PULMONARY DISEASE, UNSPECIFIED Qualifiers : COPD type: unspecified COPD Qualified Code(s): J44.9 - Chronic obstructive pulmonary disease, unspecified Assessment/Plan 1. Acute on Chronic Systolic Heart Failure resolving 2. Mitral valve Regurgitation 3. Pulmonary hypertension 4. Pleural Effusion 5. Persistent Atrial Fibrillation with subtherapeutic INR 6. COPD 7. Proteus UTI 8. Vascular dementia, h/o falls 9. Anemia 10. Acute on CKD 11. Recent right hip hemiarthroplasty PLAN: 1. Diuresis with monitoring renal function and electrolytes 2. Coumadin per INR with caution and monitor Hgb 3. Resume Losartan 25 qd once renal function stabilizes 4. Complete Antibiotic course for UTI Further plans are to follow Brenden Davenport MD
--- NOTE | 2017-01-31 13:43 | PN ---
Progress Note, Physician Chief Complaint: Infectious Disease History of Present Illness: Pt confused/demented. No new events noted. No productive cough noted, afebrile - Current Medication List Current Medications: Active Medications Acetaminophen (Tylenol -) 650 mg PO Q4H PRN PRN Reason: FEVER OR PAIN Last Admin: 01/30/17 21:40 Dose: 650 mg Ascorbic Acid (Vitamin C -) 500 mg PO TID [facility] [place] Last Admin: 01/31/17 06:38 Dose: 500 mg Collagenase (Santyl -) 1 applic TP DAILY [facility] [place] Last Admin: 01/31/17 10:31 Dose: 1 applic Ferrous Sulfate (Feosol -) 325 mg PO TID [facility] [place] Last Admin: 01/31/17 06:38 Dose: 325 mg Guaifenesin/Codeine Phosphate (Robitussin Ac -) 5 ml PO HS [facility] [place] Last Admin: 01/30/17 21:39 Dose: 5 ml Ertapenem 1 gm/ Sodium (Chloride) 50 mls @ 50 mls/hr IVPB DAILY [facility] [place] PRN Reason: Protocol Last Admin: 01/31/17 10:28 Dose: 50 mls/hr Lactobacillus Acidophilus (Bacid -) 1 tab PO DAILY [facility] [place] Last Admin: 01/31/17 10:27 Dose: 1 tab Latanoprost (Xalatan 0.005% Eye Drops -) 1 drop OU HS [facility] [place] Last Admin: 01/30/17 21:39 Dose: 1 drop Ondansetron HCl (Zofran Injection) 4 mg IVPB Q6H PRN PRN Reason: NAUSEA Ranitidine HCl (Zantac -) 150 mg PO BID [facility] [place] Last Admin: 01/31/17 10:28 Dose: 150 mg Warfarin Sodium (Coumadin -) 5 mg PO DAILY@1800 [facility] [place] Last Admin: 01/30/17 17:07 Dose: 5 mg - Objective Vital Signs: Vital Signs Temperature 97.8 F 01/31/17 06:00 Pulse Rate 68 01/31/17 10:00 Respiratory Rate 20 01/31/17 10:00 Blood Pressure 135/67 01/31/17 10:00 O2 Sat by Pulse Oximetry (%) 95 01/30/17 20:41 Constitutional: Yes: No Distress (irregular) Respiratory: Yes: Other (scattered rhonchi) Gastrointestinal: Yes: Normal Bowel Sounds, Soft Genitourinary: Yes: Quintana Present (clear yellow urine) Extremities: Yes: WNL Integumentary: Yes: WNL Neurological: Yes: Confusion Labs: CBC, BMP 01/31/17 07:31 01/31/17 07:31 INR, PTT INR 2.39 (0.82-1.09) H 01/31/17 07:31 Microbiology 01/28/17 12:25 Blood Culture - Preliminary Blood - Peripheral Venous NO GROWTH OBTAINED AFTER 72 HOURS, INCUBATION TO CONTINUE FOR 2 DAYS. 01/28/17 12:20 Blood Culture - Preliminary Blood - Peripheral Venous NO GROWTH OBTAINED AFTER 72 HOURS, INCUBATION TO CONTINUE FOR 2 DAYS. Problem List - Problems (1) Acute on chronic renal failure Code(s): N17.9 - ACUTE KIDNEY FAILURE, UNSPECIFIED N18.9 - CHRONIC KIDNEY DISEASE, UNSPECIFIED (2) UTI (urinary tract infection) Code(s): N39.0 - URINARY TRACT INFECTION, SITE NOT SPECIFIED Qualifiers: Urinary tract infection type: site unspecified Hematuria presence: without hematuria Qualified Code(s): N39.0 - Urinary tract infection, site not specified (3) Urinary retention due to benign prostatic hyperplasia Code(s): N40.1 - BENIGN PROSTATIC HYPERPLASIA WITH LOWER URINARY TRACT SYMP R33.8 - OTHER RETENTION OF URINE (4) Dementia Code(s): F03.90 - UNSPECIFIED DEMENTIA WITHOUT BEHAVIORAL DISTURBANCE Qualifiers: Dementia type: unspecified type Dementia behavioral disturbance: without behavioral disturbance Qualified Code(s): F03.90 - Unspecified dementia without behavioral disturbance (5) Acute kidney failure Code(s): N17.9 - ACUTE KIDNEY FAILURE, UNSPECIFIED (6) COPD (chronic obstructive pulmonary disease) Code(s): J44.9 - CHRONIC OBSTRUCTIVE PULMONARY DISEASE, UNSPECIFIED Qualifiers : COPD type: unspecified COPD Qualified Code(s): J44.9 - Chronic obstructive pulmonary disease, unspecified Assessment/Plan Pt stable at this time continue current antibiotics monitor closely
[2017-01-31] MEDS: WARFARIN NA 5 MG TABLET (UD) PO SCH (17:15)
--- NOTE | 2017-01-31 17:47 | PN ---
Progress Note (short form) - Note Progress Note: Current Active Problems Acute on chronic renal failure (Acute) Anemia (Acute) Atrial fibrillation (Acute) Cognitive impairment (Acute) Dehydration (Acute) Fall (Acute) Head trauma (Acute) Mitral regurgitation (Acute) Pleural effusion (Acute) Pressure ulcer of sacral region, stage 3 (Acute) Subtherapeutic international normalized ratio (INR) (Acute) UTI (urinary tract infection) (Acute) Urinary retention due to benign prostatic hyperplasia (Acute) Dementia (Chronic) Active Medications Acetaminophen (Tylenol -) 650 mg PO Q4H PRN PRN Reason: FEVER OR PAIN Last Admin: 01/30/17 21:40 Dose: 650 mg Ascorbic Acid (Vitamin C -) 500 mg PO TID [facility] Last Admin: 01/31/17 17:15 Dose: 500 mg Collagenase (Santyl -) 1 applic TP DAILY [facility] Last Admin: 01/31/17 10:31 Dose: 1 applic Ferrous Sulfate (Feosol -) 325 mg PO TID [facility] Last Admin: 01/31/17 17:15 Dose: 325 mg Guaifenesin/Codeine Phosphate (Robitussin Ac -) 5 ml PO HS [facility] Last Admin: 01/30/17 21:39 Dose: 5 ml Ertapenem 1 gm/ Sodium (Chloride) 50 mls @ 50 mls/hr IVPB DAILY [facility] PRN Reason: Protocol Last Admin: 01/31/17 10:28 Dose: 50 mls/hr Lactobacillus Acidophilus (Bacid -) 1 tab PO DAILY [facility] Last Admin: 01/31/17 10:27 Dose: 1 tab Latanoprost (Xalatan 0.005% Eye Drops -) 1 drop OU HS [facility] Last Admin: 01/30/17 21:39 Dose: 1 drop Ondansetron HCl (Zofran Injection) 4 mg IVPB Q6H PRN PRN Reason: NAUSEA Ranitidine HCl (Zantac -) 150 mg PO BID [facility] Last Admin: 01/31/17 10:28 Dose: 150 mg Warfarin Sodium (Coumadin -) 5 mg PO DAILY@1800 [facility] Last Admin: 01/31/17 17:15 Dose: 5 mg Last Vital Signs Temp Pulse Resp BP Pulse Ox 98.2 F 67 20 129/61 95 01/31/17 15:29 01/31/17 15:29 01/31/17 15:29 01/31/17 15:29 01/30/17 20:41 lying sideways in the bed speaking incoherently oral mucosa dry lungs marquez heart irreg irreg abd soft no guarding ext no edema Problem List - Problems (1) Acute on chronic renal failure Assessment/Plan: renal function improving after efforts to hydrate po not reliable for ongoing IVF Code(s): N17.9 - ACUTE KIDNEY FAILURE, UNSPECIFIED N18.9 - CHRONIC KIDNEY DISEASE, UNSPECIFIED Qualifiers: Chronic kidney disease stage: unspecified stage Qualified Code(s): N17.9 - Acute kidney failure, unspecified; N18.9 - Chronic kidney disease, unspecified (2) Acute kidney failure Code(s): N17.9 - ACUTE KIDNEY FAILURE, UNSPECIFIED Qualifiers: Acute renal failure type: unspecified Qualified Code(s): N17.9 - Acute kidney failure, unspecified (3) Dehydration Assessment/Plan: hypernatremia today inspite of rehydration efforts being assisted by nursing staff and they report that he drinks without difficulty will continue to provide extra fluid consider IVF if Na rises further or does not come down will check BMP now Code(s): E86.0 - DEHYDRATION (4) Cognitive impairment Code(s): R41.89 - OTH SYMPTOMS AND SIGNS W COGNITIVE FUNCTIONS AND AWARENESS
[2017-01-31 20:50] LABS: ANION GAP 7 (8-16); CALCIUM 8.7 mg/dL (8.5-10.1); CO2 27 mmol/L (21-32); CREATININE 1.8 mg/dL (0.7-1.3); GLUCOSE,RANDOM 124 mg/dL (74-106)
[2017-01-31] MEDS: LATANOPROST 0.005% OPHTH SOLN 2.5ML BOTTLE OU SCH (22:00)
[2017-01-31] MEDS: guaiFENesin/CODEINE 5 ML UNIT-DOSE CUPS PO SCH (22:03)
[2017-02-01] MEDS: ACETAMINOPHEN 325 MG TABLET (FP) PO PRN ×2 (06:38→21:57)
[2017-02-01] MEDS: FERROUS SO4 325 MG TABLET (FP) PO SCH ×3 (06:38→21:57)
[2017-02-01] MEDS: ASCORBIC ACID 500 MG TABLET (FP) PO SCH ×3 (06:38→21:57)
--- NOTE | 2017-02-01 07:49 | PN ---
Progress Note (short form) - Note Progress Note: NO OVERALL CHANGE / S/P FALL / HEAD TRAUMA WITH ADVANCED DEMENTIA. PATIENT REMAINS CONFUSED. ID FOLLOWUP / RENAL FOLLOWUP / WOUND CARE FOLLOWUP APPRECIATED. PATIENT WITH PRODUCTIVE COUGH. Selected Entries 02/01/17 06:00 Temperature 97.7 F Pulse Rate 76 Respiratory 20 Rate Blood Pressure 112/58 Weight 120 lb Selected Entries Laboratory Tests P/E <> AWAKE / CONFUSED / AGITATED / COUGH HEENT <> NECK SUPPLE COR <> S 1 S 2 HS DISTANT CHEST <> RHONCHI AT BASES / DECREASED BS AT BASES. ABD <> SOFT / NONTENDER EXT <> NO CALF TENDERNESS / NO EDEMA IMP : HEAD TRAUMA AKF UTI BPH AFIB PNEUMONIA DEMENTIA HY OF CVA. SACRAL DECUBITUS ULCER ANEMIA PLAN <> ANTIBIOTICS PER ID. CXR ORDERED . PULMONARY CONSULT WITH DR ROBLES. CONTINUE DECUBITI CARE / WOUND CARE CARDIOLOGY NOTE APPRECIATED. TO RESUME LOSARTAN ONCE RENAL FX STABLIZES. MONITOR LYTES / RENAL FUNCTION . TODAYS LABS PENDING.
[2017-02-01 09:02] LABS: BASOPHIL 2.9 % (0-2.0); MCHC 31.2 g/dl (32.0-35.9); MEAN CELL VOLUME 96.4 fl (80-96); MEAN PLT VOLUME 8.6 fl (7.5-11.1); NEUTROPHILS 82.4 % (42.8-82.8); PLATELET COUNT 166 K/MM3 (134-434); RDW 21.8 % (11.9-15.9)
[2017-02-01 09:33] LABS: ALBUMIN 2.4 g/dl (3.4-5.0); ANION GAP 11 (8-16); BILIRUBIN,TOTAL 1.2 mg/dL (0.2-1.0); CO2 27 mmol/L (21-32); CREATININE 1.9 mg/dL (0.7-1.3); GLUCOSE,RANDOM 93 mg/dL (74-106); SGOT/AST 25 U/L (15-37); SGPT/ALT 27 U/L (12-78); TOT PROT 6.7 g/dl (6.4-8.2)
[2017-02-01 09:34] LABS: ALK PHOS 235 U/L (45-117)
[2017-02-01] MEDS ORDERED: PT OWN MED DRAWER 7, Y5N ONE (10:24)
[2017-02-01] MEDS: ERTAPENEM SODIUM 1 GM in SODIUM CHLORIDE 50 ML IVPB SCH (10:26)
[2017-02-01] MEDS: RANITIDINE HCL 150 MG TABLET (FP) PO SCH ×2 (10:26→21:57)
[2017-02-01] MEDS: LACTOBACILLUS ACIDOPHILUS 1 EACH TAB (FP) PO SCH (10:26)
[2017-02-01] MEDS: COLLAGENASE CLOSTRIDIUM HIST. 30 GRAMS TUBE TP SCH (10:27)
--- NOTE | 2017-02-01 11:35 | PN ---
Progress Note, Physician History of Present Illness: pulmonary confused,restless,congested. - Current Medication List Current Medications: Active Medications Acetaminophen (Tylenol -) 650 mg PO Q4H PRN PRN Reason: FEVER OR PAIN Last Admin: 02/01/17 06:38 Dose: 650 mg Ascorbic Acid (Vitamin C -) 500 mg PO TID [facility] Last Admin: 02/01/17 06:38 Dose: 500 mg Collagenase (Santyl -) 1 applic TP DAILY [facility] Last Admin: 02/01/17 10:27 Dose: 1 applic Ferrous Sulfate (Feosol -) 325 mg PO TID [facility] Last Admin: 02/01/17 06:38 Dose: 325 mg Guaifenesin/Codeine Phosphate (Robitussin Ac -) 5 ml PO HS [facility] Last Admin: 01/31/17 22:03 Dose: 5 ml Ertapenem 1 gm/ Sodium (Chloride) 50 mls @ 50 mls/hr IVPB DAILY [facility] PRN Reason: Protocol Last Admin: 02/01/17 10:26 Dose: 50 mls/hr Lactobacillus Acidophilus (Bacid -) 1 tab PO DAILY [facility] Last Admin: 02/01/17 10:26 Dose: 1 tab Latanoprost (Xalatan 0.005% Eye Drops -) 1 drop OU HS [facility] Last Admin: 01/31/17 22:00 Dose: 1 drop Ondansetron HCl (Zofran Injection) 4 mg IVPB Q6H PRN PRN Reason: NAUSEA Ranitidine HCl (Zantac -) 150 mg PO BID [facility] Last Admin: 02/01/17 10:26 Dose: 150 mg Warfarin Sodium (Coumadin -) 5 mg PO DAILY@1800 [facility] Last Admin: 01/31/17 17:15 Dose: 5 mg - Objective Vital Signs: Vital Signs Temperature 98.0 F 02/01/17 08:25 Pulse Rate 70 02/01/17 08:25 Respiratory Rate 18 02/01/17 08:25 Blood Pressure 122/78 02/01/17 08:25 O2 Sat by Pulse Oximetry (%) 96 01/31/17 20:42 Constitutional: Yes: Thin, Other (confused) Eyes: Yes: WNL HENT: Yes: WNL Neck: Yes: WNL Cardiovascular: Yes: Pulse Irregular, S1, S2 Respiratory: Yes: Rhonchi (bilateral rhonchi) Gastrointestinal: Yes: Normal Bowel Sounds, Soft Extremities: Yes: WNL Edema: No Labs: CBC, BMP 02/01/17 07:25 02/01/17 07:25 INR, PTT INR 2.39 (0.82-1.09) H 01/31/17 07:31 - ....Imaging Chest X-ray: Report Reviewed, Image Reviewed (no change bilateral congestion) Assessment/Plan Problem List - Problems (1) Head trauma Code(s): S09.90XA - UNSPECIFIED INJURY OF HEAD, INITIAL ENCOUNTER Qualifiers: Encounter type: initial encounter Qualified Code(s): S09.90XA - Unspecified injury of head, initial encounter (2) Fall Code(s): W19.XXXA - UNSPECIFIED FALL, INITIAL ENCOUNTER (3) Pleural effusion Code(s): J90 - PLEURAL EFFUSION, NOT ELSEWHERE CLASSIFIED (4) Atrial fibrillation Code(s): I48.91 - UNSPECIFIED ATRIAL FIBRILLATION Qualifiers: Atrial fibrillation type: permanent Qualified Code(s): I48.2 - Chronic atrial fibrillation (5) UTI (urinary tract infection) Code(s): N39.0 - URINARY TRACT INFECTION, SITE NOT SPECIFIED Qualifiers: Urinary tract infection type: site unspecified Hematuria presence: without hematuria Qualified Code(s): N39.0 - Urinary tract infection, site not specified (6) Acute on chronic systolic (congestive) heart failure Code(s): I50.23 - ACUTE ON CHRONIC SYSTOLIC (CONGESTIVE) HEART FAILURE (7) Pulmonary hypertension Code(s): I27.2 - OTHER SECONDARY PULMONARY HYPERTENSION (8) Mitral regurgitation Code(s): I34.0 - NONRHEUMATIC MITRAL (VALVE) INSUFFICIENCY (9) COPD (chronic obstructive pulmonary disease) Code(s): J44.9 - CHRONIC OBSTRUCTIVE PULMONARY DISEASE, UNSPECIFIED Qualifiers : COPD type: unspecified COPD Qualified Code(s): J44.9 - Chronic obstructive pulmonary disease, unspecified (10) Acute on chronic renal failure Code(s): N17.9 - ACUTE KIDNEY FAILURE, UNSPECIFIED N18.9 - CHRONIC KIDNEY DISEASE, UNSPECIFIED (11) Dementia Code(s): F03.90 - UNSPECIFIED DEMENTIA WITHOUT BEHAVIORAL DISTURBANCE Qualifiers: Dementia type: unspecified type Dementia behavioral disturbance: without behavioral disturbance Qualified Code(s): F03.90 - Unspecified dementia without behavioral disturbance Assessment/Plan s/p Fall Acute on Chronic Systolic Heart Failure Mitral Regurgitation Pulmonary HTN Pleural Effusion Atrial Fibrillation COPD r/o UTI Dementia Anemia - - findings likely more due to CHF - antibiotics, - consider IV lasix - monitor urine output, creatinine - inhaled bronchodilators - rate controlled - continue anticoagulation for now, may need to reassess indication if pt fall risk - monitor h+h - abg DR ROBLES
[2017-02-01 12:18] LABS: ARTERIAL BLD GAS O2 SATURATION 91.5 % (90-98.9); ARTERIAL BLOOD GAS BASE EXCESS 2.9 meq/l (-2-2); ARTERIAL BLOOD GAS HCO3 26.3 meq/L (22-26)
[2017-02-01 12:19] LABS: ALLENS TEST POSITIVE; ART PUNCT SITE RIGHT RADIAL; LPM/O2% 21%; PT. ON O2? NO; TYPE OF O2 ROOM AIR
[2017-02-01 12:20] LABS: ARTERIAL BLOOD GAS pH 7.46 (7.35-7.45)
[2017-02-01] MEDS ORDERED: DEXTROSE 5%-WATER - 1,000 ML IV SCH (16:00)
--- NOTE | 2017-02-01 16:03 | PN ---
Progress Note (short form) - Note Progress Note: Current Active Problems Acute on chronic renal failure (Acute) Anemia (Acute) Atrial fibrillation (Acute) Cognitive impairment (Acute) Dehydration (Acute) Fall (Acute) Head trauma (Acute) Mitral regurgitation (Acute) Pleural effusion (Acute) Pressure ulcer of sacral region, stage 3 (Acute) Subtherapeutic international normalized ratio (INR) (Acute) UTI (urinary tract infection) (Acute) Urinary retention due to benign prostatic hyperplasia (Acute) Dementia (Chronic) Current Medications Acetaminophen (Tylenol -) 650 mg PO Q4H PRN PRN Reason: FEVER OR PAIN Last Admin: 02/01/17 06:38 Dose: 650 mg Albuterol/Ipratropium (Duoneb -) 1 amp NEB QIDR [facility] Ascorbic Acid (Vitamin C -) 500 mg PO TID [facility] Last Admin: 02/01/17 13:19 Dose: 500 mg Collagenase (Santyl -) 1 applic TP DAILY [facility] Last Admin: 02/01/17 10:27 Dose: 1 applic Ferrous Sulfate (Feosol -) 325 mg PO TID [facility] Last Admin: 02/01/17 13:19 Dose: 325 mg Guaifenesin/Codeine Phosphate (Robitussin Ac -) 5 ml PO HS [facility] Last Admin: 01/31/17 22:03 Dose: 5 ml Ertapenem 1 gm/ Sodium (Chloride) 50 mls @ 50 mls/hr IVPB DAILY [facility] PRN Reason: Protocol Last Admin: 02/01/17 10:26 Dose: 50 mls/hr Dextrose (D5w -) 1,000 mls @ 83 mls/hr IV .Q12H3M [facility] Lactobacillus Acidophilus (Bacid -) 1 tab PO DAILY [facility] Last Admin: 02/01/17 10:26 Dose: 1 tab Latanoprost (Xalatan 0.005% Eye Drops -) 1 drop OU HS [facility] Last Admin: 01/31/17 22:00 Dose: 1 drop Ondansetron HCl (Zofran Injection) 4 mg IVPB Q6H PRN PRN Reason: NAUSEA Ranitidine HCl (Zantac -) 150 mg PO BID [facility] Last Admin: 02/01/17 10:26 Dose: 150 mg Warfarin Sodium (Coumadin -) 5 mg PO DAILY@1800 [facility] Last Admin: 01/31/17 17:15 Dose: 5 mg Last Vital Signs Temp Pulse Resp BP Pulse Ox 98.2 F 67 20 129/61 95 01/31/17 15:29 01/31/17 15:29 01/31/17 15:29 01/31/17 15:29 01/30/17 20:41 lying sideways in the bed speaking incoherently oral mucosa dry lungs marquez heart irreg irreg abd soft no guarding ext no edema CBC, BMP 02/01/17 07:25 02/01/17 07:25 IMP- serum sodium is worse he is clearly not drinking enough fluids even with assistance Plan- IVF- D5W 2 liters/day -consider restraints to keep IV line in (Haldol) -consider GI eval for PEG Problem List - Problems (1) Acute on chronic renal failure Code(s): N17.9 - ACUTE KIDNEY FAILURE, UNSPECIFIED N18.9 - CHRONIC KIDNEY DISEASE, UNSPECIFIED Qualifiers: Chronic kidney disease stage: unspecified stage Qualified Code(s): N17.9 - Acute kidney failure, unspecified; N18.9 - Chronic kidney disease, unspecified (2) Acute kidney failure Code(s): N17.9 - ACUTE KIDNEY FAILURE, UNSPECIFIED Qualifiers: Acute renal failure type: unspecified Qualified Code(s): N17.9 - Acute kidney failure, unspecified (3) Dehydration Code(s): E86.0 - DEHYDRATION (4) Cognitive impairment Code(s): R41.89 - OTH SYMPTOMS AND SIGNS W COGNITIVE FUNCTIONS AND AWARENESS
[2017-02-01] MEDS: WARFARIN NA 5 MG TABLET (UD) PO SCH (17:23)
--- NOTE | 2017-02-01 17:48 | PN ---
Progress Note, Physician History of Present Illness: Pt apparently eating more when fed No reported distress - Current Medication List Current Medications: Active Medications Acetaminophen (Tylenol -) 650 mg PO Q4H PRN PRN Reason: FEVER OR PAIN Last Admin: 02/01/17 06:38 Dose: 650 mg Albuterol/Ipratropium (Duoneb -) 1 amp NEB QIDR [facility] Ascorbic Acid (Vitamin C -) 500 mg PO TID [facility] Last Admin: 02/01/17 13:19 Dose: 500 mg Collagenase (Santyl -) 1 applic TP DAILY [facility] Last Admin: 02/01/17 10:27 Dose: 1 applic Ferrous Sulfate (Feosol -) 325 mg PO TID [facility] Last Admin: 02/01/17 13:19 Dose: 325 mg Guaifenesin/Codeine Phosphate (Robitussin Ac -) 5 ml PO [facility] Last Admin: 01/31/17 22:03 Dose: 5 ml Ertapenem 1 gm/ Sodium (Chloride) 50 mls @ 50 mls/hr IVPB DAILY [facility] PRN Reason: Protocol Last Admin: 02/01/17 10:26 Dose: 50 mls/hr Dextrose (D5w -) 1,000 mls @ 83 mls/hr IV .Q12H3M [facility] Last Admin: 02/01/17 17:24 Dose: 83 mls/hr Lactobacillus Acidophilus (Bacid -) 1 tab PO DAILY [facility] Last Admin: 02/01/17 10:26 Dose: 1 tab Latanoprost (Xalatan 0.005% Eye Drops -) 1 drop OU HS [facility] Last Admin: 01/31/17 22:00 Dose: 1 drop Ondansetron HCl (Zofran Injection) 4 mg IVPB Q6H PRN PRN Reason: NAUSEA Ranitidine HCl (Zantac -) 150 mg PO BID [facility] Last Admin: 02/01/17 10:26 Dose: 150 mg Warfarin Sodium (Coumadin -) 5 mg PO DAILY@1800 [facility] Last Admin: 02/01/17 17:23 Dose: 5 mg - Objective Vital Signs: Vital Signs Temperature 98.4 F 02/01/17 15:10 Pulse Rate 76 02/01/17 15:10 Respiratory Rate 18 02/01/17 08:25 Blood Pressure 130/65 02/01/17 15:10 O2 Sat by Pulse Oximetry (%) 96 02/01/17 09:00 Constitutional: Yes: No Distress Respiratory: Yes: WNL Gastrointestinal: Yes: Normal Bowel Sounds Genitourinary: Yes: WNL Edema: No Labs: CBC, BMP 02/01/17 07:25 02/01/17 07:25 INR, PTT INR 2.39 (0.82-1.09) H 01/31/17 07:31 Problem List - Problems (1) Acute on chronic renal failure Code(s): N17.9 - ACUTE KIDNEY FAILURE, UNSPECIFIED N18.9 - CHRONIC KIDNEY DISEASE, UNSPECIFIED Qualifiers: Acute renal failure type: unspecified Chronic kidney disease stage: unspecified stage Qualified Code(s): N17.9 - Acute kidney failure, unspecified; N18.9 - Chronic kidney disease, unspecified (2) UTI (urinary tract infection) Code(s): N39.0 - URINARY TRACT INFECTION, SITE NOT SPECIFIED Qualifiers: Urinary tract infection type: site unspecified Hematuria presence: without hematuria Qualified Code(s): N39.0 - Urinary tract infection, site not specified (3) Urinary retention due to benign prostatic hyperplasia Code(s): N40.1 - BENIGN PROSTATIC HYPERPLASIA WITH LOWER URINARY TRACT SYMP R33.8 - OTHER RETENTION OF URINE (4) Dementia Code(s): F03.90 - UNSPECIFIED DEMENTIA WITHOUT BEHAVIORAL DISTURBANCE Qualifiers: Dementia type: unspecified type Dementia behavioral disturbance: without behavioral disturbance Qualified Code(s): F03.90 - Unspecified dementia without behavioral disturbance (5) Acute kidney failure Code(s): N17.9 - ACUTE KIDNEY FAILURE, UNSPECIFIED Qualifiers: Acute renal failure type: unspecified Qualified Code(s): N17.9 - Acute kidney failure, unspecified (6) COPD (chronic obstructive pulmonary disease) Code(s): J44.9 - CHRONIC OBSTRUCTIVE PULMONARY DISEASE, UNSPECIFIED Qualifiers : COPD type: unspecified COPD Qualified Code(s): J44.9 - Chronic obstructive pulmonary disease, unspecified Assessment/Plan Proteus UTI CKD continue Ertapenem pt clinically stable at this time
[2017-02-01] MEDS: LATANOPROST 0.005% OPHTH SOLN 2.5ML BOTTLE OU SCH (22:01)
[2017-02-01] MEDS: guaiFENesin/CODEINE 5 ML UNIT-DOSE CUPS PO SCH (23:00)
[2017-02-02] MEDS: ALBUTEROL SO4 2.5/IPRATROPIUM 0.5 INH SOL 3 ML VIAL.NEB. NEB SCH ×5 (00:01→23:00)
[2017-02-02] MEDS: ACETAMINOPHEN 325 MG TABLET (FP) PO PRN ×3 (04:52→22:25)
[2017-02-02] MEDS: FERROUS SO4 325 MG TABLET (FP) PO SCH ×3 (05:22→22:25)
[2017-02-02] MEDS: ASCORBIC ACID 500 MG TABLET (FP) PO SCH ×3 (05:23→22:25)
[2017-02-02] MEDS ORDERED: LORazepam 0.5 MG TABLET PO ONE (06:00)
[2017-02-02 08:25] LABS: ANION GAP 9 (8-16); CALCIUM 8.5 mg/dL (8.5-10.1); CO2 28 mmol/L (21-32); CREATININE 1.6 mg/dL (0.7-1.3); GLUCOSE,RANDOM 119 mg/dL (74-106)
--- NOTE | 2017-02-02 10:31 | PN ---
Progress Note (short form) - Note Progress Note: Patient seen and examined. Poorly responsive. Events over the weekend noted. Poor PO food and fluid intake. Only when encouraged or prompted. Nothing on his own. Hypernatremic due to above. Palliative care consulted to discuss goals of care with the family/HCP. Not in respiratory distress. Afebrile. 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: CVA (pe 01/2015 brain MRI), Dementia Cardiovascular: Yes: AFIB (chronic), CHF, HTN Pulmonary: Yes: COPD Psych: Yes: Depression, Other (h/o alcohol abuse) - Past Surgical History Past Surgical History: Yes: Colectomy (hemicolectomy) - Advance Directives Advance Directives: Yes: DNR - Smoking History Smoking history: Unknown if ever smoked Have you smoked in the past 12 months: No Aproximately how many cigarettes per day: 0 If you are a former smoker, when did you quit?: 50 years - Alcohol/Substance Use Hx Alcohol Use: No - Social History ADL: Family Assistance History of Recent Travel: No Home Medications - Allergies Allergies/Adverse Reactions: Allergies Allergy/AdvReac Type Severity Reaction Status Date / Time Penicillins Allergy Hives Verified 01/26/17 15:10 procaine Allergy Verified 01/26/17 18:45 - Home Medications Home Medications: Ambulatory Orders Ascorbate Calcium [Vitamin C] 500 mg PO TID 01/26/17 Bimatoprost [Lumigan] 1 drop IO DAILY 01/26/17 Ferrous Sulfate 325 mg PO TID 01/26/17 Furosemide [Lasix -] 40 mg PO BID 01/26/17 Guaifenesin AC [Robitussin AC -] 5 ml PO HS 01/26/17 Warfarin Na [Coumadin] 5 mg PO TID 01/26/17 Review of Systems Unable to obtain ROS, reason: dementia Physical Examination Vital Signs: Vital Signs Period Temp Pulse Resp BP Sys/Kemp Pulse Ox Last 24 Hr 97.4 F-98.4 F 67-81 20-20 130-145/63-79 96 Constitutional: Yes: Anxious, Mild Distress Eyes: Yes: Conjunctiva Clear, EOM Intact, PERRL HENT: Yes: Atraumatic, Normocephalic Neck: Yes: Supple, Trachea Midline Cardiovascular: Yes: Pulse Irregular, S1, S2 Respiratory: Yes: Diminished (air entry dimished b/l lung base) Gastrointestinal: Yes: Soft (non tender, BS present) Edema: No Peripheral Pulses WNL: Yes ...Motor Strength: WNL Labs: CBC, BMP 02/01/17 07:25 02/02/17 07:05 Microbiology 01/28/17 12:25 Blood Culture - Preliminary Blood - Peripheral Venous NO GROWTH OBTAINED AFTER 24 HOURS, INCUBATION TO CONTINUE FOR 4 DAYS. 01/28/17 12:20 Blood Culture - Preliminary Blood - Peripheral Venous NO GROWTH OBTAINED AFTER 24 HOURS, INCUBATION TO CONTINUE FOR 4 DAYS. 01/26/17 17:30 Urine Culture - Final Urine - Urine - Catheterized [facility] - Results Chest X-ray: Report Reviewed Problem List - Problems (1) Head trauma Assessment/Plan: S/P Fall at DC with head trauma. Patient is on coumadin. Head CT x 2 - Negative for intracranial bleed. Will continue to monitor. Code(s): S09.90XA - UNSPECIFIED INJURY OF HEAD, INITIAL ENCOUNTER Qualifiers: Encounter type: initial encounter (2) Acute kidney failure Assessment/Plan: On D5W per rnal due to poor po fluid intake. Monitor off lasix. Management as per renal. Code(s): N17.9 - ACUTE KIDNEY FAILURE, UNSPECIFIED (3) UTI (urinary tract infection) Assessment/Plan: Urine culture - Prote[facility] Abx as per ID Code(s): N39.0 - URINARY TRACT INFECTION, SITE NOT SPECIFIED Qualifiers: Urinary tract infection type: site unspecified Hematuria presence: without hematuria Qualified Code(s): N39.0 - Urinary tract infection, site not specified (4) Urinary retention due to benign prostatic hyperplasia Assessment/Plan: Has Quintana. Changed . Difficult insertion on previous visits. Discussed with Dr. Loaiza. No need for change now. Code(s): N40.1 - BENIGN PROSTATIC HYPERPLASIA WITH LOWER URINARY TRACT SYMP R33.8 - OTHER RETENTION OF URINE (5) Atrial fibrillation Assessment/Plan: Rate controlled. AC per INR. Continue coumadin [address] x 2 negative for intracranial bleed. Code(s): I48.91 - UNSPECIFIED ATRIAL FIBRILLATION Qualifiers: Atrial fibrillation type: permanent Qualified Code(s): I48.2 - Chronic atrial fibrillation (6) Pneumonia Assessment/Plan: Pulmonary follow up appreciated Unlikely pneumonia. Code(s): J18.9 - PNEUMONIA, UNSPECIFIED ORGANISM Qualifiers: Pneumonia type: due to unspecified organism Laterality: right Lung location: lower lobe of lung Qualified Code(s): J18.9 - Pneumonia, unspecified organism (7) Acute on chronic systolic (congestive) heart failure Assessment/Plan: BNP very high. Monitor off lasix. Cardiology to follow. Code(s): I50.23 - ACUTE ON CHRONIC SYSTOLIC (CONGESTIVE) HEART FAILURE (8) COPD (chronic obstructive pulmonary disease) Assessment/Plan: Continue inhaled bronchodilators. Code(s): J44.9 - CHRONIC OBSTRUCTIVE PULMONARY DISEASE, UNSPECIFIED Qualifiers : COPD type: unspecified COPD Qualified Code(s): J44.9 - Chronic obstructive pulmonary disease, unspecified (9) Anemia Assessment/Plan: H/H low. No bleeding from any site reported. Ferritin high. Iron low. Likely combination of iron deficiency anemia and anemia of chronic disease. Continue Ferrous sulphate. Code(s): D64.9 - ANEMIA, UNSPECIFIED Qualifiers: Anemia type: other cause Other causes of anemia: other cause, not classified Qualified Code(s): D64.89 - Other specified anemias (10) Dementia Assessment/Plan: stable. Code(s): F03.90 - UNSPECIFIED DEMENTIA WITHOUT BEHAVIORAL DISTURBANCE Qualifiers: Dementia type: unspecified type Dementia behavioral disturbance: without behavioral disturbance Qualified Code(s): F03.90 - Unspecified dementia without behavioral disturbance 11) Stage 3 sacral ulcer. Wound care consult appreciated. Continue santyl. Offload. 12) Hypernatremia: In the setting of poor PO fluid intake. On D5W for now per renal. PO intake will be an issue. Palliative care consulted to discuss goals of care. May need PEG if family agrees. Problem List - Problems (1) Head trauma Code(s): S09.90XA - UNSPECIFIED INJURY OF HEAD, INITIAL ENCOUNTER Qualifiers: Encounter type: initial encounter Qualified Code(s): S09.90XA - Unspecified injury of head, initial encounter (2) Acute kidney failure Code(s): N17.9 - ACUTE KIDNEY FAILURE, UNSPECIFIED Qualifiers: Acute renal failure type: unspecified Qualified Code(s): N17.9 - Acute kidney failure, unspecified (3) UTI (urinary tract infection) Code(s): N39.0 - URINARY TRACT INFECTION, SITE NOT SPECIFIED Qualifiers: Urinary tract infection type: site unspecified Hematuria presence: without hematuria Qualified Code(s): N39.0 - Urinary tract infection, site not specified; R31.9 - Hematuria, unspecified (4) Urinary retention due to benign prostatic hyperplasia Code(s): N40.1 - BENIGN PROSTATIC HYPERPLASIA WITH LOWER URINARY TRACT SYMP R33.8 - OTHER RETENTION OF URINE (5) Atrial fibrillation Code(s): I48.91 - UNSPECIFIED ATRIAL FIBRILLATION Qualifiers: Atrial fibrillation type: permanent Qualified Code(s): I48.2 - Chronic atrial fibrillation (6) Pneumonia Code(s): J18.9 - PNEUMONIA, UNSPECIFIED ORGANISM Qualifiers: Pneumonia type: due to unspecified organism Laterality: right Lung location: lower lobe of lung Qualified Code(s): J18.1 - Lobar pneumonia, unspecified organism (7) Acute on chronic systolic (congestive) heart failure Code(s): I50.23 - ACUTE ON CHRONIC SYSTOLIC (CONGESTIVE) HEART FAILURE (8) COPD (chronic obstructive pulmonary disease) Code(s): J44.9 - CHRONIC OBSTRUCTIVE PULMONARY DISEASE, UNSPECIFIED Qualifiers : COPD type: unspecified COPD Qualified Code(s): J44.9 - Chronic obstructive pulmonary disease, unspecified (9) Anemia Code(s): D64.9 - ANEMIA, UNSPECIFIED Qualifiers: Anemia type: other cause Other causes of anemia: other cause, not classified Qualified Code(s): D64.89 - Other specified anemias (10) Dementia Code(s): F03.90 - UNSPECIFIED DEMENTIA WITHOUT BEHAVIORAL DISTURBANCE Qualifiers: Dementia type: unspecified type Dementia behavioral disturbance: without behavioral disturbance Qualified Code(s): F03.90 - Unspecified dementia without behavioral disturbance (11) Pressure ulcer of sacral region, stage 3 Code(s): L89.153 - PRESSURE ULCER OF SACRAL REGION, STAGE 3
[2017-02-02 10:37] LABS: BASOPHIL 0.9 % (0-2.0); EOSINOPHIL 1.8 % (0-4.5); MCHC 30.9 g/dl (32.0-35.9); MEAN PLT VOLUME 8.4 fl (7.5-11.1); NEUTROPHILS 80.2 % (42.8-82.8); PLATELET COUNT 162 K/MM3 (134-434); RDW 22.7 % (11.9-15.9); WHITE BLOOD COUNT 8.8 K/mm3 (4.0-10.0)
[2017-02-02 11:46] LABS: ANISOCYTOSIS 2+
[2017-02-02] MEDS: RANITIDINE HCL 150 MG TABLET (FP) PO SCH ×2 (12:09→22:25)
[2017-02-02] MEDS: LACTOBACILLUS ACIDOPHILUS 1 EACH TAB (FP) PO SCH (12:10)
[2017-02-02] MEDS: ERTAPENEM SODIUM 1 GM in SODIUM CHLORIDE 50 ML IVPB SCH (12:11)
[2017-02-02] MEDS: COLLAGENASE CLOSTRIDIUM HIST. 30 GRAMS TUBE TP SCH (12:11)
--- NOTE | 2017-02-02 12:44 | PN ---
Progress Note, Physician History of Present Illness: no gross changes patient appears to be calm no issues - Current Medication List Current Medications: Active Medications Acetaminophen (Tylenol -) 650 mg PO Q4H PRN PRN Reason: FEVER OR PAIN Last Admin: 02/02/17 12:09 Dose: 650 mg Albuterol/Ipratropium (Duoneb -) 1 amp NEB QIDR [facility] Last Admin: 02/02/17 11:57 Dose: 1 amp Ascorbic Acid (Vitamin C -) 500 mg PO TID [facility] Last Admin: 02/02/17 05:23 Dose: 500 mg Collagenase (Santyl -) 1 applic TP DAILY [facility] Last Admin: 02/02/17 12:11 Dose: 1 applic Ferrous Sulfate (Feosol -) 325 mg PO TID [facility] Last Admin: 02/02/17 05:22 Dose: 325 mg Guaifenesin/Codeine Phosphate (Robitussin Ac -) 5 ml PO [facility] Last Admin: 02/01/17 23:00 Dose: 5 ml Ertapenem 1 gm/ Sodium (Chloride) 50 mls @ 50 mls/hr IVPB DAILY [facility] PRN Reason: Protocol Last Admin: 02/02/17 12:11 Dose: 50 mls/hr Dextrose (D5w -) 1,000 mls @ 83 mls/hr IV .Q12H3M [facility] Last Admin: 02/01/17 17:24 Dose: 83 mls/hr Lactobacillus Acidophilus (Bacid -) 1 tab PO DAILY [facility] Last Admin: 02/02/17 12:10 Dose: 1 tab Latanoprost (Xalatan 0.005% Eye Drops -) 1 drop OU [facility] Last Admin: 02/01/17 22:01 Dose: 1 drop Ondansetron HCl (Zofran Injection) 4 mg IVPB Q6H PRN PRN Reason: NAUSEA Ranitidine HCl (Zantac -) 150 mg PO BID [facility] Last Admin: 02/02/17 12:09 Dose: 150 mg - Objective Vital Signs: Vital Signs Temperature 97.5 F L 02/02/17 08:45 Pulse Rate 67 02/02/17 08:45 Respiratory Rate 20 02/02/17 08:45 Blood Pressure 138/63 02/02/17 08:45 O2 Sat by Pulse Oximetry (%) 96 02/01/17 20:51 Constitutional: Yes: No Distress, Calm Neck: Yes: Supple Cardiovascular: Yes: Regular Rate and Rhythm Respiratory: Yes: Regular, Poor Air Entry, Rhonchi Gastrointestinal: Yes: Normal Bowel Sounds, Soft, Other Musculoskeletal: Yes: WNL Extremities: Yes: WNL Neurological: Yes: Alert, Other Psychiatric: Yes: Other Labs: CBC, BMP 02/02/17 07:05 02/02/17 07:05 INR, PTT INR 2.39 (0.82-1.09) H 01/31/17 07:31 Assessment/Plan Problem List - Problems (1) Head trauma. Code(s): S09.90XA - UNSPECIFIED INJURY OF HEAD, INITIAL ENCOUNTER Qualifiers: Encounter type: initial encounter (2) Acute kidney failure Code(s): N17.9 - ACUTE KIDNEY FAILURE, UNSPECIFIED (3) UTI (urinary tract infection) Code(s): N39.0 - URINARY TRACT INFECTION, SITE NOT SPECIFIED Qualifiers: Urinary tract infection type: site unspecified Hematuria presence: without hematuria Qualified Code(s): N39.0 - Urinary tract infection, site not specified (4) Urinary retention due to benign prostatic hyperplasia Code(s): N40.1 - BENIGN PROSTATIC HYPERPLASIA WITH LOWER URINARY TRACT SYMP R33.8 - OTHER RETENTION OF URINE (5) Atrial fibrillation Code(s): I48.91 - UNSPECIFIED ATRIAL FIBRILLATION Qualifiers: Atrial fibrillation type: permanent Qualified Code(s): I48.2 - Chronic atrial fibrillation (6) Pneumonia Code(s): J18.9 - PNEUMONIA, UNSPECIFIED ORGANISM Qualifiers: Pneumonia type: due to unspecified organism Laterality: right Lung location: lower lobe of lung Qualified Code(s): J18.9 - Pneumonia, unspecified organism (7) Acute on chronic systolic (congestive) heart failure Code(s): I50.23 - ACUTE ON CHRONIC SYSTOLIC (CONGESTIVE) HEART FAILURE (8) COPD (chronic obstructive pulmonary disease) Code(s): J44.9 - CHRONIC OBSTRUCTIVE PULMONARY DISEASE, UNSPECIFIED Qualifiers : COPD type: unspecified COPD Qualified Code(s): J44.9 - Chronic obstructive pulmonary disease, unspecified (9) Anemia Code(s): D64.9 - ANEMIA, UNSPECIFIED Qualifiers: Anemia type: other cause Other causes of anemia: other cause, not classified Qualified Code(s): D64.89 - Other specified anemias (10) Dementia Code(s): F03.90 - UNSPECIFIED DEMENTIA WITHOUT BEHAVIORAL DISTURBANCE Qualifiers: Dementia type: unspecified type Dementia behavioral disturbance: without behavioral disturbance Qualified Code(s): F03.90 - Unspecified dementia without behavioral disturbance patient has mdr uti has allergy to pcn plan will stop abx continue wound care nutrition rest as per primary
--- NOTE | 2017-02-02 12:48 | PN ---
Progress Note, Physician History of Present Illness: Pt seen and examined at bedside. He remains confused. Spoke to nursing staff and his PO intake is worse. - Current Medication List Current Medications: Active Medications Acetaminophen (Tylenol -) 650 mg PO Q4H PRN PRN Reason: FEVER OR PAIN Last Admin: 02/02/17 12:09 Dose: 650 mg Albuterol/Ipratropium (Duoneb -) 1 amp NEB QIDR [facility] Last Admin: 02/02/17 11:57 Dose: 1 amp Ascorbic Acid (Vitamin C -) 500 mg PO TID [facility] Last Admin: 02/02/17 05:23 Dose: 500 mg Collagenase (Santyl -) 1 applic TP DAILY [facility] Last Admin: 02/02/17 12:11 Dose: 1 applic Ferrous Sulfate (Feosol -) 325 mg PO TID [facility] Last Admin: 02/02/17 05:22 Dose: 325 mg Guaifenesin/Codeine Phosphate (Robitussin Ac -) 5 ml PO HS [facility] Last Admin: 02/01/17 23:00 Dose: 5 ml Dextrose (D5w -) 1,000 mls @ 83 mls/hr IV .Q12H3M [facility] Last Admin: 02/01/17 17:24 Dose: 83 mls/hr Lactobacillus Acidophilus (Bacid -) 1 tab PO DAILY [facility] Last Admin: 02/02/17 12:10 Dose: 1 tab Latanoprost (Xalatan 0.005% Eye Drops -) 1 drop OU HS [facility] Last Admin: 02/01/17 22:01 Dose: 1 drop Ondansetron HCl (Zofran Injection) 4 mg IVPB Q6H PRN PRN Reason: NAUSEA Ranitidine HCl (Zantac -) 150 mg PO BID [facility] Last Admin: 02/02/17 12:09 Dose: 150 mg - Objective Vital Signs: Vital Signs Temperature 97.5 F L 02/02/17 08:45 Pulse Rate 67 02/02/17 08:45 Respiratory Rate 20 02/02/17 08:45 Blood Pressure 138/63 02/02/17 08:45 O2 Sat by Pulse Oximetry (%) 96 02/01/17 20:51 Constitutional: Yes: Anxious Eyes: Yes: Conjunctiva Clear Cardiovascular: Yes: S1, S2 Respiratory: Yes: On Nasal O2, Rhonchi Gastrointestinal: Yes: Soft Genitourinary: Yes: Incontinence Musculoskeletal: Yes: WNL Edema: No Neurological: Yes: Confusion Labs: CBC, BMP 02/02/17 07:05 02/02/17 07:05 INR, PTT INR 2.39 (0.82-1.09) H 01/31/17 07:31 Problem List - Problems (1) Acute on chronic renal failure Code(s): N17.9 - ACUTE KIDNEY FAILURE, UNSPECIFIED N18.9 - CHRONIC KIDNEY DISEASE, UNSPECIFIED Qualifiers: Qualified Code(s): N17.9 - Acute kidney failure, unspecified; N18.9 - Chronic kidney disease, unspecified (2) Anemia Code(s): D64.9 - ANEMIA, UNSPECIFIED Qualifiers: Qualified Code(s): D64.89 - Other specified anemias (3) Atrial fibrillation Code(s): I48.91 - UNSPECIFIED ATRIAL FIBRILLATION Qualifiers: Qualified Code(s): I48.2 - Chronic atrial fibrillation Assessment/Plan Current Medications Generic Name Dose Route Start Last Admin Trade Name Freq PRN Reason Stop Dose Admin Acetaminophen 650 mg 01/26/17 20:29 02/02/17 12:09 Tylenol - PO 650 mg Q4H PRN Administration FEVER OR PAIN Albuterol/Ipratropium 1 amp 02/01/17 12:00 02/02/17 11:57 Duoneb - NEB 1 amp QIDR NAIF Administration Ascorbic Acid 500 mg 01/26/17 22:00 02/02/17 05:23 Vitamin C - PO 500 mg TID NAIF Administration Collagenase 1 applic 01/29/17 20:30 02/02/17 12:11 Santyl - TP 1 applic DAILY NAIF Administration Ferrous Sulfate 325 mg 01/26/17 22:00 02/02/17 05:22 Feosol - PO 325 mg TID NAIF Administration Guaifenesin/Codeine Phosphate 5 ml 01/26/17 22:00 02/01/17 23:00 Robitussin Ac - PO 5 ml HS NAIF Administration Dextrose 1,000 mls @ 83 mls/hr 02/01/17 16:00 02/01/17 17:24 D5w - IV 83 mls/hr .Q12H3M NAIF Administration Lactobacillus Acidophilus 1 tab 01/27/17 10:00 02/02/17 12:10 Bacid - PO 1 tab DAILY NAIF Administration Latanoprost 1 drop 01/27/17 22:00 02/01/17 22:01 Xalatan 0.005% Eye Drops - OU 1 drop HS NAIF Administration Ondansetron HCl 4 mg 01/26/17 20:29 Zofran Injection IVPB Q6H PRN NAUSEA Ranitidine HCl 150 mg 01/27/17 22:00 02/02/17 12:09 Zantac - PO 150 mg BID NAIF Administration Impression 1. TATY 2. CHF 3. a-fib 4. CVA 5. Dementia 6. COPD 7. PNA 8. HTN 9. CKD 10. s/p fall 11. hypernatremia Plan - decrease rate of d5w - cont oxygen - lasix PRN - encourage PO intake - repeat lab in am - check cxr Dr Abdi
--- NOTE | 2017-02-02 12:50 | PN ---
Progress Note, Physician History of Present Illness: pulmonary drowsy,no distress,-tachypnea - Current Medication List Current Medications: Active Medications Acetaminophen (Tylenol -) 650 mg PO Q4H PRN PRN Reason: FEVER OR PAIN Last Admin: 02/02/17 12:09 Dose: 650 mg Albuterol/Ipratropium (Duoneb -) 1 amp NEB QIDR [facility] Last Admin: 02/02/17 11:57 Dose: 1 amp Ascorbic Acid (Vitamin C -) 500 mg PO TID [facility] Last Admin: 02/02/17 05:23 Dose: 500 mg Collagenase (Santyl -) 1 applic TP DAILY [facility] Last Admin: 02/02/17 12:11 Dose: 1 applic Ferrous Sulfate (Feosol -) 325 mg PO TID [facility] Last Admin: 02/02/17 05:22 Dose: 325 mg Guaifenesin/Codeine Phosphate (Robitussin Ac -) 5 ml PO HS [facility] Last Admin: 02/01/17 23:00 Dose: 5 ml Dextrose (D5w -) 1,000 mls @ 83 mls/hr IV .Q12H3M [facility] Last Admin: 02/01/17 17:24 Dose: 83 mls/hr Lactobacillus Acidophilus (Bacid -) 1 tab PO DAILY [facility] Last Admin: 02/02/17 12:10 Dose: 1 tab Latanoprost (Xalatan 0.005% Eye Drops -) 1 drop OU [facility] Last Admin: 02/01/17 22:01 Dose: 1 drop Ondansetron HCl (Zofran Injection) 4 mg IVPB Q6H PRN PRN Reason: NAUSEA Ranitidine HCl (Zantac -) 150 mg PO BID [facility] Last Admin: 02/02/17 12:09 Dose: 150 mg - Objective Vital Signs: Vital Signs Temperature 97.5 F L 02/02/17 08:45 Pulse Rate 67 02/02/17 08:45 Respiratory Rate 20 02/02/17 08:45 Blood Pressure 138/63 02/02/17 08:45 O2 Sat by Pulse Oximetry (%) 96 02/01/17 20:51 Constitutional: Yes: Calm Eyes: Yes: WNL HENT: Yes: WNL Neck: Yes: Supple Cardiovascular: Yes: Pulse Irregular, S1, S2 Respiratory: Yes: Rhonchi (few rhonchi) Gastrointestinal: Yes: Normal Bowel Sounds, Soft Extremities: Yes: WNL Edema: No Labs: CBC, BMP 02/02/17 07:05 02/02/17 07:05 INR, PTT INR 2.39 (0.82-1.09) H 01/31/17 07:31 Assessment/Plan Problem List - Problems (1) Head trauma Code(s): S09.90XA - UNSPECIFIED INJURY OF HEAD, INITIAL ENCOUNTER Qualifiers: Encounter type: initial encounter Qualified Code(s): S09.90XA - Unspecified injury of head, initial encounter (2) Fall Code(s): W19.XXXA - UNSPECIFIED FALL, INITIAL ENCOUNTER (3) Pleural effusion Code(s): J90 - PLEURAL EFFUSION, NOT ELSEWHERE CLASSIFIED (4) Atrial fibrillation Code(s): I48.91 - UNSPECIFIED ATRIAL FIBRILLATION Qualifiers: Atrial fibrillation type: permanent Qualified Code(s): I48.2 - Chronic atrial fibrillation (5) UTI (urinary tract infection) Code(s): N39.0 - URINARY TRACT INFECTION, SITE NOT SPECIFIED Qualifiers: Urinary tract infection type: site unspecified Hematuria presence: without hematuria Qualified Code(s): N39.0 - Urinary tract infection, site not specified (6) Acute on chronic systolic (congestive) heart failure Code(s): I50.23 - ACUTE ON CHRONIC SYSTOLIC (CONGESTIVE) HEART FAILURE (7) Pulmonary hypertension Code(s): I27.2 - OTHER SECONDARY PULMONARY HYPERTENSION (8) Mitral regurgitation Code(s): I34.0 - NONRHEUMATIC MITRAL (VALVE) INSUFFICIENCY (9) COPD (chronic obstructive pulmonary disease) Code(s): J44.9 - CHRONIC OBSTRUCTIVE PULMONARY DISEASE, UNSPECIFIED Qualifiers : COPD type: unspecified COPD Qualified Code(s): J44.9 - Chronic obstructive pulmonary disease, unspecified (10) Acute on chronic renal failure Code(s): N17.9 - ACUTE KIDNEY FAILURE, UNSPECIFIED N18.9 - CHRONIC KIDNEY DISEASE, UNSPECIFIED (11) Dementia Code(s): F03.90 - UNSPECIFIED DEMENTIA WITHOUT BEHAVIORAL DISTURBANCE Qualifiers: Dementia type: unspecified type Dementia behavioral disturbance: without behavioral disturbance Qualified Code(s): F03.90 - Unspecified dementia without behavioral disturbance Assessment/Plan s/p Fall Acute on Chronic Systolic Heart Failure Mitral Regurgitation Pulmonary HTN Pleural Effusion Atrial Fibrillation COPD r/o UTI Dementia Anemia - - findings likely more due to CHF - antibiotics, - monitor urine output, creatinine - inhaled bronchodilators - rate controlled - monitor h+h DR ROBLES
[2017-02-02] MEDS: DEXTROSE 5%-WATER - 1,000 ML IV SCH (15:03)
[2017-02-02] MEDS ORDERED: PT OWN MED DRAWER 7, Y5N ONE (22:22)
[2017-02-02] MEDS: guaiFENesin/CODEINE 5 ML UNIT-DOSE CUPS PO SCH (22:25)
[2017-02-02] MEDS: LATANOPROST 0.005% OPHTH SOLN 2.5ML BOTTLE OU SCH (22:25)
[2017-02-03] MEDS: DEXTROSE 5%-WATER - 1,000 ML IV SCH (02:37)
[2017-02-03] MEDS: ALBUTEROL SO4 2.5/IPRATROPIUM 0.5 INH SOL 3 ML VIAL.NEB. NEB SCH ×3 (06:15→23:07)
[2017-02-03] MEDS: ASCORBIC ACID 500 MG TABLET (FP) PO SCH ×3 (06:51→22:20)
[2017-02-03] MEDS: FERROUS SO4 325 MG TABLET (FP) PO SCH ×3 (06:51→22:20)
[2017-02-03] MEDS ORDERED: PT OWN MED DRAWER 7, Y5N ONE (07:41)
[2017-02-03] MEDS: RANITIDINE HCL 150 MG TABLET (FP) PO SCH ×2 (09:29→22:23)
[2017-02-03] MEDS: LACTOBACILLUS ACIDOPHILUS 1 EACH TAB (FP) PO SCH (09:29)
[2017-02-03] MEDS: COLLAGENASE CLOSTRIDIUM HIST. 30 GRAMS TUBE TP SCH (09:31)
--- NOTE | 2017-02-03 10:19 | PN ---
Progress Note (short form) - Note Progress Note: Patient seen and examined. Awake but confused. Agitated last night. Congested. Will stop IV fluids for now. Labs not available as yet. Afebrile. Son scheduled to meet palliative care team today 3.30 PM to discuss goals of care. Vital Signs Period Temp Pulse Resp BP Sys/Kemp Pulse Ox Last 24 Hr 97.0 F-97.6 F 67-70 20-21 100-147/44-73 History Source: Medical Record Limitations to Obtaining History: Dementia - Past Medical History ROLL CAPPER: Yes: CVA (pe 01/2015 brain MRI), Dementia Cardiovascular: Yes: AFIB (chronic), CHF, HTN Pulmonary: Yes: COPD Psych: Yes: Depression, Other (h/o alcohol abuse) - Past Surgical History Past Surgical History: Yes: Colectomy (hemicolectomy) - Advance Directives Advance Directives: Yes: DNR - Smoking History Smoking history: Unknown if ever smoked Have you smoked in the past 12 months: No Aproximately how many cigarettes per day: 0 If you are a former smoker, when did you quit?: 50 years - Alcohol/Substance Use Hx Alcohol Use: No - Social History ADL: Family Assistance History of Recent Travel: No Home Medications - Allergies Allergies/Adverse Reactions: Allergies Allergy/AdvReac Type Severity Reaction Status Date / Time Penicillins Allergy Hives Verified 01/26/17 15:10 procaine Allergy Verified 01/26/17 18:45 - Home Medications Home Medications: Ambulatory Orders Ascorbate Calcium [Vitamin C] 500 mg PO TID 01/26/17 Bimatoprost [Lumigan] 1 drop IO DAILY 01/26/17 Ferrous Sulfate 325 mg PO TID 01/26/17 Furosemide [Lasix -] 40 mg PO BID 01/26/17 Guaifenesin AC [Robitussin AC -] 5 ml PO HS 01/26/17 Warfarin Na [Coumadin] 5 mg PO TID 01/26/17 Review of Systems Unable to obtain ROS, reason: dementia Physical Examination Vital Signs: Constitutional: Yes: Anxious, Mild Distress Eyes: Yes: Conjunctiva Clear, EOM Intact, PERRL HENT: Yes: Atraumatic, Normocephalic Neck: Yes: Supple, Trachea Midline Cardiovascular: Yes: Pulse Irregular, S1, S2 Respiratory: Yes: Diminished (air entry dimished b/l lung base) Gastrointestinal: Yes: Soft (non tender, BS present) Edema: No Peripheral Pulses WNL: Yes ...Motor Strength: WNL Labs: CBC, BMP 02/02/17 07:05 02/02/17 07:05 Microbiology 01/28/17 12:25 Blood Culture - Preliminary Blood - Peripheral Venous NO GROWTH OBTAINED AFTER 24 HOURS, INCUBATION TO CONTINUE FOR 4 DAYS. 01/28/17 12:20 Blood Culture - Preliminary Blood - Peripheral Venous NO GROWTH OBTAINED AFTER 24 HOURS, INCUBATION TO CONTINUE FOR 4 DAYS. 01/26/17 17:30 Urine Culture - Final Urine - Urine - Catheterized [facility] - Results Chest X-ray: Report Reviewed Problem List - Problems (1) Head trauma Assessment/Plan: S/P Fall at [place] with head trauma. Patient is on coumadin. Head CT x 2 - Negative for intracranial bleed. Will continue to monitor. Code(s): S09.90XA - UNSPECIFIED INJURY OF HEAD, INITIAL ENCOUNTER Qualifiers: Encounter type: initial encounter (2) Acute kidney failure Assessment/Plan: Was on D5W. Will hold IV fluids for now as patient sounds congested. Labs not available as yet. Monitor off lasix. Management as per renal. Code(s): N17.9 - ACUTE KIDNEY FAILURE, UNSPECIFIED (3) UTI (urinary tract infection) Assessment/Plan: Urine culture - [facility] Abx as per ID Code(s): N39.0 - URINARY TRACT INFECTION, SITE NOT SPECIFIED Qualifiers: Urinary tract infection type: site unspecified Hematuria presence: without hematuria Qualified Code(s): N39.0 - Urinary tract infection, site not specified (4) Urinary retention due to benign prostatic hyperplasia Assessment/Plan: Has Quintana. Changed . Difficult insertion on previous visits. Discussed with Dr. Loaiza. No need for change now. Code(s): N40.1 - BENIGN PROSTATIC HYPERPLASIA WITH LOWER URINARY TRACT SYMP R33.8 - OTHER RETENTION OF URINE (5) Atrial fibrillation Assessment/Plan: Rate controlled. AC per INR. Continue coumadin [address] x 2 negative for intracranial bleed. Code(s): I48.91 - UNSPECIFIED ATRIAL FIBRILLATION Qualifiers: Atrial fibrillation type: permanent Qualified Code(s): I48.2 - Chronic atrial fibrillation (6) Pneumonia Assessment/Plan: Pulmonary follow up appreciated Unlikely pneumonia. Code(s): J18.9 - PNEUMONIA, UNSPECIFIED ORGANISM Qualifiers: Pneumonia type: due to unspecified organism Laterality: right Lung location: lower lobe of lung Qualified Code(s): J18.9 - Pneumonia, unspecified organism (7) Acute on chronic systolic (congestive) heart failure Assessment/Plan: BNP very high. B/L basal crackles present. Patient is congested. Check chest x ray Cardiology to follow. Lasix as needed. Code(s): I50.23 - ACUTE ON CHRONIC SYSTOLIC (CONGESTIVE) HEART FAILURE (8) COPD (chronic obstructive pulmonary disease) Assessment/Plan: Continue inhaled bronchodilators. Code(s): J44.9 - CHRONIC OBSTRUCTIVE PULMONARY DISEASE, UNSPECIFIED Qualifiers : COPD type: unspecified COPD Qualified Code(s): J44.9 - Chronic obstructive pulmonary disease, unspecified (9) Anemia Assessment/Plan: H/H low. No bleeding from any site reported. Ferritin high. Iron low. Likely combination of iron deficiency anemia and anemia of chronic disease. Continue Ferrous sulphate. Code(s): D64.9 - ANEMIA, UNSPECIFIED Qualifiers: Anemia type: other cause Other causes of anemia: other cause, not classified Qualified Code(s): D64.89 - Other specified anemias (10) Dementia Assessment/Plan: stable. Code(s): F03.90 - UNSPECIFIED DEMENTIA WITHOUT BEHAVIORAL DISTURBANCE Qualifiers: Dementia type: unspecified type Dementia behavioral disturbance: without behavioral disturbance Qualified Code(s): F03.90 - Unspecified dementia without behavioral disturbance 11) Stage 3 sacral ulcer. Wound care consult appreciated. Continue santyl. Offload. 12) Hypernatremia: In the setting of poor PO fluid intake. On D5W for now per renal. PO intake will be an issue. Palliative care meeting with son today 3.30 PM to discuss goals of care. Problem List - Problems (1) Head trauma Code(s): S09.90XA - UNSPECIFIED INJURY OF HEAD, INITIAL ENCOUNTER Qualifiers: Encounter type: initial encounter Qualified Code(s): S09.90XA - Unspecified injury of head, initial encounter (2) Acute kidney failure Code(s): N17.9 - ACUTE KIDNEY FAILURE, UNSPECIFIED Qualifiers: Acute renal failure type: unspecified Qualified Code(s): N17.9 - Acute kidney failure, unspecified (3) UTI (urinary tract infection) Code(s): N39.0 - URINARY TRACT INFECTION, SITE NOT SPECIFIED Qualifiers: Urinary tract infection type: site unspecified Hematuria presence: without hematuria Qualified Code(s): N39.0 - Urinary tract infection, site not specified; R31.9 - Hematuria, unspecified (4) Urinary retention due to benign prostatic hyperplasia Code(s): N40.1 - BENIGN PROSTATIC HYPERPLASIA WITH LOWER URINARY TRACT SYMP R33.8 - OTHER RETENTION OF URINE (5) Atrial fibrillation Code(s): I48.91 - UNSPECIFIED ATRIAL FIBRILLATION Qualifiers: Atrial fibrillation type: permanent Qualified Code(s): I48.2 - Chronic atrial fibrillation (6) Pneumonia Code(s): J18.9 - PNEUMONIA, UNSPECIFIED ORGANISM Qualifiers: Pneumonia type: due to unspecified organism Laterality: right Lung location: lower lobe of lung Qualified Code(s): J18.1 - Lobar pneumonia, unspecified organism (7) Acute on chronic systolic (congestive) heart failure Code(s): I50.23 - ACUTE ON CHRONIC SYSTOLIC (CONGESTIVE) HEART FAILURE (8) COPD (chronic obstructive pulmonary disease) Code(s): J44.9 - CHRONIC OBSTRUCTIVE PULMONARY DISEASE, UNSPECIFIED Qualifiers : COPD type: unspecified COPD Qualified Code(s): J44.9 - Chronic obstructive pulmonary disease, unspecified (9) Anemia Code(s): D64.9 - ANEMIA, UNSPECIFIED Qualifiers: Anemia type: other cause Other causes of anemia: other cause, not classified Qualified Code(s): D64.89 - Other specified anemias (10) Dementia Code(s): F03.90 - UNSPECIFIED DEMENTIA WITHOUT BEHAVIORAL DISTURBANCE Qualifiers: Dementia type: unspecified type Dementia behavioral disturbance: without behavioral disturbance Qualified Code(s): F03.90 - Unspecified dementia without behavioral disturbance (11) Pressure ulcer of sacral region, stage 3 Code(s): L89.153 - PRESSURE ULCER OF SACRAL REGION, STAGE 3
[2017-02-03] MEDS ORDERED: ALBUTEROL SO4 0.083% IH SOL 2.5 MG/3 ML VIAL.NEB. NEB ONE (10:20)
[2017-02-03 10:43] LABS: BASOPHIL 1.2 % (0-2.0); EOSINOPHIL 0.8 % (0-4.5); MCH 30.3 pg (25.7-33.7); MCHC 31.8 g/dl (32.0-35.9); MEAN CELL VOLUME 95.2 fl (80-96); MEAN PLT VOLUME 8.1 fl (7.5-11.1); NEUTROPHILS 82.5 % (42.8-82.8); PLATELET COUNT 183 K/MM3 (134-434); RDW 21.9 % (11.9-15.9)
[2017-02-03 11:14] LABS: PROTHROMBIN TIME (PATIENT) 50.2 SEC (9.98-11.88)
[2017-02-03 11:17] LABS: ALBUMIN 2.4 g/dl (3.4-5.0); ANION GAP 9 (8-16); CALCIUM 8.5 mg/dL (8.5-10.1); CO2 27 mmol/L (21-32); GLUCOSE,RANDOM 91 mg/dL (74-106)
[2017-02-03 11:20] LABS: ALK PHOS 187 U/L (45-117); BILIRUBIN,TOTAL 1.4 mg/dL (0.2-1.0); CREATININE 1.4 mg/dL (0.7-1.3); SGOT/AST 22 U/L (15-37); SGPT/ALT 22 U/L (12-78); TOT PROT 6.7 g/dl (6.4-8.2)
[2017-02-03 11:40] LABS: INR 4.43 (0.82-1.09)
--- NOTE | 2017-02-03 14:36 | PN ---
Progress Note, Physician History of Present Illness: no gross changes patient appears to be calm no issues - Current Medication List Current Medications: Active Medications Acetaminophen (Tylenol -) 650 mg PO Q4H PRN PRN Reason: FEVER OR PAIN Last Admin: 02/02/17 22:25 Dose: 650 mg Albuterol/Ipratropium (Duoneb -) 1 amp NEB QIDR [facility] Last Admin: 02/03/17 06:15 Dose: Not Given Ascorbic Acid (Vitamin C -) 500 mg PO TID [facility] Last Admin: 02/03/17 06:51 Dose: Not Given Collagenase (Santyl -) 1 applic TP DAILY [facility] Last Admin: 02/03/17 09:31 Dose: 1 applic Ferrous Sulfate (Feosol -) 325 mg PO TID [facility] Last Admin: 02/03/17 06:51 Dose: Not Given Guaifenesin/Codeine Phosphate (Robitussin Ac -) 5 ml PO [facility] Last Admin: 02/02/17 22:25 Dose: 5 ml Dextrose (D5w -) 1,000 mls @ 42 mls/hr IV ASDIR [facility] Last Admin: 02/03/17 02:37 Dose: 42 mls/hr Lactobacillus Acidophilus (Bacid -) 1 tab PO DAILY [facility] Last Admin: 02/03/17 09:29 Dose: 1 tab Latanoprost (Xalatan 0.005% Eye Drops -) 1 drop OU [facility] Last Admin: 02/02/17 22:25 Dose: 1 drop Lorazepam (Ativan -) 0.5 mg PO Q6H PRN Ondansetron HCl (Zofran Injection) 4 mg IVPB Q6H PRN PRN Reason: NAUSEA Ranitidine HCl (Zantac -) 150 mg PO BID [facility] Last Admin: 02/03/17 09:29 Dose: 150 mg - Objective Vital Signs: Vital Signs Temperature 97.6 F 02/03/17 08:50 Pulse Rate 70 02/03/17 08:50 Respiratory Rate 20 02/03/17 09:00 Blood Pressure 147/73 02/03/17 08:50 O2 Sat by Pulse Oximetry (%) 96 02/02/17 09:00 Constitutional: Yes: No Distress, Calm Cardiovascular: Yes: Regular Rate and Rhythm Respiratory: Yes: Regular, CTA Bilaterally Gastrointestinal: Yes: Normal Bowel Sounds, Soft Musculoskeletal: Yes: WNL Extremities: Yes: WNL Neurological: Yes: Alert, Other Labs: CBC, BMP 02/03/17 10:05 02/03/17 10:05 INR, PTT INR 4.43 (0.82-1.09) H* D 02/03/17 10:05 Assessment/Plan Problem List - Problems (1) Head trauma. Code(s): S09.90XA - UNSPECIFIED INJURY OF HEAD, INITIAL ENCOUNTER Qualifiers: Encounter type: initial encounter (2) Acute kidney failure Code(s): N17.9 - ACUTE KIDNEY FAILURE, UNSPECIFIED (3) UTI (urinary tract infection) Code(s): N39.0 - URINARY TRACT INFECTION, SITE NOT SPECIFIED Qualifiers: Urinary tract infection type: site unspecified Hematuria presence: without hematuria Qualified Code(s): N39.0 - Urinary tract infection, site not specified (4) Urinary retention due to benign prostatic hyperplasia Code(s): N40.1 - BENIGN PROSTATIC HYPERPLASIA WITH LOWER URINARY TRACT SYMP R33.8 - OTHER RETENTION OF URINE (5) Atrial fibrillation Code(s): I48.91 - UNSPECIFIED ATRIAL FIBRILLATION Qualifiers: Atrial fibrillation type: permanent Qualified Code(s): I48.2 - Chronic atrial fibrillation (6) Pneumonia Code(s): J18.9 - PNEUMONIA, UNSPECIFIED ORGANISM Qualifiers: Pneumonia type: due to unspecified organism Laterality: right Lung location: lower lobe of lung Qualified Code(s): J18.9 - Pneumonia, unspecified organism (7) Acute on chronic systolic (congestive) heart failure Code(s): I50.23 - ACUTE ON CHRONIC SYSTOLIC (CONGESTIVE) HEART FAILURE (8) COPD (chronic obstructive pulmonary disease) Code(s): J44.9 - CHRONIC OBSTRUCTIVE PULMONARY DISEASE, UNSPECIFIED Qualifiers : COPD type: unspecified COPD Qualified Code(s): J44.9 - Chronic obstructive pulmonary disease, unspecified (9) Anemia Code(s): D64.9 - ANEMIA, UNSPECIFIED Qualifiers: Anemia type: other cause Other causes of anemia: other cause, not classified Qualified Code(s): D64.89 - Other specified anemias (10) Dementia Code(s): F03.90 - UNSPECIFIED DEMENTIA WITHOUT BEHAVIORAL DISTURBANCE Qualifiers: Dementia type: unspecified type Dementia behavioral disturbance: without behavioral disturbance Qualified Code(s): F03.90 - Unspecified dementia without behavioral disturbance patient has mdr uti has allergy to pcn plan stable off of abx conitnue current mgmt nutrition rest as per primary
--- NOTE | 2017-02-03 15:31 | PN ---
Progress Note, Physician History of Present Illness: pulmonary no distress,restless - Current Medication List Current Medications: Active Medications Acetaminophen (Tylenol -) 650 mg PO Q4H PRN PRN Reason: FEVER OR PAIN Last Admin: 02/02/17 22:25 Dose: 650 mg Albuterol/Ipratropium (Duoneb -) 1 amp NEB QIDR [facility] Last Admin: 02/03/17 13:22 Dose: 1 amp Ascorbic Acid (Vitamin C -) 500 mg PO TID [facility] Last Admin: 02/03/17 06:51 Dose: Not Given Collagenase (Santyl -) 1 applic TP DAILY [facility] Last Admin: 02/03/17 09:31 Dose: 1 applic Ferrous Sulfate (Feosol -) 325 mg PO TID [facility] Last Admin: 02/03/17 06:51 Dose: Not Given Guaifenesin/Codeine Phosphate (Robitussin Ac -) 5 ml PO HS [facility] Last Admin: 02/02/17 22:25 Dose: 5 ml Dextrose (D5w -) 1,000 mls @ 42 mls/hr IV ASDIR [facility] Last Admin: 02/03/17 02:37 Dose: 42 mls/hr Lactobacillus Acidophilus (Bacid -) 1 tab PO DAILY [facility] Last Admin: 02/03/17 09:29 Dose: 1 tab Latanoprost (Xalatan 0.005% Eye Drops -) 1 drop OU [facility] Last Admin: 02/02/17 22:25 Dose: 1 drop Lorazepam (Ativan -) 0.5 mg PO Q6H PRN Ondansetron HCl (Zofran Injection) 4 mg IVPB Q6H PRN PRN Reason: NAUSEA Ranitidine HCl (Zantac -) 150 mg PO BID [facility] Last Admin: 02/03/17 09:29 Dose: 150 mg - Objective Vital Signs: Vital Signs Temperature 97.6 F 02/03/17 08:50 Pulse Rate 70 02/03/17 08:50 Respiratory Rate 20 02/03/17 09:00 Blood Pressure 147/73 02/03/17 08:50 O2 Sat by Pulse Oximetry (%) 96 02/02/17 09:00 Constitutional: Yes: Thin, Other (restless) Eyes: Yes: WNL HENT: Yes: WNL Neck: Yes: WNL Cardiovascular: Yes: Regular Rate and Rhythm, S1, S2 Respiratory: Yes: Rhonchi (scattered valdez rhonchi) Gastrointestinal: Yes: Normal Bowel Sounds, Soft Extremities: Yes: WNL Labs: CBC, BMP 02/03/17 10:05 02/03/17 10:05 INR, PTT INR 4.43 (0.82-1.09) H* D 02/03/17 10:05 - ....Imaging Chest X-ray: Report Reviewed, Image Reviewed (increased congestion valdez) Assessment/Plan Problem List - Problems (1) Head trauma Code(s): S09.90XA - UNSPECIFIED INJURY OF HEAD, INITIAL ENCOUNTER Qualifiers: Encounter type: initial encounter Qualified Code(s): S09.90XA - Unspecified injury of head, initial encounter (2) Fall Code(s): W19.XXXA - UNSPECIFIED FALL, INITIAL ENCOUNTER (3) Pleural effusion Code(s): J90 - PLEURAL EFFUSION, NOT ELSEWHERE CLASSIFIED (4) Atrial fibrillation Code(s): I48.91 - UNSPECIFIED ATRIAL FIBRILLATION Qualifiers: Atrial fibrillation type: permanent Qualified Code(s): I48.2 - Chronic atrial fibrillation (5) UTI (urinary tract infection) Code(s): N39.0 - URINARY TRACT INFECTION, SITE NOT SPECIFIED Qualifiers: Urinary tract infection type: site unspecified Hematuria presence: without hematuria Qualified Code(s): N39.0 - Urinary tract infection, site not specified (6) Acute on chronic systolic (congestive) heart failure Code(s): I50.23 - ACUTE ON CHRONIC SYSTOLIC (CONGESTIVE) HEART FAILURE (7) Pulmonary hypertension Code(s): I27.2 - OTHER SECONDARY PULMONARY HYPERTENSION (8) Mitral regurgitation Code(s): I34.0 - NONRHEUMATIC MITRAL (VALVE) INSUFFICIENCY (9) COPD (chronic obstructive pulmonary disease) Code(s): J44.9 - CHRONIC OBSTRUCTIVE PULMONARY DISEASE, UNSPECIFIED Qualifiers : COPD type: unspecified COPD Qualified Code(s): J44.9 - Chronic obstructive pulmonary disease, unspecified (10) Acute on chronic renal failure Code(s): N17.9 - ACUTE KIDNEY FAILURE, UNSPECIFIED N18.9 - CHRONIC KIDNEY DISEASE, UNSPECIFIED (11) Dementia Code(s): F03.90 - UNSPECIFIED DEMENTIA WITHOUT BEHAVIORAL DISTURBANCE Qualifiers: Dementia type: unspecified type Dementia behavioral disturbance: without behavioral disturbance Qualified Code(s): F03.90 - Unspecified dementia without behavioral disturbance Assessment/Plan s/p Fall Acute on Chronic Systolic Heart Failure Mitral Regurgitation Pulmonary HTN Pleural Effusion Atrial Fibrillation COPD r/o UTI Dementia Anemia - - findings likely more due to CHF - monitor urine output, creatinine - inhaled bronchodilators - rate controlled - monitor h+h - consider aime ROBLES
--- NOTE | 2017-02-03 17:47 | PN ---
Progress Note, Physician History of Present Illness: Pt seen and examined at bedside. Pt appears more comfortable today. - Current Medication List Current Medications: Active Medications Acetaminophen (Tylenol -) 650 mg PO Q4H PRN PRN Reason: FEVER OR PAIN Last Admin: 02/02/17 22:25 Dose: 650 mg Albuterol/Ipratropium (Duoneb -) 1 amp NEB QIDR [facility] Last Admin: 02/03/17 13:22 Dose: 1 amp Ascorbic Acid (Vitamin C -) 500 mg PO TID [facility] Last Admin: 02/03/17 06:51 Dose: Not Given Collagenase (Santyl -) 1 applic TP DAILY [facility] Last Admin: 02/03/17 09:31 Dose: 1 applic Ferrous Sulfate (Feosol -) 325 mg PO TID [facility] Last Admin: 02/03/17 06:51 Dose: Not Given Guaifenesin/Codeine Phosphate (Robitussin Ac -) 5 ml PO HS [facility] Last Admin: 02/02/17 22:25 Dose: 5 ml Dextrose (D5w -) 1,000 mls @ 42 mls/hr IV ASDIR [facility] Last Admin: 02/03/17 02:37 Dose: 42 mls/hr Lactobacillus Acidophilus (Bacid -) 1 tab PO DAILY [facility] Last Admin: 02/03/17 09:29 Dose: 1 tab Latanoprost (Xalatan 0.005% Eye Drops -) 1 drop OU [facility] Last Admin: 02/02/17 22:25 Dose: 1 drop Lorazepam (Ativan -) 0.5 mg PO Q6H PRN Ondansetron HCl (Zofran Injection) 4 mg IVPB Q6H PRN PRN Reason: NAUSEA Ranitidine HCl (Zantac -) 150 mg PO BID [facility] Last Admin: 02/03/17 09:29 Dose: 150 mg - Objective Vital Signs: Vital Signs Temperature 97.6 F 02/03/17 08:50 Pulse Rate 70 02/03/17 08:50 Respiratory Rate 20 02/03/17 09:00 Blood Pressure 147/73 02/03/17 08:50 O2 Sat by Pulse Oximetry (%) 96 02/02/17 09:00 Constitutional: Yes: Calm Eyes: Yes: Conjunctiva Clear HENT: Yes: Atraumatic Cardiovascular: Yes: S1, S2 Respiratory: Yes: On Nasal O2 Gastrointestinal: Yes: Soft Genitourinary: Yes: Incontinence Musculoskeletal: Yes: WNL Edema: No Neurological: Yes: Confusion Psychiatric: Yes: Agitated Labs: CBC, BMP 02/03/17 10:05 02/03/17 10:05 INR, PTT INR 4.43 (0.82-1.09) H* D 02/03/17 10:05 Problem List - Problems (1) Acute on chronic renal failure Code(s): N17.9 - ACUTE KIDNEY FAILURE, UNSPECIFIED N18.9 - CHRONIC KIDNEY DISEASE, UNSPECIFIED Qualifiers: Acute renal failure type: unspecified Chronic kidney disease stage: unspecified stage Qualified Code(s): N17.9 - Acute kidney failure, unspecified; N18.9 - Chronic kidney disease, unspecified (2) Anemia Code(s): D64.9 - ANEMIA, UNSPECIFIED Qualifiers: Anemia type: other cause Other causes of anemia: other cause, not classified Qualified Code(s): D64.89 - Other specified anemias (3) Atrial fibrillation Code(s): I48.91 - UNSPECIFIED ATRIAL FIBRILLATION Qualifiers: Atrial fibrillation type: permanent Qualified Code(s): I48.2 - Chronic atrial fibrillation Assessment/Plan Current Medications Generic Name Dose Route Start Last Admin Trade Name Freq PRN Reason Stop Dose Admin Acetaminophen 650 mg 01/26/17 20:29 02/02/17 22:25 Tylenol - PO 650 mg Q4H PRN Administration FEVER OR PAIN Albuterol/Ipratropium 1 amp 02/01/17 12:00 02/03/17 13:22 Duoneb - NEB 1 amp QIDR NAIF Administration Ascorbic Acid 500 mg 01/26/17 22:00 02/03/17 06:51 Vitamin C - PO Not Given TID NAIF Collagenase 1 applic 01/29/17 20:30 02/03/17 09:31 Santyl - TP 1 applic DAILY NAIF Administration Ferrous Sulfate 325 mg 01/26/17 22:00 02/03/17 06:51 Feosol - PO Not Given TID NAIF Guaifenesin/Codeine Phosphate 5 ml 01/26/17 22:00 02/02/17 22:25 Robitussin Ac - PO 5 ml HS NAIF Administration Dextrose 1,000 mls @ 42 mls/hr 02/02/17 12:49 02/03/17 02:37 D5w - IV 42 mls/hr ASDIR NAIF Administration Lactobacillus Acidophilus 1 tab 01/27/17 10:00 02/03/17 09:29 Bacid - PO 1 tab DAILY NAIF Administration Latanoprost 1 drop 01/27/17 22:00 02/02/17 22:25 Xalatan 0.005% Eye Drops - OU 1 drop HS [facility]IF Administration Lorazepam 0.5 mg 02/03/17 14:27 Ativan - PO Q6H PRN Ondansetron HCl 4 mg 01/26/17 20:29 Zofran Injection IVPB Q6H PRN NAUSEA Ranitidine HCl 150 mg 01/27/17 22:00 02/03/17 09:29 Zantac - PO 150 mg BID NAIF Administration Impression 1. TATY 2. CHF 3. a-fib 4. CVA 5. Dementia 6. COPD 7. PNA 8. HTN 9. CKD 10. s/p fall 11. hypernatremia Plan - renal function stabilizing - stop fluids - cxr reviewee - lasix PRN - encourage PO intake - repeat lab in am Dr Abdi
[2017-02-03] MEDS: LORazepam 0.5 MG TABLET PO PRN (20:39)
[2017-02-03] MEDS: guaiFENesin/CODEINE 5 ML UNIT-DOSE CUPS PO SCH (22:20)
[2017-02-03] MEDS: ACETAMINOPHEN 325 MG TABLET (FP) PO PRN (22:20)
[2017-02-03] MEDS: LATANOPROST 0.005% OPHTH SOLN 2.5ML BOTTLE OU SCH (22:21)
[2017-02-04] MEDS: ALBUTEROL SO4 2.5/IPRATROPIUM 0.5 INH SOL 3 ML VIAL.NEB. NEB SCH ×3 (06:26→18:37)
[2017-02-04] MEDS: FERROUS SO4 325 MG TABLET (FP) PO SCH ×3 (06:28→21:17)
[2017-02-04] MEDS: ASCORBIC ACID 500 MG TABLET (FP) PO SCH ×3 (06:29→21:17)
[2017-02-04] MEDS: LORazepam 0.5 MG TABLET PO PRN ×2 (06:29→21:17)
[2017-02-04 08:29] LABS: BASOPHIL 2.3 % (0-2.0); EOSINOPHIL 2.4 % (0-4.5); MCH 30.4 pg (25.7-33.7); MEAN CELL VOLUME 94.9 fl (80-96); MEAN PLT VOLUME 7.7 fl (7.5-11.1); NEUTROPHILS 78.4 % (42.8-82.8); PLATELET COUNT 164 K/MM3 (134-434); RDW 21.8 % (11.9-15.9); WHITE BLOOD COUNT 7.2 K/mm3 (4.0-10.0)
[2017-02-04 08:43] LABS: INR 3.71 (0.82-1.09); PROTHROMBIN TIME (PATIENT) 41.9 SEC (9.98-11.88)
[2017-02-04 08:53] LABS: ANION GAP 8 (8-16); CALCIUM 8.3 mg/dL (8.5-10.1); CO2 26 mmol/L (21-32); GLUCOSE,RANDOM 71 mg/dL (74-106)
[2017-02-04 08:54] LABS: CREATININE 1.3 mg/dL (0.7-1.3)
[2017-02-04] MEDS ORDERED: FUROSEMIDE 40 MG/4 ML INJECTABLE VIAL IVPB ONE (09:56)
--- NOTE | 2017-02-04 09:57 | PN ---
Progress Note, Physician Chief Complaint: Events noted Underlying dementia and confusion, arousable History of Present Illness: Patient was seen and examined. Chart was reviewed CXR shows vascular congestion, initially with elevated BNP earlier this month. IV fluids stopped - Current Medication List Current Medications: Active Medications Acetaminophen (Tylenol -) 650 mg PO Q4H PRN PRN Reason: FEVER OR PAIN Last Admin: 02/03/17 22:20 Dose: 650 mg Albuterol/Ipratropium (Duoneb -) 1 amp NEB QIDR [facility] Last Admin: 02/04/17 06:26 Dose: 1 amp Ascorbic Acid (Vitamin C -) 500 mg PO TID [facility] Last Admin: 02/04/17 06:29 Dose: 500 mg Collagenase (Santyl -) 1 applic TP DAILY [facility] Last Admin: 02/03/17 09:31 Dose: 1 applic Ferrous Sulfate (Feosol -) 325 mg PO TID [facility] Last Admin: 02/04/17 06:28 Dose: 325 mg Guaifenesin/Codeine Phosphate (Robitussin Ac -) 5 ml PO [facility] Last Admin: 02/03/17 22:20 Dose: 5 ml Lactobacillus Acidophilus (Bacid -) 1 tab PO DAILY [facility] Last Admin: 02/03/17 09:29 Dose: 1 tab Latanoprost (Xalatan 0.005% Eye Drops -) 1 drop OU HS [facility] Last Admin: 02/03/17 22:21 Dose: 1 drop Lorazepam (Ativan -) 0.5 mg PO Q6H PRN Last Admin: 02/04/17 06:29 Dose: 0.5 mg Ondansetron HCl (Zofran Injection) 4 mg IVPB Q6H PRN PRN Reason: NAUSEA Ranitidine HCl (Zantac -) 150 mg PO BID [facility] Last Admin: 02/03/17 22:23 Dose: 150 mg - Objective Vital Signs: Vital Signs Temperature 98.2 F 02/04/17 06:00 Pulse Rate 69 02/04/17 06:00 Respiratory Rate 20 02/04/17 06:00 Blood Pressure 126/51 02/04/17 06:00 O2 Sat by Pulse Oximetry (%) 94 L 02/03/17 20:51 Neck: Yes: Supple Cardiovascular: Yes: Pulse Irregular, Murmur (2/6 SM), S1, S2 Respiratory: Yes: Diminished Gastrointestinal: Yes: Normal Bowel Sounds, Soft. No: Tenderness Edema: No Labs: CBC, BMP 02/04/17 07:30 02/04/17 07:30 INR, PTT INR 3.71 (0.82-1.09) H 02/04/17 07:30 - ....Imaging Chest X-ray: Report Reviewed Problem List - Problems (1) Acute on chronic renal failure Code(s): N17.9 - ACUTE KIDNEY FAILURE, UNSPECIFIED N18.9 - CHRONIC KIDNEY DISEASE, UNSPECIFIED Qualifiers: Acute renal failure type: unspecified Chronic kidney disease stage: unspecified stage Qualified Code(s): N17.9 - Acute kidney failure, unspecified; N18.9 - Chronic kidney disease, unspecified (2) Anemia Code(s): D64.9 - ANEMIA, UNSPECIFIED Qualifiers: Anemia type: other cause Other causes of anemia: other cause, not classified Qualified Code(s): D64.89 - Other specified anemias (3) Atrial fibrillation Code(s): I48.91 - UNSPECIFIED ATRIAL FIBRILLATION Qualifiers: Atrial fibrillation type: permanent Qualified Code(s): I48.2 - Chronic atrial fibrillation (4) Fall Code(s): W19.XXXA - UNSPECIFIED FALL, INITIAL ENCOUNTER (5) Head trauma Code(s): S09.90XA - UNSPECIFIED INJURY OF HEAD, INITIAL ENCOUNTER Qualifiers: Encounter type: initial encounter Qualified Code(s): S09.90XA - Unspecified injury of head, initial encounter (6) Mitral regurgitation Code(s): I34.0 - NONRHEUMATIC MITRAL (VALVE) INSUFFICIENCY Qualifiers: Cardiac valve disease etiology: nonrheumatic Qualified Code(s): I34.0 - Nonrheumatic mitral (valve) insufficiency (7) Subtherapeutic international normalized ratio (INR) Code(s): R79.1 - ABNORMAL COAGULATION PROFILE (8) UTI (urinary tract infection) Code(s): N39.0 - URINARY TRACT INFECTION, SITE NOT SPECIFIED Qualifiers: Urinary tract infection type: site unspecified Hematuria presence: without hematuria Qualified Code(s): N39.0 - Urinary tract infection, site not specified; R31.9 - Hematuria, unspecified (9) Dementia Code(s): F03.90 - UNSPECIFIED DEMENTIA WITHOUT BEHAVIORAL DISTURBANCE Qualifiers: Dementia type: unspecified type Dementia behavioral disturbance: without behavioral disturbance Qualified Code(s): F03.90 - Unspecified dementia without behavioral disturbance (10) Acute on chronic systolic (congestive) heart failure Code(s): I50.23 - ACUTE ON CHRONIC SYSTOLIC (CONGESTIVE) HEART FAILURE (11) Bradycardia Code(s): R00.1 - BRADYCARDIA, UNSPECIFIED (12) Cerebrovascular disease Code(s): I67.9 - CEREBROVASCULAR DISEASE, UNSPECIFIED (13) Hypertensive cardiovascular disease Code(s): I11.9 - HYPERTENSIVE HEART DISEASE WITHOUT HEART FAILURE Qualifiers: Heart failure presence: with heart failure Qualified Code(s): I11.0 - Hypertensive heart disease with heart failure (14) COPD (chronic obstructive pulmonary disease) Code(s): J44.9 - CHRONIC OBSTRUCTIVE PULMONARY DISEASE, UNSPECIFIED Qualifiers : COPD type: unspecified COPD Qualified Code(s): J44.9 - Chronic obstructive pulmonary disease, unspecified Assessment/Plan 1. Acute on Chronic Systolic Heart Failure with vascular congestion and pleural effusion 2. Mitral valve Regurgitation 3. Pulmonary hypertension 4. Persistent Atrial Fibrillation with subtherapeutic INR 5. COPD 6. Proteus UTI 7. Vascular dementia, h/o falls 8. Anemia 9. Acute on CKD PLAN: 1. Diuresis - dose of Lasix 20 mg IV once with monitoring renal function and electrolytes 2. Coumadin per INR with caution and monitor Hgb 3. Consider Losartan once renal function stabilizes Further plans are to follow Brenden Davenport MD
[2017-02-04] MEDS: LACTOBACILLUS ACIDOPHILUS 1 EACH TAB (FP) PO SCH (11:56)
[2017-02-04] MEDS: RANITIDINE HCL 150 MG TABLET (FP) PO SCH ×2 (11:56→21:17)
--- NOTE | 2017-02-04 13:47 | PN ---
Progress Note, Physician History of Present Illness: pulmonary awake restless,congested - Current Medication List Current Medications: Active Medications Acetaminophen (Tylenol -) 650 mg PO Q4H PRN PRN Reason: FEVER OR PAIN Last Admin: 02/03/17 22:20 Dose: 650 mg Albuterol/Ipratropium (Duoneb -) 1 amp NEB QIDR [facility] Last Admin: 02/04/17 11:15 Dose: 1 amp Ascorbic Acid (Vitamin C -) 500 mg PO TID [facility] Last Admin: 02/04/17 06:29 Dose: 500 mg Collagenase (Santyl -) 1 applic TP DAILY [facility] Last Admin: 02/03/17 09:31 Dose: 1 applic Ferrous Sulfate (Feosol -) 325 mg PO TID [facility] Last Admin: 02/04/17 06:28 Dose: 325 mg Guaifenesin/Codeine Phosphate (Robitussin Ac -) 5 ml PO HS [facility] Last Admin: 02/03/17 22:20 Dose: 5 ml Lactobacillus Acidophilus (Bacid -) 1 tab PO DAILY [facility] Last Admin: 02/04/17 11:56 Dose: 1 tab Latanoprost (Xalatan 0.005% Eye Drops -) 1 drop OU [facility] Last Admin: 02/03/17 22:21 Dose: 1 drop Lorazepam (Ativan -) 0.5 mg PO Q6H PRN Last Admin: 02/04/17 06:29 Dose: 0.5 mg Ondansetron HCl (Zofran Injection) 4 mg IVPB Q6H PRN PRN Reason: NAUSEA Ranitidine HCl (Zantac -) 150 mg PO BID [facility] Last Admin: 02/04/17 11:56 Dose: 150 mg - Objective Vital Signs: Vital Signs Temperature 98.2 F 02/04/17 06:00 Pulse Rate 69 02/04/17 06:00 Respiratory Rate 20 02/04/17 06:00 Blood Pressure 126/51 02/04/17 06:00 O2 Sat by Pulse Oximetry (%) 94 L 02/03/17 20:51 Constitutional: Yes: Thin, Other (restless) Eyes: Yes: WNL HENT: Yes: WNL Neck: Yes: WNL Cardiovascular: Yes: Regular Rate and Rhythm, S1, S2 Respiratory: Yes: Rhonchi (scattered valdez rhonchi) Gastrointestinal: Yes: Normal Bowel Sounds, Soft Extremities: Yes: WNL Edema: No Labs: CBC, BMP 02/04/17 07:30 02/04/17 07:30 INR, PTT INR 3.71 (0.82-1.09) H 02/04/17 07:30 - ....Imaging Chest X-ray: Report Reviewed, Image Reviewed (increased congestion bilaterally) Assessment/Plan Problem List - Problems (1) Head trauma Code(s): S09.90XA - UNSPECIFIED INJURY OF HEAD, INITIAL ENCOUNTER Qualifiers: Encounter type: initial encounter Qualified Code(s): S09.90XA - Unspecified injury of head, initial encounter (2) Fall Code(s): W19.XXXA - UNSPECIFIED FALL, INITIAL ENCOUNTER (3) Pleural effusion Code(s): J90 - PLEURAL EFFUSION, NOT ELSEWHERE CLASSIFIED (4) Atrial fibrillation Code(s): I48.91 - UNSPECIFIED ATRIAL FIBRILLATION Qualifiers: Atrial fibrillation type: permanent Qualified Code(s): I48.2 - Chronic atrial fibrillation (5) UTI (urinary tract infection) Code(s): N39.0 - URINARY TRACT INFECTION, SITE NOT SPECIFIED Qualifiers: Urinary tract infection type: site unspecified Hematuria presence: without hematuria Qualified Code(s): N39.0 - Urinary tract infection, site not specified (6) Acute on chronic systolic (congestive) heart failure Code(s): I50.23 - ACUTE ON CHRONIC SYSTOLIC (CONGESTIVE) HEART FAILURE (7) Pulmonary hypertension Code(s): I27.2 - OTHER SECONDARY PULMONARY HYPERTENSION (8) Mitral regurgitation Code(s): I34.0 - NONRHEUMATIC MITRAL (VALVE) INSUFFICIENCY (9) COPD (chronic obstructive pulmonary disease) Code(s): J44.9 - CHRONIC OBSTRUCTIVE PULMONARY DISEASE, UNSPECIFIED Qualifiers : COPD type: unspecified COPD Qualified Code(s): J44.9 - Chronic obstructive pulmonary disease, unspecified (10) Acute on chronic renal failure Code(s): N17.9 - ACUTE KIDNEY FAILURE, UNSPECIFIED N18.9 - CHRONIC KIDNEY DISEASE, UNSPECIFIED (11) Dementia Code(s): F03.90 - UNSPECIFIED DEMENTIA WITHOUT BEHAVIORAL DISTURBANCE Qualifiers: Dementia type: unspecified type Dementia behavioral disturbance: without behavioral disturbance Qualified Code(s): F03.90 - Unspecified dementia without behavioral disturbance Assessment/Plan s/p Fall Acute on Chronic Systolic Heart Failure Mitral Regurgitation Pulmonary HTN Pleural Effusion Atrial Fibrillation COPD r/o UTI Dementia Anemia - - findings likely more due to CHF - monitor urine output, creatinine - inhaled bronchodilators - rate controlled - monitor h+h - consider aime ROBLES
[2017-02-04] MEDS: COLLAGENASE CLOSTRIDIUM HIST. 30 GRAMS TUBE TP SCH (14:45)
--- NOTE | 2017-02-04 15:52 | PN ---
Progress Note, Physician History of Present Illness: no gross changes continues to be stable - Current Medication List Current Medications: Active Medications Acetaminophen (Tylenol -) 650 mg PO Q4H PRN PRN Reason: FEVER OR PAIN Last Admin: 02/03/17 22:20 Dose: 650 mg Albuterol/Ipratropium (Duoneb -) 1 amp NEB QIDR [facility] Last Admin: 02/04/17 11:15 Dose: 1 amp Ascorbic Acid (Vitamin C -) 500 mg PO TID [facility] Last Admin: 02/04/17 14:45 Dose: 500 mg Collagenase (Santyl -) 1 applic TP DAILY [facility] Last Admin: 02/04/17 14:45 Dose: 1 applic Ferrous Sulfate (Feosol -) 325 mg PO TID [facility] Last Admin: 02/04/17 14:45 Dose: 325 mg Guaifenesin/Codeine Phosphate (Robitussin Ac -) 5 ml PO HS [facility] Last Admin: 02/03/17 22:20 Dose: 5 ml Lactobacillus Acidophilus (Bacid -) 1 tab PO DAILY [facility] Last Admin: 02/04/17 11:56 Dose: 1 tab Latanoprost (Xalatan 0.005% Eye Drops -) 1 drop OU [facility] Last Admin: 02/03/17 22:21 Dose: 1 drop Lorazepam (Ativan -) 0.5 mg PO Q6H PRN Last Admin: 02/04/17 06:29 Dose: 0.5 mg Ondansetron HCl (Zofran Injection) 4 mg IVPB Q6H PRN PRN Reason: NAUSEA Ranitidine HCl (Zantac -) 150 mg PO BID [facility] Last Admin: 02/04/17 11:56 Dose: 150 mg - Objective Vital Signs: Vital Signs Temperature 97.7 F 02/04/17 14:59 Pulse Rate 68 02/04/17 14:59 Respiratory Rate 20 02/04/17 06:00 Blood Pressure 137/61 02/04/17 14:59 O2 Sat by Pulse Oximetry (%) 94 L 02/03/17 20:51 Constitutional: Yes: No Distress, Calm Cardiovascular: Yes: S1, S2 Respiratory: Yes: Regular, CTA Bilaterally Gastrointestinal: Yes: Normal Bowel Sounds, Soft Genitourinary: Yes: Quintana Present Musculoskeletal: Yes: WNL Extremities: Yes: WNL Neurological: Yes: Alert, Other Psychiatric: Yes: Alert, Other Labs: CBC, BMP 02/04/17 07:30 02/04/17 07:30 INR, PTT INR 3.71 (0.82-1.09) H 02/04/17 07:30 Assessment/Plan Problem List - Problems (1) Head trauma. Code(s): S09.90XA - UNSPECIFIED INJURY OF HEAD, INITIAL ENCOUNTER Qualifiers: Encounter type: initial encounter (2) Acute kidney failure Code(s): N17.9 - ACUTE KIDNEY FAILURE, UNSPECIFIED (3) UTI (urinary tract infection) Code(s): N39.0 - URINARY TRACT INFECTION, SITE NOT SPECIFIED Qualifiers: Urinary tract infection type: site unspecified Hematuria presence: without hematuria Qualified Code(s): N39.0 - Urinary tract infection, site not specified (4) Urinary retention due to benign prostatic hyperplasia Code(s): N40.1 - BENIGN PROSTATIC HYPERPLASIA WITH LOWER URINARY TRACT SYMP R33.8 - OTHER RETENTION OF URINE (5) Atrial fibrillation Code(s): I48.91 - UNSPECIFIED ATRIAL FIBRILLATION Qualifiers: Atrial fibrillation type: permanent Qualified Code(s): I48.2 - Chronic atrial fibrillation (6) Pneumonia Code(s): J18.9 - PNEUMONIA, UNSPECIFIED ORGANISM Qualifiers: Pneumonia type: due to unspecified organism Laterality: right Lung location: lower lobe of lung Qualified Code(s): J18.9 - Pneumonia, unspecified organism (7) Acute on chronic systolic (congestive) heart failure Code(s): I50.23 - ACUTE ON CHRONIC SYSTOLIC (CONGESTIVE) HEART FAILURE (8) COPD (chronic obstructive pulmonary disease) Code(s): J44.9 - CHRONIC OBSTRUCTIVE PULMONARY DISEASE, UNSPECIFIED Qualifiers : COPD type: unspecified COPD Qualified Code(s): J44.9 - Chronic obstructive pulmonary disease, unspecified (9) Anemia Code(s): D64.9 - ANEMIA, UNSPECIFIED Qualifiers: Anemia type: other cause Other causes of anemia: other cause, not classified Qualified Code(s): D64.89 - Other specified anemias (10) Dementia Code(s): F03.90 - UNSPECIFIED DEMENTIA WITHOUT BEHAVIORAL DISTURBANCE Qualifiers: Dementia type: unspecified type Dementia behavioral disturbance: without behavioral disturbance Qualified Code(s): F03.90 - Unspecified dementia without behavioral disturbance patient has mdr uti has allergy to pcn plan continue current mgmt nutrition rest as per primary
--- NOTE | 2017-02-04 17:35 | PN ---
Progress Note, Physician History of Present Illness: Pt seen and examined at bedside. He is awake but confused. - Current Medication List Current Medications: Active Medications Acetaminophen (Tylenol -) 650 mg PO Q4H PRN PRN Reason: FEVER OR PAIN Last Admin: 02/03/17 22:20 Dose: 650 mg Albuterol/Ipratropium (Duoneb -) 1 amp NEB QIDR [facility] Last Admin: 02/04/17 11:15 Dose: 1 amp Ascorbic Acid (Vitamin C -) 500 mg PO TID [facility] Last Admin: 02/04/17 14:45 Dose: 500 mg Collagenase (Santyl -) 1 applic TP DAILY [facility] Last Admin: 02/04/17 14:45 Dose: 1 applic Donepezil HCl (Aricept -) 5 mg PO [facility] Ferrous Sulfate (Feosol -) 325 mg PO TID [facility] Last Admin: 02/04/17 14:45 Dose: 325 mg Guaifenesin/Codeine Phosphate (Robitussin Ac -) 5 ml PO [facility] Last Admin: 02/03/17 22:20 Dose: 5 ml Lactobacillus Acidophilus (Bacid -) 1 tab PO DAILY [facility] Last Admin: 02/04/17 11:56 Dose: 1 tab Latanoprost (Xalatan 0.005% Eye Drops -) 1 drop OU [facility] Last Admin: 02/03/17 22:21 Dose: 1 drop Lorazepam (Ativan -) 0.5 mg PO Q6H PRN Last Admin: 02/04/17 06:29 Dose: 0.5 mg Ondansetron HCl (Zofran Injection) 4 mg IVPB Q6H PRN PRN Reason: NAUSEA Ranitidine HCl (Zantac -) 150 mg PO BID [facility] Last Admin: 02/04/17 11:56 Dose: 150 mg - Objective Vital Signs: Vital Signs Temperature 97.7 F 02/04/17 14:59 Pulse Rate 68 02/04/17 14:59 Respiratory Rate 20 02/04/17 09:00 Blood Pressure 137/61 02/04/17 14:59 O2 Sat by Pulse Oximetry (%) 96 02/04/17 09:00 Constitutional: Yes: Calm Eyes: Yes: Conjunctiva Clear HENT: Yes: Atraumatic Cardiovascular: Yes: S1, S2 Respiratory: Yes: CTA Bilaterally Gastrointestinal: Yes: Soft Genitourinary: Yes: Incontinence Edema: No Neurological: Yes: Confusion Labs: CBC, BMP 02/04/17 07:30 02/04/17 07:30 INR, PTT INR 3.71 (0.82-1.09) H 02/04/17 07:30 Problem List - Problems (1) Acute on chronic renal failure Code(s): N17.9 - ACUTE KIDNEY FAILURE, UNSPECIFIED N18.9 - CHRONIC KIDNEY DISEASE, UNSPECIFIED Qualifiers: Acute renal failure type: unspecified Chronic kidney disease stage: unspecified stage Qualified Code(s): N17.9 - Acute kidney failure, unspecified; N18.9 - Chronic kidney disease, unspecified (2) Anemia Code(s): D64.9 - ANEMIA, UNSPECIFIED Qualifiers: Anemia type: other cause Other causes of anemia: other cause, not classified Qualified Code(s): D64.89 - Other specified anemias (3) Atrial fibrillation Code(s): I48.91 - UNSPECIFIED ATRIAL FIBRILLATION Qualifiers: Atrial fibrillation type: permanent Qualified Code(s): I48.2 - Chronic atrial fibrillation Assessment/Plan Current Medications Generic Name Dose Route Start Last Admin Trade Name Freq PRN Reason Stop Dose Admin Acetaminophen 650 mg 01/26/17 20:29 02/03/17 22:20 Tylenol - PO 650 mg Q4H PRN Administration FEVER OR PAIN Albuterol/Ipratropium 1 amp 02/01/17 12:00 02/04/17 11:15 Duoneb - NEB 1 amp QIDR [facility] Administration Ascorbic Acid 500 mg 01/26/17 22:00 02/04/17 14:45 Vitamin C - PO 500 mg TID [facility] Administration Collagenase 1 applic 01/29/17 20:30 02/04/17 14:45 Santyl - TP 1 applic DAILY [facility] Administration Donepezil HCl 5 mg 02/04/17 22:00 Aricept - PO HS [facility] Ferrous Sulfate 325 mg 01/26/17 22:00 02/04/17 14:45 Feosol - PO 325 mg TID [facility] Administration Guaifenesin/Codeine Phosphate 5 ml 01/26/17 22:00 02/03/17 22:20 Robitussin Ac - PO 5 ml HS [facility] Administration Lactobacillus Acidophilus 1 tab 01/27/17 10:00 02/04/17 11:56 Bacid - PO 1 tab DAILY [facility] Administration Latanoprost 1 drop 01/27/17 22:00 02/03/17 22:21 Xalatan 0.005% Eye Drops - OU 1 drop HS [facility] Administration Lorazepam 0.5 mg 02/03/17 14:27 02/04/17 06:29 Ativan - PO 0.5 mg Q6H PRN Administration Ondansetron HCl 4 mg 01/26/17 20:29 Zofran Injection IVPB Q6H PRN NAUSEA Ranitidine HCl 150 mg 01/27/17 22:00 02/04/17 11:56 Zantac - PO 150 mg BID [facility] Administration Impression 1. TATY 2. CHF 3. a-fib 4. CVA 5. Dementia 6. COPD 7. PNA 8. HTN 9. CKD 10. s/p fall 11. hypernatremia Plan - renal function continues to improving - agree with diuretics - repeat labs in am - cardio input appreciated - encourage PO intake - repeat lab in am Dr Abdi
--- NOTE | 2017-02-04 19:17 | CONSULT ---
Consult - text type - Consultation Consultation Note: NEUROLOGY CONSULTATION is greatly appreciated: This 86 yo RH man lives with his son and health aides. H/O HTN, Chol, Afib- on coumadin. 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 Recently s/p fall with HIP ORIF. Well-known to me over many years with progressive dementia c/w Alzheimer's. Has been maintained on Donepezil 10 mg and Namenda XR 28 mg daily with quetiapine (12.5 in AM and 25 mg HS) for agitation. Now admitted with increased confusion, agitation. CT of head (reviewed) shows diffuse atrophy and microvascular changes ( unchanged from prior studies). U/A 01/27/17 showed UTI. YUVAL: Neck supple. No bruits. Cor irreg. Left calf bandaged. NEURO: Doesn't recognize me. Calling and talking to his . Doesn't know he is in hospital. No facial. Decreased vision. Gag OK Moves all fours with rigid tone. Early contractures of the knees. Symmetrical reflexes. Plantars downgoing. Withdraws all fours to pinch. IMP: Moderately severe, B/L cerebral dysfunction c/w advanced AD. R/O a contribution from Toxic metabolic encephalopathy. SUGGEST: Update B12, TSH. Repeat U/A and Rx if UTI still present. Increase donepezil to 10 mg q AM Resume mementine 5 mg BID. Resume quetiapine 12.5 mg q AM, 25 mg q PM. Mobilize OOB to chair and PT to ambulate with walker. TV/Radio. Thank you very much, Julio Harvey MD
--- NOTE | 2017-02-04 20:37 | PN ---
Progress Note (short form) - Note Progress Note: Patient seen and examined. PO intake remains poor. Awake but confused. Not in respiratory distress Afebrile. History Source: Medical Record Limitations to Obtaining History: Dementia - Past Medical History [employer]: Yes: CVA (pe 01/2015 brain MRI), Dementia Cardiovascular: Yes: AFIB (chronic), CHF, HTN Pulmonary: Yes: COPD Psych: Yes: Depression, Other (h/o alcohol abuse) - Past Surgical History Past Surgical History: Yes: Colectomy (hemicolectomy) - Advance Directives Advance Directives: Yes: DNR - Smoking History Smoking history: Unknown if ever smoked Have you smoked in the past 12 months: No Aproximately how many cigarettes per day: 0 If you are a former smoker, when did you quit?: 50 years - Alcohol/Substance Use Hx Alcohol Use: No - Social History ADL: Family Assistance History of Recent Travel: No Home Medications - Allergies Allergies/Adverse Reactions: Allergies Allergy/AdvReac Type Severity Reaction Status Date / Time Penicillins Allergy Hives Verified 01/26/17 15:10 procaine Allergy Verified 01/26/17 18:45 - Home Medications Home Medications: Ambulatory Orders Ascorbate Calcium [Vitamin C] 500 mg PO TID 01/26/17 Bimatoprost [Lumigan] 1 drop IO DAILY 01/26/17 Ferrous Sulfate 325 mg PO TID 01/26/17 Furosemide [Lasix -] 40 mg PO BID 01/26/17 Guaifenesin AC [Robitussin AC -] 5 ml PO HS 01/26/17 Warfarin Na [Coumadin] 5 mg PO TID 01/26/17 Review of Systems Unable to obtain ROS, reason: dementia Physical Examination Vital Signs: Vital Signs Period Temp Pulse Resp BP Sys/Kemp Pulse Ox Last 24 Hr 97.7 F-98.2 F 68-69 20-20 126-137/51-61 94-96 Constitutional: Yes: Anxious, Mild Distress Eyes: Yes: Conjunctiva Clear, EOM Intact, PERRL HENT: Yes: Atraumatic, Normocephalic Neck: Yes: Supple, Trachea Midline Cardiovascular: Yes: Pulse Irregular, S1, S2 Respiratory: Yes: Diminished (air entry dimished b/l lung base) Gastrointestinal: Yes: Soft (non tender, BS present) Edema: No Peripheral Pulses WNL: Yes ...Motor Strength: WNL Labs: CBC, BMP 02/04/17 07:30 02/04/17 07:30 Microbiology 01/28/17 12:25 Blood Culture - Preliminary Blood - Peripheral Venous NO GROWTH OBTAINED AFTER 24 HOURS, INCUBATION TO CONTINUE FOR 4 DAYS. 01/28/17 12:20 Blood Culture - Preliminary Blood - Peripheral Venous NO GROWTH OBTAINED AFTER 24 HOURS, INCUBATION TO CONTINUE FOR 4 DAYS. 01/26/17 17:30 Urine Culture - Final Urine - Urine - Catheterized Proteus [facility] - Results Chest X-ray: Report Reviewed Problem List - Problems (1) Head trauma Assessment/Plan: S/P Fall at [facility] with head trauma. Patient is on coumadin. Head CT x 2 - Negative for intracranial bleed. Will continue to monitor. Code(s): S09.90XA - UNSPECIFIED INJURY OF HEAD, INITIAL ENCOUNTER Qualifiers: Encounter type: initial encounter (2) Acute kidney failure Assessment/Plan: Renal function continues to improve. Off IV fluids. Encourage PO fluid intake. Renal follow up appreciated. Code(s): N17.9 - ACUTE KIDNEY FAILURE, UNSPECIFIED (3) UTI (urinary tract infection) Assessment/Plan: Urine culture - Proteus Mirabilis Abx as per ID Code(s): N39.0 - URINARY TRACT INFECTION, SITE NOT SPECIFIED Qualifiers: Urinary tract infection type: site unspecified Hematuria presence: without hematuria Qualified Code(s): N39.0 - Urinary tract infection, site not specified (4) Urinary retention due to benign prostatic hyperplasia Assessment/Plan: Has Quintana. Changed . Difficult insertion on previous visits. Discussed with Dr. Loaiza. No need for change now. Code(s): N40.1 - BENIGN PROSTATIC HYPERPLASIA WITH LOWER URINARY TRACT SYMP R33.8 - OTHER RETENTION OF URINE (5) Atrial fibrillation Assessment/Plan: Rate controlled. AC per INR. Continue coumadin [address] x 2 negative for intracranial bleed. Code(s): I48.91 - UNSPECIFIED ATRIAL FIBRILLATION Qualifiers: Atrial fibrillation type: permanent Qualified Code(s): I48.2 - Chronic atrial fibrillation (6) Pneumonia Assessment/Plan: Pulmonary follow up appreciated Unlikely pneumonia. Code(s): J18.9 - PNEUMONIA, UNSPECIFIED ORGANISM Qualifiers: Pneumonia type: due to unspecified organism Laterality: right Lung location: lower lobe of lung Qualified Code(s): J18.9 - Pneumonia, unspecified organism (7) Acute on chronic systolic (congestive) heart failure Assessment/Plan: BNP very high. Reviewed chest x ray. Case discussed with Dr. bagley. Agree with IV lasix dose. Code(s): I50.23 - ACUTE ON CHRONIC SYSTOLIC (CONGESTIVE) HEART FAILURE (8) COPD (chronic obstructive pulmonary disease) Assessment/Plan: Continue inhaled bronchodilators. Code(s): J44.9 - CHRONIC OBSTRUCTIVE PULMONARY DISEASE, UNSPECIFIED Qualifiers : COPD type: unspecified COPD Qualified Code(s): J44.9 - Chronic obstructive pulmonary disease, unspecified (9) Anemia Assessment/Plan: H/H low. No bleeding from any site reported. Ferritin high. Iron low. Likely combination of iron deficiency anemia and anemia of chronic disease. Continue Ferrous sulphate. Code(s): D64.9 - ANEMIA, UNSPECIFIED Qualifiers: Anemia type: other cause Other causes of anemia: other cause, not classified Qualified Code(s): D64.89 - Other specified anemias (10) Dementia Assessment/Plan: with agitation on & off. Will seek Dr. Harvey opinion. Code(s): F03.90 - UNSPECIFIED DEMENTIA WITHOUT BEHAVIORAL DISTURBANCE Qualifiers: Dementia type: unspecified type Dementia behavioral disturbance: without behavioral disturbance Qualified Code(s): F03.90 - Unspecified dementia without behavioral disturbance 11) Stage 3 sacral ulcer. Wound care consult appreciated. Continue santyl. Offload. 12) Hypernatremia: In the setting of poor PO fluid intake. Encourage PO fluid intake. Problem List - Problems (1) Head trauma Code(s): S09.90XA - UNSPECIFIED INJURY OF HEAD, INITIAL ENCOUNTER Qualifiers: Encounter type: initial encounter Qualified Code(s): S09.90XA - Unspecified injury of head, initial encounter (2) Acute kidney failure Code(s): N17.9 - ACUTE KIDNEY FAILURE, UNSPECIFIED Qualifiers: Acute renal failure type: unspecified Qualified Code(s): N17.9 - Acute kidney failure, unspecified (3) UTI (urinary tract infection) Code(s): N39.0 - URINARY TRACT INFECTION, SITE NOT SPECIFIED Qualifiers: Urinary tract infection type: site unspecified Hematuria presence: without hematuria Qualified Code(s): N39.0 - Urinary tract infection, site not specified; R31.9 - Hematuria, unspecified (4) Urinary retention due to benign prostatic hyperplasia Code(s): N40.1 - BENIGN PROSTATIC HYPERPLASIA WITH LOWER URINARY TRACT SYMP R33.8 - OTHER RETENTION OF URINE (5) Atrial fibrillation Code(s): I48.91 - UNSPECIFIED ATRIAL FIBRILLATION Qualifiers: Atrial fibrillation type: permanent Qualified Code(s): I48.2 - Chronic atrial fibrillation (6) Pneumonia Code(s): J18.9 - PNEUMONIA, UNSPECIFIED ORGANISM Qualifiers: Pneumonia type: due to unspecified organism Laterality: right Lung location: lower lobe of lung Qualified Code(s): J18.1 - Lobar pneumonia, unspecified organism (7) Acute on chronic systolic (congestive) heart failure Code(s): I50.23 - ACUTE ON CHRONIC SYSTOLIC (CONGESTIVE) HEART FAILURE (8) COPD (chronic obstructive pulmonary disease) Code(s): J44.9 - CHRONIC OBSTRUCTIVE PULMONARY DISEASE, UNSPECIFIED Qualifiers : COPD type: unspecified COPD Qualified Code(s): J44.9 - Chronic obstructive pulmonary disease, unspecified (9) Anemia Code(s): D64.9 - ANEMIA, UNSPECIFIED Qualifiers: Anemia type: other cause Other causes of anemia: other cause, not classified Qualified Code(s): D64.89 - Other specified anemias (10) Dementia Code(s): F03.90 - UNSPECIFIED DEMENTIA WITHOUT BEHAVIORAL DISTURBANCE Qualifiers: Dementia type: unspecified type Dementia behavioral disturbance: without behavioral disturbance Qualified Code(s): F03.90 - Unspecified dementia without behavioral disturbance (11) Pressure ulcer of sacral region, stage 3 Code(s): L89.153 - PRESSURE ULCER OF SACRAL REGION, STAGE 3
[2017-02-04] MEDS ORDERED: PT OWN MED DRAWER 7, Y5N ONE (21:06)
[2017-02-04] MEDS: guaiFENesin/CODEINE 5 ML UNIT-DOSE CUPS PO SCH (21:17)
[2017-02-04] MEDS: LATANOPROST 0.005% OPHTH SOLN 2.5ML BOTTLE OU SCH (21:17)
[2017-02-04] MEDS: MEMANTINE HCL 5 MG TABLET (UD) PO SCH (21:17)
[2017-02-04] MEDS: QUEtiapine FUMARATE 25 MG TABLET (FP) PO SCH (21:17)
[2017-02-04] MEDS ORDERED: DONEPEZIL HCL 5 MG TABLET (FP) PO SCH (22:00)
[2017-02-05] MEDS: ALBUTEROL SO4 2.5/IPRATROPIUM 0.5 INH SOL 3 ML VIAL.NEB. NEB SCH ×6 (00:10→23:09)
[2017-02-05] MEDS: ASCORBIC ACID 500 MG TABLET (FP) PO SCH ×3 (06:38→21:10)
[2017-02-05] MEDS: FERROUS SO4 325 MG TABLET (FP) PO SCH ×3 (06:38→21:10)
[2017-02-05 07:38] LABS: EOSINOPHIL 2.1 % (0-4.5); MCH 30.1 pg (25.7-33.7); MCHC 31.1 g/dl (32.0-35.9); MEAN CELL VOLUME 96.9 fl (80-96); MEAN PLT VOLUME 7.9 fl (7.5-11.1); NEUTROPHILS 76.3 % (42.8-82.8); PLATELET COUNT 180 K/MM3 (134-434); RDW 22.5 % (11.9-15.9); WHITE BLOOD COUNT 6.7 K/mm3 (4.0-10.0)
[2017-02-05 08:02] LABS: INR 3.42 (0.82-1.09); PROTHROMBIN TIME (PATIENT) 38.6 SEC (9.98-11.88)
[2017-02-05 08:05] LABS: ANION GAP 5 (8-16); CALCIUM 8.5 mg/dL (8.5-10.1); CO2 27 mmol/L (21-32); GLUCOSE,RANDOM 72 mg/dL (74-106)
[2017-02-05 08:07] LABS: CREATININE 1.4 mg/dL (0.7-1.3)
[2017-02-05 08:39] LABS: ALBUMIN 2.3 g/dl (3.4-5.0); ANION GAP 8 (8-16); BILIRUBIN,TOTAL 1.4 mg/dL (0.2-1.0); CALCIUM 8.1 mg/dL (8.5-10.1); CO2 25 mmol/L (21-32); CREATININE 1.4 mg/dL (0.7-1.3); GLUCOSE,RANDOM 70 mg/dL (74-106); SGOT/AST 22 U/L (15-37); SGPT/ALT 18 U/L (12-78); TOT PROT 6.3 g/dl (6.4-8.2)
--- NOTE | 2017-02-05 08:59 | PN ---
Progress Note, Physician Chief Complaint: Events noted Underlying dementia and confusion, arousable Neuro input noted History of Present Illness: Patient was seen and examined. Chart was reviewed - Current Medication List Current Medications: Active Medications Acetaminophen (Tylenol -) 650 mg PO Q4H PRN PRN Reason: FEVER OR PAIN Last Admin: 02/03/17 22:20 Dose: 650 mg Albuterol/Ipratropium (Duoneb -) 1 amp NEB QIDR [facility] Last Admin: 02/05/17 06:34 Dose: 1 amp Ascorbic Acid (Vitamin C -) 500 mg PO TID [facility] Last Admin: 02/05/17 06:38 Dose: 500 mg Collagenase (Santyl -) 1 applic TP DAILY [facility] Last Admin: 02/04/17 14:45 Dose: 1 applic Donepezil HCl (Aricept -) 10 mg PO DAILY [facility] Ferrous Sulfate (Feosol -) 325 mg PO TID [facility] Last Admin: 02/05/17 06:38 Dose: 325 mg Guaifenesin/Codeine Phosphate (Robitussin Ac -) 5 ml PO HS [facility] Last Admin: 02/04/17 21:17 Dose: 5 ml Lactobacillus Acidophilus (Bacid -) 1 tab PO DAILY [facility] Last Admin: 02/04/17 11:56 Dose: 1 tab Latanoprost (Xalatan 0.005% Eye Drops -) 1 drop OU HS [facility] Last Admin: 02/04/17 21:17 Dose: 1 drop Lorazepam (Ativan -) 0.5 mg PO Q6H PRN Last Admin: 02/04/17 21:17 Dose: 0.5 mg Memantine (Namenda -) 5 mg PO BID [facility] Last Admin: 02/04/17 21:17 Dose: 5 mg Ondansetron HCl (Zofran Injection) 4 mg IVPB Q6H PRN PRN Reason: NAUSEA Quetiapine Fumarate (Seroquel -) 25 mg PO HS [facility] Last Admin: 02/04/17 21:17 Dose: 25 mg Quetiapine Fumarate (Seroquel -) 12.5 mg PO DAILY [facility] Ranitidine HCl (Zantac -) 150 mg PO BID [facility] Last Admin: 02/04/17 21:17 Dose: 150 mg - Objective Vital Signs: Vital Signs Temperature 97.5 F L 02/05/17 06:00 Pulse Rate 76 02/05/17 06:00 Respiratory Rate 20 02/05/17 06:00 Blood Pressure 141/66 02/05/17 06:00 O2 Sat by Pulse Oximetry (%) 96 02/04/17 21:00 Neck: Yes: Supple Cardiovascular: Yes: Regular Rate and Rhythm, Murmur (2/6 SM), S1, S2 Respiratory: Yes: Diminished Gastrointestinal: Yes: Normal Bowel Sounds, Soft. No: Tenderness Edema: No Labs: CBC, BMP 02/05/17 07:29 02/05/17 07:29 INR, PTT INR 3.42 (0.82-1.09) H 02/05/17 07:29 Problem List - Problems (1) Acute on chronic renal failure Code(s): N17.9 - ACUTE KIDNEY FAILURE, UNSPECIFIED N18.9 - CHRONIC KIDNEY DISEASE, UNSPECIFIED Qualifiers: Acute renal failure type: unspecified Chronic kidney disease stage: unspecified stage Qualified Code(s): N17.9 - Acute kidney failure, unspecified; N18.9 - Chronic kidney disease, unspecified (2) Anemia Code(s): D64.9 - ANEMIA, UNSPECIFIED Qualifiers: Anemia type: other cause Other causes of anemia: other cause, not classified Qualified Code(s): D64.89 - Other specified anemias (3) Atrial fibrillation Code(s): I48.91 - UNSPECIFIED ATRIAL FIBRILLATION Qualifiers: Atrial fibrillation type: permanent Qualified Code(s): I48.2 - Chronic atrial fibrillation (4) Fall Code(s): W19.XXXA - UNSPECIFIED FALL, INITIAL ENCOUNTER (5) Head trauma Code(s): S09.90XA - UNSPECIFIED INJURY OF HEAD, INITIAL ENCOUNTER Qualifiers: Encounter type: initial encounter Qualified Code(s): S09.90XA - Unspecified injury of head, initial encounter (6) Mitral regurgitation Code(s): I34.0 - NONRHEUMATIC MITRAL (VALVE) INSUFFICIENCY Qualifiers: Cardiac valve disease etiology: nonrheumatic Qualified Code(s): I34.0 - Nonrheumatic mitral (valve) insufficiency (7) Subtherapeutic international normalized ratio (INR) Code(s): R79.1 - ABNORMAL COAGULATION PROFILE (8) UTI (urinary tract infection) Code(s): N39.0 - URINARY TRACT INFECTION, SITE NOT SPECIFIED Qualifiers: Urinary tract infection type: site unspecified Hematuria presence: without hematuria Qualified Code(s): N39.0 - Urinary tract infection, site not specified; R31.9 - Hematuria, unspecified (9) Dementia Code(s): F03.90 - UNSPECIFIED DEMENTIA WITHOUT BEHAVIORAL DISTURBANCE Qualifiers: Dementia type: unspecified type Dementia behavioral disturbance: without behavioral disturbance Qualified Code(s): F03.90 - Unspecified dementia without behavioral disturbance (10) Acute on chronic systolic (congestive) heart failure Code(s): I50.23 - ACUTE ON CHRONIC SYSTOLIC (CONGESTIVE) HEART FAILURE (11) Bradycardia Code(s): R00.1 - BRADYCARDIA, UNSPECIFIED (12) Cerebrovascular disease Code(s): I67.9 - CEREBROVASCULAR DISEASE, UNSPECIFIED (13) Hypertensive cardiovascular disease Code(s): I11.9 - HYPERTENSIVE HEART DISEASE WITHOUT HEART FAILURE Qualifiers: Heart failure presence: with heart failure Qualified Code(s): I11.0 - Hypertensive heart disease with heart failure (14) COPD (chronic obstructive pulmonary disease) Code(s): J44.9 - CHRONIC OBSTRUCTIVE PULMONARY DISEASE, UNSPECIFIED Qualifiers : COPD type: unspecified COPD Qualified Code(s): J44.9 - Chronic obstructive pulmonary disease, unspecified Assessment/Plan 1. Acute on Chronic Systolic Heart Failure with vascular congestion and pleural effusion 2. Mitral valve Regurgitation 3. Pulmonary hypertension 4. Persistent Atrial Fibrillation with subtherapeutic INR 5. COPD 6. Proteus UTI 7. Vascular dementia, h/o falls 8. Anemia 9. Acute on CKD PLAN: 1. Diuretic as needed. Monitor renal function and electrolytes 2. Coumadin per INR with caution and monitor Hgb keep INR 2-3 3. Consider Losartan once renal function stabilizes Further plans are to follow Brenden Davenport MD
[2017-02-05 09:04] LABS: ALK PHOS 178 U/L (45-117)
[2017-02-05] MEDS: QUEtiapine FUMARATE 25 MG TABLET (FP) PO SCH ×2 (09:36→21:10)
[2017-02-05] MEDS: DONEPEZIL HCL 10 MG TABLET (FP) PO SCH (09:36)
[2017-02-05] MEDS: RANITIDINE HCL 150 MG TABLET (FP) PO SCH ×2 (09:37→21:10)
[2017-02-05] MEDS: LACTOBACILLUS ACIDOPHILUS 1 EACH TAB (FP) PO SCH (09:37)
[2017-02-05] MEDS: MEMANTINE HCL 5 MG TABLET (UD) PO SCH ×2 (09:37→21:10)
[2017-02-05] MEDS: COLLAGENASE CLOSTRIDIUM HIST. 30 GRAMS TUBE TP SCH (09:39)
--- NOTE | 2017-02-05 13:17 | PN ---
Progress Note, Physician History of Present Illness: no gross changes no new issues - Current Medication List Current Medications: Active Medications Acetaminophen (Tylenol -) 650 mg PO Q4H PRN PRN Reason: FEVER OR PAIN Last Admin: 02/03/17 22:20 Dose: 650 mg Albuterol/Ipratropium (Duoneb -) 1 amp NEB QIDR [facility] Last Admin: 02/05/17 12:23 Dose: 1 amp Ascorbic Acid (Vitamin C -) 500 mg PO TID [facility] Last Admin: 02/05/17 06:38 Dose: 500 mg Collagenase (Santyl -) 1 applic TP DAILY [facility] Last Admin: 02/05/17 09:39 Dose: 1 applic Donepezil HCl (Aricept -) 10 mg PO DAILY [facility] Last Admin: 02/05/17 09:36 Dose: 10 mg Ferrous Sulfate (Feosol -) 325 mg PO TID [facility] Last Admin: 02/05/17 06:38 Dose: 325 mg Guaifenesin/Codeine Phosphate (Robitussin Ac -) 5 ml PO HS [facility] Last Admin: 02/04/17 21:17 Dose: 5 ml Lactobacillus Acidophilus (Bacid -) 1 tab PO DAILY [facility] Last Admin: 02/05/17 09:37 Dose: 1 tab Latanoprost (Xalatan 0.005% Eye Drops -) 1 drop [facility] Last Admin: 02/04/17 21:17 Dose: 1 drop Lorazepam (Ativan -) 0.5 mg PO Q6H PRN Last Admin: 02/04/17 21:17 Dose: 0.5 mg Memantine (Namenda -) 5 mg PO BID [facility] Last Admin: 02/05/17 09:37 Dose: 5 mg Ondansetron HCl (Zofran Injection) 4 mg IVPB Q6H PRN PRN Reason: NAUSEA Quetiapine Fumarate (Seroquel -) 25 mg PO HS [facility] Last Admin: 02/04/17 21:17 Dose: 25 mg Quetiapine Fumarate (Seroquel -) 12.5 mg PO DAILY [facility] Last Admin: 02/05/17 09:36 Dose: 12.5 mg Ranitidine HCl (Zantac -) 150 mg PO BID [facility] Last Admin: 02/05/17 09:37 Dose: 150 mg - Objective Vital Signs: Vital Signs Temperature 97.8 F 02/05/17 12:06 Pulse Rate 66 02/05/17 12:06 Respiratory Rate 20 02/05/17 12:06 Blood Pressure 119/43 02/05/17 12:06 O2 Sat by Pulse Oximetry (%) 96 02/04/17 21:00 Constitutional: Yes: No Distress, Calm Cardiovascular: Yes: Regular Rate and Rhythm Respiratory: Yes: Regular, CTA Bilaterally Gastrointestinal: Yes: Normal Bowel Sounds, Soft Musculoskeletal: Yes: WNL Extremities: Yes: WNL Neurological: Yes: Other Psychiatric: Yes: Other Labs: CBC, BMP 02/05/17 07:29 02/05/17 07:29 INR, PTT INR 3.42 (0.82-1.09) H 02/05/17 07:29 Assessment/Plan Problem List - Problems (1) Head trauma. Code(s): S09.90XA - UNSPECIFIED INJURY OF HEAD, INITIAL ENCOUNTER Qualifiers: Encounter type: initial encounter (2) Acute kidney failure Code(s): N17.9 - ACUTE KIDNEY FAILURE, UNSPECIFIED (3) UTI (urinary tract infection) Code(s): N39.0 - URINARY TRACT INFECTION, SITE NOT SPECIFIED Qualifiers: Urinary tract infection type: site unspecified Hematuria presence: without hematuria Qualified Code(s): N39.0 - Urinary tract infection, site not specified (4) Urinary retention due to benign prostatic hyperplasia Code(s): N40.1 - BENIGN PROSTATIC HYPERPLASIA WITH LOWER URINARY TRACT SYMP R33.8 - OTHER RETENTION OF URINE (5) Atrial fibrillation Code(s): I48.91 - UNSPECIFIED ATRIAL FIBRILLATION Qualifiers: Atrial fibrillation type: permanent Qualified Code(s): I48.2 - Chronic atrial fibrillation (6) Pneumonia Code(s): J18.9 - PNEUMONIA, UNSPECIFIED ORGANISM Qualifiers: Pneumonia type: due to unspecified organism Laterality: right Lung location: lower lobe of lung Qualified Code(s): J18.9 - Pneumonia, unspecified organism (7) Acute on chronic systolic (congestive) heart failure Code(s): I50.23 - ACUTE ON CHRONIC SYSTOLIC (CONGESTIVE) HEART FAILURE (8) COPD (chronic obstructive pulmonary disease) Code(s): J44.9 - CHRONIC OBSTRUCTIVE PULMONARY DISEASE, UNSPECIFIED Qualifiers : COPD type: unspecified COPD Qualified Code(s): J44.9 - Chronic obstructive pulmonary disease, unspecified (9) Anemia Code(s): D64.9 - ANEMIA, UNSPECIFIED Qualifiers: Anemia type: other cause Other causes of anemia: other cause, not classified Qualified Code(s): D64.89 - Other specified anemias (10) Dementia Code(s): F03.90 - UNSPECIFIED DEMENTIA WITHOUT BEHAVIORAL DISTURBANCE Qualifiers: Dementia type: unspecified type Dementia behavioral disturbance: without behavioral disturbance Qualified Code(s): F03.90 - Unspecified dementia without behavioral disturbance patient has mdr uti has allergy to pcn plan continue current mgmt nutrition rest as per primary nutrition
--- NOTE | 2017-02-05 16:01 | PN ---
Progress Note, Physician History of Present Illness: pulmonary sleeping ,-resp distress - Current Medication List Current Medications: Active Medications Acetaminophen (Tylenol -) 650 mg PO Q4H PRN PRN Reason: FEVER OR PAIN Last Admin: 02/03/17 22:20 Dose: 650 mg Albuterol/Ipratropium (Duoneb -) 1 amp NEB QIDR [facility] Last Admin: 02/05/17 12:23 Dose: 1 amp Ascorbic Acid (Vitamin C -) 500 mg PO TID [facility] Last Admin: 02/05/17 14:37 Dose: 500 mg Collagenase (Santyl -) 1 applic TP DAILY [facility] Last Admin: 02/05/17 09:39 Dose: 1 applic Donepezil HCl (Aricept -) 10 mg PO DAILY [facility] Last Admin: 02/05/17 09:36 Dose: 10 mg Ferrous Sulfate (Feosol -) 325 mg PO TID [facility] Last Admin: 02/05/17 14:37 Dose: 325 mg Guaifenesin/Codeine Phosphate (Robitussin Ac -) 5 ml PO HS [facility] Last Admin: 02/04/17 21:17 Dose: 5 ml Lactobacillus Acidophilus (Bacid -) 1 tab PO DAILY [facility] Last Admin: 02/05/17 09:37 Dose: 1 tab Latanoprost (Xalatan 0.005% Eye Drops -) 1 drop OU HS [facility] Last Admin: 02/04/17 21:17 Dose: 1 drop Lorazepam (Ativan -) 0.5 mg PO Q6H PRN Last Admin: 02/04/17 21:17 Dose: 0.5 mg Memantine (Namenda -) 5 mg PO BID [facility] Last Admin: 02/05/17 09:37 Dose: 5 mg Ondansetron HCl (Zofran Injection) 4 mg IVPB Q6H PRN PRN Reason: NAUSEA Quetiapine Fumarate (Seroquel -) 25 mg PO HS [facility] Last Admin: 02/04/17 21:17 Dose: 25 mg Quetiapine Fumarate (Seroquel -) 12.5 mg PO DAILY [facility] Last Admin: 02/05/17 09:36 Dose: 12.5 mg Ranitidine HCl (Zantac -) 150 mg PO BID [facility] Last Admin: 02/05/17 09:37 Dose: 150 mg - Objective Vital Signs: Vital Signs Temperature 97.8 F 02/05/17 12:06 Pulse Rate 62 02/05/17 14:34 Respiratory Rate 20 02/05/17 12:06 Blood Pressure 119/43 02/05/17 12:06 O2 Sat by Pulse Oximetry (%) 94 L 02/05/17 14:34 Constitutional: Yes: Calm, Other (sleeping) Eyes: Yes: WNL HENT: Yes: WNL Neck: Yes: WNL Cardiovascular: Yes: Pulse Irregular, S1, S2 Respiratory: Yes: Rhonchi (scattered rhonchi) Gastrointestinal: Yes: Normal Bowel Sounds, Soft Extremities: Yes: WNL Edema: No Labs: CBC, BMP 02/05/17 07:29 02/05/17 07:29 INR, PTT INR 3.42 (0.82-1.09) H 02/05/17 07:29 Assessment/Plan Problem List - Problems (1) Head trauma Code(s): S09.90XA - UNSPECIFIED INJURY OF HEAD, INITIAL ENCOUNTER Qualifiers: Encounter type: initial encounter Qualified Code(s): S09.90XA - Unspecified injury of head, initial encounter (2) Fall Code(s): W19.XXXA - UNSPECIFIED FALL, INITIAL ENCOUNTER (3) Pleural effusion Code(s): J90 - PLEURAL EFFUSION, NOT ELSEWHERE CLASSIFIED (4) Atrial fibrillation Code(s): I48.91 - UNSPECIFIED ATRIAL FIBRILLATION Qualifiers: Atrial fibrillation type: permanent Qualified Code(s): I48.2 - Chronic atrial fibrillation (5) UTI (urinary tract infection) Code(s): N39.0 - URINARY TRACT INFECTION, SITE NOT SPECIFIED Qualifiers: Urinary tract infection type: site unspecified Hematuria presence: without hematuria Qualified Code(s): N39.0 - Urinary tract infection, site not specified (6) Acute on chronic systolic (congestive) heart failure Code(s): I50.23 - ACUTE ON CHRONIC SYSTOLIC (CONGESTIVE) HEART FAILURE (7) Pulmonary hypertension Code(s): I27.2 - OTHER SECONDARY PULMONARY HYPERTENSION (8) Mitral regurgitation Code(s): I34.0 - NONRHEUMATIC MITRAL (VALVE) INSUFFICIENCY (9) COPD (chronic obstructive pulmonary disease) Code(s): J44.9 - CHRONIC OBSTRUCTIVE PULMONARY DISEASE, UNSPECIFIED Qualifiers : COPD type: unspecified COPD Qualified Code(s): J44.9 - Chronic obstructive pulmonary disease, unspecified (10) Acute on chronic renal failure Code(s): N17.9 - ACUTE KIDNEY FAILURE, UNSPECIFIED N18.9 - CHRONIC KIDNEY DISEASE, UNSPECIFIED (11) Dementia Code(s): F03.90 - UNSPECIFIED DEMENTIA WITHOUT BEHAVIORAL DISTURBANCE Qualifiers: Dementia type: unspecified type Dementia behavioral disturbance: without behavioral disturbance Qualified Code(s): F03.90 - Unspecified dementia without behavioral disturbance Assessment/Plan s/p Fall Acute on Chronic Systolic Heart Failure Mitral Regurgitation Pulmonary HTN Pleural Effusion Atrial Fibrillation COPD r/o UTI Dementia Anemia - - findings likely more due to CHF - monitor urine output, creatinine - inhaled bronchodilators - rate controlled - monitor h+h - consider aime ROBLES
--- NOTE | 2017-02-05 16:10 | PN ---
Progress Note, Physician History of Present Illness: Pt seen and examined at bedside. He appears more comfortable than yesterday. He remains confused. - Current Medication List Current Medications: Active Medications Acetaminophen (Tylenol -) 650 mg PO Q4H PRN PRN Reason: FEVER OR PAIN Last Admin: 02/03/17 22:20 Dose: 650 mg Albuterol/Ipratropium (Duoneb -) 1 amp NEB QIDR [facility] Last Admin: 02/05/17 12:23 Dose: 1 amp Ascorbic Acid (Vitamin C -) 500 mg PO TID [facility] Last Admin: 02/05/17 14:37 Dose: 500 mg Collagenase (Santyl -) 1 applic TP DAILY [facility] Last Admin: 02/05/17 09:39 Dose: 1 applic Donepezil HCl (Aricept -) 10 mg PO DAILY [facility] Last Admin: 02/05/17 09:36 Dose: 10 mg Ferrous Sulfate (Feosol -) 325 mg PO TID [facility] Last Admin: 02/05/17 14:37 Dose: 325 mg Guaifenesin/Codeine Phosphate (Robitussin Ac -) 5 ml PO HS [facility] Last Admin: 02/04/17 21:17 Dose: 5 ml Lactobacillus Acidophilus (Bacid -) 1 tab PO DAILY [facility] Last Admin: 02/05/17 09:37 Dose: 1 tab Latanoprost (Xalatan 0.005% Eye Drops -) 1 drop OU HS [facility] Last Admin: 02/04/17 21:17 Dose: 1 drop Lorazepam (Ativan -) 0.5 mg PO Q6H PRN Last Admin: 02/04/17 21:17 Dose: 0.5 mg Memantine (Namenda -) 5 mg PO BID [facility] Last Admin: 02/05/17 09:37 Dose: 5 mg Ondansetron HCl (Zofran Injection) 4 mg IVPB Q6H PRN PRN Reason: NAUSEA Quetiapine Fumarate (Seroquel -) 25 mg PO HS [facility] Last Admin: 02/04/17 21:17 Dose: 25 mg Quetiapine Fumarate (Seroquel -) 12.5 mg PO DAILY [facility] Last Admin: 02/05/17 09:36 Dose: 12.5 mg Ranitidine HCl (Zantac -) 150 mg PO BID [facility] Last Admin: 02/05/17 09:37 Dose: 150 mg - Objective Vital Signs: Vital Signs Temperature 97.8 F 02/05/17 12:06 Pulse Rate 62 02/05/17 14:34 Respiratory Rate 20 02/05/17 12:06 Blood Pressure 119/43 02/05/17 12:06 O2 Sat by Pulse Oximetry (%) 94 L 02/05/17 14:34 Constitutional: Yes: Calm Eyes: Yes: Conjunctiva Clear Cardiovascular: Yes: S1, S2 Respiratory: Yes: On Nasal O2, Rhonchi Gastrointestinal: Yes: Normal Bowel Sounds, Soft Genitourinary: Yes: Incontinence Musculoskeletal: Yes: Muscle Weakness Edema: No Neurological: Yes: Confusion Labs: CBC, BMP 02/05/17 07:29 02/05/17 07:29 INR, PTT INR 3.42 (0.82-1.09) H 02/05/17 07:29 Problem List - Problems (1) Acute on chronic renal failure Code(s): N17.9 - ACUTE KIDNEY FAILURE, UNSPECIFIED N18.9 - CHRONIC KIDNEY DISEASE, UNSPECIFIED Qualifiers: Acute renal failure type: unspecified Chronic kidney disease stage: unspecified stage Qualified Code(s): N17.9 - Acute kidney failure, unspecified; N18.9 - Chronic kidney disease, unspecified (2) Anemia Code(s): D64.9 - ANEMIA, UNSPECIFIED Qualifiers: Anemia type: other cause Other causes of anemia: other cause, not classified Qualified Code(s): D64.89 - Other specified anemias (3) Atrial fibrillation Code(s): I48.91 - UNSPECIFIED ATRIAL FIBRILLATION Qualifiers: Atrial fibrillation type: permanent Qualified Code(s): I48.2 - Chronic atrial fibrillation Assessment/Plan Current Medications Generic Name Dose Route Start Last Admin Trade Name Freq PRN Reason Stop Dose Admin Acetaminophen 650 mg 01/26/17 20:29 02/03/17 22:20 Tylenol - PO 650 mg Q4H PRN Administration FEVER OR PAIN Albuterol/Ipratropium 1 amp 02/01/17 12:00 02/05/17 12:23 Duoneb - NEB 1 amp QIDR NAIF Administration Ascorbic Acid 500 mg 01/26/17 22:00 02/05/17 14:37 Vitamin C - PO 500 mg TID NAIF Administration Collagenase 1 applic 01/29/17 20:30 02/05/17 09:39 Santyl - TP 1 applic DAILY NAIF Administration Donepezil HCl 10 mg 02/05/17 10:00 02/05/17 09:36 Aricept - PO 10 mg DAILY NAIF Administration Ferrous Sulfate 325 mg 01/26/17 22:00 02/05/17 14:37 Feosol - PO 325 mg TID NAIF Administration Guaifenesin/Codeine Phosphate 5 ml 01/26/17 22:00 02/04/17 21:17 Robitussin Ac - PO 5 ml HS NAIF Administration Lactobacillus Acidophilus 1 tab 01/27/17 10:00 02/05/17 09:37 Bacid - PO 1 tab DAILY NAIF Administration Latanoprost 1 drop 01/27/17 22:00 02/04/17 21:17 Xalatan 0.005% Eye Drops - OU 1 drop HS NAIF Administration Lorazepam 0.5 mg 02/03/17 14:27 02/04/17 21:17 Ativan - PO 0.5 mg Q6H PRN Administration Memantine 5 mg 02/04/17 22:00 02/05/17 09:37 Namenda - PO 5 mg BID NAIF Administration Ondansetron HCl 4 mg 01/26/17 20:29 Zofran Injection IVPB Q6H PRN NAUSEA Quetiapine Fumarate 25 mg 02/04/17 22:00 02/04/17 21:17 Seroquel - PO 25 mg HS NAIF Administration Quetiapine Fumarate 12.5 mg 02/05/17 10:00 02/05/17 09:36 Seroquel - PO 12.5 mg DAILY NAIF Administration Ranitidine HCl 150 mg 01/27/17 22:00 02/05/17 09:37 Zantac - PO 150 mg BID NAIF Administration Impression 1. TATY 2. CHF 3. a-fib 4. CVA 5. Dementia 6. COPD 7. PNA 8. HTN 9. CKD 10. s/p fall 11. hypernatremia Plan - cont current meds - lasix PRN - encourage PO intake, calorie count if not eating - repeat labs in am - cardio input appreciated Dr Abdi
[2017-02-05] MEDS: LATANOPROST 0.005% OPHTH SOLN 2.5ML BOTTLE OU SCH (21:10)
[2017-02-05] MEDS: guaiFENesin/CODEINE 5 ML UNIT-DOSE CUPS PO SCH (21:10)
--- NOTE | 2017-02-05 22:51 | PN ---
Progress Note (short form) - Note Progress Note: Patient seen and examined in the morning. Less agitated. Not in respiratory distress Afebrile. History Source: Medical Record Limitations to Obtaining History: Dementia - Past Medical History [employer]: Yes: CVA (pe 01/2015 brain MRI), Dementia Cardiovascular: Yes: AFIB (chronic), CHF, HTN Pulmonary: Yes: COPD Psych: Yes: Depression, Other (h/o alcohol abuse) - Past Surgical History Past Surgical History: Yes: Colectomy (hemicolectomy) - Advance Directives Advance Directives: Yes: DNR - Smoking History Smoking history: Unknown if ever smoked Have you smoked in the past 12 months: No Aproximately how many cigarettes per day: 0 If you are a former smoker, when did you quit?: 50 years - Alcohol/Substance Use Hx Alcohol Use: No - Social History ADL: Family Assistance History of Recent Travel: No Home Medications - Allergies Allergies/Adverse Reactions: Allergies Allergy/AdvReac Type Severity Reaction Status Date / Time Penicillins Allergy Hives Verified 01/26/17 15:10 procaine Allergy Verified 01/26/17 18:45 - Home Medications Home Medications: Ambulatory Orders Ascorbate Calcium [Vitamin C] 500 mg PO TID 01/26/17 Bimatoprost [Lumigan] 1 drop IO DAILY 01/26/17 Ferrous Sulfate 325 mg PO TID 01/26/17 Furosemide [Lasix -] 40 mg PO BID 01/26/17 Guaifenesin AC [Robitussin AC -] 5 ml PO HS 01/26/17 Warfarin Na [Coumadin] 5 mg PO TID 01/26/17 Review of Systems Unable to obtain ROS, reason: dementia Physical Examination Vital Signs: Vital Signs Period Temp Pulse Resp BP Sys/Kemp Pulse Ox Last 24 Hr 97.5 F-98.7 F 62-80 20-20 108-141/43-80 94 Constitutional: Yes: Anxious, Mild Distress Eyes: Yes: Conjunctiva Clear, EOM Intact, PERRL HENT: Yes: Atraumatic, Normocephalic Neck: Yes: Supple, Trachea Midline Cardiovascular: Yes: Pulse Irregular, S1, S2 Respiratory: Yes: Diminished (air entry dimished b/l lung base) Gastrointestinal: Yes: Soft (non tender, BS present) Edema: No Peripheral Pulses WNL: Yes ...Motor Strength: WNL Labs: CBC, BMP 02/05/17 07:29 02/05/17 07:29 Microbiology 01/28/17 12:25 Blood Culture - Preliminary Blood - Peripheral Venous NO GROWTH OBTAINED AFTER 24 HOURS, INCUBATION TO CONTINUE FOR 4 DAYS. 01/28/17 12:20 Blood Culture - Preliminary Blood - Peripheral Venous NO GROWTH OBTAINED AFTER 24 HOURS, INCUBATION TO CONTINUE FOR 4 DAYS. 01/26/17 17:30 Urine Culture - Final Urine - Urine - Catheterized Proteus [facility] Imaging - Results Chest X-ray: Report Reviewed Problem List - Problems (1) Head trauma Assessment/Plan: S/P Fall [place] with head trauma. Patient is on coumadin. Head CT x 2 - Negative for intracranial bleed. Will continue to monitor. Code(s): S09.90XA - UNSPECIFIED INJURY OF HEAD, INITIAL ENCOUNTER Qualifiers: Encounter type: initial encounter (2) Acute kidney failure Assessment/Plan: Renal function continues to improve. Off IV fluids. Encourage PO fluid intake. Renal follow up appreciated. Code(s): N17.9 - ACUTE KIDNEY FAILURE, UNSPECIFIED (3) UTI (urinary tract infection) Assessment/Plan: Urine culture - Proteus Mirabilis Treated. ID input appreciated. Code(s): N39.0 - URINARY TRACT INFECTION, SITE NOT SPECIFIED Qualifiers: Urinary tract infection type: site unspecified Hematuria presence: without hematuria Qualified Code(s): N39.0 - Urinary tract infection, site not specified (4) Urinary retention due to benign prostatic hyperplasia Assessment/Plan: Has Quintana. Changed . Difficult insertion on previous visits. Discussed with Dr. Loaiza. No need for change now. Code(s): N40.1 - BENIGN PROSTATIC HYPERPLASIA WITH LOWER URINARY TRACT SYMP R33.8 - OTHER RETENTION OF URINE (5) Atrial fibrillation Assessment/Plan: Rate controlled. AC per INR. Continue coumadin [address] x 2 negative for intracranial bleed. Code(s): I48.91 - UNSPECIFIED ATRIAL FIBRILLATION Qualifiers: Atrial fibrillation type: permanent Qualified Code(s): I48.2 - Chronic atrial fibrillation (6) Pneumonia Assessment/Plan: Pulmonary follow up appreciated Unlikely pneumonia. Code(s): J18.9 - PNEUMONIA, UNSPECIFIED ORGANISM Qualifiers: Pneumonia type: due to unspecified organism Laterality: right Lung location: lower lobe of lung Qualified Code(s): J18.9 - Pneumonia, unspecified organism (7) Acute on chronic systolic (congestive) heart failure Assessment/Plan: BNP very high. Reviewed chest x ray. Lasix prn. Cardiology follow up appreciated. Code(s): I50.23 - ACUTE ON CHRONIC SYSTOLIC (CONGESTIVE) HEART FAILURE (8) COPD (chronic obstructive pulmonary disease) Assessment/Plan: Continue inhaled bronchodilators. Code(s): J44.9 - CHRONIC OBSTRUCTIVE PULMONARY DISEASE, UNSPECIFIED Qualifiers : COPD type: unspecified COPD Qualified Code(s): J44.9 - Chronic obstructive pulmonary disease, unspecified (9) Anemia Assessment/Plan: H/H low. No bleeding from any site reported. Ferritin high. Iron low. Likely combination of iron deficiency anemia and anemia of chronic disease. Continue Ferrous sulphate. Code(s): D64.9 - ANEMIA, UNSPECIFIED Qualifiers: Anemia type: other cause Other causes of anemia: other cause, not classified Qualified Code(s): D64.89 - Other specified anemias (10) Dementia Assessment/Plan: Dr. Harvey consult appreciated. Code(s): F03.90 - UNSPECIFIED DEMENTIA WITHOUT BEHAVIORAL DISTURBANCE Qualifiers: Dementia type: unspecified type Dementia behavioral disturbance: without behavioral disturbance Qualified Code(s): F03.90 - Unspecified dementia without behavioral disturbance 11) Stage 3 sacral ulcer. Wound care consult appreciated. Continue santyl. Offload. 12) Hypernatremia: In the setting of poor PO fluid intake. Encourage PO fluid intake. Problem List - Problems (1) Head trauma Code(s): S09.90XA - UNSPECIFIED INJURY OF HEAD, INITIAL ENCOUNTER Qualifiers: Encounter type: initial encounter Qualified Code(s): S09.90XA - Unspecified injury of head, initial encounter (2) Acute kidney failure Code(s): N17.9 - ACUTE KIDNEY FAILURE, UNSPECIFIED Qualifiers: Acute renal failure type: unspecified Qualified Code(s): N17.9 - Acute kidney failure, unspecified (3) UTI (urinary tract infection) Code(s): N39.0 - URINARY TRACT INFECTION, SITE NOT SPECIFIED Qualifiers: Urinary tract infection type: site unspecified Hematuria presence: without hematuria Qualified Code(s): N39.0 - Urinary tract infection, site not specified; R31.9 - Hematuria, unspecified (4) Urinary retention due to benign prostatic hyperplasia Code(s): N40.1 - BENIGN PROSTATIC HYPERPLASIA WITH LOWER URINARY TRACT SYMP R33.8 - OTHER RETENTION OF URINE (5) Atrial fibrillation Code(s): I48.91 - UNSPECIFIED ATRIAL FIBRILLATION Qualifiers: Atrial fibrillation type: permanent Qualified Code(s): I48.2 - Chronic atrial fibrillation (6) Pneumonia Code(s): J18.9 - PNEUMONIA, UNSPECIFIED ORGANISM Qualifiers: Pneumonia type: due to unspecified organism Laterality: right Lung location: lower lobe of lung Qualified Code(s): J18.1 - Lobar pneumonia, unspecified organism (7) Acute on chronic systolic (congestive) heart failure Code(s): I50.23 - ACUTE ON CHRONIC SYSTOLIC (CONGESTIVE) HEART FAILURE (8) COPD (chronic obstructive pulmonary disease) Code(s): J44.9 - CHRONIC OBSTRUCTIVE PULMONARY DISEASE, UNSPECIFIED Qualifiers : COPD type: unspecified COPD Qualified Code(s): J44.9 - Chronic obstructive pulmonary disease, unspecified (9) Anemia Code(s): D64.9 - ANEMIA, UNSPECIFIED Qualifiers: Anemia type: other cause Other causes of anemia: other cause, not classified Qualified Code(s): D64.89 - Other specified anemias (10) Dementia Code(s): F03.90 - UNSPECIFIED DEMENTIA WITHOUT BEHAVIORAL DISTURBANCE Qualifiers: Dementia type: unspecified type Dementia behavioral disturbance: without behavioral disturbance Qualified Code(s): F03.90 - Unspecified dementia without behavioral disturbance (11) Pressure ulcer of sacral region, stage 3 Code(s): L89.153 - PRESSURE ULCER OF SACRAL REGION, STAGE 3
[2017-02-06] MEDS: LORazepam 0.5 MG TABLET PO PRN (03:52)
[2017-02-06] MEDS: ASCORBIC ACID 500 MG TABLET (FP) PO SCH ×3 (06:34→21:27)
[2017-02-06] MEDS: FERROUS SO4 325 MG TABLET (FP) PO SCH ×3 (06:34→21:27)
[2017-02-06] MEDS: ALBUTEROL SO4 2.5/IPRATROPIUM 0.5 INH SOL 3 ML VIAL.NEB. NEB SCH ×2 (06:52→11:06)
[2017-02-06 07:22] LABS: INR 2.96 (0.82-1.09); PROTHROMBIN TIME (PATIENT) 33.3 SEC (9.98-11.88)
[2017-02-06 07:25] LABS: ALBUMIN 2.1 g/dl (3.4-5.0); ANION GAP 6 (8-16); CALCIUM 8.3 mg/dL (8.5-10.1); CO2 27 mmol/L (21-32); GLUCOSE,RANDOM 87 mg/dL (74-106); SGOT/AST 19 U/L (15-37); SGPT/ALT 15 U/L (12-78)
[2017-02-06 07:27] LABS: ALK PHOS 177 U/L (45-117); BILIRUBIN,TOTAL 1.2 mg/dL (0.2-1.0); CREATININE 1.4 mg/dL (0.7-1.3); TOT PROT 5.9 g/dl (6.4-8.2)
[2017-02-06 07:31] LABS: BASOPHIL 1.9 % (0-2.0); EOSINOPHIL 1.6 % (0-4.5); MCH 30.6 pg (25.7-33.7); MCHC 31.7 g/dl (32.0-35.9); MEAN CELL VOLUME 96.6 fl (80-96); MEAN PLT VOLUME 7.5 fl (7.5-11.1); NEUTROPHILS 80.1 % (42.8-82.8); PLATELET COUNT 158 K/MM3 (134-434); RDW 22.5 % (11.9-15.9); WHITE BLOOD COUNT 6.8 K/mm3 (4.0-10.0)
[2017-02-06] MEDS: LACTOBACILLUS ACIDOPHILUS 1 EACH TAB (FP) PO SCH (10:32)
[2017-02-06] MEDS: RANITIDINE HCL 150 MG TABLET (FP) PO SCH ×2 (10:33→21:27)
[2017-02-06] MEDS: QUEtiapine FUMARATE 25 MG TABLET (FP) PO SCH ×2 (10:33→21:27)
[2017-02-06] MEDS: DONEPEZIL HCL 10 MG TABLET (FP) PO SCH (10:33)
[2017-02-06] MEDS: MEMANTINE HCL 5 MG TABLET (UD) PO SCH ×2 (10:33→21:27)
[2017-02-06] MEDS: COLLAGENASE CLOSTRIDIUM HIST. 30 GRAMS TUBE TP SCH (10:33)
--- NOTE | 2017-02-06 13:24 | PN ---
Progress Note (short form) - Note Progress Note: Patient seen and examine. Awake, confused. Agitated on & off. Not in acute respiratory distress. Afebrile. Discussed in detail about his current medical condition with his son this morning. History Source: Medical Record Limitations to Obtaining History: Dementia - Past Medical History [employer]: Yes: CVA (pe 01/2015 brain MRI), Dementia Cardiovascular: Yes: AFIB (chronic), CHF, HTN Pulmonary: Yes: COPD Psych: Yes: Depression, Other (h/o alcohol abuse) - Past Surgical History Past Surgical History: Yes: Colectomy (hemicolectomy) - Advance Directives Advance Directives: Yes: DNR - Smoking History Smoking history: Unknown if ever smoked Have you smoked in the past 12 months: No Aproximately how many cigarettes per day: 0 If you are a former smoker, when did you quit?: 50 years - Alcohol/Substance Use Hx Alcohol Use: No - Social History ADL: Family Assistance History of Recent Travel: No Home Medications - Allergies Allergies/Adverse Reactions: Allergies Allergy/AdvReac Type Severity Reaction Status Date / Time Penicillins Allergy Hives Verified 01/26/17 15:10 procaine Allergy Verified 01/26/17 18:45 - Home Medications Home Medications: Ambulatory Orders Ascorbate Calcium [Vitamin C] 500 mg PO TID 01/26/17 Bimatoprost [Lumigan] 1 drop IO DAILY 01/26/17 Ferrous Sulfate 325 mg PO TID 01/26/17 Furosemide [Lasix -] 40 mg PO BID 01/26/17 Guaifenesin AC [Robitussin AC -] 5 ml PO HS 01/26/17 Warfarin Na [Coumadin] 5 mg PO TID 01/26/17 Review of Systems Unable to obtain ROS, reason: dementia Physical Examination Vital Signs: Vital Signs Period Temp Pulse Resp BP Sys/Kemp Pulse Ox Last 24 Hr 97.8 F-98.3 F 62-76 20-20 108-120/59-60 93-94 Constitutional: Yes: Anxious, Mild Distress Eyes: Yes: Conjunctiva Clear, EOM Intact, PERRL HENT: Yes: Atraumatic, Normocephalic Neck: Yes: Supple, Trachea Midline Cardiovascular: Yes: Pulse Irregular, S1, S2 Respiratory: Yes: Diminished (air entry dimished b/l lung base) Gastrointestinal: Yes: Soft (non tender, BS present) Edema: No Peripheral Pulses WNL: Yes ...Motor Strength: WNL Labs: CBC, BMP 02/06/17 06:05 02/06/17 06:05 Microbiology 01/28/17 12:25 Blood Culture - Preliminary Blood - Peripheral Venous NO GROWTH OBTAINED AFTER 24 HOURS, INCUBATION TO CONTINUE FOR 4 DAYS. 01/28/17 12:20 Blood Culture - Preliminary Blood - Peripheral Venous NO GROWTH OBTAINED AFTER 24 HOURS, INCUBATION TO CONTINUE FOR 4 DAYS. 01/26/17 17:30 Urine Culture - Final Urine - Urine - Catheterized Proteus [facility] Imaging - Results Chest X-ray: Report Reviewed Problem List - Problems (1) Head trauma Assessment/Plan: [place] with head trauma. Patient is on coumadin. Head CT x 2 - Negative for intracranial bleed. Will continue to monitor. Code(s): S09.90XA - UNSPECIFIED INJURY OF HEAD, INITIAL ENCOUNTER Qualifiers: Encounter type: initial encounter (2) Acute kidney failure Assessment/Plan: Off IV fluids. Encourage PO fluid intake. Renal follow up appreciated. Code(s): N17.9 - ACUTE KIDNEY FAILURE, UNSPECIFIED (3) UTI (urinary tract infection) Assessment/Plan: Urine culture - Proteus Mirabilis Treated. ID input appreciated. Code(s): N39.0 - URINARY TRACT INFECTION, SITE NOT SPECIFIED Qualifiers: Urinary tract infection type: site unspecified Hematuria presence: without hematuria Qualified Code(s): N39.0 - Urinary tract infection, site not specified (4) Urinary retention due to benign prostatic hyperplasia Assessment/Plan: Has Quintana. Changed . Difficult insertion on previous visits. Discussed with Dr. Loaiza. No need for change now. Code(s): N40.1 - BENIGN PROSTATIC HYPERPLASIA WITH LOWER URINARY TRACT SYMP R33.8 - OTHER RETENTION OF URINE (5) Atrial fibrillation Assessment/Plan: Rate controlled. AC per INR. Continue coumadin [address] x 2 negative for intracranial bleed. Code(s): I48.91 - UNSPECIFIED ATRIAL FIBRILLATION Qualifiers: Atrial fibrillation type: permanent Qualified Code(s): I48.2 - Chronic atrial fibrillation (6) Pneumonia Assessment/Plan: Pulmonary follow up appreciated Unlikely pneumonia. Code(s): J18.9 - PNEUMONIA, UNSPECIFIED ORGANISM Qualifiers: Pneumonia type: due to unspecified organism Laterality: right Lung location: lower lobe of lung Qualified Code(s): J18.9 - Pneumonia, unspecified organism (7) Acute on chronic systolic (congestive) heart failure Assessment/Plan: BNP very high. Reviewed chest x ray. Lasix prn. Cardiology follow up appreciated. Code(s): I50.23 - ACUTE ON CHRONIC SYSTOLIC (CONGESTIVE) HEART FAILURE (8) COPD (chronic obstructive pulmonary disease) Assessment/Plan: Continue inhaled bronchodilators. Code(s): J44.9 - CHRONIC OBSTRUCTIVE PULMONARY DISEASE, UNSPECIFIED Qualifiers : COPD type: unspecified COPD Qualified Code(s): J44.9 - Chronic obstructive pulmonary disease, unspecified (9) Anemia Assessment/Plan: H/H low. No bleeding from any site reported. Ferritin high. Iron low. Likely combination of iron deficiency anemia and anemia of chronic disease. Continue Ferrous sulphate. Code(s): D64.9 - ANEMIA, UNSPECIFIED Qualifiers: Anemia type: other cause Other causes of anemia: other cause, not classified Qualified Code(s): D64.89 - Other specified anemias (10) Dementia Assessment/Plan: Dr. Harvey consult appreciated. Code(s): F03.90 - UNSPECIFIED DEMENTIA WITHOUT BEHAVIORAL DISTURBANCE Qualifiers: Dementia type: unspecified type Dementia behavioral disturbance: without behavioral disturbance Qualified Code(s): F03.90 - Unspecified dementia without behavioral disturbance 11) Stage 3 sacral ulcer. Wound care consult appreciated. Continue santyl. Offload. 12) Hypernatremia: In the setting of poor PO fluid intake. Encourage PO fluid intake. Renal follow up appreciated. Discussed in detail with son about his medical condition. Explained to him in detail about the difficult situation. CHF/ARF/Poor PO intake/Advance dementia He is coming in terms with the situation. He would prefer lasix for shortness of breath so that he does not suffer even if kidney numbers gets worse. Will continue to engage him regarding goals of care. Palliative care team is on board as well. Problem List - Problems (1) Head trauma Code(s): S09.90XA - UNSPECIFIED INJURY OF HEAD, INITIAL ENCOUNTER Qualifiers: Encounter type: initial encounter Qualified Code(s): S09.90XA - Unspecified injury of head, initial encounter (2) Acute kidney failure Code(s): N17.9 - ACUTE KIDNEY FAILURE, UNSPECIFIED Qualifiers: Acute renal failure type: unspecified Qualified Code(s): N17.9 - Acute kidney failure, unspecified (3) UTI (urinary tract infection) Code(s): N39.0 - URINARY TRACT INFECTION, SITE NOT SPECIFIED Qualifiers: Urinary tract infection type: site unspecified Hematuria presence: without hematuria Qualified Code(s): N39.0 - Urinary tract infection, site not specified; R31.9 - Hematuria, unspecified (4) Urinary retention due to benign prostatic hyperplasia Code(s): N40.1 - BENIGN PROSTATIC HYPERPLASIA WITH LOWER URINARY TRACT SYMP R33.8 - OTHER RETENTION OF URINE (5) Atrial fibrillation Code(s): I48.91 - UNSPECIFIED ATRIAL FIBRILLATION Qualifiers: Atrial fibrillation type: permanent Qualified Code(s): I48.2 - Chronic atrial fibrillation (6) Pneumonia Code(s): J18.9 - PNEUMONIA, UNSPECIFIED ORGANISM Qualifiers: Pneumonia type: due to unspecified organism Laterality: right Lung location: lower lobe of lung Qualified Code(s): J18.1 - Lobar pneumonia, unspecified organism (7) Acute on chronic systolic (congestive) heart failure Code(s): I50.23 - ACUTE ON CHRONIC SYSTOLIC (CONGESTIVE) HEART FAILURE (8) COPD (chronic obstructive pulmonary disease) Code(s): J44.9 - CHRONIC OBSTRUCTIVE PULMONARY DISEASE, UNSPECIFIED Qualifiers : COPD type: unspecified COPD Qualified Code(s): J44.9 - Chronic obstructive pulmonary disease, unspecified (9) Anemia Code(s): D64.9 - ANEMIA, UNSPECIFIED Qualifiers: Anemia type: other cause Other causes of anemia: other cause, not classified Qualified Code(s): D64.89 - Other specified anemias (10) Dementia Code(s): F03.90 - UNSPECIFIED DEMENTIA WITHOUT BEHAVIORAL DISTURBANCE Qualifiers: Dementia type: unspecified type Dementia behavioral disturbance: without behavioral disturbance Qualified Code(s): F03.90 - Unspecified dementia without behavioral disturbance (11) Pressure ulcer of sacral region, stage 3 Code(s): L89.153 - PRESSURE ULCER OF SACRAL REGION, STAGE 3
[2017-02-06] MEDS ORDERED: FUROSEMIDE 20 MG TABLET (FP) PO ONE ×2 (14:46→18:00)
--- NOTE | 2017-02-06 14:46 | PN ---
Progress Note, Physician History of Present Illness: Pt seen and examined at bedside. He is awake and confused. - Current Medication List Current Medications: Active Medications Acetaminophen (Tylenol -) 650 mg PO Q4H PRN PRN Reason: FEVER OR PAIN Last Admin: 02/03/17 22:20 Dose: 650 mg Ascorbic Acid (Vitamin C -) 500 mg PO TID [facility] Last Admin: 02/06/17 13:59 Dose: 500 mg Collagenase (Santyl -) 1 applic TP DAILY [facility] Last Admin: 02/06/17 10:33 Dose: 1 applic Donepezil HCl (Aricept -) 10 mg PO DAILY [facility] Last Admin: 02/06/17 10:33 Dose: 10 mg Ferrous Sulfate (Feosol -) 325 mg PO TID [facility] Last Admin: 02/06/17 13:59 Dose: 325 mg Guaifenesin/Codeine Phosphate (Robitussin Ac -) 5 ml PO HS [facility] Last Admin: 02/05/17 21:10 Dose: 5 ml Lactobacillus Acidophilus (Bacid -) 1 tab PO DAILY [facility] Last Admin: 02/06/17 10:32 Dose: 1 tab Latanoprost (Xalatan 0.005% Eye Drops -) 1 drop OU HS [facility] Last Admin: 02/05/17 21:10 Dose: 1 drop Memantine (Namenda -) 5 mg PO BID [facility] Last Admin: 02/06/17 10:33 Dose: 5 mg Ondansetron HCl (Zofran Injection) 4 mg IVPB Q6H PRN PRN Reason: NAUSEA Quetiapine Fumarate (Seroquel -) 25 mg PO HS [facility] Last Admin: 02/05/17 21:10 Dose: 25 mg Quetiapine Fumarate (Seroquel -) 12.5 mg PO DAILY [facility] Last Admin: 02/06/17 10:33 Dose: 12.5 mg Ranitidine HCl (Zantac -) 150 mg PO BID [facility] Last Admin: 02/06/17 10:33 Dose: 150 mg Warfarin Sodium (Coumadin -) 4 mg PO DAILY@1800 [facility] - Objective Vital Signs: Vital Signs Temperature 97.8 F 02/06/17 05:43 Pulse Rate 64 02/06/17 11:05 Respiratory Rate 20 02/06/17 05:43 Blood Pressure 120/60 02/06/17 05:43 O2 Sat by Pulse Oximetry (%) 93 L 02/06/17 11:05 Constitutional: Yes: Calm Eyes: Yes: Conjunctiva Clear HENT: Yes: Atraumatic Neck: Yes: Supple Cardiovascular: Yes: S1, S2 Respiratory: Yes: On Nasal O2, Rhonchi Gastrointestinal: Yes: Soft Genitourinary: Yes: Incontinence Musculoskeletal: Yes: Muscle Weakness Edema: No Neurological: Yes: Confusion Labs: CBC, BMP 02/06/17 06:05 02/06/17 06:05 INR, PTT INR 2.96 (0.82-1.09) H 02/06/17 06:05 Problem List - Problems (1) Acute on chronic renal failure Code(s): N17.9 - ACUTE KIDNEY FAILURE, UNSPECIFIED N18.9 - CHRONIC KIDNEY DISEASE, UNSPECIFIED Qualifiers: Acute renal failure type: unspecified Chronic kidney disease stage: unspecified stage Qualified Code(s): N17.9 - Acute kidney failure, unspecified; N18.9 - Chronic kidney disease, unspecified (2) Anemia Code(s): D64.9 - ANEMIA, UNSPECIFIED Qualifiers: Anemia type: other cause Other causes of anemia: other cause, not classified Qualified Code(s): D64.89 - Other specified anemias (3) Atrial fibrillation Code(s): I48.91 - UNSPECIFIED ATRIAL FIBRILLATION Qualifiers: Atrial fibrillation type: permanent Qualified Code(s): I48.2 - Chronic atrial fibrillation Assessment/Plan Current Medications Generic Name Dose Route Start Last Admin Trade Name Freq PRN Reason Stop Dose Admin Acetaminophen 650 mg 01/26/17 20:29 02/03/17 22:20 Tylenol - PO 650 mg Q4H PRN Administration FEVER OR PAIN Ascorbic Acid 500 mg 01/26/17 22:00 02/06/17 13:59 Vitamin C - PO 500 mg TID NAIF Administration Collagenase 1 applic 01/29/17 20:30 02/06/17 10:33 Santyl - TP 1 applic DAILY ANIF Administration Donepezil HCl 10 mg 02/05/17 10:00 02/06/17 10:33 Aricept - PO 10 mg DAILY NAIF Administration Ferrous Sulfate 325 mg 01/26/17 22:00 02/06/17 13:59 Feosol - PO 325 mg TID NAIF Administration Guaifenesin/Codeine Phosphate 5 ml 01/26/17 22:00 02/05/17 21:10 Robitussin Ac - PO 5 ml HS NAIF Administration Lactobacillus Acidophilus 1 tab 01/27/17 10:00 02/06/17 10:32 Bacid - PO 1 tab DAILY NAIF Administration Latanoprost 1 drop 01/27/17 22:00 02/05/17 21:10 Xalatan 0.005% Eye Drops - OU 1 drop HS NAIF Administration Memantine 5 mg 02/04/17 22:00 02/06/17 10:33 Namenda - PO 5 mg BID NAIF Administration Ondansetron HCl 4 mg 01/26/17 20:29 Zofran Injection IVPB Q6H PRN NAUSEA Quetiapine Fumarate 25 mg 02/04/17 22:00 02/05/17 21:10 Seroquel - PO 25 mg HS NAIF Administration Quetiapine Fumarate 12.5 mg 02/05/17 10:00 02/06/17 10:33 Seroquel - PO 12.5 mg DAILY NAIF Administration Ranitidine HCl 150 mg 01/27/17 22:00 02/06/17 10:33 Zantac - PO 150 mg BID NAIF Administration Warfarin Sodium 4 mg 02/06/17 18:00 Coumadin - PO DAILY@1800 NAIF Impression 1. TATY 2. CHF 3. a-fib 4. CVA 5. Dementia 6. COPD 7. PNA 8. HTN 9. CKD 10. s/p fall 11. hypernatremia Plan - will give a dose of lasix - encourage free water intake, spoke to nursing team - cont current meds - lasix PRN - PO intake is improved today, pt had a full breakfast and lunch. He will need one to one feeds - repeat labs in am Dr Abdi
--- NOTE | 2017-02-06 14:48 | PN ---
Progress Note, Physician History of Present Illness: no gross changes no new issues - Current Medication List Current Medications: Active Medications Acetaminophen (Tylenol -) 650 mg PO Q4H PRN PRN Reason: FEVER OR PAIN Last Admin: 02/03/17 22:20 Dose: 650 mg Ascorbic Acid (Vitamin C -) 500 mg PO TID [facility] Last Admin: 02/06/17 13:59 Dose: 500 mg Collagenase (Santyl -) 1 applic TP DAILY [facility] Last Admin: 02/06/17 10:33 Dose: 1 applic Donepezil HCl (Aricept -) 10 mg PO DAILY [facility] Last Admin: 02/06/17 10:33 Dose: 10 mg Ferrous Sulfate (Feosol -) 325 mg PO TID [facility] Last Admin: 02/06/17 13:59 Dose: 325 mg Furosemide (Lasix -) 20 mg PO ONCE ONE Stop: 02/06/17 14:47 Guaifenesin/Codeine Phosphate (Robitussin Ac -) 5 ml PO HS [facility] Last Admin: 02/05/17 21:10 Dose: 5 ml Lactobacillus Acidophilus (Bacid -) 1 tab PO DAILY [facility] Last Admin: 02/06/17 10:32 Dose: 1 tab Latanoprost (Xalatan 0.005% Eye Drops -) 1 drop OU HS [facility] Last Admin: 02/05/17 21:10 Dose: 1 drop Memantine (Namenda -) 5 mg PO BID [facility] Last Admin: 02/06/17 10:33 Dose: 5 mg Ondansetron HCl (Zofran Injection) 4 mg IVPB Q6H PRN PRN Reason: NAUSEA Quetiapine Fumarate (Seroquel -) 25 mg PO HS [facility] Last Admin: 02/05/17 21:10 Dose: 25 mg Quetiapine Fumarate (Seroquel -) 12.5 mg PO DAILY [facility] Last Admin: 02/06/17 10:33 Dose: 12.5 mg Ranitidine HCl (Zantac -) 150 mg PO BID [facility] Last Admin: 02/06/17 10:33 Dose: 150 mg Warfarin Sodium (Coumadin -) 4 mg PO DAILY@1800 [facility] - Objective Vital Signs: Vital Signs Temperature 97.8 F 02/06/17 05:43 Pulse Rate 64 02/06/17 11:05 Respiratory Rate 20 02/06/17 05:43 Blood Pressure 120/60 02/06/17 05:43 O2 Sat by Pulse Oximetry (%) 93 L 02/06/17 11:05 Constitutional: Yes: No Distress Cardiovascular: Yes: Regular Rate and Rhythm Respiratory: Yes: Regular Gastrointestinal: Yes: Normal Bowel Sounds, Soft Musculoskeletal: Yes: WNL Extremities: Yes: WNL Neurological: Yes: Alert, Other Psychiatric: Yes: Other Labs: CBC, BMP 02/06/17 06:05 02/06/17 06:05 INR, PTT INR 2.96 (0.82-1.09) H 02/06/17 06:05 Assessment/Plan Problem List - Problems (1) Head trauma. Code(s): S09.90XA - UNSPECIFIED INJURY OF HEAD, INITIAL ENCOUNTER Qualifiers: Encounter type: initial encounter (2) Acute kidney failure Code(s): N17.9 - ACUTE KIDNEY FAILURE, UNSPECIFIED (3) UTI (urinary tract infection) Code(s): N39.0 - URINARY TRACT INFECTION, SITE NOT SPECIFIED Qualifiers: Urinary tract infection type: site unspecified Hematuria presence: without hematuria Qualified Code(s): N39.0 - Urinary tract infection, site not specified (4) Urinary retention due to benign prostatic hyperplasia Code(s): N40.1 - BENIGN PROSTATIC HYPERPLASIA WITH LOWER URINARY TRACT SYMP R33.8 - OTHER RETENTION OF URINE (5) Atrial fibrillation Code(s): I48.91 - UNSPECIFIED ATRIAL FIBRILLATION Qualifiers: Atrial fibrillation type: permanent Qualified Code(s): I48.2 - Chronic atrial fibrillation (6) Pneumonia Code(s): J18.9 - PNEUMONIA, UNSPECIFIED ORGANISM Qualifiers: Pneumonia type: due to unspecified organism Laterality: right Lung location: lower lobe of lung Qualified Code(s): J18.9 - Pneumonia, unspecified organism (7) Acute on chronic systolic (congestive) heart failure Code(s): I50.23 - ACUTE ON CHRONIC SYSTOLIC (CONGESTIVE) HEART FAILURE (8) COPD (chronic obstructive pulmonary disease) Code(s): J44.9 - CHRONIC OBSTRUCTIVE PULMONARY DISEASE, UNSPECIFIED Qualifiers : COPD type: unspecified COPD Qualified Code(s): J44.9 - Chronic obstructive pulmonary disease, unspecified (9) Anemia Code(s): D64.9 - ANEMIA, UNSPECIFIED Qualifiers: Anemia type: other cause Other causes of anemia: other cause, not classified Qualified Code(s): D64.89 - Other specified anemias (10) Dementia Code(s): F03.90 - UNSPECIFIED DEMENTIA WITHOUT BEHAVIORAL DISTURBANCE Qualifiers: Dementia type: unspecified type Dementia behavioral disturbance: without behavioral disturbance Qualified Code(s): F03.90 - Unspecified dementia without behavioral disturbance patient has mdr uti has allergy to pcn plan continue current mgmt await for final plan rest as per primary nutrition
--- NOTE | 2017-02-06 15:03 | PN ---
Progress Note, Physician Chief Complaint: Events noted Underlying dementia and confusion, arousable History of Present Illness: Patient was seen and examined. Chart was reviewed - Current Medication List Current Medications: Active Medications Acetaminophen (Tylenol -) 650 mg PO Q4H PRN PRN Reason: FEVER OR PAIN Last Admin: 02/03/17 22:20 Dose: 650 mg Ascorbic Acid (Vitamin C -) 500 mg PO TID [facility] Last Admin: 02/06/17 13:59 Dose: 500 mg Collagenase (Santyl -) 1 applic TP DAILY [facility] Last Admin: 02/06/17 10:33 Dose: 1 applic Donepezil HCl (Aricept -) 10 mg PO DAILY [facility] Last Admin: 02/06/17 10:33 Dose: 10 mg Ferrous Sulfate (Feosol -) 325 mg PO TID [facility] Last Admin: 02/06/17 13:59 Dose: 325 mg Guaifenesin/Codeine Phosphate (Robitussin Ac -) 5 ml PO HS [facility] Last Admin: 02/05/17 21:10 Dose: 5 ml Lactobacillus Acidophilus (Bacid -) 1 tab PO DAILY [facility] Last Admin: 02/06/17 10:32 Dose: 1 tab Latanoprost (Xalatan 0.005% Eye Drops -) 1 drop OU HS [facility] Last Admin: 02/05/17 21:10 Dose: 1 drop Memantine (Namenda -) 5 mg PO BID [facility] Last Admin: 02/06/17 10:33 Dose: 5 mg Ondansetron HCl (Zofran Injection) 4 mg IVPB Q6H PRN PRN Reason: NAUSEA Quetiapine Fumarate (Seroquel -) 25 mg PO HS [facility] Last Admin: 02/05/17 21:10 Dose: 25 mg Quetiapine Fumarate (Seroquel -) 12.5 mg PO DAILY [facility] Last Admin: 02/06/17 10:33 Dose: 12.5 mg Ranitidine HCl (Zantac -) 150 mg PO BID [facility] Last Admin: 02/06/17 10:33 Dose: 150 mg Warfarin Sodium (Coumadin -) 4 mg PO DAILY@1800 [facility] - Objective Vital Signs: Vital Signs Temperature 97.8 F 02/06/17 05:43 Pulse Rate 64 02/06/17 11:05 Respiratory Rate 20 02/06/17 05:43 Blood Pressure 120/60 02/06/17 05:43 O2 Sat by Pulse Oximetry (%) 93 L 02/06/17 11:05 Cardiovascular: Yes: Regular Rate and Rhythm, Murmur (2/6 SM), S1, S2 Respiratory: Yes: Diminished Gastrointestinal: Yes: Normal Bowel Sounds, Soft. No: Tenderness Edema: No Labs: CBC, BMP 02/06/17 06:05 02/06/17 06:05 INR, PTT INR 2.96 (0.82-1.09) H 02/06/17 06:05 Problem List - Problems (1) Acute on chronic renal failure Code(s): N17.9 - ACUTE KIDNEY FAILURE, UNSPECIFIED N18.9 - CHRONIC KIDNEY DISEASE, UNSPECIFIED Qualifiers: Acute renal failure type: unspecified Chronic kidney disease stage: unspecified stage Qualified Code(s): N17.9 - Acute kidney failure, unspecified; N18.9 - Chronic kidney disease, unspecified (2) Anemia Code(s): D64.9 - ANEMIA, UNSPECIFIED Qualifiers: Anemia type: other cause Other causes of anemia: other cause, not classified Qualified Code(s): D64.89 - Other specified anemias (3) Atrial fibrillation Code(s): I48.91 - UNSPECIFIED ATRIAL FIBRILLATION Qualifiers: Atrial fibrillation type: permanent Qualified Code(s): I48.2 - Chronic atrial fibrillation (4) Fall Code(s): W19.XXXA - UNSPECIFIED FALL, INITIAL ENCOUNTER (5) Head trauma Code(s): S09.90XA - UNSPECIFIED INJURY OF HEAD, INITIAL ENCOUNTER Qualifiers: Encounter type: initial encounter Qualified Code(s): S09.90XA - Unspecified injury of head, initial encounter (6) Mitral regurgitation Code(s): I34.0 - NONRHEUMATIC MITRAL (VALVE) INSUFFICIENCY Qualifiers: Cardiac valve disease etiology: nonrheumatic Qualified Code(s): I34.0 - Nonrheumatic mitral (valve) insufficiency (7) Subtherapeutic international normalized ratio (INR) Code(s): R79.1 - ABNORMAL COAGULATION PROFILE (8) UTI (urinary tract infection) Code(s): N39.0 - URINARY TRACT INFECTION, SITE NOT SPECIFIED Qualifiers: Urinary tract infection type: site unspecified Hematuria presence: without hematuria Qualified Code(s): N39.0 - Urinary tract infection, site not specified; R31.9 - Hematuria, unspecified (9) Dementia Code(s): F03.90 - UNSPECIFIED DEMENTIA WITHOUT BEHAVIORAL DISTURBANCE Qualifiers: Dementia type: unspecified type Dementia behavioral disturbance: without behavioral disturbance Qualified Code(s): F03.90 - Unspecified dementia without behavioral disturbance (10) Acute on chronic systolic (congestive) heart failure Code(s): I50.23 - ACUTE ON CHRONIC SYSTOLIC (CONGESTIVE) HEART FAILURE (11) Bradycardia Code(s): R00.1 - BRADYCARDIA, UNSPECIFIED (12) Cerebrovascular disease Code(s): I67.9 - CEREBROVASCULAR DISEASE, UNSPECIFIED (13) Hypertensive cardiovascular disease Code(s): I11.9 - HYPERTENSIVE HEART DISEASE WITHOUT HEART FAILURE Qualifiers: Heart failure presence: with heart failure Qualified Code(s): I11.0 - Hypertensive heart disease with heart failure (14) COPD (chronic obstructive pulmonary disease) Code(s): J44.9 - CHRONIC OBSTRUCTIVE PULMONARY DISEASE, UNSPECIFIED Qualifiers : COPD type: unspecified COPD Qualified Code(s): J44.9 - Chronic obstructive pulmonary disease, unspecified Assessment/Plan 1. Acute on Chronic Systolic Heart Failure with vascular congestion and pleural effusion 2. Mitral valve Regurgitation 3. Pulmonary hypertension 4. Persistent Atrial Fibrillation 5. COPD 6. Proteus UTI 7. Vascular dementia, h/o falls 8. Anemia 9. Acute on CKD PLAN: 1. Diuretic as needed. Monitor renal function and electrolytes 2. Coumadin per INR with caution and monitor Hgb keep INR 2-3 3. Consider Losartan once renal function stabilizes Further plans are to follow Brenden Davenport MD
--- NOTE | 2017-02-06 17:01 | PN ---
Progress Note, Physician History of Present Illness: pulmonary sleeping ,nad,-congestion - Current Medication List Current Medications: Active Medications Acetaminophen (Tylenol -) 650 mg PO Q4H PRN PRN Reason: FEVER OR PAIN Last Admin: 02/03/17 22:20 Dose: 650 mg Ascorbic Acid (Vitamin C -) 500 mg PO TID [facility] Last Admin: 02/06/17 13:59 Dose: 500 mg Collagenase (Santyl -) 1 applic TP DAILY [facility] Last Admin: 02/06/17 10:33 Dose: 1 applic Donepezil HCl (Aricept -) 10 mg PO DAILY [facility] Last Admin: 02/06/17 10:33 Dose: 10 mg Ferrous Sulfate (Feosol -) 325 mg PO TID [facility] Last Admin: 02/06/17 13:59 Dose: 325 mg Guaifenesin/Codeine Phosphate (Robitussin Ac -) 5 ml PO HS [facility] Last Admin: 02/05/17 21:10 Dose: 5 ml Lactobacillus Acidophilus (Bacid -) 1 tab PO DAILY [facility] Last Admin: 02/06/17 10:32 Dose: 1 tab Latanoprost (Xalatan 0.005% Eye Drops -) 1 drop OU HS [facility] Last Admin: 02/05/17 21:10 Dose: 1 drop Memantine (Namenda -) 5 mg PO BID [facility] Last Admin: 02/06/17 10:33 Dose: 5 mg Ondansetron HCl (Zofran Injection) 4 mg IVPB Q6H PRN PRN Reason: NAUSEA Quetiapine Fumarate (Seroquel -) 25 mg PO HS [facility] Last Admin: 02/05/17 21:10 Dose: 25 mg Quetiapine Fumarate (Seroquel -) 12.5 mg PO DAILY [facility] Last Admin: 02/06/17 10:33 Dose: 12.5 mg Ranitidine HCl (Zantac -) 150 mg PO BID [facility] Last Admin: 02/06/17 10:33 Dose: 150 mg Warfarin Sodium (Coumadin -) 4 mg PO DAILY@1800 [facility] - Objective Vital Signs: Vital Signs Temperature 97.8 F 02/06/17 15:04 Pulse Rate 69 02/06/17 15:04 Respiratory Rate 20 02/06/17 05:43 Blood Pressure 140/65 02/06/17 15:04 O2 Sat by Pulse Oximetry (%) 93 L 02/06/17 11:05 Constitutional: Yes: Thin, Other (sleeping) Eyes: Yes: WNL HENT: Yes: WNL Neck: Yes: WNL Cardiovascular: Yes: Pulse Irregular, S1, S2 Respiratory: Yes: Diminished Gastrointestinal: Yes: Normal Bowel Sounds, Soft Extremities: Yes: WNL Edema: No Labs: CBC, BMP 02/06/17 06:05 02/06/17 06:05 INR, PTT INR 2.96 (0.82-1.09) H 02/06/17 06:05 Assessment/Plan Problem List - Problems (1) Head trauma Code(s): S09.90XA - UNSPECIFIED INJURY OF HEAD, INITIAL ENCOUNTER Qualifiers: Encounter type: initial encounter Qualified Code(s): S09.90XA - Unspecified injury of head, initial encounter (2) Fall Code(s): W19.XXXA - UNSPECIFIED FALL, INITIAL ENCOUNTER (3) Pleural effusion Code(s): J90 - PLEURAL EFFUSION, NOT ELSEWHERE CLASSIFIED (4) Atrial fibrillation Code(s): I48.91 - UNSPECIFIED ATRIAL FIBRILLATION Qualifiers: Atrial fibrillation type: permanent Qualified Code(s): I48.2 - Chronic atrial fibrillation (5) UTI (urinary tract infection) Code(s): N39.0 - URINARY TRACT INFECTION, SITE NOT SPECIFIED Qualifiers: Urinary tract infection type: site unspecified Hematuria presence: without hematuria Qualified Code(s): N39.0 - Urinary tract infection, site not specified (6) Acute on chronic systolic (congestive) heart failure Code(s): I50.23 - ACUTE ON CHRONIC SYSTOLIC (CONGESTIVE) HEART FAILURE (7) Pulmonary hypertension Code(s): I27.2 - OTHER SECONDARY PULMONARY HYPERTENSION (8) Mitral regurgitation Code(s): I34.0 - NONRHEUMATIC MITRAL (VALVE) INSUFFICIENCY (9) COPD (chronic obstructive pulmonary disease) Code(s): J44.9 - CHRONIC OBSTRUCTIVE PULMONARY DISEASE, UNSPECIFIED Qualifiers : COPD type: unspecified COPD Qualified Code(s): J44.9 - Chronic obstructive pulmonary disease, unspecified (10) Acute on chronic renal failure Code(s): N17.9 - ACUTE KIDNEY FAILURE, UNSPECIFIED N18.9 - CHRONIC KIDNEY DISEASE, UNSPECIFIED (11) Dementia Code(s): F03.90 - UNSPECIFIED DEMENTIA WITHOUT BEHAVIORAL DISTURBANCE Qualifiers: Dementia type: unspecified type Dementia behavioral disturbance: without behavioral disturbance Qualified Code(s): F03.90 - Unspecified dementia without behavioral disturbance Assessment/Plan s/p Fall Acute on Chronic Systolic Heart Failure Mitral Regurgitation Pulmonary HTN Pleural Effusion Atrial Fibrillation COPD r/o UTI Dementia Anemia - - findings likely more due to CHF - monitor urine output, creatinine - inhaled bronchodilators - rate controlled - monitor h+h - consider aime ROBLES
[2017-02-06] MEDS: WARFARIN NA 2 MG TABLET (UD) PO SCH (17:46)
[2017-02-06] MEDS ORDERED: PT OWN MED DRAWER 7, Y5N ONE (21:26)
[2017-02-06] MEDS: guaiFENesin/CODEINE 5 ML UNIT-DOSE CUPS PO SCH (21:28)
[2017-02-06] MEDS: LATANOPROST 0.005% OPHTH SOLN 2.5ML BOTTLE OU SCH (21:28)
[2017-02-07] MEDS: ASCORBIC ACID 500 MG TABLET (FP) PO SCH ×3 (05:44→22:00)
[2017-02-07] MEDS: FERROUS SO4 325 MG TABLET (FP) PO SCH ×3 (05:44→22:00)
[2017-02-07 08:18] LABS: ANION GAP 14 (8-16); CALCIUM 8.3 mg/dL (8.5-10.1); CO2 30 mmol/L (21-32); CREATININE 6.1 mg/dL (0.7-1.3); GLUCOSE,RANDOM 122 mg/dL (74-106)
[2017-02-07 08:25] LABS: INR 1.12 (0.82-1.09); PROTHROMBIN TIME (PATIENT) 12.4 SEC (9.98-11.88)
[2017-02-07 08:28] LABS: MCH 30.9 pg (25.7-33.7); MEAN CELL VOLUME 93.8 fl (80-96); MEAN PLT VOLUME 7.4 fl (7.5-11.1); PLATELET COUNT 288 K/MM3 (134-434); RDW 15.3 % (11.9-15.9); WHITE BLOOD COUNT 10.8 K/mm3 (4.0-10.0)
[2017-02-07] MEDS: DONEPEZIL HCL 10 MG TABLET (FP) PO SCH (09:51)
[2017-02-07] MEDS: LACTOBACILLUS ACIDOPHILUS 1 EACH TAB (FP) PO SCH (09:51)
[2017-02-07] MEDS: RANITIDINE HCL 150 MG TABLET (FP) PO SCH ×2 (09:51→22:00)
[2017-02-07] MEDS: MEMANTINE HCL 5 MG TABLET (UD) PO SCH ×2 (09:52→22:00)
[2017-02-07] MEDS: COLLAGENASE CLOSTRIDIUM HIST. 30 GRAMS TUBE TP SCH (09:54)
[2017-02-07] MEDS: QUEtiapine FUMARATE 25 MG TABLET (FP) PO SCH ×2 (10:00→22:00)
[2017-02-07 10:57] LABS: PLATELET ESTIMATE ADEQUATE (NORMAL)
--- NOTE | 2017-02-07 11:32 | PN ---
Progress Note (short form) - Note Progress Note: Chief Complaint: Events noted, notes reviewed. Confused and disoriented, took his clothing off, calling for the nurse, appears dyspniec History of Present Illness: Seen and examined. Events noted, notes reviewed. Confused and disoriented, took his clothing off, calling for the nurse, appears dyspniec - Current Medication List Current Medications Acetaminophen (Tylenol -) 650 mg PO Q4H PRN PRN Reason: FEVER OR PAIN Last Admin: 02/03/17 22:20 Dose: 650 mg Ascorbic Acid (Vitamin C -) 500 mg PO TID [facility] Last Admin: 02/07/17 05:44 Dose: 500 mg Collagenase (Santyl -) 1 applic TP DAILY [facility] Last Admin: 02/07/17 09:54 Dose: 1 applic Donepezil HCl (Aricept -) 10 mg PO DAILY [facility] Last Admin: 02/07/17 09:51 Dose: 10 mg Ferrous Sulfate (Feosol -) 325 mg PO TID [facility] Last Admin: 02/07/17 05:44 Dose: 325 mg Guaifenesin/Codeine Phosphate (Robitussin Ac -) 5 ml PO HS [facility] Last Admin: 02/06/17 21:28 Dose: 5 ml Lactobacillus Acidophilus (Bacid -) 1 tab PO DAILY [facility] Last Admin: 02/07/17 09:51 Dose: 1 tab Latanoprost (Xalatan 0.005% Eye Drops -) 1 drop OU HS [facility] Last Admin: 02/06/17 21:28 Dose: 1 drop Memantine (Namenda -) 5 mg PO BID [facility] Last Admin: 02/07/17 09:52 Dose: 5 mg Ondansetron HCl (Zofran Injection) 4 mg IVPB Q6H PRN PRN Reason: NAUSEA Quetiapine Fumarate (Seroquel -) 25 mg PO HS [facility] Last Admin: 02/06/17 21:27 Dose: 25 mg Quetiapine Fumarate (Seroquel -) 12.5 mg PO DAILY [facility] Last Admin: 02/06/17 10:33 Dose: 12.5 mg Ranitidine HCl (Zantac -) 150 mg PO BID [facility] Last Admin: 02/07/17 09:51 Dose: 150 mg Warfarin Sodium (Coumadin -) 4 mg PO DAILY@1800 [facility] Last Admin: 02/06/17 17:46 Dose: 4 mg - Objective Vital Signs: Last Vital Signs Temp Pulse Resp BP Pulse Ox 98.0 F 66 20 132/58 93 L 02/07/17 06:00 02/07/17 06:00 02/07/17 06:00 02/07/17 06:00 02/06/17 21:00 Intake & Output 02/04/17 02/05/17 02/06/17 02/07/17 23:59 23:59 23:59 23:59 Intake Total 1125 1700 1075 Output Total 1200 1200 1600 300 Balance -75 500 -525 -300 Weight 118 lb 2 oz 118 lb 8 oz 116 lb 113 lb 9 oz Neck: Supple Neagtive JVD No Bruit Cardiovascular: S1 S2 Irregularly Irregular Grade 2-3/6 Systolic Murmur Respiratory: Diminished Breath sounds at the Bases Gastrointestinal: Soft benign Normal Bowel Sounds Ext: No Edema Labs: CBC, BMP 02/07/17 06:30 02/07/17 06:30 INR, PTT INR 1.12 (0.82-1.09) D 02/07/17 06:30 Assessment/Plan ASSESSMENT: 1. Acute on Chronic systolic class II-III NYHA classification congestive Heart Failure with pleural effusion 2. CAD angina pectoris 3. Mitral valve Regurgitation 4. Persistent Atrial Fibrillation [id number] score of 4-5 on Coumadin therapy 5. Pulmonary hypertension 6. Organic brain syndrome/dementia 7. Advanced COPD 8. Acute on CKD 9. UTI 10. Anemia PLAN: 1. Diuretic with caution and monitor renal function and electrolytes closely 2. B-Blockers with caution, hemodynamics permitting 3. Ideally should be initiated on ACEI or ARBS, provided renal function stabilizes 4. Continue Coumadin as per INR with caution and monitor (maintain INR 2-3) 5. Obtain chest x-ray Rosa Isela Martin MD
--- NOTE | 2017-02-07 12:24 | PN ---
Progress Note (short form) - Note Progress Note: Confused. Noted some congested cough. Mildly tachypneic at rest. Noted CXR ordered. Intake & Output 02/04/17 02/05/17 02/06/17 02/07/17 23:59 23:59 23:59 23:59 Intake Total 1125 1700 1075 Output Total 1200 1200 1600 300 Balance -75 500 -525 -300 Weight 118 lb 2 oz 118 lb 8 oz 116 lb 113 lb 9 oz Last Vital Signs Temp Pulse Resp BP Pulse Ox 98.0 F 66 20 132/58 93 L 02/07/17 06:00 02/07/17 06:00 02/07/17 06:00 02/07/17 06:00 02/06/17 21:00 Active Medications Acetaminophen (Tylenol -) 650 mg PO Q4H PRN PRN Reason: FEVER OR PAIN Last Admin: 02/03/17 22:20 Dose: 650 mg Ascorbic Acid (Vitamin C -) 500 mg PO TID [facility] Last Admin: 02/07/17 05:44 Dose: 500 mg Carvedilol (Coreg -) 3.125 mg PO BID [facility] Collagenase (Santyl -) 1 applic TP DAILY [facility] Last Admin: 02/07/17 09:54 Dose: 1 applic Donepezil HCl (Aricept -) 10 mg PO DAILY [facility] Last Admin: 02/07/17 09:51 Dose: 10 mg Ferrous Sulfate (Feosol -) 325 mg PO TID [facility] Last Admin: 02/07/17 05:44 Dose: 325 mg Guaifenesin/Codeine Phosphate (Robitussin Ac -) 5 ml PO [facility] Last Admin: 02/06/17 21:28 Dose: 5 ml Lactobacillus Acidophilus (Bacid -) 1 tab PO DAILY [facility] Last Admin: 02/07/17 09:51 Dose: 1 tab Latanoprost (Xalatan 0.005% Eye Drops -) 1 drop OU HS [facility] Last Admin: 02/06/17 21:28 Dose: 1 drop Memantine (Namenda -) 5 mg PO BID [facility] Last Admin: 02/07/17 09:52 Dose: 5 mg Ondansetron HCl (Zofran Injection) 4 mg IVPB Q6H PRN PRN Reason: NAUSEA Quetiapine Fumarate (Seroquel -) 25 mg PO [facility] Last Admin: 02/06/17 21:27 Dose: 25 mg Quetiapine Fumarate (Seroquel -) 12.5 mg PO DAILY [facility] Last Admin: 02/06/17 10:33 Dose: 12.5 mg Ranitidine HCl (Zantac -) 150 mg PO BID [facility] Last Admin: 02/07/17 09:51 Dose: 150 mg Warfarin Sodium (Coumadin -) 4 mg PO DAILY@1800 [facility] Last Admin: 02/06/17 17:46 Dose: 4 mg Constitutional: Yes: Confused, mildly tachypneic at rest Eyes: Yes: WNL HENT: Yes: WNL Neck: Yes: WNL Cardiovascular: Yes: Pulse Irregular, S1, S2 Respiratory: Yes: Diminished Gastrointestinal: Yes: Normal Bowel Sounds, Soft Extremities: Yes: WNL Edema: No Labs: Laboratory Results - last 24 hr 02/07/17 02/07/17 02/07/17 06:30 06:30 06:30 WBC 10.8 H D RBC 3.24 L Hgb 10.0 L D Hct 30.4 L MCV 93.8 MCH 30.9 MCHC 33.0 RDW 15.3 D Plt Count 288 D MPV 7.4 L Neutrophils % 82.0 Lymphocytes % 9.0 Monocytes % 4.0 Eosinophils % 1.0 Basophils % 2.0 Myelocytes 2 D Differential Comment Manual diff done Platelet Estimate Adequate INR 1.12 D Sodium 138 Potassium 4.0 Chloride 94 L D Carbon Dioxide 30 Anion Gap 14 BUN 53 H Creatinine 6.1 H D Random Glucose 122 H D Calcium 8.3 L Assessment/Plan Problem List - Problems (1) Head trauma Code(s): S09.90XA - UNSPECIFIED INJURY OF HEAD, INITIAL ENCOUNTER Qualifiers: Encounter type: initial encounter Qualified Code(s): S09.90XA - Unspecified injury of head, initial encounter (2) Fall Code(s): W19.XXXA - UNSPECIFIED FALL, INITIAL ENCOUNTER (3) Pleural effusion Code(s): J90 - PLEURAL EFFUSION, NOT ELSEWHERE CLASSIFIED (4) Atrial fibrillation Code(s): I48.91 - UNSPECIFIED ATRIAL FIBRILLATION Qualifiers: Atrial fibrillation type: permanent Qualified Code(s): I48.2 - Chronic atrial fibrillation (5) UTI (urinary tract infection) Code(s): N39.0 - URINARY TRACT INFECTION, SITE NOT SPECIFIED Qualifiers: Urinary tract infection type: site unspecified Hematuria presence: without hematuria Qualified Code(s): N39.0 - Urinary tract infection, site not specified (6) Acute on chronic systolic (congestive) heart failure Code(s): I50.23 - ACUTE ON CHRONIC SYSTOLIC (CONGESTIVE) HEART FAILURE (7) Pulmonary hypertension Code(s): I27.2 - OTHER SECONDARY PULMONARY HYPERTENSION (8) Mitral regurgitation Code(s): I34.0 - NONRHEUMATIC MITRAL (VALVE) INSUFFICIENCY (9) COPD (chronic obstructive pulmonary disease) Code(s): J44.9 - CHRONIC OBSTRUCTIVE PULMONARY DISEASE, UNSPECIFIED Qualifiers : COPD type: unspecified COPD Qualified Code(s): J44.9 - Chronic obstructive pulmonary disease, unspecified (10) Acute on chronic renal failure Code(s): N17.9 - ACUTE KIDNEY FAILURE, UNSPECIFIED N18.9 - CHRONIC KIDNEY DISEASE, UNSPECIFIED (11) Dementia Code(s): F03.90 - UNSPECIFIED DEMENTIA WITHOUT BEHAVIORAL DISTURBANCE Qualifiers: Dementia type: unspecified type Dementia behavioral disturbance: without behavioral disturbance Qualified Code(s): F03.90 - Unspecified dementia without behavioral disturbance Assessment/Plan s/p Fall Acute on Chronic Systolic Heart Failure Mitral Regurgitation Pulmonary HTN Pleural Effusion Atrial Fibrillation COPD r/o UTI Dementia Anemia - Noted CXR ordered - Daily assessment for diurectic therapy - inhaled bronchodilators - rate controlled - Normal transfusion thresholds Dr Valdivia
--- NOTE | 2017-02-07 12:46 | PN ---
Progress Note (short form) - Note Progress Note: Patient seen and examined More agitated, confused. Congested. 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 brain MRI), Dementia Cardiovascular: Yes: AFIB (chronic), CHF, HTN Pulmonary: Yes: COPD Psych: Yes: Depression, Other (h/o alcohol abuse) - Past Surgical History Past Surgical History: Yes: Colectomy (hemicolectomy) - Advance Directives Advance Directives: Yes: DNR - Smoking History Smoking history: Unknown if ever smoked Have you smoked in the past 12 months: No Aproximately how many cigarettes per day: 0 If you are a former smoker, when did you quit?: 50 years - Alcohol/Substance Use Hx Alcohol Use: No - Social History ADL: Family Assistance History of Recent Travel: No Home Medications - Allergies Allergies/Adverse Reactions: Allergies Allergy/AdvReac Type Severity Reaction Status Date / Time Penicillins Allergy Hives Verified 01/26/17 15:10 procaine Allergy Verified 01/26/17 18:45 - Home Medications Home Medications: Ambulatory Orders Ascorbate Calcium [Vitamin C] 500 mg PO TID 01/26/17 Bimatoprost [Lumigan] 1 drop IO DAILY 01/26/17 Ferrous Sulfate 325 mg PO TID 01/26/17 Furosemide [Lasix -] 40 mg PO BID 01/26/17 Guaifenesin AC [Robitussin AC -] 5 ml PO HS 01/26/17 Warfarin Na [Coumadin] 5 mg PO TID 01/26/17 Review of Systems Unable to obtain ROS, reason: dementia Physical Examination Vital Signs: Vital Signs Period Temp Pulse Resp BP Sys/Kemp Pulse Ox Last 24 Hr 97.8 F-98.4 F 66-69 20-20 132-140/58-76 93 Constitutional: Yes: Anxious, Mild Distress Eyes: Yes: Conjunctiva Clear, EOM Intact, PERRL HENT: Yes: Atraumatic, Normocephalic Neck: Yes: Supple, Trachea Midline Cardiovascular: Yes: Pulse Irregular, S1, S2 Respiratory: Yes: Diminished (air entry dimished b/l lung base) Gastrointestinal: Yes: Soft (non tender, BS present) Edema: No Peripheral Pulses WNL: Yes ...Motor Strength: WNL Labs: CBC, BMP 02/07/17 06:30 02/07/17 06:30 Microbiology 01/28/17 12:25 Blood Culture - Preliminary Blood - Peripheral Venous NO GROWTH OBTAINED AFTER 24 HOURS, INCUBATION TO CONTINUE FOR 4 DAYS. 01/28/17 12:20 Blood Culture - Preliminary Blood - Peripheral Venous NO GROWTH OBTAINED AFTER 24 HOURS, INCUBATION TO CONTINUE FOR 4 DAYS. 01/26/17 17:30 Urine Culture - Final Urine - Urine - Catheterized Proteus [facility]abil[facility] Imaging - Results Chest X-ray: Report Reviewed Problem List - Problems (1) Head trauma Assessment/Plan: S/P Fall at [place] with head trauma. Patient is on coumadin. Head CT x 2 - Negative for intracranial bleed. Will continue to monitor. Code(s): S09.90XA - UNSPECIFIED INJURY OF HEAD, INITIAL ENCOUNTER Qualifiers: Encounter type: initial encounter (2) Acute kidney failure Assessment/Plan: Encourage PO fluid intake. Renal follow up appreciated. Repeat BMP to check creatinine (looks like lab error) Code(s): N17.9 - ACUTE KIDNEY FAILURE, UNSPECIFIED (3) UTI (urinary tract infection) Assessment/Plan: Urine culture - Proteus Mirabilis Treated. ID input appreciated. Code(s): N39.0 - URINARY TRACT INFECTION, SITE NOT SPECIFIED Qualifiers: Urinary tract infection type: site unspecified Hematuria presence: without hematuria Qualified Code(s): N39.0 - Urinary tract infection, site not specified (4) Urinary retention due to benign prostatic hyperplasia Assessment/Plan: Has Quintana. Changed . Difficult insertion on previous visits. Discussed with Dr. Loaiza. No need for change now. Code(s): N40.1 - BENIGN PROSTATIC HYPERPLASIA WITH LOWER URINARY TRACT SYMP R33.8 - OTHER RETENTION OF URINE (5) Atrial fibrillation Assessment/Plan: Rate controlled. AC per INR. Continue coumadin [address] x 2 negative for intracranial bleed. Code(s): I48.91 - UNSPECIFIED ATRIAL FIBRILLATION Qualifiers: Atrial fibrillation type: permanent Qualified Code(s): I48.2 - Chronic atrial fibrillation (6) Pneumonia Assessment/Plan: Pulmonary follow up appreciated Unlikely pneumonia. Code(s): J18.9 - PNEUMONIA, UNSPECIFIED ORGANISM Qualifiers: Pneumonia type: due to unspecified organism Laterality: right Lung location: lower lobe of lung Qualified Code(s): J18.9 - Pneumonia, unspecified organism (7) Acute on chronic systolic (congestive) heart failure Assessment/Plan: BNP very high. Reviewed chest x ray. Lasix prn. Cardiology follow up appreciated. Code(s): I50.23 - ACUTE ON CHRONIC SYSTOLIC (CONGESTIVE) HEART FAILURE (8) COPD (chronic obstructive pulmonary disease) Assessment/Plan: Continue inhaled bronchodilators. Code(s): J44.9 - CHRONIC OBSTRUCTIVE PULMONARY DISEASE, UNSPECIFIED Qualifiers : COPD type: unspecified COPD Qualified Code(s): J44.9 - Chronic obstructive pulmonary disease, unspecified (9) Anemia Assessment/Plan: H/H low. No bleeding from any site reported. Ferritin high. Iron low. Likely combination of iron deficiency anemia and anemia of chronic disease. Continue Ferrous sulphate. Code(s): D64.9 - ANEMIA, UNSPECIFIED Qualifiers: Anemia type: other cause Other causes of anemia: other cause, not classified Qualified Code(s): D64.89 - Other specified anemias (10) Dementia Assessment/Plan: Dr. Harvey consult appreciated. Code(s): F03.90 - UNSPECIFIED DEMENTIA WITHOUT BEHAVIORAL DISTURBANCE Qualifiers: Dementia type: unspecified type Dementia behavioral disturbance: without behavioral disturbance Qualified Code(s): F03.90 - Unspecified dementia without behavioral disturbance 11) Stage 3 sacral ulcer. Wound care consult appreciated. Continue santyl. Offload. 12) Hypernatremia: In the setting of poor PO fluid intake. Encourage PO fluid intake. Renal follow up appreciated. Discussed in detail with son about his medical condition. Explained to him in detail about the difficult situation. CHF/ARF/Poor PO intake/Advance dementia He is coming in terms with the situation. He would prefer lasix for shortness of breath so that he does not suffer even if kidney numbers gets worse. Will continue to engage him regarding goals of care. Palliative care team is on board as well. Problem List - Problems (1) Head trauma Code(s): S09.90XA - UNSPECIFIED INJURY OF HEAD, INITIAL ENCOUNTER Qualifiers: Encounter type: initial encounter Qualified Code(s): S09.90XA - Unspecified injury of head, initial encounter (2) Acute kidney failure Code(s): N17.9 - ACUTE KIDNEY FAILURE, UNSPECIFIED Qualifiers: Acute renal failure type: unspecified Qualified Code(s): N17.9 - Acute kidney failure, unspecified (3) UTI (urinary tract infection) Code(s): N39.0 - URINARY TRACT INFECTION, SITE NOT SPECIFIED Qualifiers: Urinary tract infection type: site unspecified Hematuria presence: without hematuria Qualified Code(s): N39.0 - Urinary tract infection, site not specified; R31.9 - Hematuria, unspecified (4) Urinary retention due to benign prostatic hyperplasia Code(s): N40.1 - BENIGN PROSTATIC HYPERPLASIA WITH LOWER URINARY TRACT SYMP R33.8 - OTHER RETENTION OF URINE (5) Atrial fibrillation Code(s): I48.91 - UNSPECIFIED ATRIAL FIBRILLATION Qualifiers: Atrial fibrillation type: permanent Qualified Code(s): I48.2 - Chronic atrial fibrillation (6) Pneumonia Code(s): J18.9 - PNEUMONIA, UNSPECIFIED ORGANISM Qualifiers: Pneumonia type: due to unspecified organism Laterality: right Lung location: lower lobe of lung Qualified Code(s): J18.1 - Lobar pneumonia, unspecified organism (7) Acute on chronic systolic (congestive) heart failure Code(s): I50.23 - ACUTE ON CHRONIC SYSTOLIC (CONGESTIVE) HEART FAILURE (8) COPD (chronic obstructive pulmonary disease) Code(s): J44.9 - CHRONIC OBSTRUCTIVE PULMONARY DISEASE, UNSPECIFIED Qualifiers : COPD type: unspecified COPD Qualified Code(s): J44.9 - Chronic obstructive pulmonary disease, unspecified (9) Anemia Code(s): D64.9 - ANEMIA, UNSPECIFIED Qualifiers: Anemia type: other cause Other causes of anemia: other cause, not classified Qualified Code(s): D64.89 - Other specified anemias (10) Dementia Code(s): F03.90 - UNSPECIFIED DEMENTIA WITHOUT BEHAVIORAL DISTURBANCE Qualifiers: Dementia type: unspecified type Dementia behavioral disturbance: without behavioral disturbance Qualified Code(s): F03.90 - Unspecified dementia without behavioral disturbance (11) Pressure ulcer of sacral region, stage 3 Code(s): L89.153 - PRESSURE ULCER OF SACRAL REGION, STAGE 3
--- NOTE | 2017-02-07 12:59 | PN ---
Progress Note, Physician History of Present Illness: no gross changes no new issues - Current Medication List Current Medications: Active Medications Acetaminophen (Tylenol -) 650 mg PO Q4H PRN PRN Reason: FEVER OR PAIN Last Admin: 02/03/17 22:20 Dose: 650 mg Ascorbic Acid (Vitamin C -) 500 mg PO TID [facility] Last Admin: 02/07/17 05:44 Dose: 500 mg Carvedilol (Coreg -) 3.125 mg PO BID [facility] Collagenase (Santyl -) 1 applic TP DAILY [facility] Last Admin: 02/07/17 09:54 Dose: 1 applic Donepezil HCl (Aricept -) 10 mg PO DAILY [facility] Last Admin: 02/07/17 09:51 Dose: 10 mg Ferrous Sulfate (Feosol -) 325 mg PO TID [facility] Last Admin: 02/07/17 05:44 Dose: 325 mg Guaifenesin/Codeine Phosphate (Robitussin Ac -) 5 ml PO HS [facility] Last Admin: 02/06/17 21:28 Dose: 5 ml Lactobacillus Acidophilus (Bacid -) 1 tab PO DAILY [facility] Last Admin: 02/07/17 09:51 Dose: 1 tab Latanoprost (Xalatan 0.005% Eye Drops -) 1 drop OU HS [facility] Last Admin: 02/06/17 21:28 Dose: 1 drop Memantine (Namenda -) 5 mg PO BID [facility] Last Admin: 02/07/17 09:52 Dose: 5 mg Ondansetron HCl (Zofran Injection) 4 mg IVPB Q6H PRN PRN Reason: NAUSEA Quetiapine Fumarate (Seroquel -) 25 mg PO HS [facility] Last Admin: 02/06/17 21:27 Dose: 25 mg Quetiapine Fumarate (Seroquel -) 12.5 mg PO DAILY [facility] Last Admin: 02/06/17 10:33 Dose: 12.5 mg Ranitidine HCl (Zantac -) 150 mg PO BID [facility] Last Admin: 02/07/17 09:51 Dose: 150 mg Warfarin Sodium (Coumadin -) 4 mg PO DAILY@1800 [facility] Last Admin: 02/06/17 17:46 Dose: 4 mg - Objective Vital Signs: Vital Signs Temperature 98.0 F 02/07/17 06:00 Pulse Rate 66 02/07/17 06:00 Respiratory Rate 20 02/07/17 06:00 Blood Pressure 132/58 02/07/17 06:00 O2 Sat by Pulse Oximetry (%) 94 L 02/07/17 09:00 Constitutional: Yes: No Distress, Calm Cardiovascular: Yes: S1, S2 Respiratory: Yes: Regular, On Nasal O2 Gastrointestinal: Yes: Normal Bowel Sounds, Soft Musculoskeletal: Yes: WNL Extremities: Yes: WNL Neurological: Yes: Alert, Other Psychiatric: Yes: Other Labs: CBC, BMP 02/07/17 06:30 02/07/17 06:30 INR, PTT INR 1.12 (0.82-1.09) D 02/07/17 06:30 Assessment/Plan Problem List - Problems (1) Head trauma. Code(s): S09.90XA - UNSPECIFIED INJURY OF HEAD, INITIAL ENCOUNTER Qualifiers: Encounter type: initial encounter (2) Acute kidney failure Code(s): N17.9 - ACUTE KIDNEY FAILURE, UNSPECIFIED (3) UTI (urinary tract infection) Code(s): N39.0 - URINARY TRACT INFECTION, SITE NOT SPECIFIED Qualifiers: Urinary tract infection type: site unspecified Hematuria presence: without hematuria Qualified Code(s): N39.0 - Urinary tract infection, site not specified (4) Urinary retention due to benign prostatic hyperplasia Code(s): N40.1 - BENIGN PROSTATIC HYPERPLASIA WITH LOWER URINARY TRACT SYMP R33.8 - OTHER RETENTION OF URINE (5) Atrial fibrillation Code(s): I48.91 - UNSPECIFIED ATRIAL FIBRILLATION Qualifiers: Atrial fibrillation type: permanent Qualified Code(s): I48.2 - Chronic atrial fibrillation (6) Pneumonia Code(s): J18.9 - PNEUMONIA, UNSPECIFIED ORGANISM Qualifiers: Pneumonia type: due to unspecified organism Laterality: right Lung location: lower lobe of lung Qualified Code(s): J18.9 - Pneumonia, unspecified organism (7) Acute on chronic systolic (congestive) heart failure Code(s): I50.23 - ACUTE ON CHRONIC SYSTOLIC (CONGESTIVE) HEART FAILURE (8) COPD (chronic obstructive pulmonary disease) Code(s): J44.9 - CHRONIC OBSTRUCTIVE PULMONARY DISEASE, UNSPECIFIED Qualifiers : COPD type: unspecified COPD Qualified Code(s): J44.9 - Chronic obstructive pulmonary disease, unspecified (9) Anemia Code(s): D64.9 - ANEMIA, UNSPECIFIED Qualifiers: Anemia type: other cause Other causes of anemia: other cause, not classified Qualified Code(s): D64.89 - Other specified anemias (10) Dementia Code(s): F03.90 - UNSPECIFIED DEMENTIA WITHOUT BEHAVIORAL DISTURBANCE Qualifiers: Dementia type: unspecified type Dementia behavioral disturbance: without behavioral disturbance Qualified Code(s): F03.90 - Unspecified dementia without behavioral disturbance patient has mdr uti has allergy to pcn plan continue current mgmt await for final plan rest as per primary nutrition supportive care
[2017-02-07 13:50] LABS: ANION GAP 7 (8-16); CALCIUM 8.4 mg/dL (8.5-10.1); CO2 27 mmol/L (21-32); CREATININE 1.3 mg/dL (0.7-1.3); GLUCOSE,RANDOM 91 mg/dL (74-106)
[2017-02-07] MEDS ORDERED: FUROSEMIDE 20 MG TABLET (FP) PO ONE ×2 (14:48→17:30)
--- NOTE | 2017-02-07 14:48 | PN ---
Progress Note, Physician History of Present Illness: Pt seen and examined at bedside. He feels that his breathing is improved today. - Current Medication List Current Medications: Active Medications Acetaminophen (Tylenol -) 650 mg PO Q4H PRN PRN Reason: FEVER OR PAIN Last Admin: 02/03/17 22:20 Dose: 650 mg Ascorbic Acid (Vitamin C -) 500 mg PO TID [facility] Last Admin: 02/07/17 14:24 Dose: 500 mg Carvedilol (Coreg -) 3.125 mg PO BID [facility] Collagenase (Santyl -) 1 applic TP DAILY [facility] Last Admin: 02/07/17 09:54 Dose: 1 applic Donepezil HCl (Aricept -) 10 mg PO DAILY [facility] Last Admin: 02/07/17 09:51 Dose: 10 mg Ferrous Sulfate (Feosol -) 325 mg PO TID [facility] Last Admin: 02/07/17 14:25 Dose: 325 mg Guaifenesin/Codeine Phosphate (Robitussin Ac -) 5 ml PO HS [facility] Last Admin: 02/06/17 21:28 Dose: 5 ml Lactobacillus Acidophilus (Bacid -) 1 tab PO DAILY [facility] Last Admin: 02/07/17 09:51 Dose: 1 tab Latanoprost (Xalatan 0.005% Eye Drops -) 1 drop OU HS [facility] Last Admin: 02/06/17 21:28 Dose: 1 drop Memantine (Namenda -) 5 mg PO BID [facility] Last Admin: 02/07/17 09:52 Dose: 5 mg Ondansetron HCl (Zofran Injection) 4 mg IVPB Q6H PRN PRN Reason: NAUSEA Quetiapine Fumarate (Seroquel -) 25 mg PO HS [facility] Last Admin: 02/06/17 21:27 Dose: 25 mg Quetiapine Fumarate (Seroquel -) 12.5 mg PO DAILY [facility] Last Admin: 02/07/17 10:00 Dose: 12.5 mg Ranitidine HCl (Zantac -) 150 mg PO BID [facility] Last Admin: 02/07/17 09:51 Dose: 150 mg Warfarin Sodium (Coumadin -) 4 mg PO DAILY@1800 [facility] Last Admin: 02/06/17 17:46 Dose: 4 mg - Objective Vital Signs: Vital Signs Temperature 98.0 F 02/07/17 06:00 Pulse Rate 66 02/07/17 06:00 Respiratory Rate 20 02/07/17 06:00 Blood Pressure 132/58 02/07/17 06:00 O2 Sat by Pulse Oximetry (%) 94 L 02/07/17 09:00 Constitutional: Yes: Calm Eyes: Yes: Conjunctiva Clear HENT: Yes: Atraumatic Neck: Yes: Supple Cardiovascular: Yes: S1, S2 Respiratory: Yes: On Nasal O2 Gastrointestinal: Yes: Soft Genitourinary: Yes: Quintana Present Musculoskeletal: Yes: Muscle Weakness Edema: No Neurological: Yes: Confusion Labs: CBC, BMP 02/07/17 06:30 02/07/17 13:05 INR, PTT INR 1.12 (0.82-1.09) D 02/07/17 06:30 Problem List - Problems (1) Acute on chronic renal failure Code(s): N17.9 - ACUTE KIDNEY FAILURE, UNSPECIFIED N18.9 - CHRONIC KIDNEY DISEASE, UNSPECIFIED Qualifiers: Acute renal failure type: unspecified Chronic kidney disease stage: unspecified stage Qualified Code(s): N17.9 - Acute kidney failure, unspecified; N18.9 - Chronic kidney disease, unspecified (2) Anemia Code(s): D64.9 - ANEMIA, UNSPECIFIED Qualifiers: Anemia type: other cause Other causes of anemia: other cause, not classified Qualified Code(s): D64.89 - Other specified anemias (3) Atrial fibrillation Code(s): I48.91 - UNSPECIFIED ATRIAL FIBRILLATION Qualifiers: Atrial fibrillation type: permanent Qualified Code(s): I48.2 - Chronic atrial fibrillation Assessment/Plan Current Medications Generic Name Dose Route Start Last Admin Trade Name Shweta PRN Reason Stop Dose Admin Acetaminophen 650 mg 01/26/17 20:29 02/03/17 22:20 Tylenol - PO 650 mg Q4H PRN Administration FEVER OR PAIN Ascorbic Acid 500 mg 01/26/17 22:00 02/07/17 14:24 Vitamin C - PO 500 mg TID [facility] Administration Carvedilol 3.125 mg 02/07/17 22:00 Coreg - PO BID [facility] Collagenase 1 applic 01/29/17 20:30 02/07/17 09:54 Santyl - TP 1 applic DAILY [facility] Administration Donepezil HCl 10 mg 02/05/17 10:00 02/07/17 09:51 Aricept - PO 10 mg DAILY [facility] Administration Ferrous Sulfate 325 mg 01/26/17 22:00 02/07/17 14:25 Feosol - PO 325 mg TID [facility] Administration Guaifenesin/Codeine Phosphate 5 ml 01/26/17 22:00 02/06/17 21:28 Robitussin Ac - PO 5 ml HS [facility] Administration Lactobacillus Acidophilus 1 tab 01/27/17 10:00 02/07/17 09:51 Bacid - PO 1 tab DAILY [facility] Administration Latanoprost 1 drop 01/27/17 22:00 02/06/17 21:28 Xalatan 0.005% Eye Drops - OU 1 drop HS [facility] Administration Memantine 5 mg 02/04/17 22:00 02/07/17 09:52 Namenda - PO 5 mg BID [facility] Administration Ondansetron HCl 4 mg 01/26/17 20:29 Zofran Injection IVPB Q6H PRN NAUSEA Quetiapine Fumarate 25 mg 02/04/17 22:00 02/06/17 21:27 Seroquel - PO 25 mg HS [facility] Administration Quetiapine Fumarate 12.5 mg 02/05/17 10:00 02/07/17 10:00 Seroquel - PO 12.5 mg DAILY [facility] Administration Ranitidine HCl 150 mg 01/27/17 22:00 02/07/17 09:51 Zantac - PO 150 mg BID [facility] Administration Warfarin Sodium 4 mg 02/06/17 18:00 02/06/17 17:46 Coumadin - PO 4 mg DAILY@1800 [facility] Administration Impression 1. TATY 2. CHF 3. a-fib 4. CVA 5. Dementia 6. COPD 7. PNA 8. HTN 9. CKD 10. s/p fall 11. hypernatremia Plan - pt tolerated dose lasix and is clinically improved - cxr reviewed, will give another small dose of lasix - encourage free water intake - cont current meds - repeat labs in am Dr Abdi
[2017-02-07] MEDS: WARFARIN NA 2 MG TABLET (UD) PO SCH (17:39)
[2017-02-07] MEDS: guaiFENesin/CODEINE 5 ML UNIT-DOSE CUPS PO SCH (22:00)
[2017-02-07] MEDS: CARVEDILOL 3.125 MG TABLET (FP) PO SCH (22:00)
[2017-02-07] MEDS: LATANOPROST 0.005% OPHTH SOLN 2.5ML BOTTLE OU SCH (22:01)
[2017-02-07] MEDS: ACETAMINOPHEN 325 MG TABLET (FP) PO PRN (23:28)
[2017-02-08] MEDS: ASCORBIC ACID 500 MG TABLET (FP) PO SCH ×3 (06:24→21:51)
[2017-02-08] MEDS: FERROUS SO4 325 MG TABLET (FP) PO SCH ×3 (06:24→21:51)
[2017-02-08 07:43] LABS: EOSINOPHIL 1.5 % (0-4.5); MCH 30.7 pg (25.7-33.7); MCHC 31.3 g/dl (32.0-35.9); MEAN CELL VOLUME 98.1 fl (80-96); MEAN PLT VOLUME 7.8 fl (7.5-11.1); NEUTROPHILS 77.8 % (42.8-82.8); PLATELET COUNT 183 K/MM3 (134-434); RDW 22.6 % (11.9-15.9); WHITE BLOOD COUNT 6.8 K/mm3 (4.0-10.0)
[2017-02-08 08:07] LABS: ANION GAP 8 (8-16); CALCIUM 8.5 mg/dL (8.5-10.1); CO2 27 mmol/L (21-32); CREATININE 1.3 mg/dL (0.7-1.3); GLUCOSE,RANDOM 110 mg/dL (74-106)
[2017-02-08] MEDS: MEMANTINE HCL 5 MG TABLET (UD) PO SCH ×2 (10:36→21:52)
[2017-02-08] MEDS: LACTOBACILLUS ACIDOPHILUS 1 EACH TAB (FP) PO SCH (10:37)
[2017-02-08] MEDS: CARVEDILOL 3.125 MG TABLET (FP) PO SCH ×2 (10:37→21:51)
[2017-02-08] MEDS: QUEtiapine FUMARATE 25 MG TABLET (FP) PO SCH ×2 (10:37→21:52)
[2017-02-08] MEDS: RANITIDINE HCL 150 MG TABLET (FP) PO SCH ×2 (10:37→21:51)
[2017-02-08] MEDS: DONEPEZIL HCL 10 MG TABLET (FP) PO SCH (10:37)
[2017-02-08 12:26] LABS: ANISOCYTOSIS 2+
--- NOTE | 2017-02-08 12:31 | PN ---
Progress Note (short form) - Note Progress Note: Confused. Still with some congested cough. Less tachypneic than yesterday. CXR : some improvement in pleural effusion and congestive changes Intake & Output 02/05/17 02/06/17 02/07/17 02/08/17 23:59 23:59 23:59 23:59 Intake Total 1700 1075 550 200 Output Total 1200 1600 550 Balance 500 -525 0 200 Weight 118 lb 8 oz 116 lb 113 lb 9 oz 113 lb 1 oz Last Vital Signs Temp Pulse Resp BP Pulse Ox 98.0 F 68 20 121/68 96 02/08/17 06:00 02/08/17 06:00 02/08/17 06:00 02/08/17 06:00 02/07/17 21:00 Active Medications Acetaminophen (Tylenol -) 650 mg PO Q4H PRN PRN Reason: FEVER OR PAIN Last Admin: 02/07/17 23:28 Dose: 650 mg Ascorbic Acid (Vitamin C -) 500 mg PO TID [facility] Last Admin: 02/08/17 06:24 Dose: 500 mg Carvedilol (Coreg -) 3.125 mg PO BID [facility] Last Admin: 02/08/17 10:37 Dose: 3.125 mg Collagenase (Santyl -) 1 applic TP DAILY [facility] Last Admin: 02/07/17 09:54 Dose: 1 applic Donepezil HCl (Aricept -) 10 mg PO DAILY [facility] Last Admin: 02/08/17 10:37 Dose: 10 mg Ferrous Sulfate (Feosol -) 325 mg PO TID [facility] Last Admin: 02/08/17 06:24 Dose: 325 mg Guaifenesin/Codeine Phosphate (Robitussin Ac -) 5 ml PO [facility] Last Admin: 02/07/17 22:00 Dose: 5 ml Lactobacillus Acidophilus (Bacid -) 1 tab PO DAILY [facility] Last Admin: 02/08/17 10:37 Dose: 1 tab Latanoprost (Xalatan 0.005% Eye Drops -) 1 drop OU [facility] Last Admin: 02/07/17 22:01 Dose: 1 drop Memantine (Namenda -) 5 mg PO BID [facility] Last Admin: 02/08/17 10:36 Dose: 5 mg Ondansetron HCl (Zofran Injection) 4 mg IVPB Q6H PRN PRN Reason: NAUSEA Quetiapine Fumarate (Seroquel -) 25 mg PO HS [facility] Last Admin: 02/07/17 22:00 Dose: 25 mg Quetiapine Fumarate (Seroquel -) 12.5 mg PO DAILY [facility] Last Admin: 02/08/17 10:37 Dose: 12.5 mg Ranitidine HCl (Zantac -) 150 mg PO BID [facility] Last Admin: 02/08/17 10:37 Dose: 150 mg Warfarin Sodium (Coumadin -) 4 mg PO DAILY@1800 [facility] Last Admin: 02/07/17 17:39 Dose: 4 mg Constitutional: Yes: Confused, mildly tachypneic at rest Eyes: Yes: WNL HENT: Yes: WNL Neck: Yes: WNL Cardiovascular: Yes: Pulse Irregular, S1, S2 Respiratory: Yes: Diminished Gastrointestinal: Yes: Normal Bowel Sounds, Soft Extremities: Yes: WNL Edema: No Labs: Laboratory Results - last 24 hr 02/07/17 02/08/17 02/08/17 13:05 06:00 06:00 WBC 6.8 D RBC 3.01 L Hgb 9.3 L Hct 29.6 L MCV 98.1 H MCH 30.7 MCHC 31.3 L RDW 22.6 H D Plt Count 183 D MPV 7.8 Neutrophils % 77.8 Lymphocytes % 10.7 Monocytes % 7.0 Eosinophils % 1.5 Basophils % 3.0 H Anisocytosis 2+ Macrocytosis 2+ Sodium 149 H 150 H Potassium 4.8 5.2 H Chloride 115 H D 115 H Carbon Dioxide 27 27 Anion Gap 7 L 8 BUN 44 H 43 H Creatinine 1.3 D 1.3 Random Glucose 91 D 110 H D Calcium 8.4 L 8.5 Assessment/Plan Problem List - Problems (1) Head trauma Code(s): S09.90XA - UNSPECIFIED INJURY OF HEAD, INITIAL ENCOUNTER Qualifiers: Encounter type: initial encounter Qualified Code(s): S09.90XA - Unspecified injury of head, initial encounter (2) Fall Code(s): W19.XXXA - UNSPECIFIED FALL, INITIAL ENCOUNTER (3) Pleural effusion Code(s): J90 - PLEURAL EFFUSION, NOT ELSEWHERE CLASSIFIED (4) Atrial fibrillation Code(s): I48.91 - UNSPECIFIED ATRIAL FIBRILLATION Qualifiers: Atrial fibrillation type: permanent Qualified Code(s): I48.2 - Chronic atrial fibrillation (5) UTI (urinary tract infection) Code(s): N39.0 - URINARY TRACT INFECTION, SITE NOT SPECIFIED Qualifiers: Urinary tract infection type: site unspecified Hematuria presence: without hematuria Qualified Code(s): N39.0 - Urinary tract infection, site not specified (6) Acute on chronic systolic (congestive) heart failure Code(s): I50.23 - ACUTE ON CHRONIC SYSTOLIC (CONGESTIVE) HEART FAILURE (7) Pulmonary hypertension Code(s): I27.2 - OTHER SECONDARY PULMONARY HYPERTENSION (8) Mitral regurgitation Code(s): I34.0 - NONRHEUMATIC MITRAL (VALVE) INSUFFICIENCY (9) COPD (chronic obstructive pulmonary disease) Code(s): J44.9 - CHRONIC OBSTRUCTIVE PULMONARY DISEASE, UNSPECIFIED Qualifiers : COPD type: unspecified COPD Qualified Code(s): J44.9 - Chronic obstructive pulmonary disease, unspecified (10) Acute on chronic renal failure Code(s): N17.9 - ACUTE KIDNEY FAILURE, UNSPECIFIED N18.9 - CHRONIC KIDNEY DISEASE, UNSPECIFIED (11) Dementia Code(s): F03.90 - UNSPECIFIED DEMENTIA WITHOUT BEHAVIORAL DISTURBANCE Qualifiers: Dementia type: unspecified type Dementia behavioral disturbance: without behavioral disturbance Qualified Code(s): F03.90 - Unspecified dementia without behavioral disturbance Assessment/Plan s/p Fall Acute on Chronic Systolic Heart Failure Mitral Regurgitation Pulmonary HTN Pleural Effusion Atrial Fibrillation COPD r/o UTI Dementia Anemia - Daily assessment for diurectic therapy - inhaled bronchodilators - rate controlled - Normal transfusion thresholds Dr Valdivia
--- NOTE | 2017-02-08 12:36 | PN ---
Progress Note, Physician History of Present Illness: patient stable no new issues more awake and anxious - Current Medication List Current Medications: Active Medications Acetaminophen (Tylenol -) 650 mg PO Q4H PRN PRN Reason: FEVER OR PAIN Last Admin: 02/07/17 23:28 Dose: 650 mg Ascorbic Acid (Vitamin C -) 500 mg PO TID [facility] Last Admin: 02/08/17 06:24 Dose: 500 mg Carvedilol (Coreg -) 3.125 mg PO BID [facility] Last Admin: 02/08/17 10:37 Dose: 3.125 mg Collagenase (Santyl -) 1 applic TP DAILY [facility] Last Admin: 02/07/17 09:54 Dose: 1 applic Donepezil HCl (Aricept -) 10 mg PO DAILY [facility] Last Admin: 02/08/17 10:37 Dose: 10 mg Ferrous Sulfate (Feosol -) 325 mg PO TID [facility] Last Admin: 02/08/17 06:24 Dose: 325 mg Guaifenesin/Codeine Phosphate (Robitussin Ac -) 5 ml PO HS [facility] Last Admin: 02/07/17 22:00 Dose: 5 ml Lactobacillus Acidophilus (Bacid -) 1 tab PO DAILY [facility] Last Admin: 02/08/17 10:37 Dose: 1 tab Latanoprost (Xalatan 0.005% Eye Drops -) 1 drop OU [facility] Last Admin: 02/07/17 22:01 Dose: 1 drop Memantine (Namenda -) 5 mg PO BID [facility] Last Admin: 02/08/17 10:36 Dose: 5 mg Ondansetron HCl (Zofran Injection) 4 mg IVPB Q6H PRN PRN Reason: NAUSEA Quetiapine Fumarate (Seroquel -) 25 mg PO HS [facility] Last Admin: 02/07/17 22:00 Dose: 25 mg Quetiapine Fumarate (Seroquel -) 12.5 mg PO DAILY [facility] Last Admin: 02/08/17 10:37 Dose: 12.5 mg Ranitidine HCl (Zantac -) 150 mg PO BID [facility] Last Admin: 02/08/17 10:37 Dose: 150 mg Warfarin Sodium (Coumadin -) 4 mg PO DAILY@1800 [facility] Last Admin: 02/07/17 17:39 Dose: 4 mg - Objective Vital Signs: Vital Signs Temperature 98.0 F 02/08/17 06:00 Pulse Rate 68 02/08/17 06:00 Respiratory Rate 20 02/08/17 06:00 Blood Pressure 121/68 02/08/17 06:00 O2 Sat by Pulse Oximetry (%) 96 02/07/17 21:00 Constitutional: Yes: Anxious, Other Cardiovascular: Yes: Regular Rate and Rhythm Respiratory: Yes: Regular, CTA Bilaterally Gastrointestinal: Yes: Normal Bowel Sounds, Soft Genitourinary: Yes: Quintana Present Musculoskeletal: Yes: WNL Extremities: Yes: WNL Neurological: Yes: Alert, Other Labs: CBC, BMP 02/08/17 06:00 02/08/17 06:00 INR, PTT INR 1.12 (0.82-1.09) D 02/07/17 06:30 Assessment/Plan Problem List - Problems (1) Head trauma. Code(s): S09.90XA - UNSPECIFIED INJURY OF HEAD, INITIAL ENCOUNTER Qualifiers: Encounter type: initial encounter (2) Acute kidney failure Code(s): N17.9 - ACUTE KIDNEY FAILURE, UNSPECIFIED (3) UTI (urinary tract infection) Code(s): N39.0 - URINARY TRACT INFECTION, SITE NOT SPECIFIED Qualifiers: Urinary tract infection type: site unspecified Hematuria presence: without hematuria Qualified Code(s): N39.0 - Urinary tract infection, site not specified (4) Urinary retention due to benign prostatic hyperplasia Code(s): N40.1 - BENIGN PROSTATIC HYPERPLASIA WITH LOWER URINARY TRACT SYMP R33.8 - OTHER RETENTION OF URINE (5) Atrial fibrillation Code(s): I48.91 - UNSPECIFIED ATRIAL FIBRILLATION Qualifiers: Atrial fibrillation type: permanent Qualified Code(s): I48.2 - Chronic atrial fibrillation (6) Pneumonia Code(s): J18.9 - PNEUMONIA, UNSPECIFIED ORGANISM Qualifiers: Pneumonia type: due to unspecified organism Laterality: right Lung location: lower lobe of lung Qualified Code(s): J18.9 - Pneumonia, unspecified organism (7) Acute on chronic systolic (congestive) heart failure Code(s): I50.23 - ACUTE ON CHRONIC SYSTOLIC (CONGESTIVE) HEART FAILURE (8) COPD (chronic obstructive pulmonary disease) Code(s): J44.9 - CHRONIC OBSTRUCTIVE PULMONARY DISEASE, UNSPECIFIED Qualifiers : COPD type: unspecified COPD Qualified Code(s): J44.9 - Chronic obstructive pulmonary disease, unspecified (9) Anemia Code(s): D64.9 - ANEMIA, UNSPECIFIED Qualifiers: Anemia type: other cause Other causes of anemia: other cause, not classified Qualified Code(s): D64.89 - Other specified anemias (10) Dementia Code(s): F03.90 - UNSPECIFIED DEMENTIA WITHOUT BEHAVIORAL DISTURBANCE Qualifiers: Dementia type: unspecified type Dementia behavioral disturbance: without behavioral disturbance Qualified Code(s): F03.90 - Unspecified dementia without behavioral disturbance patient has mdr uti has allergy to pcn plan continue current mgmt await for final plan rest as per primary nutrition supportive care
[2017-02-08] MEDS: COLLAGENASE CLOSTRIDIUM HIST. 30 GRAMS TUBE TP SCH (13:06)
--- NOTE | 2017-02-08 14:08 | PN ---
Progress Note (short form) - Note Progress Note: Laying in bed, in no acute distress. Agitation on & off. Po intake not good. 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: CVA (pe 01/2015 brain MRI), Dementia Cardiovascular: Yes: AFIB (chronic), CHF, HTN Pulmonary: Yes: COPD Psych: Yes: Depression, Other (h/o alcohol abuse) - Past Surgical History Past Surgical History: Yes: Colectomy (hemicolectomy) - Advance Directives Advance Directives: Yes: DNR - Smoking History Smoking history: Unknown if ever smoked Have you smoked in the past 12 months: No Aproximately how many cigarettes per day: 0 If you are a former smoker, when did you quit?: 50 years - Alcohol/Substance Use Hx Alcohol Use: No - Social History ADL: Family Assistance History of Recent Travel: No Home Medications - Allergies Allergies/Adverse Reactions: Allergies Allergy/AdvReac Type Severity Reaction Status Date / Time Penicillins Allergy Hives Verified 01/26/17 15:10 procaine Allergy Verified 01/26/17 18:45 - Home Medications Home Medications: Ambulatory Orders Ascorbate Calcium [Vitamin C] 500 mg PO TID 01/26/17 Bimatoprost [Lumigan] 1 drop IO DAILY 01/26/17 Ferrous Sulfate 325 mg PO TID 01/26/17 Furosemide [Lasix -] 40 mg PO BID 01/26/17 Guaifenesin AC [Robitussin AC -] 5 ml PO HS 01/26/17 Warfarin Na [Coumadin] 5 mg PO TID 01/26/17 Review of Systems Unable to obtain ROS, reason: dementia Physical Examination Vital Signs: Vital Signs Period Temp Pulse Resp BP Sys/Kemp Pulse Ox Last 24 Hr 97.8 F-98.0 F 68-69 20-20 117-148/52-71 96 Constitutional: Yes: Anxious, Mild Distress Eyes: Yes: Conjunctiva Clear, EOM Intact, PERRL HENT: Yes: Atraumatic, Normocephalic Neck: Yes: Supple, Trachea Midline Cardiovascular: Yes: Pulse Irregular, S1, S2 Respiratory: Yes: Diminished (air entry dimished b/l lung base) Gastrointestinal: Yes: Soft (non tender, BS present) Edema: No Peripheral Pulses WNL: Yes ...Motor Strength: WNL Labs: CBC, BMP 02/08/17 06:00 02/08/17 06:00 Microbiology 01/28/17 12:25 Blood Culture - Preliminary Blood - Peripheral Venous NO GROWTH OBTAINED AFTER 24 HOURS, INCUBATION TO CONTINUE FOR 4 DAYS. 01/28/17 12:20 Blood Culture - Preliminary Blood - Peripheral Venous NO GROWTH OBTAINED AFTER 24 HOURS, INCUBATION TO CONTINUE FOR 4 DAYS. 01/26/17 17:30 Urine Culture - Final Urine - Urine - Catheterized Proteus Mirabilis Imaging - Results Chest X-ray: Report Reviewed Problem List - Problems (1) Head trauma Assessment/Plan: S/P Fall at [place] with head trauma. Patient is on coumadin. Head CT x 2 - Negative for intracranial bleed. Will continue to monitor. Code(s): S09.90XA - UNSPECIFIED INJURY OF HEAD, INITIAL ENCOUNTER Qualifiers: Encounter type: initial encounter (2) Acute kidney failure Assessment/Plan: Encourage PO fluid intake. Renal follow up appreciated. Repeat BMP to check creatinine (looks like lab error) Code(s): N17.9 - ACUTE KIDNEY FAILURE, UNSPECIFIED (3) UTI (urinary tract infection) Assessment/Plan: Urine culture - Proteus Mirabilis Treated. ID input appreciated. Code(s): N39.0 - URINARY TRACT INFECTION, SITE NOT SPECIFIED Qualifiers: Urinary tract infection type: site unspecified Hematuria presence: without hematuria Qualified Code(s): N39.0 - Urinary tract infection, site not specified (4) Urinary retention due to benign prostatic hyperplasia Assessment/Plan: Has Quintana. Changed . Difficult insertion on previous visits. Discussed with Dr. Loaiza. No need for change now. Code(s): N40.1 - BENIGN PROSTATIC HYPERPLASIA WITH LOWER URINARY TRACT SYMP R33.8 - OTHER RETENTION OF URINE (5) Atrial fibrillation Assessment/Plan: Rate controlled. AC per INR. Continue coumadin [address] x 2 negative for intracranial bleed. Code(s): I48.91 - UNSPECIFIED ATRIAL FIBRILLATION Qualifiers: Atrial fibrillation type: permanent Qualified Code(s): I48.2 - Chronic atrial fibrillation (6) Pneumonia Assessment/Plan: Pulmonary follow up appreciated Unlikely pneumonia. Code(s): J18.9 - PNEUMONIA, UNSPECIFIED ORGANISM Qualifiers: Pneumonia type: due to unspecified organism Laterality: right Lung location: lower lobe of lung Qualified Code(s): J18.9 - Pneumonia, unspecified organism (7) Acute on chronic systolic (congestive) heart failure Assessment/Plan: Lasix prn. Cardiology follow up appreciated. Code(s): I50.23 - ACUTE ON CHRONIC SYSTOLIC (CONGESTIVE) HEART FAILURE (8) COPD (chronic obstructive pulmonary disease) Assessment/Plan: Continue inhaled bronchodilators. Code(s): J44.9 - CHRONIC OBSTRUCTIVE PULMONARY DISEASE, UNSPECIFIED Qualifiers : COPD type: unspecified COPD Qualified Code(s): J44.9 - Chronic obstructive pulmonary disease, unspecified (9) Anemia Assessment/Plan: H/H low. No bleeding from any site reported. Ferritin high. Iron low. Likely combination of iron deficiency anemia and anemia of chronic disease. Continue Ferrous sulphate. Code(s): D64.9 - ANEMIA, UNSPECIFIED Qualifiers: Anemia type: other cause Other causes of anemia: other cause, not classified Qualified Code(s): D64.89 - Other specified anemias (10) Dementia Assessment/Plan: Dr. Harvey consult appreciated. Code(s): F03.90 - UNSPECIFIED DEMENTIA WITHOUT BEHAVIORAL DISTURBANCE Qualifiers: Dementia type: unspecified type Dementia behavioral disturbance: without behavioral disturbance Qualified Code(s): F03.90 - Unspecified dementia without behavioral disturbance 11) Stage 3 sacral ulcer. Wound care consult appreciated. Continue santyl. Offload. 12) Hypernatremia: In the setting of poor PO fluid intake. Encourage free water intake. Renal follow up appreciated. Discussed in detail with son about his medical condition. Explained to him in detail about the difficult situation. CHF/ARF/Poor PO intake/Advance dementia He would prefer lasix for shortness of breath so that he does not suffer even if kidney numbers gets worse. Will continue to engage him regarding goals of care. Palliative care team is on board as well. Problem List - Problems (1) Head trauma Code(s): S09.90XA - UNSPECIFIED INJURY OF HEAD, INITIAL ENCOUNTER Qualifiers: Encounter type: initial encounter Qualified Code(s): S09.90XA - Unspecified injury of head, initial encounter (2) Acute kidney failure Code(s): N17.9 - ACUTE KIDNEY FAILURE, UNSPECIFIED Qualifiers: Acute renal failure type: unspecified Qualified Code(s): N17.9 - Acute kidney failure, unspecified (3) UTI (urinary tract infection) Code(s): N39.0 - URINARY TRACT INFECTION, SITE NOT SPECIFIED Qualifiers: Urinary tract infection type: site unspecified Hematuria presence: without hematuria Qualified Code(s): N39.0 - Urinary tract infection, site not specified; R31.9 - Hematuria, unspecified (4) Urinary retention due to benign prostatic hyperplasia Code(s): N40.1 - BENIGN PROSTATIC HYPERPLASIA WITH LOWER URINARY TRACT SYMP R33.8 - OTHER RETENTION OF URINE (5) Atrial fibrillation Code(s): I48.91 - UNSPECIFIED ATRIAL FIBRILLATION Qualifiers: Atrial fibrillation type: permanent Qualified Code(s): I48.2 - Chronic atrial fibrillation (6) Pneumonia Code(s): J18.9 - PNEUMONIA, UNSPECIFIED ORGANISM Qualifiers: Pneumonia type: due to unspecified organism Laterality: right Lung location: lower lobe of lung Qualified Code(s): J18.1 - Lobar pneumonia, unspecified organism (7) Acute on chronic systolic (congestive) heart failure Code(s): I50.23 - ACUTE ON CHRONIC SYSTOLIC (CONGESTIVE) HEART FAILURE (8) COPD (chronic obstructive pulmonary disease) Code(s): J44.9 - CHRONIC OBSTRUCTIVE PULMONARY DISEASE, UNSPECIFIED Qualifiers : COPD type: unspecified COPD Qualified Code(s): J44.9 - Chronic obstructive pulmonary disease, unspecified (9) Anemia Code(s): D64.9 - ANEMIA, UNSPECIFIED Qualifiers: Anemia type: other cause Other causes of anemia: other cause, not classified Qualified Code(s): D64.89 - Other specified anemias (10) Dementia Code(s): F03.90 - UNSPECIFIED DEMENTIA WITHOUT BEHAVIORAL DISTURBANCE Qualifiers: Dementia type: unspecified type Dementia behavioral disturbance: without behavioral disturbance Qualified Code(s): F03.90 - Unspecified dementia without behavioral disturbance (11) Pressure ulcer of sacral region, stage 3 Code(s): L89.153 - PRESSURE ULCER OF SACRAL REGION, STAGE 3
--- NOTE | 2017-02-08 14:20 | CONSULT ---
Consult - text type - Consultation Consultation Note: NEUROLOGY FOLLOW-UP: Events reviewed and discussed with Dr. Tello. Poorly compensated CHF. Advanced Alzheimer's Disease-on meds. Much calmer on Quetiapine. EXAM: Thin. Resting quietly with eyes closed. Opens eyes and follows most commands. Still not aware he is in the hospital. Non-focal exam with slightly increased tone. Remainder normal. IMP: Moderately severe B/L cerebral dysfunction c/w Advanced Alzheimer's disease. SUGGEST: Continue donepezil 10 mg q AM Increase Mementine to 10 mg PO BID. Continue Quetiapine 12.5 mg qAM and 25 mg q PM. SNF level of care is appropriate. Thank you very much, Julio Harvey MD
[2017-02-08] MEDS ORDERED: DEXTROSE 5%-WATER - 1,000 ML IV SCH (17:00)
--- NOTE | 2017-02-08 17:00 | PN ---
Progress Note, Physician History of Present Illness: Pt seen and examined at bedside. He appears comfortable. His son is at bedside and care was discussed with him. - Current Medication List Current Medications: Active Medications Acetaminophen (Tylenol -) 650 mg PO Q4H PRN PRN Reason: FEVER OR PAIN Last Admin: 02/07/17 23:28 Dose: 650 mg Ascorbic Acid (Vitamin C -) 500 mg PO TID [facility] Last Admin: 02/08/17 14:09 Dose: 500 mg Carvedilol (Coreg -) 3.125 mg PO BID [facility] Last Admin: 02/08/17 10:37 Dose: 3.125 mg Collagenase (Santyl -) 1 applic TP DAILY [facility] Last Admin: 02/08/17 13:06 Dose: 1 applic Donepezil HCl (Aricept -) 10 mg PO DAILY [facility] Last Admin: 02/08/17 10:37 Dose: 10 mg Ferrous Sulfate (Feosol -) 325 mg PO TID [facility] Last Admin: 02/08/17 14:09 Dose: 325 mg Guaifenesin/Codeine Phosphate (Robitussin Ac -) 5 ml PO HS [facility] Last Admin: 02/07/17 22:00 Dose: 5 ml Lactobacillus Acidophilus (Bacid -) 1 tab PO DAILY [facility] Last Admin: 02/08/17 10:37 Dose: 1 tab Latanoprost (Xalatan 0.005% Eye Drops -) 1 drop OU HS [facility] Last Admin: 02/07/17 22:01 Dose: 1 drop Memantine (Namenda -) 5 mg PO BID [facility] Last Admin: 02/08/17 10:36 Dose: 5 mg Ondansetron HCl (Zofran Injection) 4 mg IVPB Q6H PRN PRN Reason: NAUSEA Quetiapine Fumarate (Seroquel -) 25 mg PO HS [facility] Last Admin: 02/07/17 22:00 Dose: 25 mg Quetiapine Fumarate (Seroquel -) 12.5 mg PO DAILY [facility] Last Admin: 02/08/17 10:37 Dose: 12.5 mg Ranitidine HCl (Zantac -) 150 mg PO BID [facility] Last Admin: 02/08/17 10:37 Dose: 150 mg Warfarin Sodium (Coumadin -) 4 mg PO DAILY@1800 [facility] Last Admin: 02/07/17 17:39 Dose: 4 mg - Objective Vital Signs: Vital Signs Temperature 97.5 F L 02/08/17 15:39 Pulse Rate 68 02/08/17 15:39 Respiratory Rate 20 02/08/17 15:39 Blood Pressure 122/61 02/08/17 15:39 O2 Sat by Pulse Oximetry (%) 96 02/07/17 21:00 Constitutional: Yes: Calm Eyes: Yes: Conjunctiva Clear HENT: Yes: Atraumatic Neck: Yes: Supple Cardiovascular: Yes: S1, S2 Respiratory: Yes: CTA Bilaterally Gastrointestinal: Yes: Soft Genitourinary: Yes: Incontinence Musculoskeletal: Yes: Muscle Weakness Neurological: Yes: Confusion Labs: CBC, BMP 02/08/17 06:00 02/08/17 06:00 INR, PTT INR 1.12 (0.82-1.09) D 02/07/17 06:30 Problem List - Problems (1) Acute on chronic renal failure Code(s): N17.9 - ACUTE KIDNEY FAILURE, UNSPECIFIED N18.9 - CHRONIC KIDNEY DISEASE, UNSPECIFIED Qualifiers: Acute renal failure type: unspecified Chronic kidney disease stage: unspecified stage Qualified Code(s): N17.9 - Acute kidney failure, unspecified; N18.9 - Chronic kidney disease, unspecified (2) Anemia Code(s): D64.9 - ANEMIA, UNSPECIFIED Qualifiers: Anemia type: other cause Other causes of anemia: other cause, not classified Qualified Code(s): D64.89 - Other specified anemias (3) Atrial fibrillation Code(s): I48.91 - UNSPECIFIED ATRIAL FIBRILLATION Qualifiers: Atrial fibrillation type: permanent Qualified Code(s): I48.2 - Chronic atrial fibrillation Assessment/Plan Current Medications Generic Name Dose Route Start Last Admin Trade Name Freq PRN Reason Stop Dose Admin Acetaminophen 650 mg 01/26/17 20:29 02/07/17 23:28 Tylenol - PO 650 mg Q4H PRN Administration FEVER OR PAIN Ascorbic Acid 500 mg 01/26/17 22:00 02/08/17 14:09 Vitamin C - PO 500 mg TID NAIF Administration Carvedilol 3.125 mg 02/07/17 22:00 02/08/17 10:37 Coreg - PO 3.125 mg BID NAIF Administration Collagenase 1 applic 01/29/17 20:30 02/08/17 13:06 Santyl - TP 1 applic DAILY NAIF Administration Donepezil HCl 10 mg 02/05/17 10:00 02/08/17 10:37 Aricept - PO 10 mg DAILY NAIF Administration Ferrous Sulfate 325 mg 01/26/17 22:00 02/08/17 14:09 Feosol - PO 325 mg TID NAIF Administration Guaifenesin/Codeine Phosphate 5 ml 01/26/17 22:00 02/07/17 22:00 Robitussin Ac - PO 5 ml HS NAIF Administration Lactobacillus Acidophilus 1 tab 01/27/17 10:00 02/08/17 10:37 Bacid - PO 1 tab DAILY NAIF Administration Latanoprost 1 drop 01/27/17 22:00 02/07/17 22:01 Xalatan 0.005% Eye Drops - OU 1 drop HS NAIF Administration Memantine 5 mg 02/04/17 22:00 02/08/17 10:36 Namenda - PO 5 mg BID NAIF Administration Ondansetron HCl 4 mg 01/26/17 20:29 Zofran Injection IVPB Q6H PRN NAUSEA Quetiapine Fumarate 25 mg 02/04/17 22:00 02/07/17 22:00 Seroquel - PO 25 mg HS NAIF Administration Quetiapine Fumarate 12.5 mg 02/05/17 10:00 02/08/17 10:37 Seroquel - PO 12.5 mg DAILY NAIF Administration Ranitidine HCl 150 mg 01/27/17 22:00 02/08/17 10:37 Zantac - PO 150 mg BID NAIF Administration Warfarin Sodium 4 mg 02/06/17 18:00 02/07/17 17:39 Coumadin - PO 4 mg DAILY@1800 NAIF Administration Impression 1. TATY 2. CHF 3. a-fib 4. CVA 5. Dementia 6. COPD 7. PNA 8. HTN 9. CKD 10. s/p fall 11. hypernatremia Plan - pts PO intake remains poor - will give d5w at 42 cc per hour for 6 hours - repeat labs in am - encourage free water intake - cont current meds Dr Abdi
[2017-02-08] MEDS: WARFARIN NA 2 MG TABLET (UD) PO SCH (18:33)
[2017-02-08] MEDS: guaiFENesin/CODEINE 5 ML UNIT-DOSE CUPS PO SCH (21:51)
[2017-02-08] MEDS: ACETAMINOPHEN 325 MG TABLET (FP) PO PRN (21:52)
[2017-02-08] MEDS: LATANOPROST 0.005% OPHTH SOLN 2.5ML BOTTLE OU SCH (21:52)
[2017-02-09] MEDS: ASCORBIC ACID 500 MG TABLET (FP) PO SCH ×3 (06:38→21:58)
[2017-02-09] MEDS: FERROUS SO4 325 MG TABLET (FP) PO SCH ×3 (06:38→21:58)
[2017-02-09 08:23] LABS: BASOPHIL 0.6 % (0-2.0); EOSINOPHIL 2.3 % (0-4.5); MCH 30.8 pg (25.7-33.7); MCHC 31.6 g/dl (32.0-35.9); MEAN CELL VOLUME 97.6 fl (80-96); NEUTROPHILS 74.5 % (42.8-82.8); PLATELET COUNT 177 K/MM3 (134-434); RDW 22.5 % (11.9-15.9); WHITE BLOOD COUNT 5.1 K/mm3 (4.0-10.0)
[2017-02-09 08:55] LABS: ALK PHOS 143 U/L (45-117); ANION GAP 9 (8-16); BILIRUBIN,TOTAL 1.5 mg/dL (0.2-1.0); CO2 25 mmol/L (21-32); CREATININE 1.3 mg/dL (0.7-1.3); GLUCOSE,RANDOM 81 mg/dL (74-106); SGOT/AST 17 U/L (15-37); SGPT/ALT 13 U/L (12-78); TOT PROT 5.8 g/dl (6.4-8.2)
--- NOTE | 2017-02-09 10:16 | PN ---
Progress Note, Physician History of Present Illness: Resting comfortably, episodes of agitation, decreased oral intake. - Current Medication List Current Medications: Active Medications Acetaminophen (Tylenol -) 650 mg PO Q4H PRN PRN Reason: FEVER OR PAIN Last Admin: 02/08/17 21:52 Dose: 650 mg Ascorbic Acid (Vitamin C -) 500 mg PO TID [facility] Last Admin: 02/09/17 06:38 Dose: 500 mg Carvedilol (Coreg -) 3.125 mg PO BID [facility] Last Admin: 02/08/17 21:51 Dose: 3.125 mg Collagenase (Santyl -) 1 applic TP DAILY [facility] Last Admin: 02/08/17 13:06 Dose: 1 applic Donepezil HCl (Aricept -) 10 mg PO DAILY [facility] Last Admin: 02/08/17 10:37 Dose: 10 mg Ferrous Sulfate (Feosol -) 325 mg PO TID [facility] Last Admin: 02/09/17 06:38 Dose: 325 mg Guaifenesin/Codeine Phosphate (Robitussin Ac -) 5 ml PO HS [facility] Last Admin: 02/08/17 21:51 Dose: 5 ml Lactobacillus Acidophilus (Bacid -) 1 tab PO DAILY [facility] Last Admin: 02/08/17 10:37 Dose: 1 tab Latanoprost (Xalatan 0.005% Eye Drops -) 1 drop OU HS [facility] Last Admin: 02/08/17 21:52 Dose: 1 drop Memantine (Namenda -) 5 mg PO BID [facility] Last Admin: 02/08/17 21:52 Dose: 5 mg Ondansetron HCl (Zofran Injection) 4 mg IVPB Q6H PRN PRN Reason: NAUSEA Quetiapine Fumarate (Seroquel -) 25 mg PO HS [facility] Last Admin: 02/08/17 21:52 Dose: 25 mg Quetiapine Fumarate (Seroquel -) 12.5 mg PO DAILY [facility] Last Admin: 02/08/17 10:37 Dose: 12.5 mg Ranitidine HCl (Zantac -) 150 mg PO BID [facility] Last Admin: 02/08/17 21:51 Dose: 150 mg Warfarin Sodium (Coumadin -) 4 mg PO DAILY@1800 [facility] Last Admin: 02/08/17 18:33 Dose: 4 mg - Objective Vital Signs: Vital Signs Temperature 97.8 F 02/09/17 08:57 Pulse Rate 60 02/09/17 08:57 Respiratory Rate 18 02/09/17 08:57 Blood Pressure 119/60 02/09/17 08:57 O2 Sat by Pulse Oximetry (%) 93 L 02/08/17 21:00 Constitutional: Yes: No Distress, Calm, Thin Neck: Yes: Supple Cardiovascular: Yes: Pulse Irregular, Murmur (2/6 SM) Respiratory: Yes: Regular, Diminished, On Nasal O2 Gastrointestinal: Yes: Normal Bowel Sounds, Soft Edema: No Labs: CBC, BMP 02/09/17 07:45 02/09/17 07:45 INR, PTT INR 1.12 (0.82-1.09) D 02/07/17 06:30 - ....Imaging Chest X-ray: Report Reviewed (Decreased effusions) Problem List - Problems (1) Acute on chronic renal failure Code(s): N17.9 - ACUTE KIDNEY FAILURE, UNSPECIFIED N18.9 - CHRONIC KIDNEY DISEASE, UNSPECIFIED Qualifiers: Acute renal failure type: unspecified Chronic kidney disease stage: unspecified stage Qualified Code(s): N17.9 - Acute kidney failure, unspecified; N18.9 - Chronic kidney disease, unspecified (2) Anemia Code(s): D64.9 - ANEMIA, UNSPECIFIED Qualifiers: Anemia type: other cause Other causes of anemia: other cause, not classified Qualified Code(s): D64.89 - Other specified anemias (3) Atrial fibrillation Code(s): I48.91 - UNSPECIFIED ATRIAL FIBRILLATION Qualifiers: Atrial fibrillation type: permanent Qualified Code(s): I48.2 - Chronic atrial fibrillation (4) Mitral regurgitation Code(s): I34.0 - NONRHEUMATIC MITRAL (VALVE) INSUFFICIENCY Qualifiers: Cardiac valve disease etiology: nonrheumatic Qualified Code(s): I34.0 - Nonrheumatic mitral (valve) insufficiency (5) Pleural effusion Code(s): J90 - PLEURAL EFFUSION, NOT ELSEWHERE CLASSIFIED (6) Subtherapeutic international normalized ratio (INR) Code(s): R79.1 - ABNORMAL COAGULATION PROFILE (7) UTI (urinary tract infection) Code(s): N39.0 - URINARY TRACT INFECTION, SITE NOT SPECIFIED Qualifiers: Urinary tract infection type: site unspecified Hematuria presence: without hematuria Qualified Code(s): N39.0 - Urinary tract infection, site not specified; R31.9 - Hematuria, unspecified (8) Dementia Code(s): F03.90 - UNSPECIFIED DEMENTIA WITHOUT BEHAVIORAL DISTURBANCE Qualifiers: Dementia type: unspecified type Dementia behavioral disturbance: without behavioral disturbance Qualified Code(s): F03.90 - Unspecified dementia without behavioral disturbance (9) Acute on chronic systolic (congestive) heart failure Code(s): I50.23 - ACUTE ON CHRONIC SYSTOLIC (CONGESTIVE) HEART FAILURE (10) Cerebrovascular accident Code(s): I63.9 - CEREBRAL INFARCTION, UNSPECIFIED (11) Hypertensive cardiovascular disease Code(s): I11.9 - HYPERTENSIVE HEART DISEASE WITHOUT HEART FAILURE Qualifiers: Heart failure presence: with heart failure Qualified Code(s): I11.0 - Hypertensive heart disease with heart failure (12) Pleural effusion due to CHF (congestive heart failure) Code(s): I50.9 - HEART FAILURE, UNSPECIFIED (13) Pulmonary hypertension Code(s): I27.2 - OTHER SECONDARY PULMONARY HYPERTENSION (14) COPD (chronic obstructive pulmonary disease) Code(s): J44.9 - CHRONIC OBSTRUCTIVE PULMONARY DISEASE, UNSPECIFIED Qualifiers : COPD type: unspecified COPD Qualified Code(s): J44.9 - Chronic obstructive pulmonary disease, unspecified Assessment/Plan 10/31/2015 Echo: Moderate decreased LV systolic function LLVEF 35-40%, mod MR, TR , mild LAE, mod pulm HTN 11/26/2016 Echo: Borderline dilated LV with moderate decreased LV systolic function, LVEF 30-35%, mod MR, mild-mod TR, large left effusion 1. Acute on Chronic systolic class II-III NYHA classification congestive Heart Failure with pleural effusion 2. CAD angina pectoris 3. Mitral valve Regurgitation 4. Persistent Atrial Fibrillation [id number] score of 4-5 on Coumadin therapy with subtherapeutic INR 5. Pulmonary hypertension 6. Organic brain syndrome/dementia with anorexia 7. Advanced COPD 8. Acute on CKD improved 9. UTI 10. Anemia PLAN: 1. Diuretics held pending increase in oral intake 2. Carvedilol 3.125 bid, hemodynamics permitting 3. Ideally should be initiated on ACEI or ARBS, provided renal function stabilizes with monitor of K 4. Dose Coumadin per INR (maintain INR 2-3)
--- NOTE | 2017-02-09 11:02 | PN ---
Progress Note (short form) - Note Progress Note: PULMONARY Confused, no fevers recorded. Last Vital Signs Temp Pulse Resp BP Pulse Ox 97.8 F 60 18 119/60 93 L 02/09/17 08:57 02/09/17 08:57 02/09/17 08:57 02/09/17 08:57 02/08/17 21:00 Gen: mildly tachypneic at rest Heart: RRR Lung: decreased breath sounds at the bases Abd: soft, nontender Ext: no edema CBC, BMP 02/09/17 07:45 02/09/17 07:45 Active Medications Acetaminophen (Tylenol -) 650 mg PO Q4H PRN PRN Reason: FEVER OR PAIN Last Admin: 02/08/17 21:52 Dose: 650 mg Ascorbic Acid (Vitamin C -) 500 mg PO TID [facility] Last Admin: 02/09/17 06:38 Dose: 500 mg Carvedilol (Coreg -) 3.125 mg PO BID [facility] Last Admin: 02/08/17 21:51 Dose: 3.125 mg Collagenase (Santyl -) 1 applic TP DAILY [facility] Last Admin: 02/08/17 13:06 Dose: 1 applic Donepezil HCl (Aricept -) 10 mg PO DAILY [facility] Last Admin: 02/08/17 10:37 Dose: 10 mg Ferrous Sulfate (Feosol -) 325 mg PO TID [facility] Last Admin: 02/09/17 06:38 Dose: 325 mg Guaifenesin/Codeine Phosphate (Robitussin Ac -) 5 ml PO HS [facility] Last Admin: 02/08/17 21:51 Dose: 5 ml Lactobacillus Acidophilus (Bacid -) 1 tab PO DAILY [facility] Last Admin: 02/08/17 10:37 Dose: 1 tab Latanoprost (Xalatan 0.005% Eye Drops -) 1 drop OU HS [facility] Last Admin: 02/08/17 21:52 Dose: 1 drop Memantine (Namenda -) 5 mg PO BID [facility] Last Admin: 02/08/17 21:52 Dose: 5 mg Ondansetron HCl (Zofran Injection) 4 mg IVPB Q6H PRN PRN Reason: NAUSEA Quetiapine Fumarate (Seroquel -) 25 mg PO HS [facility] Last Admin: 02/08/17 21:52 Dose: 25 mg Quetiapine Fumarate (Seroquel -) 12.5 mg PO DAILY [facility] Last Admin: 02/08/17 10:37 Dose: 12.5 mg Ranitidine HCl (Zantac -) 150 mg PO BID [facility] Last Admin: 02/08/17 21:51 Dose: 150 mg Warfarin Sodium (Coumadin -) 4 mg PO DAILY@1800 [facility] Last Admin: 02/08/17 18:33 Dose: 4 mg A/P s/p Fall Chronic Systolic Heart Failure Mitral Regurgitation Pulmonary HTN Pleural Effusion Atrial Fibrillation COPD UTI Dementia - lasix as needed - monitor urine output, creatinine - s/p antibiotics for UTI - inhaled bronchodilators as needed - rate controlled - continue anticoagulation for now, may need to reassess indication if pt fall risk Problem List - Problems (1) Head trauma Code(s): S09.90XA - UNSPECIFIED INJURY OF HEAD, INITIAL ENCOUNTER Qualifiers: Encounter type: initial encounter Qualified Code(s): S09.90XA - Unspecified injury of head, initial encounter (2) Fall Code(s): W19.XXXA - UNSPECIFIED FALL, INITIAL ENCOUNTER (3) Pleural effusion Code(s): J90 - PLEURAL EFFUSION, NOT ELSEWHERE CLASSIFIED (4) Atrial fibrillation Code(s): I48.91 - UNSPECIFIED ATRIAL FIBRILLATION Qualifiers: Atrial fibrillation type: permanent Qualified Code(s): I48.2 - Chronic atrial fibrillation (5) UTI (urinary tract infection) Code(s): N39.0 - URINARY TRACT INFECTION, SITE NOT SPECIFIED Qualifiers: Urinary tract infection type: site unspecified Hematuria presence: without hematuria Qualified Code(s): N39.0 - Urinary tract infection, site not specified; R31.9 - Hematuria, unspecified (6) Acute on chronic systolic (congestive) heart failure Code(s): I50.23 - ACUTE ON CHRONIC SYSTOLIC (CONGESTIVE) HEART FAILURE (7) Pulmonary hypertension Code(s): I27.2 - OTHER SECONDARY PULMONARY HYPERTENSION (8) Mitral regurgitation Code(s): I34.0 - NONRHEUMATIC MITRAL (VALVE) INSUFFICIENCY Qualifiers: Cardiac valve disease etiology: nonrheumatic Qualified Code(s): I34.0 - Nonrheumatic mitral (valve) insufficiency (9) COPD (chronic obstructive pulmonary disease) Code(s): J44.9 - CHRONIC OBSTRUCTIVE PULMONARY DISEASE, UNSPECIFIED Qualifiers : COPD type: unspecified COPD Qualified Code(s): J44.9 - Chronic obstructive pulmonary disease, unspecified (10) Acute on chronic renal failure Code(s): N17.9 - ACUTE KIDNEY FAILURE, UNSPECIFIED N18.9 - CHRONIC KIDNEY DISEASE, UNSPECIFIED Qualifiers: Acute renal failure type: unspecified Chronic kidney disease stage: unspecified stage Qualified Code(s): N17.9 - Acute kidney failure, unspecified; N18.9 - Chronic kidney disease, unspecified (11) Dementia Code(s): F03.90 - UNSPECIFIED DEMENTIA WITHOUT BEHAVIORAL DISTURBANCE Qualifiers: Dementia type: unspecified type Dementia behavioral disturbance: without behavioral disturbance Qualified Code(s): F03.90 - Unspecified dementia without behavioral disturbance
[2017-02-09] MEDS ORDERED: PT OWN MED DRAWER 7, Y5N ONE ×2 (11:13→21:46)
[2017-02-09] MEDS: LACTOBACILLUS ACIDOPHILUS 1 EACH TAB (FP) PO SCH (11:16)
[2017-02-09] MEDS: MEMANTINE HCL 5 MG TABLET (UD) PO SCH ×2 (11:17→21:58)
[2017-02-09] MEDS: DONEPEZIL HCL 10 MG TABLET (FP) PO SCH (11:17)
[2017-02-09] MEDS: CARVEDILOL 3.125 MG TABLET (FP) PO SCH ×2 (11:17→21:58)
[2017-02-09] MEDS: QUEtiapine FUMARATE 25 MG TABLET (FP) PO SCH ×2 (11:17→21:58)
[2017-02-09] MEDS: RANITIDINE HCL 150 MG TABLET (FP) PO SCH ×2 (11:18→21:58)
[2017-02-09] MEDS: COLLAGENASE CLOSTRIDIUM HIST. 30 GRAMS TUBE TP SCH (14:21)
--- NOTE | 2017-02-09 15:02 | PN ---
Progress Note, Physician History of Present Illness: Pt seen and examined at bedside. He is more verbal and interactive today. - Current Medication List Current Medications: Active Medications Acetaminophen (Tylenol -) 650 mg PO Q4H PRN PRN Reason: FEVER OR PAIN Last Admin: 02/08/17 21:52 Dose: 650 mg Ascorbic Acid (Vitamin C -) 500 mg PO TID [facility] Last Admin: 02/09/17 14:19 Dose: 500 mg Carvedilol (Coreg -) 3.125 mg PO BID [facility] Last Admin: 02/09/17 11:17 Dose: 3.125 mg Collagenase (Santyl -) 1 applic TP DAILY [facility] Last Admin: 02/09/17 14:21 Dose: 1 applic Donepezil HCl (Aricept -) 10 mg PO DAILY [facility] Last Admin: 02/09/17 11:17 Dose: 10 mg Ferrous Sulfate (Feosol -) 325 mg PO TID [facility] Last Admin: 02/09/17 14:19 Dose: 325 mg Guaifenesin/Codeine Phosphate (Robitussin Ac -) 5 ml PO HS [facility] Last Admin: 02/08/17 21:51 Dose: 5 ml Lactobacillus Acidophilus (Bacid -) 1 tab PO DAILY [facility] Last Admin: 02/09/17 11:16 Dose: 1 tab Latanoprost (Xalatan 0.005% Eye Drops -) 1 drop OU HS [facility] Last Admin: 02/08/17 21:52 Dose: 1 drop Memantine (Namenda -) 5 mg PO BID [facility] Last Admin: 02/09/17 11:17 Dose: 5 mg Ondansetron HCl (Zofran Injection) 4 mg IVPB Q6H PRN PRN Reason: NAUSEA Quetiapine Fumarate (Seroquel -) 25 mg PO HS [facility] Last Admin: 02/08/17 21:52 Dose: 25 mg Quetiapine Fumarate (Seroquel -) 12.5 mg PO DAILY [facility] Last Admin: 02/09/17 11:17 Dose: 12.5 mg Ranitidine HCl (Zantac -) 150 mg PO BID [facility] Last Admin: 02/09/17 11:18 Dose: 150 mg Warfarin Sodium (Coumadin -) 4 mg PO DAILY@1800 [facility] Last Admin: 02/08/17 18:33 Dose: 4 mg - Objective Vital Signs: Vital Signs Temperature 98.3 F 02/09/17 13:34 Pulse Rate 56 L 02/09/17 13:34 Respiratory Rate 20 02/09/17 13:34 Blood Pressure 92/40 02/09/17 13:34 O2 Sat by Pulse Oximetry (%) 95 02/09/17 09:00 Constitutional: Yes: Calm Eyes: Yes: Conjunctiva Clear HENT: Yes: Atraumatic Neck: Yes: Supple Cardiovascular: Yes: S1, S2 Respiratory: Yes: CTA Bilaterally Gastrointestinal: Yes: Soft Genitourinary: Yes: Incontinence Musculoskeletal: Yes: Muscle Weakness Edema: No Neurological: Yes: Confusion Labs: CBC, BMP 02/09/17 07:45 02/09/17 07:45 INR, PTT INR 1.12 (0.82-1.09) D 02/07/17 06:30 Problem List - Problems (1) Acute on chronic renal failure Code(s): N17.9 - ACUTE KIDNEY FAILURE, UNSPECIFIED N18.9 - CHRONIC KIDNEY DISEASE, UNSPECIFIED Qualifiers: Acute renal failure type: unspecified Chronic kidney disease stage: unspecified stage Qualified Code(s): N17.9 - Acute kidney failure, unspecified; N18.9 - Chronic kidney disease, unspecified (2) Anemia Code(s): D64.9 - ANEMIA, UNSPECIFIED Qualifiers: Anemia type: other cause Other causes of anemia: other cause, not classified Qualified Code(s): D64.89 - Other specified anemias (3) Atrial fibrillation Code(s): I48.91 - UNSPECIFIED ATRIAL FIBRILLATION Qualifiers: Atrial fibrillation type: permanent Qualified Code(s): I48.2 - Chronic atrial fibrillation Assessment/Plan Current Medications Generic Name Dose Route Start Last Admin Trade Name Freq PRN Reason Stop Dose Admin Acetaminophen 650 mg 01/26/17 20:29 02/08/17 21:52 Tylenol - PO 650 mg Q4H PRN Administration FEVER OR PAIN Ascorbic Acid 500 mg 01/26/17 22:00 02/09/17 14:19 Vitamin C - PO 500 mg TID [facility] Administration Carvedilol 3.125 mg 02/07/17 22:00 02/09/17 11:17 Coreg - PO 3.125 mg BID NA[facility] Administration Collagenase 1 applic 01/29/17 20:30 02/09/17 14:21 Santyl - TP 1 applic DAILY [facility] Administration Donepezil HCl 10 mg 02/05/17 10:00 02/09/17 11:17 Aricept - PO 10 mg DAILY [facility] Administration Ferrous Sulfate 325 mg 01/26/17 22:00 02/09/17 14:19 Feosol - PO 325 mg TID [facility] Administration Guaifenesin/Codeine Phosphate 5 ml 01/26/17 22:00 02/08/17 21:51 Robitussin Ac - PO 5 ml HS [facility] Administration Lactobacillus Acidophilus 1 tab 01/27/17 10:00 02/09/17 11:16 Bacid - PO 1 tab DAILY [facility] Administration Latanoprost 1 drop 01/27/17 22:00 02/08/17 21:52 Xalatan 0.005% Eye Drops - OU 1 drop HS [facility] Administration Memantine 5 mg 02/04/17 22:00 02/09/17 11:17 Namenda - PO 5 mg BID [facility] Administration Ondansetron HCl 4 mg 01/26/17 20:29 Zofran Injection IVPB Q6H PRN NAUSEA Quetiapine Fumarate 25 mg 02/04/17 22:00 02/08/17 21:52 Seroquel - PO 25 mg HS [facility] Administration Quetiapine Fumarate 12.5 mg 02/05/17 10:00 02/09/17 11:17 Seroquel - PO 12.5 mg DAILY [facility] Administration Ranitidine HCl 150 mg 01/27/17 22:00 02/09/17 11:18 Zantac - PO 150 mg BID [facility] Administration Warfarin Sodium 4 mg 02/06/17 18:00 02/08/17 18:33 Coumadin - PO 4 mg DAILY@1800 [facility] Administration Impression 1. TATY 2. CHF 3. a-fib 4. CVA 5. Dementia 6. COPD 7. PNA 8. HTN 9. CKD 10. s/p fall 11. hypernatremia Plan - potassium improved - renal function stable - will hold off lasix today - he tolerated d5w - pt needs one to one feeds Dr Abdi
--- NOTE | 2017-02-09 15:08 | PN ---
Progress Note, Physician History of Present Illness: patient stable no new issues awake - Current Medication List Current Medications: Active Medications Acetaminophen (Tylenol -) 650 mg PO Q4H PRN PRN Reason: FEVER OR PAIN Last Admin: 02/08/17 21:52 Dose: 650 mg Ascorbic Acid (Vitamin C -) 500 mg PO TID [facility] Last Admin: 02/09/17 14:19 Dose: 500 mg Carvedilol (Coreg -) 3.125 mg PO BID [facility] Last Admin: 02/09/17 11:17 Dose: 3.125 mg Collagenase (Santyl -) 1 applic TP DAILY [facility] Last Admin: 02/09/17 14:21 Dose: 1 applic Donepezil HCl (Aricept -) 10 mg PO DAILY [facility] Last Admin: 02/09/17 11:17 Dose: 10 mg Ferrous Sulfate (Feosol -) 325 mg PO TID [facility] Last Admin: 02/09/17 14:19 Dose: 325 mg Guaifenesin/Codeine Phosphate (Robitussin Ac -) 5 ml PO HS [facility] Last Admin: 02/08/17 21:51 Dose: 5 ml Lactobacillus Acidophilus (Bacid -) 1 tab PO DAILY [facility] Last Admin: 02/09/17 11:16 Dose: 1 tab Latanoprost (Xalatan 0.005% Eye Drops -) 1 drop OU [facility] Last Admin: 02/08/17 21:52 Dose: 1 drop Memantine (Namenda -) 5 mg PO BID [facility] Last Admin: 02/09/17 11:17 Dose: 5 mg Ondansetron HCl (Zofran Injection) 4 mg IVPB Q6H PRN PRN Reason: NAUSEA Quetiapine Fumarate (Seroquel -) 25 mg PO HS [facility] Last Admin: 02/08/17 21:52 Dose: 25 mg Quetiapine Fumarate (Seroquel -) 12.5 mg PO DAILY [facility] Last Admin: 02/09/17 11:17 Dose: 12.5 mg Ranitidine HCl (Zantac -) 150 mg PO BID [facility] Last Admin: 02/09/17 11:18 Dose: 150 mg Warfarin Sodium (Coumadin -) 4 mg PO DAILY@1800 [facility] Last Admin: 02/08/17 18:33 Dose: 4 mg - Objective Vital Signs: Vital Signs Temperature 98.3 F 02/09/17 13:34 Pulse Rate 56 L 02/09/17 13:34 Respiratory Rate 20 02/09/17 13:34 Blood Pressure 92/40 02/09/17 13:34 O2 Sat by Pulse Oximetry (%) 95 02/09/17 09:00 Constitutional: Yes: Calm, Anxious Cardiovascular: Yes: Regular Rate and Rhythm Respiratory: Yes: Regular, CTA Bilaterally Gastrointestinal: Yes: Normal Bowel Sounds, Soft Genitourinary: Yes: Quintana Present Musculoskeletal: Yes: WNL Extremities: Yes: WNL Neurological: Yes: Alert, Other Psychiatric: Yes: Other Labs: CBC, BMP 02/09/17 07:45 02/09/17 07:45 INR, PTT INR 1.12 (0.82-1.09) D 02/07/17 06:30 Assessment/Plan Problem List - Problems (1) Head trauma. Code(s): S09.90XA - UNSPECIFIED INJURY OF HEAD, INITIAL ENCOUNTER Qualifiers: Encounter type: initial encounter (2) Acute kidney failure Code(s): N17.9 - ACUTE KIDNEY FAILURE, UNSPECIFIED (3) UTI (urinary tract infection) Code(s): N39.0 - URINARY TRACT INFECTION, SITE NOT SPECIFIED Qualifiers: Urinary tract infection type: site unspecified Hematuria presence: without hematuria Qualified Code(s): N39.0 - Urinary tract infection, site not specified (4) Urinary retention due to benign prostatic hyperplasia Code(s): N40.1 - BENIGN PROSTATIC HYPERPLASIA WITH LOWER URINARY TRACT SYMP R33.8 - OTHER RETENTION OF URINE (5) Atrial fibrillation Code(s): I48.91 - UNSPECIFIED ATRIAL FIBRILLATION Qualifiers: Atrial fibrillation type: permanent Qualified Code(s): I48.2 - Chronic atrial fibrillation (6) Pneumonia Code(s): J18.9 - PNEUMONIA, UNSPECIFIED ORGANISM Qualifiers: Pneumonia type: due to unspecified organism Laterality: right Lung location: lower lobe of lung Qualified Code(s): J18.9 - Pneumonia, unspecified organism (7) Acute on chronic systolic (congestive) heart failure Code(s): I50.23 - ACUTE ON CHRONIC SYSTOLIC (CONGESTIVE) HEART FAILURE (8) COPD (chronic obstructive pulmonary disease) Code(s): J44.9 - CHRONIC OBSTRUCTIVE PULMONARY DISEASE, UNSPECIFIED Qualifiers : COPD type: unspecified COPD Qualified Code(s): J44.9 - Chronic obstructive pulmonary disease, unspecified (9) Anemia Code(s): D64.9 - ANEMIA, UNSPECIFIED Qualifiers: Anemia type: other cause Other causes of anemia: other cause, not classified Qualified Code(s): D64.89 - Other specified anemias (10) Dementia Code(s): F03.90 - UNSPECIFIED DEMENTIA WITHOUT BEHAVIORAL DISTURBANCE Qualifiers: Dementia type: unspecified type Dementia behavioral disturbance: without behavioral disturbance Qualified Code(s): F03.90 - Unspecified dementia without behavioral disturbance patient has mdr uti has allergy to pcn plan continue current mgmt await for final plan rest as per primary nutrition supportive care
--- NOTE | 2017-02-09 18:55 | PN ---
Progress Note (short form) - Note Progress Note: Patient seen and examined in the morning. Laying in bed, in no acute distress. Afebrile. Called son twice since morning to update him on his father's condition but went to . 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), Dementia Cardiovascular: Yes: AFIB (chronic), CHF, HTN Pulmonary: Yes: COPD Psych: Yes: Depression, Other (h/o alcohol abuse) - Past Surgical History Past Surgical History: Yes: Colectomy (hemicolectomy) - Advance Directives Advance Directives: Yes: DNR - Smoking History Smoking history: Unknown if ever smoked Have you smoked in the past 12 months: No Aproximately how many cigarettes per day: 0 If you are a former smoker, when did you quit?: 50 years - Alcohol/Substance Use Hx Alcohol Use: No - Social History ADL: Family Assistance History of Recent Travel: No Home Medications - Allergies Allergies/Adverse Reactions: Allergies Allergy/AdvReac Type Severity Reaction Status Date / Time Penicillins Allergy Hives Verified 01/26/17 15:10 procaine Allergy Verified 01/26/17 18:45 - Home Medications Home Medications: Ambulatory Orders Ascorbate Calcium [Vitamin C] 500 mg PO TID 01/26/17 Bimatoprost [Lumigan] 1 drop IO DAILY 01/26/17 Ferrous Sulfate 325 mg PO TID 01/26/17 Furosemide [Lasix -] 40 mg PO BID 01/26/17 Guaifenesin AC [Robitussin AC -] 5 ml PO HS 01/26/17 Warfarin Na [Coumadin] 5 mg PO TID 01/26/17 Review of Systems Unable to obtain ROS, reason: dementia Physical Examination Vital Signs: Vital Signs Period Temp Pulse Resp BP Sys/Kemp Pulse Ox Last 24 Hr 97.8 F-98.3 F 50-69 18-20 92-135/40-67 93-95 Constitutional: Yes: Anxious, Mild Distress Eyes: Yes: Conjunctiva Clear, EOM Intact, PERRL HENT: Yes: Atraumatic, Normocephalic Neck: Yes: Supple, Trachea Midline Cardiovascular: Yes: Pulse Irregular, S1, S2 Respiratory: Yes: Diminished (air entry dimished b/l lung base) Gastrointestinal: Yes: Soft (non tender, BS present) Edema: No Peripheral Pulses WNL: Yes ...Motor Strength: WNL Labs: CBC, BMP 02/09/17 07:45 02/09/17 07:45 Microbiology 01/28/17 12:25 Blood Culture - Preliminary Blood - Peripheral Venous NO GROWTH OBTAINED AFTER 24 HOURS, INCUBATION TO CONTINUE FOR 4 DAYS. 01/28/17 12:20 Blood Culture - Preliminary Blood - Peripheral Venous NO GROWTH OBTAINED AFTER 24 HOURS, INCUBATION TO CONTINUE FOR 4 DAYS. 01/26/17 17:30 Urine Culture - Final Urine - Urine - Catheterized Proteus Mirabilis Imaging - Results Chest X-ray: Report Reviewed Problem List - Problems (1) Head trauma Assessment/Plan: S/P Fall at [place] with head trauma. Patient is on coumadin. Head CT x 2 - Negative for intracranial bleed. Will continue to monitor. Code(s): S09.90XA - UNSPECIFIED INJURY OF HEAD, INITIAL ENCOUNTER Qualifiers: Encounter type: initial encounter (2) Acute kidney failure Assessment/Plan: Encourage PO fluid intake. Renal follow up appreciated. Code(s): N17.9 - ACUTE KIDNEY FAILURE, UNSPECIFIED (3) UTI (urinary tract infection) Assessment/Plan: Urine culture - Proteus Mirabilis Treated. ID input appreciated. Code(s): N39.0 - URINARY TRACT INFECTION, SITE NOT SPECIFIED Qualifiers: Urinary tract infection type: site unspecified Hematuria presence: without hematuria Qualified Code(s): N39.0 - Urinary tract infection, site not specified (4) Urinary retention due to benign prostatic hyperplasia Assessment/Plan: Has Quintana. Changed . Difficult insertion on previous visits. Discussed with Dr. Loaiza. No need for change now. Code(s): N40.1 - BENIGN PROSTATIC HYPERPLASIA WITH LOWER URINARY TRACT SYMP R33.8 - OTHER RETENTION OF URINE (5) Atrial fibrillation Assessment/Plan: Rate controlled. AC per INR. Continue coumadin [address] x 2 negative for intracranial bleed. Code(s): I48.91 - UNSPECIFIED ATRIAL FIBRILLATION Qualifiers: Atrial fibrillation type: permanent Qualified Code(s): I48.2 - Chronic atrial fibrillation (6) Pneumonia Assessment/Plan: Pulmonary follow up appreciated Unlikely pneumonia. Code(s): J18.9 - PNEUMONIA, UNSPECIFIED ORGANISM Qualifiers: Pneumonia type: due to unspecified organism Laterality: right Lung location: lower lobe of lung Qualified Code(s): J18.9 - Pneumonia, unspecified organism (7) Acute on chronic systolic (congestive) heart failure Assessment/Plan: Lasix prn. Cardiology follow up appreciated. Code(s): I50.23 - ACUTE ON CHRONIC SYSTOLIC (CONGESTIVE) HEART FAILURE (8) COPD (chronic obstructive pulmonary disease) Assessment/Plan: Continue inhaled bronchodilators. Code(s): J44.9 - CHRONIC OBSTRUCTIVE PULMONARY DISEASE, UNSPECIFIED Qualifiers : COPD type: unspecified COPD Qualified Code(s): J44.9 - Chronic obstructive pulmonary disease, unspecified (9) Anemia Assessment/Plan: H/H low. No bleeding from any site reported. Ferritin high. Iron low. Likely combination of iron deficiency anemia and anemia of chronic disease. Continue Ferrous sulphate. Code(s): D64.9 - ANEMIA, UNSPECIFIED Qualifiers: Anemia type: other cause Other causes of anemia: other cause, not classified Qualified Code(s): D64.89 - Other specified anemias (10) Dementia Assessment/Plan: Dr. Harvey consult appreciated. Code(s): F03.90 - UNSPECIFIED DEMENTIA WITHOUT BEHAVIORAL DISTURBANCE Qualifiers: Dementia type: unspecified type Dementia behavioral disturbance: without behavioral disturbance Qualified Code(s): F03.90 - Unspecified dementia without behavioral disturbance 11) Stage 3 sacral ulcer. Wound care consult appreciated. Continue santyl. Offload. 12) Hypernatremia: In the setting of poor PO fluid intake. Encourage free water intake. Renal follow up appreciated. Called son twice since morning to discuss goals of care. VM. Problem List - Problems (1) Head trauma Code(s): S09.90XA - UNSPECIFIED INJURY OF HEAD, INITIAL ENCOUNTER Qualifiers: Encounter type: initial encounter Qualified Code(s): S09.90XA - Unspecified injury of head, initial encounter (2) Acute kidney failure Code(s): N17.9 - ACUTE KIDNEY FAILURE, UNSPECIFIED Qualifiers: Acute renal failure type: unspecified Qualified Code(s): N17.9 - Acute kidney failure, unspecified (3) UTI (urinary tract infection) Code(s): N39.0 - URINARY TRACT INFECTION, SITE NOT SPECIFIED Qualifiers: Urinary tract infection type: site unspecified Hematuria presence: without hematuria Qualified Code(s): N39.0 - Urinary tract infection, site not specified; R31.9 - Hematuria, unspecified (4) Urinary retention due to benign prostatic hyperplasia Code(s): N40.1 - BENIGN PROSTATIC HYPERPLASIA WITH LOWER URINARY TRACT SYMP R33.8 - OTHER RETENTION OF URINE (5) Atrial fibrillation Code(s): I48.91 - UNSPECIFIED ATRIAL FIBRILLATION Qualifiers: Atrial fibrillation type: permanent Qualified Code(s): I48.2 - Chronic atrial fibrillation (6) Pneumonia Code(s): J18.9 - PNEUMONIA, UNSPECIFIED ORGANISM Qualifiers: Pneumonia type: due to unspecified organism Laterality: right Lung location: lower lobe of lung Qualified Code(s): J18.1 - Lobar pneumonia, unspecified organism (7) Acute on chronic systolic (congestive) heart failure Code(s): I50.23 - ACUTE ON CHRONIC SYSTOLIC (CONGESTIVE) HEART FAILURE (8) COPD (chronic obstructive pulmonary disease) Code(s): J44.9 - CHRONIC OBSTRUCTIVE PULMONARY DISEASE, UNSPECIFIED Qualifiers : COPD type: unspecified COPD Qualified Code(s): J44.9 - Chronic obstructive pulmonary disease, unspecified (9) Anemia Code(s): D64.9 - ANEMIA, UNSPECIFIED Qualifiers: Anemia type: other cause Other causes of anemia: other cause, not classified Qualified Code(s): D64.89 - Other specified anemias (10) Dementia Code(s): F03.90 - UNSPECIFIED DEMENTIA WITHOUT BEHAVIORAL DISTURBANCE Qualifiers: Dementia type: unspecified type Dementia behavioral disturbance: without behavioral disturbance Qualified Code(s): F03.90 - Unspecified dementia without behavioral disturbance (11) Pressure ulcer of sacral region, stage 3 Code(s): L89.153 - PRESSURE ULCER OF SACRAL REGION, STAGE 3
[2017-02-09] MEDS: WARFARIN NA 2 MG TABLET (UD) PO SCH (18:59)
[2017-02-09] MEDS: guaiFENesin/CODEINE 5 ML UNIT-DOSE CUPS PO SCH (21:58)
[2017-02-09] MEDS: LATANOPROST 0.005% OPHTH SOLN 2.5ML BOTTLE OU SCH (21:58)
[2017-02-09] MEDS: MEMANTINE HCL 10 MG TABLET (FP) PO SCH (21:58)
[2017-02-10] MEDS: FERROUS SO4 325 MG TABLET (FP) PO SCH ×3 (06:23→22:21)
[2017-02-10] MEDS: ASCORBIC ACID 500 MG TABLET (FP) PO SCH ×3 (06:23→22:21)
[2017-02-10] MEDS ORDERED: PT OWN MED DRAWER 7, Y5N ONE (06:49)
[2017-02-10 08:04] LABS: ANION GAP 6 (8-16); CALCIUM 8.4 mg/dL (8.5-10.1); CO2 28 mmol/L (21-32); GLUCOSE,RANDOM 90 mg/dL (74-106)
[2017-02-10 08:06] LABS: CREATININE 1.6 mg/dL (0.7-1.3)
--- NOTE | 2017-02-10 09:27 | PN ---
Progress Note (short form) - Note Progress Note: Patient seen and examined. Not in respiratory distress. Afebrile. Discussed in detail with son yesterday about his medical condition. 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), Dementia Cardiovascular: Yes: AFIB (chronic), CHF, HTN Pulmonary: Yes: COPD Psych: Yes: Depression, Other (h/o alcohol abuse) - Past Surgical History Past Surgical History: Yes: Colectomy (hemicolectomy) - Advance Directives Advance Directives: Yes: DNR - Smoking History Smoking history: Unknown if ever smoked Have you smoked in the past 12 months: No Aproximately how many cigarettes per day: 0 If you are a former smoker, when did you quit?: 50 years - Alcohol/Substance Use Hx Alcohol Use: No - Social History ADL: Family Assistance History of Recent Travel: No Home Medications - Allergies Allergies/Adverse Reactions: Allergies Allergy/AdvReac Type Severity Reaction Status Date / Time Penicillins Allergy Hives Verified 01/26/17 15:10 procaine Allergy Verified 01/26/17 18:45 - Home Medications Home Medications: Ambulatory Orders Ascorbate Calcium [Vitamin C] 500 mg PO TID 01/26/17 Bimatoprost [Lumigan] 1 drop IO DAILY 01/26/17 Ferrous Sulfate 325 mg PO TID 01/26/17 Furosemide [Lasix -] 40 mg PO BID 01/26/17 Guaifenesin AC [Robitussin AC -] 5 ml PO HS 01/26/17 Warfarin Na [Coumadin] 5 mg PO TID 01/26/17 Review of Systems Unable to obtain ROS, reason: dementia Physical Examination Vital Signs: Vital Signs Period Temp Pulse Resp BP Sys/Kemp Pulse Ox Last 24 Hr 98.1 F-98.4 F 42-66 19-20 92-114/40-82 95 Constitutional: Yes: Anxious, Mild Distress Eyes: Yes: Conjunctiva Clear, EOM Intact, PERRL HENT: Yes: Atraumatic, Normocephalic Neck: Yes: Supple, Trachea Midline Cardiovascular: Yes: Pulse Irregular, S1, S2 Respiratory: Yes: Diminished (air entry dimished b/l lung base) Gastrointestinal: Yes: Soft (non tender, BS present) Edema: No Peripheral Pulses WNL: Yes ...Motor Strength: WNL Labs: CBC, BMP 02/09/17 07:45 02/10/17 06:30 Microbiology 01/28/17 12:25 Blood Culture - Preliminary Blood - Peripheral Venous NO GROWTH OBTAINED AFTER 24 HOURS, INCUBATION TO CONTINUE FOR 4 DAYS. 01/28/17 12:20 Blood Culture - Preliminary Blood - Peripheral Venous NO GROWTH OBTAINED AFTER 24 HOURS, INCUBATION TO CONTINUE FOR 4 DAYS. 01/26/17 17:30 Urine Culture - Final Urine - Urine - Catheterized Proteus Mirabilis Imaging - Results Chest X-ray: Report Reviewed Problem List - Problems (1) Head trauma Assessment/Plan: S/P Fall at [place] with head trauma. Patient is on coumadin. Head CT x 2 - Negative for intracranial bleed. Will continue to monitor. Code(s): S09.90XA - UNSPECIFIED INJURY OF HEAD, INITIAL ENCOUNTER Qualifiers: Encounter type: initial encounter (2) Acute kidney failure Assessment/Plan: Encourage PO fluid intake. Renal follow up appreciated. Code(s): N17.9 - ACUTE KIDNEY FAILURE, UNSPECIFIED (3) UTI (urinary tract infection) Assessment/Plan: Urine culture - Proteus Mirabilis Treated. ID input appreciated. Code(s): N39.0 - URINARY TRACT INFECTION, SITE NOT SPECIFIED Qualifiers: Urinary tract infection type: site unspecified Hematuria presence: without hematuria Qualified Code(s): N39.0 - Urinary tract infection, site not specified (4) Urinary retention due to benign prostatic hyperplasia Assessment/Plan: Has Quintana. Changed . Difficult insertion on previous visits. Discussed with Dr. Loaiza. No need for change now. Code(s): N40.1 - BENIGN PROSTATIC HYPERPLASIA WITH LOWER URINARY TRACT SYMP R33.8 - OTHER RETENTION OF URINE (5) Atrial fibrillation Assessment/Plan: Rate controlled. AC per INR. Continue coumadin [address] x 2 negative for intracranial bleed. Code(s): I48.91 - UNSPECIFIED ATRIAL FIBRILLATION Qualifiers: Atrial fibrillation type: permanent Qualified Code(s): I48.2 - Chronic atrial fibrillation (6) Pneumonia Assessment/Plan: Pulmonary follow up appreciated Unlikely pneumonia. Code(s): J18.9 - PNEUMONIA, UNSPECIFIED ORGANISM Qualifiers: Pneumonia type: due to unspecified organism Laterality: right Lung location: lower lobe of lung Qualified Code(s): J18.9 - Pneumonia, unspecified organism (7) Acute on chronic systolic (congestive) heart failure Assessment/Plan: Lasix prn. Cardiology follow up appreciated. Code(s): I50.23 - ACUTE ON CHRONIC SYSTOLIC (CONGESTIVE) HEART FAILURE (8) COPD (chronic obstructive pulmonary disease) Assessment/Plan: Continue inhaled bronchodilators. Code(s): J44.9 - CHRONIC OBSTRUCTIVE PULMONARY DISEASE, UNSPECIFIED Qualifiers : COPD type: unspecified COPD Qualified Code(s): J44.9 - Chronic obstructive pulmonary disease, unspecified (9) Anemia Assessment/Plan: H/H low. No bleeding from any site reported. Ferritin high. Iron low. Likely combination of iron deficiency anemia and anemia of chronic disease. Continue Ferrous sulphate. Code(s): D64.9 - ANEMIA, UNSPECIFIED Qualifiers: Anemia type: other cause Other causes of anemia: other cause, not classified Qualified Code(s): D64.89 - Other specified anemias (10) Dementia Assessment/Plan: Dr. Harvey consult appreciated. Code(s): F03.90 - UNSPECIFIED DEMENTIA WITHOUT BEHAVIORAL DISTURBANCE Qualifiers: Dementia type: unspecified type Dementia behavioral disturbance: without behavioral disturbance Qualified Code(s): F03.90 - Unspecified dementia without behavioral disturbance 11) Stage 3 sacral ulcer. Wound care consult appreciated. Continue santyl. Offload. 12) Hypernatremia: In the setting of poor PO fluid intake. Encourage free water intake. Renal follow up appreciated. Discussed in detail with son - Win Zayas about his medical condition and overall poor prognosis. He also discussed with Dr. Harvey. Advance Dementia. He agreed with patient to transferred back to [facility]. Problem List - Problems (1) Head trauma Code(s): S09.90XA - UNSPECIFIED INJURY OF HEAD, INITIAL ENCOUNTER Qualifiers: Encounter type: initial encounter Qualified Code(s): S09.90XA - Unspecified injury of head, initial encounter (2) Acute kidney failure Code(s): N17.9 - ACUTE KIDNEY FAILURE, UNSPECIFIED Qualifiers: Acute renal failure type: unspecified Qualified Code(s): N17.9 - Acute kidney failure, unspecified (3) UTI (urinary tract infection) Code(s): N39.0 - URINARY TRACT INFECTION, SITE NOT SPECIFIED Qualifiers: Urinary tract infection type: site unspecified Hematuria presence: without hematuria Qualified Code(s): N39.0 - Urinary tract infection, site not specified; R31.9 - Hematuria, unspecified (4) Urinary retention due to benign prostatic hyperplasia Code(s): N40.1 - BENIGN PROSTATIC HYPERPLASIA WITH LOWER URINARY TRACT SYMP R33.8 - OTHER RETENTION OF URINE (5) Atrial fibrillation Code(s): I48.91 - UNSPECIFIED ATRIAL FIBRILLATION Qualifiers: Atrial fibrillation type: permanent Qualified Code(s): I48.2 - Chronic atrial fibrillation (6) Pneumonia Code(s): J18.9 - PNEUMONIA, UNSPECIFIED ORGANISM Qualifiers: Pneumonia type: due to unspecified organism Laterality: right Lung location: lower lobe of lung Qualified Code(s): J18.1 - Lobar pneumonia, unspecified organism (7) Acute on chronic systolic (congestive) heart failure Code(s): I50.23 - ACUTE ON CHRONIC SYSTOLIC (CONGESTIVE) HEART FAILURE (8) COPD (chronic obstructive pulmonary disease) Code(s): J44.9 - CHRONIC OBSTRUCTIVE PULMONARY DISEASE, UNSPECIFIED Qualifiers : COPD type: unspecified COPD Qualified Code(s): J44.9 - Chronic obstructive pulmonary disease, unspecified (9) Anemia Code(s): D64.9 - ANEMIA, UNSPECIFIED Qualifiers: Anemia type: other cause Other causes of anemia: other cause, not classified Qualified Code(s): D64.89 - Other specified anemias (10) Dementia Code(s): F03.90 - UNSPECIFIED DEMENTIA WITHOUT BEHAVIORAL DISTURBANCE Qualifiers: Dementia type: unspecified type Dementia behavioral disturbance: without behavioral disturbance Qualified Code(s): F03.90 - Unspecified dementia without behavioral disturbance (11) Pressure ulcer of sacral region, stage 3 Code(s): L89.153 - PRESSURE ULCER OF SACRAL REGION, STAGE 3
[2017-02-10 10:27] LABS: BASOPHIL 2.8 % (0-2.0); EOSINOPHIL 1.7 % (0-4.5); MCH 30.7 pg (25.7-33.7); MCHC 31.7 g/dl (32.0-35.9); MEAN CELL VOLUME 96.8 fl (80-96); MEAN PLT VOLUME 7.7 fl (7.5-11.1); NEUTROPHILS 67.5 % (42.8-82.8); PLATELET COUNT 174 K/MM3 (134-434); RDW 22.1 % (11.9-15.9); WHITE BLOOD COUNT 5.1 K/mm3 (4.0-10.0)
--- NOTE | 2017-02-10 10:36 | PN ---
Progress Note (short form) - Note Progress Note: PULMONARY Denies shortness of breath or chest pain. Last Vital Signs Temp Pulse Resp BP Pulse Ox 98.1 F 66 19 110/82 95 02/10/17 06:38 02/10/17 06:38 02/10/17 06:38 02/10/17 06:38 02/09/17 21:00 Gen: mildly tachypneic at rest Heart: RRR Lung: decreased breath sounds at the bases Abd: soft, nontender Ext: no edema Active Medications Acetaminophen (Tylenol -) 650 mg PO Q4H PRN PRN Reason: FEVER OR PAIN Last Admin: 02/08/17 21:52 Dose: 650 mg Ascorbic Acid (Vitamin C -) 500 mg PO TID [facility] Last Admin: 02/10/17 06:23 Dose: 500 mg Carvedilol (Coreg -) 3.125 mg PO BID [facility] Last Admin: 02/09/17 21:58 Dose: 3.125 mg Collagenase (Santyl -) 1 applic TP DAILY [facility] Last Admin: 02/09/17 14:21 Dose: 1 applic Donepezil HCl (Aricept -) 10 mg PO DAILY [facility] Last Admin: 02/09/17 11:17 Dose: 10 mg Ferrous Sulfate (Feosol -) 325 mg PO TID [facility] Last Admin: 02/10/17 06:23 Dose: 325 mg Guaifenesin/Codeine Phosphate (Robitussin Ac -) [address] [facility] Last Admin: 02/09/17 21:58 Dose: 5 ml Lactobacillus Acidophilus (Bacid -) 1 tab PO DAILY [facility] Last Admin: 02/09/17 11:16 Dose: 1 tab Latanoprost (Xalatan 0.005% Eye Drops -) 1 drop OU HS [facility] Last Admin: 02/09/17 21:58 Dose: 1 drop Memantine (Namenda -) 5 mg PO BID [facility] Last Admin: 02/09/17 21:58 Dose: 5 mg Memantine (Namenda -) 10 mg PO BID [facility] Last Admin: 02/09/17 21:58 Dose: 10 mg Ondansetron HCl (Zofran Injection) 4 mg IVPB Q6H PRN PRN Reason: NAUSEA Quetiapine Fumarate (Seroquel -) [address] [facility] Last Admin: 02/09/17 21:58 Dose: 25 mg Quetiapine Fumarate (Seroquel -) 12.5 mg PO DAILY [facility] Last Admin: 02/09/17 11:17 Dose: 12.5 mg Ranitidine HCl (Zantac -) 150 mg PO BID [facility] Last Admin: 02/09/17 21:58 Dose: 150 mg Warfarin Sodium (Coumadin -) 4 mg PO DAILY@1800 [facility] Last Admin: 02/09/17 18:59 Dose: 4 mg A/P s/p Fall Chronic Systolic Heart Failure Mitral Regurgitation Pulmonary HTN Pleural Effusion Atrial Fibrillation COPD UTI Dementia - lasix as needed - monitor urine output, creatinine - s/p antibiotics for UTI - inhaled bronchodilators as needed - rate controlled - continue anticoagulation for now, may need to reassess indication if pt fall risk Problem List - Problems (1) Head trauma Code(s): S09.90XA - UNSPECIFIED INJURY OF HEAD, INITIAL ENCOUNTER Qualifiers: Encounter type: initial encounter Qualified Code(s): S09.90XA - Unspecified injury of head, initial encounter (2) Fall Code(s): W19.XXXA - UNSPECIFIED FALL, INITIAL ENCOUNTER (3) Pleural effusion Code(s): J90 - PLEURAL EFFUSION, NOT ELSEWHERE CLASSIFIED (4) Atrial fibrillation Code(s): I48.91 - UNSPECIFIED ATRIAL FIBRILLATION Qualifiers: Atrial fibrillation type: permanent Qualified Code(s): I48.2 - Chronic atrial fibrillation (5) UTI (urinary tract infection) Code(s): N39.0 - URINARY TRACT INFECTION, SITE NOT SPECIFIED Qualifiers: Urinary tract infection type: site unspecified Hematuria presence: without hematuria Qualified Code(s): N39.0 - Urinary tract infection, site not specified; R31.9 - Hematuria, unspecified (6) Acute on chronic systolic (congestive) heart failure Code(s): I50.23 - ACUTE ON CHRONIC SYSTOLIC (CONGESTIVE) HEART FAILURE (7) Pulmonary hypertension Code(s): I27.2 - OTHER SECONDARY PULMONARY HYPERTENSION (8) Mitral regurgitation Code(s): I34.0 - NONRHEUMATIC MITRAL (VALVE) INSUFFICIENCY Qualifiers: Cardiac valve disease etiology: nonrheumatic Qualified Code(s): I34.0 - Nonrheumatic mitral (valve) insufficiency (9) COPD (chronic obstructive pulmonary disease) Code(s): J44.9 - CHRONIC OBSTRUCTIVE PULMONARY DISEASE, UNSPECIFIED Qualifiers : COPD type: unspecified COPD Qualified Code(s): J44.9 - Chronic obstructive pulmonary disease, unspecified (10) Acute on chronic renal failure Code(s): N17.9 - ACUTE KIDNEY FAILURE, UNSPECIFIED N18.9 - CHRONIC KIDNEY DISEASE, UNSPECIFIED Qualifiers: Acute renal failure type: unspecified Chronic kidney disease stage: unspecified stage Qualified Code(s): N17.9 - Acute kidney failure, unspecified; N18.9 - Chronic kidney disease, unspecified (11) Dementia Code(s): F03.90 - UNSPECIFIED DEMENTIA WITHOUT BEHAVIORAL DISTURBANCE Qualifiers: Dementia type: unspecified type Dementia behavioral disturbance: without behavioral disturbance Qualified Code(s): F03.90 - Unspecified dementia without behavioral disturbance
[2017-02-10] MEDS: DONEPEZIL HCL 10 MG TABLET (FP) PO SCH (10:37)
[2017-02-10] MEDS: MEMANTINE HCL 10 MG TABLET (FP) PO SCH ×2 (10:37→22:21)
[2017-02-10] MEDS: MEMANTINE HCL 5 MG TABLET (UD) PO SCH (10:38)
[2017-02-10] MEDS: LACTOBACILLUS ACIDOPHILUS 1 EACH TAB (FP) PO SCH (10:38)
[2017-02-10] MEDS: RANITIDINE HCL 150 MG TABLET (FP) PO SCH ×2 (10:38→22:21)
[2017-02-10] MEDS: CARVEDILOL 3.125 MG TABLET (FP) PO SCH ×2 (10:38→22:15)
[2017-02-10] MEDS: QUEtiapine FUMARATE 25 MG TABLET (FP) PO SCH ×2 (10:38→22:21)
[2017-02-10] MEDS: COLLAGENASE CLOSTRIDIUM HIST. 30 GRAMS TUBE TP SCH (10:40)
[2017-02-10 10:44] LABS: ANION GAP 7 (8-16); CALCIUM 8.5 mg/dL (8.5-10.1); CO2 26 mmol/L (21-32); CREATININE 1.6 mg/dL (0.7-1.3); GLUCOSE,RANDOM 85 mg/dL (74-106)
[2017-02-10 10:52] LABS: INR 3.62 (0.82-1.09); PROTHROMBIN TIME (PATIENT) 40.9 SEC (9.98-11.88)
--- NOTE | 2017-02-10 11:21 | DS ---
Physical Examination Vital Signs: Vital Signs Temperature 98.1 F 02/10/17 06:38 Pulse Rate 66 02/10/17 06:38 Respiratory Rate 19 02/10/17 06:38 Blood Pressure 110/82 02/10/17 06:38 O2 Sat by Pulse Oximetry (%) 95 02/09/17 21:00 Labs: CBC, BMP 02/10/17 10:10 02/10/17 10:10 Discharge Summary Reason For Visit: SUBTHERAPEUTIC INTERNATIONAL NORMALIZED RATIO,UTI Current Active Problems Acute on chronic renal failure (Acute) Anemia (Acute) Atrial fibrillation (Acute) Cognitive impairment (Acute) Dehydration (Acute) Fall (Acute) Head trauma (Acute) Mitral regurgitation (Acute) Pleural effusion (Acute) Pressure ulcer of sacral region, stage 3 (Acute) Subtherapeutic international normalized ratio (INR) (Acute) UTI (urinary tract infection) (Acute) Urinary retention due to benign prostatic hyperplasia (Acute) Dementia (Chronic) - Instructions Referrals: Nahid Tello MD [Primary Care Provider] - - Home Medications Comprehensive Discharge Medication List: Ambulatory Orders Ascorbate Calcium [Vitamin C] 500 mg PO TID 01/26/17 Bimatoprost [Lumigan] 1 drop IO DAILY 01/26/17 Ferrous Sulfate 325 mg PO TID 01/26/17 Guaifenesin AC [Robitussin AC -] 5 ml PO HS 01/26/17 Acetaminophen [Tylenol .Regular Strength -] 650 mg PO Q4H PRN #30 tablet Carvedilol [Coreg -] 3.125 mg PO BID #30 tablet 02/10/17 Collagenase Clostridium Hist. [Santyl -] 1 applic TP DAILY #30 tube 02/10/17 Donepezil HCl [Aricept -] 10 mg PO DAILY #30 tablet 02/10/17 Lactobacillus Acidophilus [Bacid -] 1 tab PO DAILY #30 tab 02/10/17 Latanoprost 0.005% Eye Drops [Xalatan 0.005% Eye Drops -] 1 drop OU HS #1 unit 02/10/17 Memantine HCl [Namenda -] 10 mg PO BID #60 tablet 02/10/17 Quetiapine Fumarate [Seroquel -] 12.5 mg PO DAILY #30 tablet 02/10/17 Quetiapine Fumarate [Seroquel -] 25 mg PO HS #30 tablet 02/10/17 Ranitidine [Zantac -] 150 mg PO BID #30 tablet 02/10/17
--- NOTE | 2017-02-10 14:08 | PN ---
Progress Note, Physician History of Present Illness: stable no new issues [facility] seeing the patient - Current Medication List Current Medications: Active Medications Acetaminophen (Tylenol -) 650 mg PO Q4H PRN PRN Reason: FEVER OR PAIN Last Admin: 02/08/17 21:52 Dose: 650 mg Ascorbic Acid (Vitamin C -) 500 mg PO TID [facility] [place] Last Admin: 02/10/17 06:23 Dose: 500 mg Carvedilol (Coreg -) 3.125 mg PO BID [facility] [place] Last Admin: 02/10/17 10:38 Dose: 3.125 mg Collagenase (Santyl -) 1 applic TP DAILY [facility] [place] Last Admin: 02/10/17 10:40 Dose: 1 applic Donepezil HCl (Aricept -) 10 mg PO DAILY [facility] [place] Last Admin: 02/10/17 10:37 Dose: 10 mg Ferrous Sulfate (Feosol -) 325 mg PO TID [facility] [place] Last Admin: 02/10/17 06:23 Dose: 325 mg Guaifenesin/Codeine Phosphate (Robitussin Ac -) 5 ml PO HS [facility] [place] Last Admin: 02/09/17 21:58 Dose: 5 ml Lactobacillus Acidophilus (Bacid -) 1 tab PO DAILY [facility] [place] Last Admin: 02/10/17 10:38 Dose: 1 tab Latanoprost (Xalatan 0.005% Eye Drops -) 1 drop OU [facility] Last Admin: 02/09/17 21:58 Dose: 1 drop Memantine (Namenda -) 10 mg PO BID [facility] [place] Last Admin: 02/10/17 10:37 Dose: 10 mg Ondansetron HCl (Zofran Injection) 4 mg IVPB Q6H PRN PRN Reason: NAUSEA Quetiapine Fumarate (Seroquel -) 25 mg PO HS [facility] [place] Last Admin: 02/09/17 21:58 Dose: 25 mg Quetiapine Fumarate (Seroquel -) 12.5 mg PO DAILY [facility] [place] Last Admin: 02/10/17 10:38 Dose: 12.5 mg Ranitidine HCl (Zantac -) 150 mg PO BID [facility] [place] Last Admin: 02/10/17 10:38 Dose: 150 mg - Objective Vital Signs: Vital Signs Temperature 98.3 F 02/10/17 13:36 Pulse Rate 38 L 02/10/17 13:36 Respiratory Rate 20 02/10/17 13:36 Blood Pressure 130/54 02/10/17 13:36 O2 Sat by Pulse Oximetry (%) 88 L 02/10/17 09:00 Constitutional: Yes: No Distress, Calm Cardiovascular: Yes: Regular Rate and Rhythm, Bradycardia Respiratory: Yes: Regular, CTA Bilaterally Gastrointestinal: Yes: Normal Bowel Sounds, Soft Genitourinary: Yes: Quintana Present Musculoskeletal: Yes: WNL Extremities: Yes: WNL Neurological: Yes: Alert, Other Psychiatric: Yes: Alert, Other Labs: CBC, BMP 02/10/17 10:10 02/10/17 10:10 INR, PTT INR 3.62 (0.82-1.09) H D 02/10/17 10:10 Assessment/Plan Problem List - Problems (1) Head trauma. Code(s): S09.90XA - UNSPECIFIED INJURY OF HEAD, INITIAL ENCOUNTER Qualifiers: Encounter type: initial encounter (2) Acute kidney failure Code(s): N17.9 - ACUTE KIDNEY FAILURE, UNSPECIFIED (3) UTI (urinary tract infection) Code(s): N39.0 - URINARY TRACT INFECTION, SITE NOT SPECIFIED Qualifiers: Urinary tract infection type: site unspecified Hematuria presence: without hematuria Qualified Code(s): N39.0 - Urinary tract infection, site not specified (4) Urinary retention due to benign prostatic hyperplasia Code(s): N40.1 - BENIGN PROSTATIC HYPERPLASIA WITH LOWER URINARY TRACT SYMP R33.8 - OTHER RETENTION OF URINE (5) Atrial fibrillation Code(s): I48.91 - UNSPECIFIED ATRIAL FIBRILLATION Qualifiers: Atrial fibrillation type: permanent Qualified Code(s): I48.2 - Chronic atrial fibrillation (6) Pneumonia Code(s): J18.9 - PNEUMONIA, UNSPECIFIED ORGANISM Qualifiers: Pneumonia type: due to unspecified organism Laterality: right Lung location: lower lobe of lung Qualified Code(s): J18.9 - Pneumonia, unspecified organism (7) Acute on chronic systolic (congestive) heart failure Code(s): I50.23 - ACUTE ON CHRONIC SYSTOLIC (CONGESTIVE) HEART FAILURE (8) COPD (chronic obstructive pulmonary disease) Code(s): J44.9 - CHRONIC OBSTRUCTIVE PULMONARY DISEASE, UNSPECIFIED Qualifiers : COPD type: unspecified COPD Qualified Code(s): J44.9 - Chronic obstructive pulmonary disease, unspecified (9) Anemia Code(s): D64.9 - ANEMIA, UNSPECIFIED Qualifiers: Anemia type: other cause Other causes of anemia: other cause, not classified Qualified Code(s): D64.89 - Other specified anemias (10) Dementia Code(s): F03.90 - UNSPECIFIED DEMENTIA WITHOUT BEHAVIORAL DISTURBANCE Qualifiers: Dementia type: unspecified type Dementia behavioral disturbance: without behavioral disturbance Qualified Code(s): F03.90 - Unspecified dementia without behavioral disturbance patient has mdr uti has allergy to pcn plan continue current mgmt await for final plan rest as per primary nutrition supportive care
--- NOTE | 2017-02-10 14:55 | PN ---
Progress Note (short form) - Note Progress Note: Chief Complaint: Events noted, notes reviewed. Confused and disoriented, in no acute distress, plan to discharge home today History of Present Illness: Seen and examined. Events noted, notes reviewed. Confused and disoriented, in no acute distress, plan to discharge home today Bradycardia was noted, electrocardiogram revealed atrial fibrillation with slow ventricular response, hemodynamically stable - Current Medication List Current Medications Acetaminophen (Tylenol -) 650 mg PO Q4H PRN PRN Reason: FEVER OR PAIN Last Admin: 02/08/17 21:52 Dose: 650 mg Ascorbic Acid (Vitamin C -) 500 mg PO TID [facility] Last Admin: 02/10/17 14:23 Dose: 500 mg Carvedilol (Coreg -) 3.125 mg PO BID [facility] Last Admin: 02/10/17 10:38 Dose: 3.125 mg Collagenase (Santyl -) 1 applic TP DAILY [facility] Last Admin: 02/10/17 10:40 Dose: 1 applic Donepezil HCl (Aricept -) 10 mg PO DAILY [facility] Last Admin: 02/10/17 10:37 Dose: 10 mg Ferrous Sulfate (Feosol -) 325 mg PO TID [facility] Last Admin: 02/10/17 14:23 Dose: 325 mg Guaifenesin/Codeine Phosphate (Robitussin Ac -) 5 ml PO HS [facility] Last Admin: 02/09/17 21:58 Dose: 5 ml Lactobacillus Acidophilus (Bacid -) 1 tab PO DAILY [facility] Last Admin: 02/10/17 10:38 Dose: 1 tab Latanoprost (Xalatan 0.005% Eye Drops -) 1 drop OU HS [facility] Last Admin: 02/09/17 21:58 Dose: 1 drop Memantine (Namenda -) 10 mg PO BID [facility] Last Admin: 02/10/17 10:37 Dose: 10 mg Ondansetron HCl (Zofran Injection) 4 mg IVPB Q6H PRN PRN Reason: NAUSEA Quetiapine Fumarate (Seroquel -) 25 mg PO HS [facility] Last Admin: 02/09/17 21:58 Dose: 25 mg Quetiapine Fumarate (Seroquel -) 12.5 mg PO DAILY [facility] Last Admin: 02/10/17 10:38 Dose: 12.5 mg Ranitidine HCl (Zantac -) 150 mg PO BID [facility] Last Admin: 02/10/17 10:38 Dose: 150 mg - Objective Vital Signs: Last Vital Signs Temp Pulse Resp BP Pulse Ox 98.3 F 38 L 20 130/54 88 L 02/10/17 13:36 02/10/17 13:36 02/10/17 13:36 02/10/17 13:36 02/10/17 09:00 Intake & Output 02/07/17 02/08/17 02/09/17 02/10/17 23:59 23:59 23:59 23:59 Intake Total 550 400 572 300 Output Total 550 800 150 300 Balance 0 -400 422 0 Weight 113 lb 9 oz 113 lb 1 oz 113 lb 6 oz 113 lb 6 oz Neck: Supple Negative JVD No Bruit Cardiovascular: S1 S2 Irregularly Irregular Grade 2-3/6 Systolic Murmur Respiratory: Diminished Breath sounds at the Bases Gastrointestinal: Soft benign Normal Bowel Sounds Ext: No Edema Labs: CBC, BMP 02/10/17 10:10 02/10/17 10:10 INR, PTT INR 3.62 (0.82-1.09) H D 02/10/17 10:10 Assessment/Plan ASSESSMENT: 1. Acute on Chronic systolic class II-III NYHA classification congestive Heart Failure with pleural effusion, resolved 2. CAD angina pectoris 3. Mitral valve Regurgitation 4. Persistent Atrial Fibrillation [id number] score of 4-5 on Coumadin therapy, with periods of slow ventricular response asymptomatic 5. Pulmonary hypertension 6. Organic brain syndrome/dementia 7. Advanced COPD 8. Acute on CKD 9. UTI, resolved 10. Chronic anemia PLAN: 1. Diuretic as needed with caution and monitor renal function and electrolytes closely 2. B-Blockers with caution, hemodynamics permitting 3. Ideally should be initiated on ACEI or ARBS, provided renal function stabilizes 4. Continue Coumadin as per INR with caution and monitor (maintain INR 2-3) 5. Can be discharged home from the cardiovascular point of view Rosa Isela Martin MD
--- NOTE | 2017-02-10 15:14 | PN ---
Progress Note, Physician History of Present Illness: Pt seen and examined at bedside. He appears comfortable. - Current Medication List Current Medications: Active Medications Acetaminophen (Tylenol -) 650 mg PO Q4H PRN PRN Reason: FEVER OR PAIN Last Admin: 02/08/17 21:52 Dose: 650 mg Ascorbic Acid (Vitamin C -) 500 mg PO TID [facility] Last Admin: 02/10/17 14:23 Dose: 500 mg Carvedilol (Coreg -) 3.125 mg PO BID [facility] Last Admin: 02/10/17 10:38 Dose: 3.125 mg Collagenase (Santyl -) 1 applic TP DAILY [facility] Last Admin: 02/10/17 10:40 Dose: 1 applic Donepezil HCl (Aricept -) 10 mg PO DAILY [facility] Last Admin: 02/10/17 10:37 Dose: 10 mg Ferrous Sulfate (Feosol -) 325 mg PO TID [facility] Last Admin: 02/10/17 14:23 Dose: 325 mg Guaifenesin/Codeine Phosphate (Robitussin Ac -) 5 ml PO HS [facility] Last Admin: 02/09/17 21:58 Dose: 5 ml Lactobacillus Acidophilus (Bacid -) 1 tab PO DAILY [facility] Last Admin: 02/10/17 10:38 Dose: 1 tab Latanoprost (Xalatan 0.005% Eye Drops -) 1 drop OU HS [facility] Last Admin: 02/09/17 21:58 Dose: 1 drop Memantine (Namenda -) 10 mg PO BID [facility] Last Admin: 02/10/17 10:37 Dose: 10 mg Ondansetron HCl (Zofran Injection) 4 mg IVPB Q6H PRN PRN Reason: NAUSEA Quetiapine Fumarate (Seroquel -) 25 mg PO HS [facility] Last Admin: 02/09/17 21:58 Dose: 25 mg Quetiapine Fumarate (Seroquel -) 12.5 mg PO DAILY [facility] Last Admin: 02/10/17 10:38 Dose: 12.5 mg Ranitidine HCl (Zantac -) 150 mg PO BID [facility] Last Admin: 02/10/17 10:38 Dose: 150 mg - Objective Vital Signs: Vital Signs Temperature 98.3 F 02/10/17 13:36 Pulse Rate 38 L 02/10/17 13:36 Respiratory Rate 20 02/10/17 13:36 Blood Pressure 130/54 02/10/17 13:36 O2 Sat by Pulse Oximetry (%) 88 L 02/10/17 09:00 Constitutional: Yes: Calm Eyes: Yes: Conjunctiva Clear HENT: Yes: Atraumatic Cardiovascular: Yes: S1, S2 Respiratory: Yes: On Nasal O2 Gastrointestinal: Yes: Soft Genitourinary: Yes: Incontinence Musculoskeletal: Yes: WNL Edema: No Neurological: Yes: Confusion Labs: CBC, BMP 02/10/17 10:10 02/10/17 10:10 INR, PTT INR 3.62 (0.82-1.09) H D 02/10/17 10:10 Problem List - Problems (1) Acute on chronic renal failure Code(s): N17.9 - ACUTE KIDNEY FAILURE, UNSPECIFIED N18.9 - CHRONIC KIDNEY DISEASE, UNSPECIFIED Qualifiers: Acute renal failure type: unspecified Chronic kidney disease stage: unspecified stage Qualified Code(s): N17.9 - Acute kidney failure, unspecified; N18.9 - Chronic kidney disease, unspecified (2) Anemia Code(s): D64.9 - ANEMIA, UNSPECIFIED Qualifiers: Anemia type: other cause Other causes of anemia: other cause, not classified Qualified Code(s): D64.89 - Other specified anemias (3) Atrial fibrillation Code(s): I48.91 - UNSPECIFIED ATRIAL FIBRILLATION Qualifiers: Atrial fibrillation type: permanent Qualified Code(s): I48.2 - Chronic atrial fibrillation Assessment/Plan Current Medications Generic Name Dose Route Start Last Admin Trade Name Freq PRN Reason Stop Dose Admin Acetaminophen 650 mg 01/26/17 20:29 02/08/17 21:52 Tylenol - PO 650 mg Q4H PRN Administration FEVER OR PAIN Ascorbic Acid 500 mg 01/26/17 22:00 02/10/17 14:23 Vitamin C - PO 500 mg TID NAIF Administration Carvedilol 3.125 mg 02/07/17 22:00 02/10/17 10:38 Coreg - PO 3.125 mg BID NAIF Administration Collagenase 1 applic 01/29/17 20:30 02/10/17 10:40 Santyl - TP 1 applic DAILY NAIF Administration Donepezil HCl 10 mg 02/05/17 10:00 02/10/17 10:37 Aricept - PO 10 mg DAILY NAIF Administration Ferrous Sulfate 325 mg 01/26/17 22:00 02/10/17 14:23 Feosol - PO 325 mg TID NAIF Administration Guaifenesin/Codeine Phosphate 5 ml 01/26/17 22:00 02/09/17 21:58 Robitussin Ac - PO 5 ml HS NAIF Administration Lactobacillus Acidophilus 1 tab 01/27/17 10:00 02/10/17 10:38 Bacid - PO 1 tab DAILY [facility] Administration Latanoprost 1 drop 01/27/17 22:00 02/09/17 21:58 Xalatan 0.005% Eye Drops - OU 1 drop HS NAIF Administration Memantine 10 mg 02/09/17 22:00 02/10/17 10:37 Namenda - PO 10 mg BID [facility] Administration Ondansetron HCl 4 mg 01/26/17 20:29 Zofran Injection IVPB Q6H PRN NAUSEA Quetiapine Fumarate 25 mg 02/04/17 22:00 02/09/17 21:58 Seroquel - PO 25 mg HS [facility] Administration Quetiapine Fumarate 12.5 mg 02/05/17 10:00 02/10/17 10:38 Seroquel - PO 12.5 mg DAILY [facility] Administration Ranitidine HCl 150 mg 01/27/17 22:00 02/10/17 10:38 Zantac - PO 150 mg BID NA[facility] Administration Impression 1. TATY 2. CHF 3. a-fib 4. CVA 5. Dementia 6. COPD 7. PNA 8. HTN 9. CKD 10. s/p fall 11. hypernatremia Plan - encourage free water intake - will need to be evaluated for lasix - will need one to one feeds - monitor renal function - will follow Dr Abdi
[2017-02-10] MEDS: guaiFENesin/CODEINE 5 ML UNIT-DOSE CUPS PO SCH (22:20)
[2017-02-10] MEDS: LATANOPROST 0.005% OPHTH SOLN 2.5ML BOTTLE OU SCH (22:26)
[2017-02-11] MEDS: FERROUS SO4 325 MG TABLET (FP) PO SCH (06:07)
[2017-02-11] MEDS: ASCORBIC ACID 500 MG TABLET (FP) PO SCH (06:07)
[2017-02-11 09:01] VITALS: BP 133/83; PULSE 51; TEMP 97.9
[2017-02-11] MEDS: LACTOBACILLUS ACIDOPHILUS 1 EACH TAB (FP) PO SCH (10:35)
[2017-02-11] MEDS: RANITIDINE HCL 150 MG TABLET (FP) PO SCH (10:35)
[2017-02-11] MEDS: MEMANTINE HCL 10 MG TABLET (FP) PO SCH (10:35)
[2017-02-11] MEDS: DONEPEZIL HCL 10 MG TABLET (FP) PO SCH (10:35)
[2017-02-11] MEDS: QUEtiapine FUMARATE 25 MG TABLET (FP) PO SCH (10:36)
[2017-02-11] MEDS: COLLAGENASE CLOSTRIDIUM HIST. 30 GRAMS TUBE TP SCH (10:37)
[2017-02-11] MEDS: CARVEDILOL 3.125 MG TABLET (FP) PO SCH (10:38)
--- NOTE | 2017-02-11 10:46 | PN ---
Progress Note (short form) - Note Progress Note: PULMONARY No events overnight. Denies shortness of breath or chest pain. Last Vital Signs Temp Pulse Resp BP Pulse Ox 97.9 F 51 L 18 133/83 96 02/11/17 09:00 02/11/17 09:00 02/11/17 09:00 02/11/17 09:00 02/10/17 21:00 Gen: mildly tachypneic at rest Heart: RRR Lung: decreased breath sounds at the bases Abd: soft, nontender Ext: no edema CBC, BMP 02/10/17 10:10 02/10/17 10:10 Active Medications Acetaminophen (Tylenol -) 650 mg PO Q4H PRN PRN Reason: FEVER OR PAIN Last Admin: 02/08/17 21:52 Dose: 650 mg Ascorbic Acid (Vitamin C -) 500 mg PO TID [facility] Last Admin: 02/11/17 06:07 Dose: 500 mg Carvedilol (Coreg -) 3.125 mg PO BID [facility] Last Admin: 02/11/17 10:38 Dose: Not Given Collagenase (Santyl -) 1 applic TP DAILY [facility] Last Admin: 02/11/17 10:37 Dose: 1 applic Donepezil HCl (Aricept -) 10 mg PO DAILY [facility] Last Admin: 02/11/17 10:35 Dose: 10 mg Ferrous Sulfate (Feosol -) 325 mg PO TID [facility] Last Admin: 02/11/17 06:07 Dose: 325 mg Guaifenesin/Codeine Phosphate (Robitussin Ac -) 5 ml PO HS [facility] Last Admin: 02/10/17 22:20 Dose: 5 ml Lactobacillus Acidophilus (Bacid -) 1 tab PO DAILY [facility] Last Admin: 02/11/17 10:35 Dose: 1 tab Latanoprost (Xalatan 0.005% Eye Drops -) 1 drop OU HS [facility] Last Admin: 02/10/17 22:26 Dose: 1 drop Memantine (Namenda -) 10 mg PO BID [facility] Last Admin: 02/11/17 10:35 Dose: 10 mg Ondansetron HCl (Zofran Injection) 4 mg IVPB Q6H PRN PRN Reason: NAUSEA Quetiapine Fumarate (Seroquel -) 25 mg PO HS [facility] Last Admin: 02/10/17 22:21 Dose: 25 mg Quetiapine Fumarate (Seroquel -) 12.5 mg PO DAILY [facility] Last Admin: 02/11/17 10:36 Dose: 12.5 mg Ranitidine HCl (Zantac -) 150 mg PO BID [facility] Last Admin: 02/11/17 10:35 Dose: 150 mg A/P s/p Fall Chronic Systolic Heart Failure Mitral Regurgitation Pulmonary HTN Pleural Effusion Atrial Fibrillation COPD UTI Dementia - lasix as needed - monitor urine output, creatinine - s/p antibiotics for UTI - inhaled bronchodilators as needed - rate controlled - continue anticoagulation Problem List - Problems (1) Head trauma Code(s): S09.90XA - UNSPECIFIED INJURY OF HEAD, INITIAL ENCOUNTER Qualifiers: Encounter type: initial encounter Qualified Code(s): S09.90XA - Unspecified injury of head, initial encounter (2) Fall Code(s): W19.XXXA - UNSPECIFIED FALL, INITIAL ENCOUNTER (3) Pleural effusion Code(s): J90 - PLEURAL EFFUSION, NOT ELSEWHERE CLASSIFIED (4) Atrial fibrillation Code(s): I48.91 - UNSPECIFIED ATRIAL FIBRILLATION Qualifiers: Atrial fibrillation type: permanent Qualified Code(s): I48.2 - Chronic atrial fibrillation (5) UTI (urinary tract infection) Code(s): N39.0 - URINARY TRACT INFECTION, SITE NOT SPECIFIED Qualifiers: Urinary tract infection type: site unspecified Hematuria presence: without hematuria Qualified Code(s): N39.0 - Urinary tract infection, site not specified; R31.9 - Hematuria, unspecified (6) Acute on chronic systolic (congestive) heart failure Code(s): I50.23 - ACUTE ON CHRONIC SYSTOLIC (CONGESTIVE) HEART FAILURE (7) Pulmonary hypertension Code(s): I27.2 - OTHER SECONDARY PULMONARY HYPERTENSION (8) Mitral regurgitation Code(s): I34.0 - NONRHEUMATIC MITRAL (VALVE) INSUFFICIENCY Qualifiers: Cardiac valve disease etiology: nonrheumatic Qualified Code(s): I34.0 - Nonrheumatic mitral (valve) insufficiency (9) COPD (chronic obstructive pulmonary disease) Code(s): J44.9 - CHRONIC OBSTRUCTIVE PULMONARY DISEASE, UNSPECIFIED Qualifiers : COPD type: unspecified COPD Qualified Code(s): J44.9 - Chronic obstructive pulmonary disease, unspecified (10) Acute on chronic renal failure Code(s): N17.9 - ACUTE KIDNEY FAILURE, UNSPECIFIED N18.9 - CHRONIC KIDNEY DISEASE, UNSPECIFIED Qualifiers: Acute renal failure type: unspecified Chronic kidney disease stage: unspecified stage Qualified Code(s): N17.9 - Acute kidney failure, unspecified; N18.9 - Chronic kidney disease, unspecified (11) Dementia Code(s): F03.90 - UNSPECIFIED DEMENTIA WITHOUT BEHAVIORAL DISTURBANCE Qualifiers: Dementia type: unspecified type Dementia behavioral disturbance: without behavioral disturbance Qualified Code(s): F03.90 - Unspecified dementia without behavioral disturbance
--- NOTE | 2017-02-11 16:44 | EKG ---
Test Reason : Blood Pressure : / mmHG Vent. Rate : 037 BPM Atrial Rate : 036 BPM P-R Int : 000 ms QRS Dur : 158 ms QT Int : 632 ms P-R-T Axes : 000 -10 194 degrees QTc Int : 496 ms ATRIAL FIBRILLATION WITH SLOW VENTRICULAR RESPONSE LEFT BUNDLE BRANCH BLOCK ABNORMAL ECG WHEN COMPARED WITH ECG OF 26-JAN-2017 14:58, ATRIAL FIBRILLATION HAS REPLACED SINUS RHYTHM VENT. RATE HAS DECREASED BY 37 BPM NONSPECIFIC T WAVE ABNORMALITY NOW EVIDENT IN INFERIOR LEADS T WAVE INVERSION NOW EVIDENT IN ANTERIOR LEADS Confirmed by SOHA GERBER MD ([id number] on 02/11/2017 4:43:35 PM Referred By: Andrew LOJA Confirmed By:SOHA GERBER MD
== END 2017-02-11 11:00 | DRG 682 ==
LOC: JER 14:47 → JERBED 20:31 → J6S 23:23
PROVIDERS: ADMIT Internal Medicine; ATTEND Internal Medicine
DX: N17.9 Acute kidney failure, unspecified (principal); J18.9 Pneumonia, unspecified organism; I50.23 Acute on chronic systolic (congestive) heart failure; L89.153 Pressure ulcer of sacral region, stage 3; E87.0 Hyperosmolality and hypernatremia; D68.8 Other specified coagulation defects; I13.0 Hypertensive heart and chronic kidney disease with heart failure and stage 1 through stage 4 chronic kidney disease, or unspecified chronic kidney disease; I48.1 Persistent atrial fibrillation; N39.0 Urinary tract infection, site not specified; I27.2 Other secondary pulmonary hypertension; J44.9 Chronic obstructive pulmonary disease, unspecified; I34.0 Nonrheumatic mitral (valve) insufficiency; S09.8XXA Other specified injuries of head, initial encounter; E86.0 Dehydration; I34.8 Other nonrheumatic mitral valve disorders; G30.1 Alzheimer's disease with late onset; F02.80 Dementia in other diseases classified elsewhere, unspecified severity, without behavioral disturbance, psychotic disturbance, mood disturbance, and anxiety; D64.9 Anemia, unspecified; B96.4 Proteus (mirabilis) (morganii) as the cause of diseases classified elsewhere; F01.50 Vascular dementia, unspecified severity, without behavioral disturbance, psychotic disturbance, mood disturbance, and anxiety; Z86.73 Personal history of transient ischemic attack (TIA), and cerebral infarction without residual deficits; Z79.01 Long term (current) use of anticoagulants; N18.9 Chronic kidney disease, unspecified; W01.0XXA Fall on same level from slipping, tripping and stumbling without subsequent striking against object, initial encounter; Y92.128 Other place in nursing home as the place of occurrence of the external cause; Y99.8 Other external cause status; N40.1 Benign prostatic hyperplasia with lower urinary tract symptoms; R33.8 Other retention of urine; Z66 Do not resuscitate; Z91.81 History of falling; Z96.641 Presence of right artificial hip joint; Z88.0 Allergy status to penicillin; H40.9 Unspecified glaucoma; H25.9 Unspecified age-related cataract; Z90.49 Acquired absence of other specified parts of digestive tract; I25.10 Atherosclerotic heart disease of native coronary artery without angina pectoris
CPT/HCPCS: 36415; 36600; 70450-TC; 71010-TC; 71020-TC; 76775-TC; 76856-TC; 80048; 80053; 81003; 81015; 82436; 82570; 82607; 82728; 82803; 83540; 83550; 83735; 83880; 84100; 84133; 84300; 84443; 84540; 85025; 85610; 86850; 86900; 86901; 87040; 87086; 87186; 93005; 93010; 94640; 97116-GP; 97161-GP; 99284-25